=== PATIENT | female | born 1980 | race Caucasian/White ===

== ENCOUNTER 2023-02-28 19:19 | Emergency (ER) | payer SELFPAY ==
[2023-02-28 19:21] VITALS: BP 160/90; PULSE 106; RESP 18; TEMP 36.9; O2SAT 96; BMI 39.5
--- NOTE | 2023-02-28 20:13 | US_ITS ---
The [address] [address] Patient Name: JULIO CESAR NUNEZ MRN: [id number] date: 1980 Sex: F Assigned Patient Location: ER Current Patient Location: ER Accession/Order Number: [id number] Exam Date: 02/28/2023 20:14 Report Date: 02/28/2023 21:12 At the request of: JED BURT Procedure: US venous doppler LE RT ULTRASOUND OF THE LOWER EXTREMITY VENOUS RIGHT HISTORY: Extremity edema and pain. COMPARISON: None. TECHNIQUE: Multiple sonographic images are performed of the extremity venous system with both color Doppler and grayscale Doppler. Doppler spectral analysis and color flow were performed of the extremity. FINDINGS: There is no evidence of thrombus within the visualized veins. There is adequate phasic and spontaneous flow. There is adequate compression. There is adequate augmentation. No evidence of DVT within the visualized veins of the visualized extremity. No popliteal fluid collection. IMPRESSION: No evidence of DVT within visualized veins. Electronically authenticated by: HARDEEP VANESSA Date: 02/28/2023 21:12
[2023-02-28 20:33] LABS: Hematocrit 32.7 % (36.0-48.0); Hemoglobin 9.9 g/dL (12.0-16.0); Mean Corpuscular HGB Conc 30.3 g/dL (29.9-35.2); Mean Corpuscular Hemoglobin 22.5 pg (26.7-34.0); Red Cell Distribution Width 17.8 % (11.0-15.0); White Blood Count 6.3 10^3/uL (4.0-11.0)
[2023-02-28 20:34] LABS: Basophils Percent Auto 0.6 % (0.2-2.0); Eosinophils Percent Auto 2.1 % (0.9-7.0); Lymphocytes Absolute Auto 1.9 10^3/uL (1.2-3.8); Lymphocytes Percent Auto 30.3 % (20.5-60.0); Mean Platelet Volume 8.8 fL (9.5-13.5); Monocytes Percent Auto 7.4 % (1.7-12.0); Neutrophils Absolute Auto 3.7 10^3/uL (1.4-6.5); Platelet Count 378 10^3/uL (150-450)
[2023-02-28 20:35] LABS: Eosinophils Absolute Auto 0.1 10^3/uL (0.0-0.7); Monocytes Absolute Auto 0.5 10^3/uL (0.3-0.8)
[2023-02-28 20:43] LABS: Alanine Aminotransferase 18 U/L (14-59); Albumin Globulin Ratio 0.8; Albumin Level 3.5 g/dL (3.4-5.0); Alkaline Phosphatase 91 U/L (46-116); Anion Gap 11.9; Aspartate Amino Transferase 12 U/L (15-37); BUN Creatinine Ratio 30.3; Bilirubin Total 0.3 mg/dL (0.2-1.0); Calcium 8.8 mg/dL (8.5-10.1); Chloride 102 mmol/L (98-107); Estimated GFR (African America >60 (>=60); Estimated GFR (Non-African Ame >60 (>=60); Globulin 4.5 g/dL; Glucose 114 mg/dL (74-106); Potassium 3.9 mmol/L (3.5-5.1); Sodium 137 mmol/L (136-145)
[2023-02-28 20:57] LABS: Partial Thromboplastin Time 26.9 sec (22.3-36.2); Prothrombin Time 9.8 sec (9.0-11.6)
[2023-02-28 21:13] LABS: INR 0.93
--- NOTE | 2023-02-28 21:58 | ED.EXTPRO1 ---
HPI - Extremity Problem General Chief complaint: Extremity Problem, Nontraumatic Stated complaint: knee pain Time Seen by Provider: 02/28/23 20:13 Source: patient Mode of arrival: ambulance Limitations: no limitations History of Present Illness HPI Narrative: developed tingling all over and then felt a pop in the soft tissue medial to the right knee at the distal left thigh. Then she noticed it swelled rapidly with bruising underneath. no injury and she does not take blood thinners. She is worried about a blood clot. No history of liver disease or bleeding abnormality. She said she needs referral info for a new PCP - she no longer sees Dr Regalado Related Data Home Medications Medication Instructions Recorded Confirmed losartan 100 mg tablet 100 mg PO DAILY 02/28/23 02/28/23 potassium chloride 20 mEq 20 meq PO DAILY 02/28/23 02/28/23 tablet,extended release(part/cryst) Allergies Allergy/AdvReac Type Severity Reaction Status Date / Time Penicillins Allergy Mild Rash Verified 02/28/23 19:27 PFSH PFS Social History Smoking status: Current every day smoker Exam Narrative Exam Narrative: Nurses notes and vital signs reviewed and patient is not hypoxic. afebrile General: Well-appearing and in no apparent distress. Skin: Warm, dry, no pallor noted. No rash. Head: Normocephalic, atraumatic. Eye: Pupils are equal, round and EOMI. No scleral icterus. Cardiovascular: Regular Rate and Rhythm without murmur, gallop or rub. Respiratory: No accessory muscle use or respiratory distress. Lungs are clear to auscultation, no wheezing, rales or rhonchi Musculoskeletal: soft tissue swelling consistent with large hematoma of the medial aspect of the distal rightt thigh just proximal to the right knee. No pain with rightt knee rom or palpation and no patellar tenderness. remainder of the right LE with normal ROM, no calf or popliteal tenderness, no lower leg or calf edema/swelling GI: Abdomen is soft, non-distended. Normal bowel sounds. No masses appreciated. No tenderness to palpation. No rebound, guarding, or rigidity noted. Neurological: A&O x4. No cranial nerve dysfunction observed. No truncal ataxia. Moves all extremities. Sensation intact. Psychiatric: Cooperative and interactive. Normal mood and affect. Constitutional Vital Signs - 24 hr 02/28/23 19:21 Temperature 98.4 F Pulse Rate [Monitor] 106 H Respiratory Rate 18 Blood Pressure [Right Arm] 160/90 H Pulse Oximetry 96 Oxygen Delivery Method Room Air Course Vital Signs Vital signs: Vital Signs Temperature 98.4 F 02/28/23 19:21 Pulse Rate 106 H 02/28/23 19:21 Respiratory Rate 18 02/28/23 19:21 Blood Pressure 160/90 H 02/28/23 19:21 Pulse Oximetry 96 02/28/23 19:21 Oxygen Delivery Method Room Air 02/28/23 19:21 Temperature 98.4 F 02/28/23 19:21 Pulse Rate 106 H 02/28/23 19:21 Respiratory Rate 18 02/28/23 19:21 Blood Pressure 160/90 H 02/28/23 19:21 Pulse Oximetry 96 02/28/23 19:21 Oxygen Delivery Method Room Air 02/28/23 19:21 MDM - Extremity (Nontraumatic) MDM Narrative Medical decision making narrative: patient developed right distal thigh hematoma without any injury. Labs were unremarkable. No DVT on right LE US. I can not explain what caused this but the ED nurse applied an cristi wrap to the patient's right knee and I encouraged the patient to wear that, keep the leg elevated when inactive and informed her that it should decrease and reabsorb on its own. She has no PCP so we gave her referral info for a new one but I told her to come back to the ED if she develops any worrisome or worsening symptoms. Lab Data Labs: Lab Results 02/28/23 Range/Units 20:21 WBC 6.3 (4.0-11.0) 10^3/uL RBC 4.40 (4.20-5.40) 10^6/uL Hgb 9.9 L (12.0-16.0) g/dL Hct 32.7 L (36.0-48.0) % MCV 74.30 L (81.0-99.0) fL MCH 22.5 L (26.7-34.0) pg MCHC 30.3 (29.9-35.2) g/dL RDW 17.8 H (11.0-15.0) % Plt Count 378 (150-450) 10^3/uL MPV 8.8 L (9.5-13.5) fL Neut % (Auto) 59.0 (43.0-75.0) % Lymph % (Auto) 30.3 (20.5-60.0) % [place] % (Auto) 7.4 (1.7-12.0) % Eos % (Auto) 2.1 (0.9-7.0) % Baso % (Auto) 0.6 (0.2-2.0) % Neut # (Auto) 3.7 (1.4-6.5) 10^3/uL Lymph # (Auto) 1.9 (1.2-3.8) 10^3/uL [place] # (Auto) 0.5 (0.3-0.8) 10^3/uL Eos # (Auto) 0.1 (0.0-0.7) 10^3/uL Baso # (Auto) 0.0 (0.0-0.1) 10^3/uL Abs Immat Gran (auto) 0.00 (0.00-0.03) 10^3/uL Imm/Tot Granulo (auto) 0.0 (0.0-0.5) % PT 9.8 (9.0-11.6) sec INR 0.93 APTT 26.9 (22.3-36.2) sec Sodium 137 (136-145) mmol/L Potassium 3.9 (3.5-5.1) mmol/L Chloride 102 (98-107) mmol/L Carbon Dioxide 27.0 (21.0-32.0) mmol/L Anion Gap 11.9 BUN 20.0 H (7.0-18.0) mg/dL Creatinine 0.66 (0.55-1.02) mg/dL Est GFR ( Amer) >60 (>=60) Est GFR (Non-Af Amer) >60 (>=60) BUN/Creatinine Ratio 30.3 Glucose 114 H (74-106) mg/dL Calcium 8.8 (8.5-10.1) mg/dL Total Bilirubin 0.3 (0.2-1.0) mg/dL AST 12 L (15-37) U/L ALT 18 (14-59) U/L Alkaline Phosphatase 91 (46-116) U/L Total Protein 8.0 (6.4-8.2) g/dL Albumin 3.5 (3.4-5.0) g/dL Globulin 4.5 g/dL Albumin/Globulin Ratio 0.8 Imaging Data left LE US: Radiologist's impression: Patient Name: EZEQUIEL DIEGO MRN: [id number] date: 03/17/1989 Sex: F Assigned Patient Location: ER Current Patient Location: ER Accession/Order Number: [id number] Exam Date: 02/28/2023 19:30 Report Date: 02/28/2023 21:03 At the request of: KELSEA GRIMM Procedure: US venous doppler LE LT ULTRASOUND OF THE LOWER EXTREMITY VENOUS BILATERAL HISTORY: Edema and pain. COMPARISON: None. TECHNIQUE: Multiple sonographic images are performed using grayscale, color Doppler and spectral Doppler of the extremity to evaluate vein patency. FINDINGS: There is no evidence of thrombus within the visualized veins. There is adequate phasic and spontaneous flow. There is adequate compression. There is adequate augmentation. No evidence of DVT within the visualized veins of the extremity. No popliteal fluid collection. Soft tissue edema is seen overlying the anterior lower extremity. IMPRESSION: No evidence of DVT in the visualized veins. Electronically authenticated by: HARDEEP VANESSA Date: 02/28/2023 21:03 Discharge Plan Discharge Chief Complaint: Extremity Problem, Nontraumatic Clinical Impression: Hematoma Patient Disposition: Home, Self-Care Time of Disposition Decision: 21:58 Prescriptions / Home Meds: No Action losartan 100 mg tablet 100 mg PO DAILY potassium chloride 20 mEq tablet,ER particles/crystals 20 meq PO DAILY Instructions: Hematoma (ED) Stand Alone Forms: Portal Instructions Referrals: BLANCA NUNEZ MD [Physician] - 1 week (needs new provider referral information)
[2023-02-28 22:07] VITALS: PULSE 97; O2SAT 98
== END 2023-02-28 22:07 | disposition home or self-care (01) ==
PROVIDERS: Emergency Provider Emergency Medicine; PCP Family Medicine
DX: S70.11XA Contusion of right thigh, initial encounter (principal); F17.210 Nicotine dependence, cigarettes, uncomplicated; Z79.899 Other long term (current) drug therapy
CPT/HCPCS: 36415; 80053; 85025; 85610; 85730; 93971; 99284

== ENCOUNTER 2023-10-24 03:31 | Emergency (ER) | payer SELFPAY ==
[2023-10-24 03:37] VITALS: BP 191/110; PULSE 110; RESP 16; TEMP 36.7; O2SAT 97; BMI 45.6
--- NOTE | 2023-10-24 04:08 | XR_ITS ---
The [address] [address] Patient Name: JULIO CESAR NUNEZ MRN: [id number] date: 1980 Sex: F Assigned Patient Location: ER Current Patient Location: ED[facility] Accession/Order Number: [id number] Exam Date: 10/24/2023 04:15 Report Date: 10/24/2023 05:18 At the request of: KAMLESH MARKER Procedure: XR hand RT min 3V EXAM: XR hand RT min 3V HISTORY: Fall, pain in right thumb. COMPARISON: None. TECHNIQUE: 3 views of the right hand. FINDINGS: There is no evidence of fracture. Severe arthritic disease is present at the first carpometacarpal joint. Interphalangeal joints are maintained. XR/XR hand RT min 3V IMPRESSION: Severe osteoarthritis of the lateral carpus without acute bony abnormality. Electronically authenticated by: MANNY HEAD Date: 10/24/2023 05:18
--- NOTE | 2023-10-24 04:08 | XR_ITS ---
The [address] [address] Patient Name: JULIO CESAR NUNEZ MRN: [id number] date: 1980 Sex: F Assigned Patient Location: ER Current Patient Location: ER Accession/Order Number: [id number] Exam Date: 10/24/2023 04:15 Report Date: 10/24/2023 05:22 At the request of: KAMLESH MARKER Procedure: XR knee RT 3V EXAM: XR knee RT 3V HISTORY: Fall, right knee pain. COMPARISON: None. TECHNIQUE: 3 views of the right knee. FINDINGS: There is no fracture or joint effusion. Advanced end-stage tricompartmental osteoarthritis with joint space narrowing and bulky marginal osteophyte formation. No evidence of lipohemarthrosis. XR/XR knee RT 3V IMPRESSION: End-stage tricompartmental osteoarthritis is advanced for age. There is no discernible fracture. Electronically authenticated by: MANNY HEAD Date: 10/24/2023 05:22
--- NOTE | 2023-10-24 04:08 | ED.FALL1 ---
HPI - Fall General Chief Complaint: Extremity Injury, Lower Stated Complaint: FALL/RT WRIST RT KNEE PAIN Time Seen by Provider: 10/24/23 03:35 Source: patient Mode of arrival: walk-in Limitations: no limitations History of Present Illness HPI Narrative: This 43-year-old female who is right-hand dominant presents forr evaluation of pain in her right thenar eminence and right knee. The patient states she fell down some stairs last Saturday night, approximately 7 days ago. She landed on an outstretched right hand and right knee. She states she injured her knee badly in the past and is now having pain with ambulation in the right medial knee area. She denies striking her head. She has no neck or back pain. 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 There is no numbness or tingling. There is no broken skin. She had to leave work to come to the emergency department because of the pain. Related Data Home Medications Medication Instructions Recorded Confirmed losartan 100 mg tablet 100 mg PO DAILY 02/28/23 02/28/23 potassium chloride 20 mEq 20 meq PO DAILY 02/28/23 02/28/23 tablet,extended release(part/cryst) Allergies Allergy/AdvReac Type Severity Reaction Status Date / Time Penicillins Allergy Mild Rash Verified 10/24/23 03:43 Review of Systems ROS Status of ROS 10 or more systems reviewed and unremarkable except as noted in history and below [facility] Social History Smoking status: Current every day smoker Exam Narrative Exam Narrative: Nurses note and vital signs reviewed; She is afebrile, tachycardic with a pulse of 110, blood pressure is elevated at 190/110, she is not hypoxic with pulse ox 97 percent on room air General: Obese female, she is ambulatory with an antalgic gait to thee right to the right knee pain, no respiratory distress Skin: Warm, dry, no pallor noted. There is no rash noted. Head: Normocephalic, atraumatic Eye: Normal conjunctiva, no drainage, EOMI. PERRL Neck: No midline bony vertebral tenderness or step-off Cardiovascular: Regular Rate and RhythmStarted with pulse of 110 at triage, pulses are brisk and equal bilaterally Respiratory: Patient is in no distress, no accessory muscle use, lungs are clear to auscultation, no wheezing, rales or rhonchi Back: non-tender GI: Normal bowel sounds, no tenderness to palpation, no masses appreciated. No rebound, guarding, or rigidity noted. Musculoskeletal: Tenderness with mild swelling to the right thenar eminence, patient is able to approximate thumb and all fingers but this causes her some degree of discomfort, there is tenderness the medial aspect of the right knee. Joint is stable. There is no abrasion or ecchymosis to the area. There is no calf swelling or tenderness Neurological: A&O x4, normal speech Psychiatric: Cooperative Constitutional Vital Signs, click to edit/add: Last Vital Signs Temp 98.1 F 10/24/23 03:37 Pulse 110 H 10/24/23 03:37 Resp 16 10/24/23 03:37 BP 191/110 H 10/24/23 03:37 Pulse Ox 97 10/24/23 03:37 O2 Del Method Room Air 10/24/23 03:37 Course Vital Signs Vital signs: Vital Signs Temperature 98.1 F 10/24/23 03:37 Pulse Rate 110 H 10/24/23 03:37 Respiratory Rate 16 10/24/23 03:37 Blood Pressure 191/110 H 10/24/23 03:37 Pulse Oximetry 97 10/24/23 03:37 Oxygen Delivery Method Room Air 10/24/23 03:37 Temperature 98.1 F 10/24/23 03:37 Pulse Rate 110 H 10/24/23 03:37 Respiratory Rate 16 10/24/23 03:37 Blood Pressure 191/110 H 10/24/23 03:37 Pulse Oximetry 97 10/24/23 03:37 Oxygen Delivery Method Room Air 10/24/23 03:37 MDM - Fall MDM Narrative Medical decision making narrative: This 43-year-old female who is morbidly obese with history off hypertension who has been noncompliant with her blood pressure medication since last April presents after she had a fall from standing on Saturday night and landed on her right hand and right knee. She has tenderness over her proximal thumb. She has full range of motion but there is some swelling in this area. She also has some tenderness at the medial aspect of the right knee. She denies striking her head. She has no neck or back pain. She was notably tachycardic and hypertensive at triage. Her neuro exam is otherwise normal. She has no chest pain or shortness of breath. She is medicated emergency department with Tylenol and Motrin for her hand and knee injuries. X-rays of the right hand show no fracture but osteoarthritis and x-rays of the right knee show no fracture but also tricompartmental osteoarthritis. She was placed in an Ney wrap over the right knee and to the right thumb as we did not have a thumb spica splint available. She is medicated emergency department with losartan. She agrees to receiving a perception for losartan to start taking this medication again. She was encouraged to be compliant with her blood pressure medication as her blood pressure is markedly elevated and dangerous. She states she has been admitted before for her blood pressure but is noncompliant and will try to take her medications as prescribed in the future. She will be discharged home with this prescription for losartan as well as a prescription for [place] and ibuprofen. She will be referred to outpatient orthopedics. Medical Records Medical records narrative: [place] [address] XRay Report Draft Patient: JULIO CESAR NUNEZ MR#: [id number] : 1980 Acct:[id number] Age/Sex: 43 / F ADM Date: 10/24/23 Loc: ER Attending Dr: Ordering Physician: Pauline Oneill Date of Service: 10/24/23 Procedure(s): XR hand RT min 3V Accession Number(s): [id number] cc: ~ The [place] [address] Patient Name: JULIO CESAR NUNEZ MRN: [id number] date: 1980 Sex: F Assigned Patient Location: ER Current Patient Location: ER Accession/Order Number: [id number] Exam Date: 10/24/2023 04:15 Report Date: 10/24/2023 04:35 At the request of: PAULINE ONEILL Procedure: XR hand RT min 3V Initial impression only. XR/XR hand RT min 3V IMPRESSION: Severe osteoarthritis of the lateral carpus without acute bony abnormality. Electronically authenticated by: MANNY HEAD Date: 10/24/2023 04:[address] [address] XRay Report Draft Patient: JULIO CESAR NUNEZ MR#: [id number] : 1980 Acct:[id number] Age/Sex: 43 / F ADM Date: 10/24/23 Loc: ER Attending Dr: Ordering Physician: Pauline Oneill Date of Service: 10/24/23 Procedure(s): XR knee RT 3V Accession Number(s): [id number] cc: ~ [place] [address] Patient Name: JULIO CESAR NUNEZ MRN: [id number] date: 1980 Sex: F Assigned Patient Location: ER Current Patient Location: ER Accession/Order Number: [id number] Exam Date: 10/24/2023 04:15 Report Date: 10/24/2023 04:50 At the request of: PAULINE ONEILL Procedure: XR knee RT 3V EXAM: XR knee RT 3V HISTORY: Fall, right knee pain. COMPARISON: None. TECHNIQUE: 3 views of the right knee. FINDINGS: There is no fracture or joint effusion. Advanced end-stage tricompartmental osteoarthritis with joint space narrowing and bulky marginal osteophyte formation. No evidence of lipohemarthrosis. XR/XR knee RT 3V IMPRESSION: End-stage tricompartmental osteoarthritis is advanced for age. There is no discernible fracture. Discharge Plan Discharge Chief Complaint: Extremity Injury, Lower Clinical Impression: Fall from standing, Osteoarthritis, Contusion of knee, right, Sprain of right thumb, Hypertension Patient Disposition: Home, Self-Care Time of Disposition Decision: 05:16 Condition: Good Prescriptions / Home Meds: No Action losartan 100 mg tablet 100 mg PO DAILY potassium chloride 20 mEq tablet,ER particles/crystals 20 meq PO DAILY Instructions: Sprain (ED), Osteoarthritis (ED), Contusion in Adults (ED), Finger Sprain (ED) Stand Alone Forms: Portal Instructions Referrals: Darian Regalado MD [Primary Care Provider] - 1 week Martell Cardozo MD [Physician] - 1 week
[2023-10-24] MEDS: ACETAMINOPHEN 325 MG TABLET 650 MG PO (05:00)
[2023-10-24] MEDS: IBUPROFEN 600 MG TABLET PO (05:01)
[2023-10-24 05:22] VITALS: BP 200/102
[2023-10-24] MEDS: LOSARTAN POTASSIUM 50 MG TABLET 100 MG PO (05:48)
--- NOTE | 2023-10-27 09:46 | PC.NURSE ---
CALLED IN 2 PRESCRIPTIONS TO [facility] IN [place] -- ONE FOR NORCO AND ONE FOR MOTRIN. CALLED PT'S # AND GOT AHOLD OF PT'S NEIGHBOR. PT'S NEIGHBOR SAID HE WOULD TELL PT TO CALL ER.
== END 2023-10-24 06:06 | disposition home or self-care (01) ==
PROVIDERS: Emergency Provider Emergency Medicine; PCP Family Medicine
DX: S80.01XA Contusion of right knee, initial encounter (principal); S63.601A Unspecified sprain of right thumb, initial encounter; W18.39XA Other fall on same level, initial encounter; M18.11 Unilateral primary osteoarthritis of first carpometacarpal joint, right hand; M17.11 Unilateral primary osteoarthritis, right knee; F17.200 Nicotine dependence, unspecified, uncomplicated; E66.01 Morbid (severe) obesity due to excess calories; I10 Essential (primary) hypertension; Z91.148 Patient's other noncompliance with medication regimen for other reason; Z68.42 Body mass index [BMI] 45.0-49.9, adult
CPT/HCPCS: 73130; 73562; 99284

== ENCOUNTER 2024-01-22 14:53 | Emergency (ER) | payer SELFPAY ==
[2024-01-22 15:11] VITALS: BP 169/99; PULSE 98; TEMP 36.6; O2SAT 97; BMI 45.6
--- NOTE | 2024-01-22 15:32 | ED_ITS ---
HPI - Ear Problem General Chief complaint: Ear Stated complaint: EARACHE Time Seen by Provider: 01/22/24 15:15 Source: patient Mode of arrival: walk-in Limitations: no limitations History of Present Illness HPI Narrative: Ends to ED complaining of left ear pain. She said has been feeling full the past couple of days and she has been having some pain there. It also made her a little bit dizzy on occasion. She says she has been digging at it and is not sure if she irritated it. She denies any facial pain no nausea vomiting no cough. Denies sore throat. No fevers. Related Data Home Medications ?Medication ?Instructions ?Recorded ?Confirmed losartan 100 mg tablet 100 mg PO DAILY 02/28/23 02/28/23 potassium chloride 20 mEq 20 meq PO DAILY 02/28/23 02/28/23 tablet,extended release(part/cryst) Previous Rx's ?Medication ?Instructions ?Recorded ciprofloxacin 0.3 %-dexamethasone 4 drp otic (ear) BID 7 days #7.5 mL 01/22/24 0.1 % ear drops,suspension (Ciprodex) Allergies Allergy/AdvReac Type Severity Reaction Status Date / Time Penicillins Allergy Mild Rash Verified 10/24/23 03:43 Review of Systems ROS Status of ROS 10 or more systems reviewed and unremark able except as noted in history and below [facility] Social History Smoking status: Current every day smoker Exam Narrative Exam Narrative: General: alert, no acute distress Cardiovascular: regular rate and rhythm, normal peripheral perfusion. Respiratory: Lungs CTA, respirations non labored. Extremities: no deformity, no trauma. Neurological: oriented x 4, LOC appropriate for age. Right ear clear left ear shows erythema in the canal and mild pain with movement of the pinna Constitutional Vital Signs, click to edit/add: Last Vital Signs Temp 97.9 F 01/22/24 15:11 Pulse 98 H 01/22/24 15:11 Resp 20 01/22/24 15:11 BP 169/99 H 01/22/24 15:11 Pulse Ox 97 01/22/24 15:11 O2 Del Method Room Air 01/22/24 15:11 Course Vital Signs Vital signs: Vital Signs Temperature 97.9 F 01/22/24 15:11 Pulse Rate 98 H 01/22/24 15:11 Respiratory Rate 20 01/22/24 15:11 Blood Pressure 169/99 H 01/22/24 15:11 Pulse Oximetry 97 01/22/24 15:11 Oxygen Delivery Method Room Air 01/22/24 15:11 Temperature 97.9 F 01/22/24 15:11 Pulse Rate 98 H 01/22/24 15:11 Respiratory Rate 20 01/22/24 15:11 Blood Pressure 169/99 H 01/22/24 15:11 Pulse Oximetry 97 01/22/24 15:11 Oxygen Delivery Method Room Air 01/22/24 15:11 Medical Decision Making MDM Narrative Medical decision making narrative: Patient has a mild otitis externa. Will place on antibiotic drops with the steroid mixed in. Follow-up with family doctor. Return to ED if worsening symptoms. Differential Diagnosis Differential Diagnosis: Otitis media, otitis externa, URI Medical Records Medical records reviewed: Yes I reviewed the patient's medical records Discharge Plan Discharge Stand Alone Forms: Portal Instructions Chief Complaint: Ear Clinical Impression: Otitis externa Patient Disposition: Home, Self-Care Time of Disposition Decision: 15:34 Mode of Transportation: Private Vehicle Prescriptions / Home Meds: New ciprofloxacin-dexamethasone [Ciprodex] 0.3-0.1 % drops,suspension 4 drp otic (ear) BID 7 Days Qty: 7.5 0RF No Action losartan 100 mg tablet 100 mg PO DAILY potassium chloride 20 mEq tablet,ER particles/crystals 20 meq PO DAILY Print Language: Georgian Instructions: Swimmer's Ear (ED) Referrals: Darian Regalado MD [Primary Care Provider] - 1 week
[2024-01-22 15:54] VITALS: PULSE 88; O2SAT 97
== END 2024-01-22 15:56 | disposition home or self-care (01) ==
PROVIDERS: Emergency Provider Emergency Medicine; PCP Family Medicine
DX: H60.92 Unspecified otitis externa, left ear (principal); Z79.899 Other long term (current) drug therapy; F17.210 Nicotine dependence, cigarettes, uncomplicated
CPT/HCPCS: 99283

== ENCOUNTER 2024-03-28 09:00 | Emergency (ER) | payer OTHER, SELFPAY ==
[2024-03-28 09:02] VITALS: BP 193/104; PULSE 104; TEMP 36.7; O2SAT 98; BMI 45.6
[2024-03-28 09:08] VITALS: BP 173/85
--- NOTE | 2024-03-28 10:11 | ED.EXTPRO1 ---
HPI - Extremity Problem General Chief complaint: Extremity Problem, Nontraumatic Stated complaint: LOWER EXTREMITY PAIN Time Seen by Provider: 03/28/24 09:28 Source: patient Mode of arrival: walk-in History of Present Illness HPI Narrative: The patient presented to us with a soft tissue swelling in the medial aspect of the left knee. That has been going on at least for a year. Patient is complaining of increasing pain in that area denying any other complaint No chest pain no shortness of breath no nausea no vomiting no trauma She mentioned that over the year she has been having more knee pain because of that mass and the way that she have to walk Related Data Home Medications ?Medication ?Instructions ?Recorded ?Confirmed losartan 100 mg tablet 100 mg PO DAILY 02/28/23 03/28/24 potassium chloride 20 mEq 20 meq PO DAILY 02/28/23 03/28/24 tablet,extended release(part/cryst) Previous Rx's ?Medication ?Instructions ?Recorded meloxicam 15 mg tablet 15 mg PO DAILY PRN pain #10 tabs 03/28/24 Allergies Allergy/AdvReac Type Severity Reaction Status Date / Time Penicillins Allergy Mild Rash Verified 10/24/23 03:43 Review of Systems ROS Status of ROS 10 or more systems reviewed and unremarkable except as noted in history and below [facility] Social History Smoking status: Current every day smoker Exam Narrative Exam Narrative: Nurses notes and vital signs reviewed and patient is not hypoxic. General: Well-appearing and in no apparent distress. Skin: Warm, dry, no pallor noted. No rash. Head: Normocephalic, atraumatic. Neck: Supple, non-tender. Eye: Pupils are equal, round and EOMI. No scleral icterus. Ears, Nose, Mouth, and Throat: TM are clear, no nasal mucosal hypertrophy. Oral mucosa is moist, no posterior oropharynx erythema, uvula is mid-line Cardiovascular: Regular Rate and Rhythm without murmur, gallop or rub. Respiratory: No accessory muscle use or respiratory distress. Lungs are clear to auscultation, no wheezing, rales or rhonchi Chest Wall: no tenderness Back: The patient have no calf tenderness she have soft tissue lipoma-like mass on the medial aspect of the left knee mostly proximally there is no redness or hotness or any signs of infection. There is no fluctuation and the patient have a something similar in the medial aspect of the left knee Musculoskeletal: normal ROM, no calf or popliteal tenderness, no lower extremity edema/swelling GI: Abdomen is soft, non-distended. Normal bowel sounds. No masses appreciated. No tenderness to palpation. No rebound, guarding, or rigidity noted. Neurological: A&O x4. No cranial nerve dysfunction observed. No truncal ataxia. Moves all extremities. Sensation intact. Psychiatric: Cooperative and interactive. Normal mood and affect. Constitutional Vital Signs, click to edit/add: Last Vital Signs Temp 98.0 F 03/28/24 09:02 Pulse 104 H 03/28/24 09:02 Resp 18 03/28/24 09:02 BP 173/85 H 03/28/24 09:08 Pulse Ox 98 03/28/24 09:02 O2 Del Method Room Air 03/28/24 09:02 Course Vital Signs Vital signs: Vital Signs Temperature 98.0 F 03/28/24 09:02 Pulse Rate 104 H 03/28/24 09:02 Respiratory Rate 18 03/28/24 09:02 Blood Pressure 193/104 H 03/28/24 09:02 Pulse Oximetry 98 03/28/24 09:02 Oxygen Delivery Method Room Air 03/28/24 09:02 Temperature 98.0 F 03/28/24 09:02 Pulse Rate 104 H 03/28/24 09:02 Respiratory Rate 18 03/28/24 09:02 Blood Pressure 173/85 H 03/28/24 09:08 Pulse Oximetry 98 03/28/24 09:02 Oxygen Delivery Method Room Air 03/28/24 09:02 MDM - Extremity (Nontraumatic) MDM Narrative Medical decision making narrative: The patient had a CBC chemistry showed no acute pathology and the D-dimer was elevated but with this patient presentation the concern is mostly not DVT But the way that this is a possibly a lipoma that causing some pushing on the knee the patient needs further evaluation by orthopedic Right now the patient will have a Duplex done as outpatient to rule out any DVT although less likely but should be covered today with Lovenox The patient to rest and avoid any exertion for the next few days until she rule out DVT The patient to follow-up with orthopedic as outpatient Nebulizer placed and the patient was started on Mobic for pain management The patient is to follow up with primary care physician in next 2-3 days or to return to the emergency department should any of the signs or symptoms worsen or new symptoms develop. The patient agrees with the following Diagnosis and Treatment plan and the patient will be discharged home. Lab Data Labs: Lab Results 03/28/24 Range/Units 10:07 WBC 6.6 (4.0-11.0) 10^3/uL RBC 4.50 (4.20-5.40) 10^6/uL Hgb 9.1 L (12.0-16.0) g/dL Hct 32.5 L (36.0-48.0) % MCV 72.2 L (81.0-99.0) fL MCH 20.2 L (26.7-34.0) pg MCHC 28.0 L (29.9-35.2) g/dL RDW 19.9 H (11.0-15.0) % Plt Count 350 (150-450) 10^3/uL MPV 8.8 L (9.5-13.5) fL Neut % (Auto) 55.0 (43.0-75.0) % Lymph % (Auto) 30.1 (20.5-60.0) % [place] % (Auto) 11.1 (1.7-12.0) % Eos % (Auto) 2.9 (0.9-7.0) % Baso % (Auto) 0.6 (0.2-2.0) % Neut # (Auto) 3.6 (1.4-6.5) 10^3/uL Lymph # (Auto) 2.0 (1.2-3.8) 10^3/uL [place] # (Auto) 0.7 (0.3-0.8) 10^3/uL Eos # (Auto) 0.2 (0.0-0.7) 10^3/uL Baso # (Auto) 0.0 (0.0-0.1) 10^3/uL Abs Immat Gran (auto) 0.02 (0.00-0.03) 10^3/uL Imm/Tot Granulo (auto) 0.3 (0.0-0.5) % PT 10.3 (9.0-11.6) sec INR 0.97 APTT 28.2 (22.3-36.2) sec D-Dimer 0.90 H* (<=0.59) mg/L FEU Sodium 138 (136-145) mmol/L Potassium 3.8 (3.5-5.1) mmol/L Chloride 102 (98-107) mmol/L Carbon Dioxide 29.5 (21.0-32.0) mmol/L Anion Gap 10.3 BUN 13.0 (7.0-18.0) mg/dL Creatinine 0.73 (0.55-1.02) mg/dL Est GFR ( Amer) >60 (>=60) Est GFR (Non-Af Amer) >60 (>=60) BUN/Creatinine Ratio 17.8 Glucose 96 (74-106) mg/dL Calcium 8.8 (8.5-10.1) mg/dL Total Bilirubin 0.4 (0.2-1.0) mg/dL AST 15 (15-37) U/L ALT 25 (14-59) U/L Alkaline Phosphatase 107 (46-116) U/L Total Protein 7.6 (6.4-8.2) g/dL Albumin 3.2 L (3.4-5.0) g/dL Globulin 4.4 g/dL Albumin/Globulin Ratio 0.7 Discharge Plan Discharge Stand Alone Forms: Portal Instructions Chief Complaint: Extremity Problem, Nontraumatic Clinical Impression: Acute knee pain Qualifiers: Laterality: right Qualified Code(s): M25.561 - Pain in right knee Knee mass Qualifiers: Laterality: right Qualified Code(s): R22.41 - Localized swelling, mass and lump, right lower limb Patient Disposition: Home, Self-Care Time of Disposition Decision: 11:04 Condition: Good Prescriptions / Home Meds: New meloxicam 15 mg tablet 15 mg PO DAILY PRN (Reason: pain ) Qty: 10 0RF No Action losartan 100 mg tablet 100 mg PO DAILY potassium chloride 20 mEq tablet,ER particles/crystals 20 meq PO DAILY Print Language: Portuguese Instructions: Arthralgia (ED), Swollen Joint (ED) Referrals: Darian Regalado MD [Primary Care Provider] - 1 week Martell Cardozo MD [Physician] - As soon as possible
[2024-03-28 10:13] LABS: Basophils Percent Auto 0.6 % (0.2-2.0); Eosinophils Absolute Auto 0.2 10^3/uL (0.0-0.7); Eosinophils Percent Auto 2.9 % (0.9-7.0); Hematocrit 32.5 % (36.0-48.0); Hemoglobin 9.1 g/dL (12.0-16.0); Immature Granulocytes Abs Auto 0.02 10^3/uL (0.00-0.03); Immature Granulocytes Pct Auto 0.3 % (0.0-0.5); Lymphocytes Percent Auto 30.1 % (20.5-60.0); Mean Corpuscular Hemoglobin 20.2 pg (26.7-34.0); Mean Corpuscular Volume 72.2 fL (81.0-99.0); Mean Platelet Volume 8.8 fL (9.5-13.5); Monocytes Absolute Auto 0.7 10^3/uL (0.3-0.8); Monocytes Percent Auto 11.1 % (1.7-12.0); Neutrophils Absolute Auto 3.6 10^3/uL (1.4-6.5); Platelet Count 350 10^3/uL (150-450); Red Cell Distribution Width 19.9 % (11.0-15.0); White Blood Count 6.6 10^3/uL (4.0-11.0)
[2024-03-28 10:30] LABS: Alanine Aminotransferase 25 U/L (14-59); Albumin Globulin Ratio 0.7; Albumin Level 3.2 g/dL (3.4-5.0); Alkaline Phosphatase 107 U/L (46-116); Anion Gap 10.3; Aspartate Amino Transferase 15 U/L (15-37); BUN Creatinine Ratio 17.8; Bilirubin Total 0.4 mg/dL (0.2-1.0); Calcium 8.8 mg/dL (8.5-10.1); Carbon Dioxide 29.5 mmol/L (21.0-32.0); Chloride 102 mmol/L (98-107); Estimated GFR (African America >60 (>=60); Estimated GFR (Non-African Ame >60 (>=60); Globulin 4.4 g/dL; Glucose 96 mg/dL (74-106); Potassium 3.8 mmol/L (3.5-5.1); Sodium 138 mmol/L (136-145); Total Protein 7.6 g/dL (6.4-8.2)
[2024-03-28 10:36] LABS: INR 0.97; Partial Thromboplastin Time 28.2 sec (22.3-36.2); Prothrombin Time 10.3 sec (9.0-11.6)
[2024-03-28] MEDS: ENOXAPARIN SODIUM 80 MG/0.8 ML SYRINGE SUBQ (11:13)
[2024-03-28] MEDS: ENOXAPARIN SODIUM 60 MG/0.6 ML SYRINGE SUBQ (11:13)
== END 2024-03-28 11:28 | disposition home or self-care (01) ==
PROVIDERS: Emergency Provider Emergency Medicine; PCP Family Medicine
DX: M25.561 Pain in right knee (principal); R22.41 Localized swelling, mass and lump, right lower limb; F17.200 Nicotine dependence, unspecified, uncomplicated; R79.89 Other specified abnormal findings of blood chemistry
CPT/HCPCS: 36415; 80053; 85025; 85378; 85610; 85730; 96372; 99284; J1650

== ENCOUNTER 2024-03-30 13:28 | Emergency (ER) | payer OTHER, SELFPAY ==
[2024-03-30 13:35] VITALS: BP 194/102; PULSE 98; TEMP 36.9; O2SAT 96; BMI 45.6
--- NOTE | 2024-03-30 13:45 | CT_ITS ---
The [address] [address] Patient Name: JULIO CESAR NUNEZ MRN: [id number] date: 1980 Sex: F Assigned Patient Location: ER Current Patient Location: ER Accession/Order Number: [id number] Exam Date: 03/30/2024 15:34 Report Date: 03/30/2024 15:53 At the request of: FLOYD MACARIO Procedure: CT head/brain wo con EXAM: CT head/brain wo con HISTORY: Headache COMPARISON: None. TECHNIQUE: Axial CT scans through the head were obtained without IV contrast administration. Dose reduction techniques were achieved by using: automated exposure control and/or adjustment of mA and /or kV according to patient size and/or use of iterative reconstruction technique. FINDINGS: There is no acute intracranial hemorrhage or abnormal extra-axial fluid collection. No mass effect or midline shift is seen. There is no evidence of large acute territorial infarction. There is no hydrocephalus. To the limit of CT, the posterior fossa appears unremarkable. The calvaria and extra cranial soft tissues are unremarkable. The visualized orbits show no abnormality. The visualized paranasal sinuses show no air-fluid level. Mastoid air cells are clear. CT/CT head/brain wo con IMPRESSION: No acute intracranial process. Electronically authenticated by: FALLON LOPEZ Date: 03/30/2024 15:53
--- NOTE | 2024-03-30 13:45 | US_ITS ---
[place] [id number] Patient Name: JULIO CESAR NUNEZ MRN: [id number] date: 1980 Sex: F Assigned Patient Location: ER Current Patient Location: ER Accession/Order Number: [id number] Exam Date: 03/30/2024 14:35 Report Date: 03/30/2024 15:35 At the request of: FLOYD MACARIO Procedure: US venous doppler LE BI EXAM: US venous doppler LE BI HISTORY: Lower extremity pain COMPARISON: None. TECHNIQUE: Grayscale, color and Doppler FINDINGS: Region: Bilateral legs Thrombus: None Flow: Normal Augmentation: Normal Compressibility: Normal Other: Poor visualization bilateral calf veins US/US venous doppler LE BI IMPRESSION: No deep or superficial vein thrombus identified in the legs Electronically authenticated by: TOBI ANGELO Date: 03/30/2024 15:35
--- NOTE | 2024-03-30 13:47 | ED.GENADUL1 ---
HPI HPI - General Adult General Chief complaint: Headache Stated complaint: LOWER EXTREMITY PAIN, HEADACHE Time Seen by Provider: 03/30/24 13:34 Source: patient Mode of arrival: walk-in Limitations: no limitations History of Present Illness HPI narrative: Patient 44-year-old female presents to the emergency department for the evaluation of multiple complaints. Patient was seen in this emergency department 2 days ago for right knee pain that she states has been present for several weeks. She had lab work and x-rays performed and was found to have an elevated D-dimer. Ultrasound was unavailable so the patient was given a shot of Lovenox and instructed to follow-up for an outpatient ultrasound. She brings the order with her today, she did not have this test performed and just checked back into the emergency department. She states she now has pain in the left knee, although she has not had any swelling or redness. She also complains of a global headache that has been present for the last 3 days, she has been using Tylenol without improvement. She denies visual changes, neck pain, peripheral paresthesias, vomiting. She is drinking a big gulp at the bedside. No concern for . She has history of migraines but states they typically do not last this long. Related Data Home Medications ?Medication ?Instructions ?Recorded ?Confirmed losartan 100 mg tablet 100 mg PO DAILY 02/28/23 03/28/24 potassium chloride 20 mEq 20 meq PO DAILY 02/28/23 03/28/24 tablet,extended release(part/cryst) Previous Rx's ?Medication ?Instructions ?Recorded meloxicam 15 mg tablet 15 mg PO DAILY PRN pain #10 tabs 03/28/24 methylprednisolone 4 mg tablets in See Rx Instructions .Route 03/30/24 a dose pack (Medrol (Roger)) .COMPLEX #21 ea Allergies Allergy/AdvReac Type Severity Reaction Status Date / Time Penicillins Allergy Mild Rash Verified 10/24/23 03:43 Opioid HPI Opioid Management Most Recent Opioid Data: Last Pain Scale 8 03/30/24 14:01 Review of Systems ROS Constitutional Denies: fever or chills Ears, nose, mouth, and throat Denies: throat pain or nasal congestion Respiratory Denies: shortness of breath Gastrointestinal Denies: nausea or vomiting Musculoskeletal Denies: back pain Integumentary/Breast Denies: rash Neurological Denies: headache Hematologic/Lymphatic Denies: easy bruising or easy bleeding PFSH PFSH Social History Smoking status: Current every day smoker Exam Narrative Exam Narrative: Gen.: Awake, alert, in no distress Head: Normocephalic, atraumatic ENT: Moist mucous membranes, no nuchal rigidity or meningismus Respiratory: No respiratory distress Extremities: Moves extremities equally, bilateral knees are symmetric, no calf swelling or redness. No bony point tenderness or obvious deformity of the knees. Psych: Normal mood and affect Neuro: No focal neuro deficit Skin: Warm, dry, intact Constitutional Vital Signs, click to edit/add: Last Vital Signs Temp 98.4 F 03/30/24 13:35 Pulse 98 H 03/30/24 13:35 Resp 18 03/30/24 13:35 BP 178/90 H 03/30/24 15:52 Pulse Ox 96 03/30/24 13:35 O2 Del Method Room Air 03/30/24 13:35 Course Vital Signs Vital signs: Vital Signs Temperature 98.4 F 03/30/24 13:35 Pulse Rate 98 H 03/30/24 13:35 Respiratory Rate 18 03/30/24 13:35 Blood Pressure 194/102 H 03/30/24 13:35 Pulse Oximetry 96 03/30/24 13:35 Oxygen Delivery Method Room Air 03/30/24 13:35 Temperature 98.4 F 03/30/24 13:35 Pulse Rate 98 H 03/30/24 13:35 Respiratory Rate 18 03/30/24 13:35 Blood Pressure 178/90 H 03/30/24 15:52 Pulse Oximetry 96 03/30/24 13:35 Oxygen Delivery Method Room Air 03/30/24 13:35 Medical Decision Making [facility] Narrative Medical decision making narrative: Patient sent for CT of the brain which is unremarkable, headache resolved after IV fluids, Reglan, Benadryl, Toradol. She continues to complain of leg pain. Bilateral lower extremity ultrasound is unremarkable and labs are stable. She was prescribed meloxicam on Saturday which she neglected to fill. She is discharged home to fill this prescription and follow-up with her PCP. Return to the ER if symptoms change or worsen SUPERVISED APC VISIT, PHYSICIAN ATTESTATION: Based on the medical record the care appears appropriate. ? Medical Records Medical records reviewed: Yes I reviewed the patient's medical records Lab Data Lab results reviewed: Yes I reviewed the patient's lab results Labs: Lab Results 03/30/24 Range/Units 13:55 WBC 7.1 (4.0-11.0) 10^3/uL RBC 4.81 (4.20-5.40) 10^6/uL Hgb 9.9 L (12.0-16.0) g/dL Hct 35.3 L (36.0-48.0) % MCV 73.4 L (81.0-99.0) fL MCH 20.6 L (26.7-34.0) pg MCHC 28.0 L (29.9-35.2) g/dL RDW 20.1 H (11.0-15.0) % Plt Count 361 (150-450) 10^3/uL MPV 9.4 L (9.5-13.5) fL Neut % (Auto) 65.0 (43.0-75.0) % Lymph % (Auto) 22.1 (20.5-60.0) % [place] % (Auto) 9.0 (1.7-12.0) % Eos % (Auto) 2.9 (0.9-7.0) % Baso % (Auto) 0.6 (0.2-2.0) % Neut # (Auto) 4.6 (1.4-6.5) 10^3/uL Lymph # (Auto) 1.6 (1.2-3.8) 10^3/uL [place] # (Auto) 0.6 (0.3-0.8) 10^3/uL Eos # (Auto) 0.2 (0.0-0.7) 10^3/uL Baso # (Auto) 0.0 (0.0-0.1) 10^3/uL Abs Immat Gran (auto) 0.03 (0.00-0.03) 10^3/uL Imm/Tot Granulo (auto) 0.4 (0.0-0.5) % PT 10.0 (9.0-11.6) sec INR 0.94 Sodium 137 (136-145) mmol/L Potassium 3.8 (3.5-5.1) mmol/L Chloride 102 (98-107) mmol/L Carbon Dioxide 25.9 (21.0-32.0) mmol/L Anion Gap 12.9 BUN 16.0 (7.0-18.0) mg/dL Creatinine 0.69 (0.55-1.02) mg/dL Est GFR ( Amer) >60 (>=60) Est GFR (Non-Af Amer) >60 (>=60) BUN/Creatinine Ratio 23.2 Glucose 130 H (74-106) mg/dL Calcium 8.8 (8.5-10.1) mg/dL Total Bilirubin 0.3 (0.2-1.0) mg/dL AST 16 (15-37) U/L ALT 19 (14-59) U/L Alkaline Phosphatase 114 (46-116) U/L Total Protein 7.7 (6.4-8.2) g/dL Albumin 3.2 L (3.4-5.0) g/dL Globulin 4.5 g/dL Albumin/Globulin Ratio 0.7 Serum HCG, Qual Negative (NEGATIVE) Imaging Data CT scan - head: Attestation: I have reviewed the pertinent imaging results. Radiologist's impression: ITS Impressions Head CT 03/30/24 13:45 IMPRESSION: No acute intracranial process. Electronically authenticated by: FALLON LOPEZ Date: 03/30/2024 15:53 Venous Doppler Study 03/30/24 13:45 IMPRESSION: No deep or superficial vein thrombus identified in the legs Electronically authenticated by: TOBI ANGELO Date: 03/30/2024 15:35 Discharge Plan Discharge Stand Alone Forms: Portal Instructions Chief Complaint: Headache Clinical Impression: Acute bilateral knee pain, Headache Patient Disposition: Home, Self-Care Time of Disposition Decision: 15:58 Condition: Good Prescriptions / Home Meds: New methylprednisolone [Medrol (Roger)] 4 mg tablets,dose pack See Rx Instructions .ROUTE .COMPLEX Qty: 21 0RF Rx Instructions: Taper as directed No Action losartan 100 mg tablet 100 mg PO DAILY potassium chloride 20 mEq tablet,ER particles/crystals 20 meq PO DAILY meloxicam 15 mg tablet 15 mg PO DAILY PRN (Reason: pain ) Qty: 10 0RF Print Language: Hebrew Instructions: Acute Headache (ED), Knee Pain (ED) Referrals: Darian Regalado MD [Primary Care Provider] - 1 week
[2024-03-30] MEDS: 0.9 % SODIUM CHLORIDE 1,000 ML 999 ML IV (13:55)
[2024-03-30] MEDS: DIPHENHYDRAMINE HCL 50 MG/ML VIAL 25 MG IV (13:55)
[2024-03-30] MEDS: KETOROLAC TROMETHAMINE 30 MG/ML VIAL IVP (13:57)
[2024-03-30] MEDS: METOCLOPRAMIDE HCL 10 MG/2 ML VIAL IVP (13:58)
[2024-03-30 14:10] LABS: Basophils Percent Auto 0.6 % (0.2-2.0); Eosinophils Absolute Auto 0.2 10^3/uL (0.0-0.7); Eosinophils Percent Auto 2.9 % (0.9-7.0); Hematocrit 35.3 % (36.0-48.0); Hemoglobin 9.9 g/dL (12.0-16.0); Immature Granulocytes Abs Auto 0.03 10^3/uL (0.00-0.03); Immature Granulocytes Pct Auto 0.4 % (0.0-0.5); Lymphocytes Absolute Auto 1.6 10^3/uL (1.2-3.8); Lymphocytes Percent Auto 22.1 % (20.5-60.0); Mean Corpuscular Hemoglobin 20.6 pg (26.7-34.0); Mean Corpuscular Volume 73.4 fL (81.0-99.0); Mean Platelet Volume 9.4 fL (9.5-13.5); Monocytes Absolute Auto 0.6 10^3/uL (0.3-0.8); Neutrophils Absolute Auto 4.6 10^3/uL (1.4-6.5); Platelet Count 361 10^3/uL (150-450); Red Blood Count 4.81 10^6/uL (4.20-5.40); White Blood Count 7.1 10^3/uL (4.0-11.0)
[2024-03-30 14:36] LABS: HCG Qualitative NEGATIVE (NEGATIVE); Internal Control Within Normal Limits; Red Cell Distribution Width 20.1 % (11.0-15.0)
[2024-03-30 14:42] LABS: INR 0.94
[2024-03-30 14:48] LABS: Alanine Aminotransferase 19 U/L (14-59); Albumin Globulin Ratio 0.7; Albumin Level 3.2 g/dL (3.4-5.0); Alkaline Phosphatase 114 U/L (46-116); Anion Gap 12.9; Aspartate Amino Transferase 16 U/L (15-37); BUN Creatinine Ratio 23.2; Bilirubin Total 0.3 mg/dL (0.2-1.0); Calcium 8.8 mg/dL (8.5-10.1); Carbon Dioxide 25.9 mmol/L (21.0-32.0); Chloride 102 mmol/L (98-107); Estimated GFR (African America >60 (>=60); Estimated GFR (Non-African Ame >60 (>=60); Globulin 4.5 g/dL; Glucose 130 mg/dL (74-106); Potassium 3.8 mmol/L (3.5-5.1); Sodium 137 mmol/L (136-145); Total Protein 7.7 g/dL (6.4-8.2)
[2024-03-30 15:52] VITALS: BP 178/90
== END 2024-03-30 16:07 | disposition home or self-care (01) ==
PROVIDERS: Physician Assistant; Emergency Provider Student in an Organized Health Care Education/Training Program; PCP Family Medicine
DX: M25.562 Pain in left knee (principal); M25.561 Pain in right knee; R51.9 Headache, unspecified; F17.200 Nicotine dependence, unspecified, uncomplicated
CPT/HCPCS: 36415; 70450; 80053; 84703; 85025; 85610; 93970; 96374; 96375; 99285; J1200; J1885; J2765

== ENCOUNTER 2024-04-19 12:22 | Emergency (ER) | payer OTHER, SELFPAY ==
[2024-04-19 12:27] VITALS: BP 142/88; PULSE 78; TEMP 36.8; O2SAT 100; BMI 45.6
--- OUTSIDE RECORDS SUMMARY | 2024-04-19 12:27 | XMS_ITS | CCD ---
Author Organization [facility] Care Team Providers Care Network Support Administrator Name Role Phone Darian Santiago Primary Care Provider DARIAN SANTIAGO Primary Care Unavailabl e JESSE CASILLAS JR Attending Unavailable Darian Santiago MD Primary Care Provider REGINA TAYLOR Attending Unavailable DARIAN SANTIAGO Primary Care Unavailabl e KINSEY, DR MARTINEZ LISTED Primary Care Unavaila loraine BURT, DR ADKINS Admitting Unavailable JAVED, DR ADKINS Attending Unavailable JAVED, DR ADKINS Attending Unavailable ELIDIA AVILES Consulting Unavailable KINSEY, DR MARTINEZ LISTED Primary Care Unavaila loraine BURT, DR ADKINS Admitting Unavailable NO PCP, NO PCP Primary Care Unavailable LAY ESCOTO Attending Unavailable NO PCP, NO PCP Primary Care Unavailable BENJA URIARTE Attending Unavailable Alex Daly Admitting Unavailab Elana Cordova Consulting Unavailable NON STAFF Primary Care Unavailable Alex Daly Attending Unavailab Zulma Dupree Consulting Unavailable Radha Beard Consulting Unavailable Joy Quick Consulting Unavailable Cris Davidson Consulting Unavailable Roya Rodriguez Consulting Unavailable Gunjan Molina Consulting Unavailable Vipin Vergara Consulting Unavailable Osmel Ferraro Consulting UnavailHarley Gaspar Consulting Unavailable Oswaldo Penny Consulting Unavailable Tru Hernandez Consulting Unavailable Frances Walsh Consulting UnavailArchana Kinsey Consulting Unavailable Jason Hernandez Consulting Unavailable Kody Hamm Consulting Unavailable Isreal Huynh Consulting Unavailable Dustin Barros Consulting Unavailable Isaiah Lee Consulting Unavailable Gabino Miller Consulting Unavailable Unique Pham Consulting Unavailable Bladimir Bryant Consulting Unavailable Nav Champagne Consulting Unavailab le Gulshan, Gregor Consulting Unavailable Joyner, Ganesh Consulting Unavailable Almoselli, Khaled Consulting Unavailable Huma, Abran Consulting Unavailable Sasha Curry Consulting Unavailable Koko Jiménez Consulting Unavailable Obika, Taylor Consulting Unavailable Faisal Felix Consulting Unavailable Daromar, Obaydah M Consulting Unavailable Mary Singh Consulting Unavailable MohGia dick Consulting Unavailable Alahmad, Alaa Consulting Unavailable Tanvir Godinez Consulting Unavailable Diego Ford Consulting Unavailable Kofi, Yazid Consulting Unavailable Joyner, Dakota P Consulting Unavailable Shellie Taylor Consulting Unava ilable Borisov, Petrona Consulting Unavailable Uche, Mohamad Consulting Unavailable Harley Perez Consulting Unavailable Lianne Herndon Consulting Unavailable NON STAFF Primary Care Provider Unavailabl e MD Alex Daly Admit Provider MD Alex Daly Attending Provider [phone] DOMINIQUE Hamm Other Provider Unavailable DOMINIQUE Medina Other Provider Unavailable DOMINIQUE Beard Other Provider Unavailable DOMINIQUE Quick Other Provider Unavailable DOMINIQUE Davidson Other Provider Unavailable MD Roya Rodriguez Other Provider DO Gunjan Molina Other Provider MD Vipin Vergara Other Provider DO Osmel Ferraro Other Provider [phone] MD Harley Kolb Other Provider MD Penny Chacon Other Provider MD Tru Hernandez Other Provider Unavailable LAINEY Walsh Other Provider MD Archana Garcia Other Provider MD Jason Hernandez Other Provider MD Kody Hamm Other Provider MD Isreal Huynh Other Provider DO Dustin Barros Other Provider [phone] MD Isaiah Lee Other Provider MD Gabino Miller Other Provider JH Pham Other Provider LAINEY Bryant Other Provider Unavailable MD Nav Champagne Other Provider MD Gregor Gaffney Other Provider MD Ganesh Joyner Other Provider MD Rubin Mendez Other Provider Unavailable MD Abran Finn Other Provider DO Sasha Curry Other Provider DO Koko Jiménez Other Provider LAINEY Aguila Other Provider DO Faisal Felix Other Provider [phone] MD Wolf Lanza Other Provider LAINEY Singh Other Provider LAINEY Rutherford Other Provider [phone] MD Sagrario Fox Other Provider MD Tanvir Godinez Other Provider [phone] DO Diego Ford Other Provider DO Jai Kirby Other Provider MD Dakota Joyner P Other Provider MD Shellie Taylor Other Provider LAINEY Yancey Other Provider MD Nehemiah Ivey Other Provider MD Harley Perez Other Provider DOMINIQUE Herndon Other Provider Unavailable Allergies Allergy Classification Reported Allergen(s) Allergy Type Date of Onset Reaction(s) Facility Penicillins (antibiotic) (3 sources) Penicillins Drug Allergy 3 Difficulty Breathing [facility] (2 sources) Penicillins; Translations: [PENICILLINS] Propensity to adverse reactions to drug 3 [facility]- [place], [place] (2 sources) Amoxicillin; Translations: [AMOXICILLIN] Drug Allergy 5 [facility] Repository (1 source) Penicillins Drug allergy (disorder) 3 [facility] Repository (1 source) Amoxicillin Drug Allergy 4 [facility] Repository (1 source) Penicillins Drug allergy (disorder) 4 [facility] Repository Medications Current Medications Medication Drug Class(es) Dates Sig (Normalized) Sig (Original) ALPRAZolam 0.5 mg oral tablet (1 source) Benzodiazepine take 2 tablets by mouth once daily as needed ALPRAZolam (XANAX) 0.5 MG tablet Take 1 mg by mouth nightly as needed. 0 Active amLODIPine 10 mg oral tablet (1 source) Dihydropyridine Calcium Channel Crystal Start: 04-19-2024 take 10 mg by mouth once daily Amlodipine Active 10 MG PO Daily April 19, 2024 12:00am cholecalciferol 0.125 mg oral capsule (1 source) Vitamin D Start: 04-19-2024 take 125 ug by mouth once daily Cholecalciferol (Vitamin D3) Active 125 MCG PO Daily April 19, 2024 12:00am cloNIDine hydrochloride 0.1 mg oral tablet (1 source) Central alpha-2 Adrenergic Agonist Start: 04-19-2024 take 0.1 mg by mouth at bedtime Clonidine Hcl Active 0.1 MG PO Bedtime April 19, 2024 12:00am dicyclomine hydrochloride 10 mg oral capsule (2 sources) Anticholinergic Start: 04-19-2024 take 10 mg by mouth three times daily Dicyclomine Active 10 MG PO Three times daily April 19, 2024 12:00am End: 02-27-2020 take 1 tablet by mouth every six hours dicyclomine (BENTYL) 20 MG tablet Take 20 mg by mouth every 6 hours. 0 02/27/2020 Discontinued (Therapy completed) diphenhydrAMINE hydrochloride 25 mg oral capsule (2 sources) Histamine-1 Receptor Antagonist Start: 02-27-2020 End: 03-08-2020 take 1 capsule by mouth every four hours as needed diphenhydrAMINE (BENADRYL) 25 MG capsule Take 1 capsule by mouth every 4 hours as needed for Itching 1 capsule 0 02/27/2020 03/08/2020 Active Start: 02-27-2020 End: 02-27-2020 diphenhydrAMINE (BENADRYL) i njection 25 mg escitalopram 5 mg oral tablet (1 source) Serotonin Reuptake Inhibitor Start: 04-19-2024 take 5 mg by mouth once daily Escitalopram Oxalate Active 5 MG PO Daily 15 April 19, 2024 12:00am hydroCHLOROthiazide 12.5 mg / losartan potassium 50 mg oral tablet (1 source) Thiazide Diuretic, Angiotensin 2 Receptor Crystal Start: 04-19-2024 take 1 tablet by mouth once daily in the morning Losartan-Hydrochl orothiazide Active 1 TAB PO Every morning April 19, 2024 12:00am ondansetron 4 mg disintegrating oral tablet (1 source) Serotonin-3 Receptor Antagonist Start: 04-19-2024 take 4 mg by mouth every six hours Ondansetron Active 4 MG PO Every 6 hours April 19, 2024 12:00am pantoprazole 40 mg delayed release oral tablet (1 source) Proton Pump Inhibitor Start: 04-19-2024 take 40 mg by mouth twice daily Pantoprazole Active 40 MG PO Twice daily 60 April 19, 2024 12:00am predniSONE 20 mg oral tablet (1 source) Start: 02-27-2020 End: 03-01-2020 take 2 tablets by mouth once daily predniSONE (DELTASONE) 20 MG tablet Take 2 tablets by mouth daily for 3 doses 6 tablet 0 02/27/2020 03/01/2020 Active Completed/Discontinued Medications Medication Drug Class(es) Dates Sig (Normalized) Sig (Original) 0.8 ml enoxaparin sodium 150 mg/ml prefilled syringe (1 source) Low Molecular Weight Heparin Start: 1 End: 1 enoxaparin (LOVENOX) injection 120 mg 2 ml famotidine 10 mg/ml injection (1 source) Histamine-2 Receptor Antagonist Start: 0 End: 0 famotidine (PEPCID) injection 20 mg methylPREDNISolone 125 mg injection (1 source) Corticosteroid Start: 0 End: 0 methylPREDNISolone sodium (SOLU-MEDROL) injection 80 mg PARoxetine hydrochloride 20 mg oral tablet (2 sources) Serotonin Reuptake Inhibitor End: 1 take 1 tablet by mouth once daily in the morning PARoxetine (PAXIL) 20 MG tablet Take 20 mg by mouth every morning 0 02/16/2021 Discontinued (Therapy completed) valACYclovir 500 mg oral tablet (1 source) Herpesvirus Nucleoside Analog DNA Polymerase Inhibitor, Herpes Simplex Virus Nucleoside Analog DNA Polymerase Inhibitor, Herpes Zoster Virus Nucleoside Analog DNA Polymerase Inhibitor End: 0 take 1 tablet by mouth twice daily valACYclovir (VALTREX) 500 MG tablet Take 500 mg by mouth 2 times daily. 0 02/27/2020 Discontinued (Therapy completed) Problems Active Problems Problem Classification Problem Date Documented Da te Episodic/Chronic Abdominal pain (2 sources) Abdominal pain; Translations: [Unspecified abdominal pain] 04-18-2024 Episodic Allergic reactions (2 sources) Allergic reaction; Translations: [Urticaria] Episodic Essential hypertension (3 sources) Essential hypertension; Translations: [Hypertensive disorder] 04-16-2024 Chronic Mood disorders (3 sources) Major depressive disorder, recurrent, moderate; Translations: [Recurrent major depressive episodes, moderate ] Onset: 04-14-2024 04-15-2024 Chronic Nutritional deficiencies (2 sources) Vitamin D deficiency; Translations: [Vitamin D deficiency, unspecified] 04-16-2024 Chronic Other connective tissue disease (1 source) Pain in left lower limb; Translations: [Pain in left leg] Episodic Other nervous system disorders (1 source) Transient paresthesia; Translations: [Paresthesia of skin] Episodic Other non-traumatic joint disorders (1 source) Effusion, right knee; Translations: [Effusion, right knee] Onset: 03-18-2024 Episodic Other non-traumatic joint disorders (2 sources) Knee pain Onset: 03-18-2024 Episodic Other screening for suspected conditions (not mental disorders or infectious disease) (1 source) D-dimer above reference range; Translations: [Other specified abnormal findings of blood chemistry] Episodic Residual codes; unclassified (4 sources) Procedure and treatment not carried out due to patient leaving prior to being seen by health care provider; Translations: [PROC AND TX NOT CARRIED OUT PT LEAVE] Onset: 09-10-2022 Episodic Substance-related disorders (3 sources) Nicotine dependence, cigarettes, uncomplicated; Translations: [Methamphetamine abuse] Onset: 04-04-2022 04-16-2024 Chronic Suicide and intentional self-inflicted injury (1 source) Suicidal ideations; Translations: [Suicidal ideations] Onset: 04-14-2024 Episodic Unclassified (1 source) Suicidal Onset: 04-14-2024 Past or Other Problems Problem Classification Problem Date Documented Da te Episodic/Chronic Other upper respiratory infections (4 sources) Acute pharyngitis, unspecified; Translations: [Streptococcal pharyngitis] Onset: 04-03-2022 Episodic Results Test Name Value Interpretation Reference Range Facility Alanine aminotransferase [En zymatic activity/volume] in Serum or PlasmaOrdered By: Frances Walsh on 04-18-2024 ALT [Catalytic activity/Vol] 14 U/L 7-52 [facility] Albumin [Mass/volume] in Ser um or Plasma by Bromocresol green (BCG) dye binding methoOrdered By: Frances Walsh on 04-18-2024 Albumin BCG dye [Mass/Vol] 3.7 g/dL 3.5-5.7 [facility] Alkaline phosphatase [Enzyma tic activity/volume] in Serum or PlasmaOrdered By: Frances Walsh on 04-18-2024 ALP [Catalytic activity/Vol] 81 U/L 34-104 [facility] Anisocytosis LM Ql (Bld)Orde red By: Frances Walsh on 04-18-2024 Anisocytosis Ql (Bld) Moderate [facility] Aspartate aminotransferase [ Enzymatic activity/volume] in Serum or PlasmaOrdered By: Frances Walsh on 04-18-2024 AST [Catalytic activity/Vol] 14 U/L 13-39 [facility] Bacteria [Presence] in Urine by AutomatedOrdered By: Frances Walsh on 04-18-2024 Bacteria Auto Ql (U) Rare [HPF] None Seen [facility] Basophils Auto (Bld) [#/Vol] Ordered By: Frances Walsh on 04-18-2024 Basophils (Bld) [#/Vol] 0.1 10*3/uL 0.0-0.2 [facility] Basophils/100 WBC Auto (Bld) Ordered By: Frances Walsh on 04-18-2024 Basophils/100 WBC (Bld) 1.0 % . F [facility] Bilirubin Test strip Ql (U)O rdered By: Frances Walsh on 04-18-2024 Bilirubin Ql (U) Negative Negative [facility] Bilirubin.total [Mass/volume ] in Serum or PlasmaOrdered By: Frances Walsh on 04-18-2024 Bilirubin [Mass/Vol] 0.8 mg/dL 0.3-1.0 [facility] Shoup cells [Presence] in Blo od by Light microscopyOrdered By: Frances Smith on 04-18-2024 Shoup cells LM Ql (Bld) Slight [facility] Calcium [Mass/volume] in Ser um or PlasmaOrdered By: Frances Walsh on 04-18-2024 Calcium [Mass/Vol] 9.0 mg/dL 8.6-10.3 [facility] Carbon dioxide, total [Moles /volume] in Serum or PlasmaOrdered By: Frances Walsh on 04-18-2024 CO2 [Moles/Vol] 30.2 mmol/L 21.0-31.0 [facility] Chloride [Moles/volume] in S dadi or PlasmaOrdered By: Frances Walsh on 04-18-2024 Chloride [Moles/Vol] 101 mmol/L 98-107 [facility] Choriogonadotropin.beta subu nit [Units/volume] in Serum or PlasmaOrdered By: Frances Walsh on 04-18-2024 HCG.beta subunit Qn m[IU]/mL [facility] Comment on above: Approximate Approxim ate hCG Gestational Age Range (mIU/ml) (weeks)0.2-1 5-50 1-2 50-500 2-3 100-5,000 3-4 500-10,000 4-5 1,000-50,000 5-6 10,000-100,000 6-8 15,000-200,000 8-12 10,000-100,000 Color Auto (U)Ordered By: Ade Walsh on 04-18-2024 Color (U) Light-yellow Yellow [facility] Creatinine [Mass/volume] in Serum or PlasmaOrdered By: Frances Walsh on 04-18-2024 Creatinine [Mass/Vol] 0.75 mg/dL 0.60-1.20 [facility] Crystals.amorphous [Presence ] in Urine by Computer assisted methodOrdered By: Frances Walsh on 04-18-2024 Crystals.amorphous Computer assisted Ql (U) Rare [HPF] [facility] Eosinophils Auto (Bld) [#/Vo l]Ordered By: Frances Walsh on 04-18-2024 Eosinophils (Bld) [#/Vol] 0.2 10*3/uL 0.0-0.45 [facility] Eosinophils/100 WBC Auto (Bl d)Ordered By: Frances Walsh on 04-18-2024 Eosinophils/100 WBC (Bld) 2.1 % . [facility] Epithelial cells.squamous [# /area] in Urine sediment by Automated countOrdered By: Frances Walsh on 04-18-2024 Epithelial cells.squamous Auto (Urine sed) [#/Area] 5-9 [HPF] High 0-2 [facility] Erythrocyte distribution wid th Auto (RBC) [Ratio]Ordered By: Frances Smith on 04-18-2024 Erythrocyte distribution width (RBC) [Ratio] 20.1 % High 11.9-15.3 [facility] Erythrocytes [#/area] in Uri ne sediment by Automated countOrdered By: Frances Walsh on 04-18-2024 RBC Auto (Urine sed) [#/Area] 1-2 [HPF] 0-4 [facility] Globulin Calc (S) [Mass/Vol] Ordered By: Frances Walsh on 04-18-2024 Globulin (S) [Mass/Vol] 3.0 g/dL F [facility] Glucose [Mass/volume] in Ser um or PlasmaOrdered By: Frances Walsh on 04-18-2024 Glucose [Mass/Vol] 94 mg/dL 70-100 [facility] Comment on above: ADA recommended refe rence rangeRandom Glucose Reference Range is dependent on time and content of last meal. Glucose of more than 200 mg/dL in a nonstressed, ambulatory subject supports the diagnosis of Diabetes Mellitus. Glucose [Mass/volume] in Uri ne by Test stripOrdered By: Frances Walsh on 04-18-2024 Glucose Test strip (U) [Mass/Vol] Normal mg/dL Normal [facility] Hematocrit Auto (Bld) [Volum e fraction]Ordered By: Frances Walsh on 04-18-2024 Hematocrit (Bld) [Volume fraction] 34.7 % 34.0-46.4 [facility] Hemoglobin Test strip Ql (U) Ordered By: Frances Walsh on 04-18-2024 Hemoglobin Ql (U) Negative Negative [facility] Hemoglobin [Mass/volume] in BloodOrdered By: Frances Walsh on 04-18-2024 Hemoglobin (Bld) [Mass/Vol] 10.2 g/dL Low 11.8-15.4 [facility] Hyaline casts [#/area] in Ur ine sediment by Automated countOrdered By: Frances Walsh on 04-18-2024 Hyaline casts Auto (Urine sed) [#/Area] 0-8 [LPF] 0-8 [facility] Hypochromia LM Ql (Bld)Order ed By: Frances Walsh on 04-18-2024 Hypochromia Ql (Bld) Slight [facility] Ketones Test strip Ql (U)Ord ered By: Frances Walsh on 04-18-2024 Ketones Ql (U) Negative Negative [facility] Leukocyte esterase [Presence ] in Urine by Test stripOrdered By: Frances Smith on 04-18-2024 Leukocyte esterase Test strip Ql (U) Negative Negative [facility] Leukocytes [#/area] in Urine sediment by Automated countOrdered By: Frances Walsh on 04-18-2024 WBC Auto (Urine sed) [#/Area] 1-2 [HPF] 0-4 [facility] Leukocytes [#/volume] correc nae for nucleated erythrocytes in Blood by Automated counOrdered By: Frances Walsh on 04-18-2024 WBC corrected for nucl RBC Auto (Bld) [#/Vol] 7.6 10*3/uL 3.8-11.6 [facility] Lipase [Enzymatic activity/v olume] in Serum or PlasmaOrdered By: Frances Walsh on 04-18-2024 Lipase [Catalytic activity/Vol] 21.0 U/L 11.0-82.0 [facility] Lymphocytes Auto (Bld) [#/Vo l]Ordered By: Frances Walsh on 04-18-2024 Lymphocytes (Bld) [#/Vol] 2.2 10*3/uL 1.00-4.8 [facility] Lymphocytes/100 WBC Auto (Bl d)Ordered By: Frances Walsh on 04-18-2024 Lymphocytes/100 WBC (Bld) 29.2 % . [facility] MCH Auto (RBC) [Entitic mass ]Ordered By: Frances Walsh on 04-18-2024 MCH (RBC) [Entitic mass] 20.3 pg Low 24.7-34.3 [facility] MCHC Auto (RBC) [Mass/Vol]Or dered By: Frances Walsh on 04-18-2024 MCHC (RBC) [Mass/Vol] 29.5 g/dL Low 32.0-35.0 [facility] MCV Auto (RBC) [Entitic vol] Ordered By: Frances Walsh on 04-18-2024 MCV (RBC) [Entitic vol] 68.8 fL Low 80-100 F [facility] Magnesium [Mass/volume] in S addi or PlasmaOrdered By: Frances Walsh on 04-18-2024 Magnesium [Mass/Vol] 2.1 mg/dL 1.9-2.7 [facility] Microcytes LM Ql (Bld)Ordere d By: Frances Walsh on 04-18-2024 Microcytes Ql (Bld) Moderate [facility] Monocytes Auto (Bld) [#/Vol] Ordered By: Frances Walsh on 04-18-2024 Monocytes (Bld) [#/Vol] 0.9 10*3/uL High 0.0-0.8 [facility] Monocytes/100 WBC Auto (Bld) Ordered By: Frances Walsh on 04-18-2024 Monocytes/100 WBC (Bld) 11.2 % . F [facility] Mucus [Presence] in Urine by AutomatedOrdered By: Frances Walsh on 04-18-2024 Mucus Auto Ql (U) Rare [LPF] [facility] Neutrophils Auto (Bld) [#/Vo l]Ordered By: Frances Walsh on 04-18-2024 Neutrophils (Bld) [#/Vol] 4.3 10*3/uL 1.8-7.7 [facility] Neutrophils/100 WBC Auto (Bl d)Ordered By: Frances Walsh on 04-18-2024 Neutrophils/100 WBC (Bld) 56.5 % . [facility] Nitrite Test strip Ql (U)Ord ered By: Frances Walsh on 04-18-2024 Nitrite Ql (U) Negative Negative [facility] No Panel InformationOrdered By: Frances Walsh on 04-18-2024 Estimated GFR (CKD-EPI) > 60.0 mL/Min [facility] Creatinine Clearance (Chem 144.97 [facility] Nucleated erythrocytes [Pres ence] in Blood by Automated countOrdered By: Frances Walsh on 04-18-2024 Nucleated RBC Auto Ql (Bld) 0.1 /100{WBC} 0-0.5 [facility] Ovalocyte detectionOrdered B y: Frances Walsh on 04-18-2024 Ovalocytes LM Ql (Bld) Slight [facility] Platelet adequacy [Presence] in Blood by Light microscopyOrdered By: Frances Walsh on 04-18-2024 Platelets LM Ql (Bld) Normal Normal [facility] Platelet mean volume Auto (B ld) [Entitic vol]Ordered By: Frances Walsh on 04-18-2024 Platelet mean volume (Bld) [Entitic vol] 7.5 fL 6.3-10.7 [facility] Platelet morphology finding [Identifier] in BloodOrdered By: Frances Smith on 04-18-2024 Platelet morphology finding Nom (Bld) Normal Normal [facility] Platelets Auto (Bld) [#/Vol] Ordered By: Frances Walsh on 04-18-2024 Platelets (Bld) [#/Vol] 353 10*3/uL 150-450 [facility] Poikilocytosis [Presence] in Blood by Light microscopyOrdered By: Frances Walsh on 04-18-2024 Poikilocytosis LM Ql (Bld) Slight [facility] Polychromasia [Presence] in Blood by Light microscopyOrdered By: Frances Walsh on 04-18-2024 Polychromasia LM Ql (Bld) Slight [facility] Potassium [Moles/volume] in Serum or PlasmaOrdered By: Frances Walsh on 04-18-2024 Potassium [Moles/Vol] 4.0 mmol/L 3.5-5.1 [facility] Protein Test strip (U) [Mass /Vol]Ordered By: Frances Walsh on 04-18-2024 Protein (U) [Mass/Vol] Negative Negative [facility] [place] [facility] Protein [Mass/volume] in Ser um or PlasmaOrdered By: Frances Walsh on 04-18-2024 Protein [Mass/Vol] 6.7 g/dL 6.4-8.9 [facility] RBC Auto (Bld) [#/Vol]Ordere d By: Frances Walsh on 04-18-2024 RBC (Bld) [#/Vol] 5.04 10*6/uL High 3.60-5.00 [facility] RBC morphologyOrdered By: Ade Walsh on 04-18-2024 RBC morphology finding Nom (Bld) N/A [facility] Serum or plasma albumin/glob ulin mass ratioOrdered By: Frances Walsh on 04-18-2024 Albumin/Globulin [Mass ratio] 1.2 {ratio} [facility] Serum or plasma anion gap de terminationOrdered By: Frances Walsh on 04-18-2024 Anion gap [Moles/Vol] 10.8 mmol/L 6.0-15.0 [facility] [place] [facility] Sodium [Moles/volume] in Ser um or PlasmaOrdered By: Frances Walsh on 04-18-2024 Sodium [Moles/Vol] 138 mmol/L 136-145 [facility] Specific gravity Test strip (U) [Rel density]Ordered By: Frances Walsh on 04-18-2024 Specific gravity (U) [Rel density] 1.006 1.001-1.030 [facility] Urea nitrogen [Mass/volume] in Serum or PlasmaOrdered By: Frances Walsh on 04-18-2024 Urea nitrogen [Mass/Vol] 22 mg/dL 7-25 [facility] Urine appearanceOrdered By: Frances Walsh on 04-18-2024 Appearance (U) Cloudy Abnormal Clear [facility] Urobilinogen Test strip (U) [Mass/Vol]Ordered By: Frances Walsh on 04-18-2024 Urobilinogen (U) [Mass/Vol] Normal mg/dL Normal [facility] WBC Auto (Bld) [#/Vol]Ordere d By: Frances Walsh on 04-18-2024 WBC (Bld) [#/Vol] 7.6 10*3/uL 3.8-11.6 [facility] pH Test strip (U)Ordered By: Frances Walsh on 04-18-2024 pH (U) 5.5 [pH] 5.0-9.0 [facility] Cholesterol in LDL Calc [Mas s/Vol]Ordered By: Alex Daly on 04-15-2024 Cholesterol in LDL [Mass/Vol] 76 mg/dL 0-100 [facility] Comment on above: LDL ATP III CLASSIFI CATIONLDL less than 100 mg/dL OptimalLDL 100-129 mg/dL Near or above optimalLDL 130-159 mg/dL Borderline highLDL 160-189 mg/dL HighLDL greater than 189 mg/dL Very high Cholesterol in VLDL Calc [Ma ss/Vol]Ordered By: Alex Daly on 04-15-2024 Cholesterol in VLDL [Mass/Vol] 31 mg/dL [facility] ECG 12 lead ECGon 04-15-2024 ECG 12 lead ECG [facility] [place] [address] [place] [address] Electrocardiograph Report Signed Patient: Ida Proctor MR#: [id number] 97 : 1980 Acct:[id number] Age/Sex: 44 / F ADM Date: 04/14/24 Loc: Room: [address] [place] [address] Type: ADM IN Attending Dr: Alex Daly MD Ordering Provider: Alex Daly MD Date of Service: 04/15/24 ECG/ECG 12 lead ECG: baseline Copies to: Test Reason : Blood Pressure : */* mmHG Vent. Rate : 86 BPM Atrial Rate : 86 BPM P-R Int : 178 ms QRS Dur : 90 ms QT Int : 370 ms P-R-T Axes : 36 58 208 degrees QTcB Int : 442 ms Normal sinus rhythm Minimal voltage criteria for LVH, may be normal variant ( Sokolow-Herman ) Abnormal ECG When compared with ECG of 28-Apr-2016 05:34, ST now depressed in Lateral leads T wave inversion now evident in Inferior leads T wave inversion now evident in Lateral leads Confirmed by AISHA ACE [facility], ABENA ([id number]) on 04/15/2024 4:26:32 PM Referred By: Electronically Signed By: ABENA LEONARD MD [facility] Transcribed By: MUS Signed By Abena Leonard MD, FAC 04/15/24 1626 Normal [facility] Free T4 (Free Thyroxine)Orde red By: Alex Daly on 04-15-2024 Free T4 [Mass/Vol] 0.79 ng/dL 0.61-1.12 [facility] Comment on above: Order Comment: FASTI NG Y Performed By: #### T SH3 wRFLX, T4F, [id number], LIPID #### [place] [address] [place] Lipid PanelOrdered By: Wilfrid Daly on 04-15-2024 Cholesterol [Mass/Vol] 151 mg/dL 140-200 [facility] Comment on above: Order Comment: SOCORRO Moore Result Comment: Chol less than 200 mg/dl low risk Chol 201-239 mg/dl borderline risk Chol 240 mg/dl and greater high risk Performed By: #### T SH3 wRFLX, T4F, [id number], LIPID #### [facility] [address] Chol less than 200 m g/dl low riskChol 201-239 mg/dl borderline riskChol 240 mg/dl and greater high risk Cholesterol in HDL [Mass/Vol] 44 mg/dL 23- [facility] Comment on above: Order Comment: SOCORRO Moore Result Comment: HDL CHOL ATP-III CLASSIFICATION Cardiovascular Risk HDL > or equal to 60 mg/dL LOW HDL < 40 mg/dL HIGH Performed By: #### T SH3 wRFLX, T4F, [id number], LIPID #### [facility] [address] HDL CHOL ATP-III CLA SSIFICATION Cardiovascular RiskHDL > or equal to 60 mg/dL LOWHDL < 40 mg/dL HIGH Cholesterol.total/Choles terol in HDL [Mass ratio] 3.4 {ratio} <5.0 [facility] Comment on above: Order Comment: SOCORRO Moore Performed By: #### T SH3 wRFLX, T4F, [id number], LIPID #### [facility] [address] [place] [id number] [facility] Lipid Panelon 04-15-2024 LDL Cholesterol,Calculated 76 mg/dL Normal 0-100 [facility] Comment on above: Order Comment: SOCORRO BUSTAMANTE Y Result Comment: LDL ATP III CLASSIFICATION LDL less than 100 mg/dL Optimal LDL 100-129 mg/dL Near or above optimal LDL 130-159 mg/dL Borderline high LDL 160-189 mg/dL High LDL greater than 189 mg/dL Very high Performed By: #### T SH3 wRFLX, T4F, [id number], LIPID #### [facility] [address] [place] [id number] [facility] Triglyceride w/Reflex 156 mg/dL High 0-149 [facility] Comment on above: Order Comment: FASTI NG Y Result Comment: TRIG ATP III CLASSIFICATION TRIG less than 150 mg/dL Normal TRIG 150-199 mg/dL Borderline high TRIG 200-500 mg/dL High TRIG greater than 500 mg/dL Very high Standard traceable to the Center for Disease Conrtrol and Prevention (CDC) test method. Performed By: #### T SH3 wRFLX, T4F, [id number], LIPID #### [facility] [address] VLDL CHOLESTEROL 31 mg/dL Normal [facility] Comment on above: Order Comment: FASTI NG Y Performed By: #### T SH3 wRFLX, T4F, [id number], LIPID #### [facility] [address] Thyroid Stim Hormone w/Rflxo n 04-15-2024 Thyroid Stim Hormone w/Rflx 5.98 u[iU]/mL High 0.45-5.33 [facility] Comment on above: Order Comment: FASTI NG Y Performed By: #### T SH3 wRFLX, T4F, [id number], LIPID #### [facility] [address] Thyrotropin [Units/volume] i n Serum or PlasmaOrdered By: Alex Daly on 04-15-2024 TSH Qn 5.98 m[IU]/L High 0.45-5.33 [facility] Triglyceride [Mass/volume] i n Serum or PlasmaOrdered By: Alex Daly on 04-15-2024 Triglyceride [Mass/Vol] 156 mg/dL High 0-149 [facility] Comment on above: TRIG ATP III CLASSIF ICATIONTRIG less than 150 mg/dL NormalTRIG 150-199 mg/dL Borderline highTRIG 200-500 mg/dL High TRIG greater than 500 mg/dL Very highStandard traceable to the Center for Disease Conrtrol and Prevention (CDC) test method. Vitamin D 25 Hydroxy Totalon 04-15-2024 Vitamin D 25 Hydroxy Total 14.2 ng/mL Low 30-100 [facility] Comment on above: Order Comment: SOCORRO BUSTAMANTE Y Result Comment: CLAU MIN D STATUS 25(OH)VITAMIN D RANGE (ng/mL) Deficient <20 Insufficient 20 to <30 Sufficient 30 to 100 Reference: Jonnie Rose, Mariana YOUNG, et al. Evaluation,treatment, and prevention of vitamin D deficiency; an Endocrine Society clinical practice guideline. JCEM. 2010; 96(7):191-. PERFORMED BY: [place] [address] PATHOLOGIST MAINTENANCE DATA ANALYST ROCCO STOREY M.D. Performed By: #### T SH3 wRFLX, T4F, [id number], LIPID #### [address] Vitamin D+Metabolites [Mass/ volume] in Serum or PlasmaOrdered By: Alex Daly on 04-15-2024 Vitamin D+Metabolites [Mass/Vol] 14.2 ng/mL Low 30-100 [facility] Comment on above: VITAMIN D STATUS 25( [place])VITAMIN D RANGE (ng/mL) Deficient <20 Insufficient 20 to <30Sufficient 30 to 100Reference: Jonnie Rose, Mariana YOUNG, et al. Evaluation,treatment, and prevention of vitamin D deficiency; an Endocrine Society clinical practice guideline. JCEM. 2010; 96(7):1911-. ACETAMINOPHENon 04-14-2024 Acetaminophen [Mass/Vol] 5.3 ug/mL Low 10.0-30.0 [facility] Comment on above: Result Comment: Refe rence ranges are for therapeutic limits. Performed By: #### C BCA, CMP, 3298-7, 5643-2, 4024-6 #### [facility] ([id number]) [address] [place] [address], [place] [address] CBC AND AUTO DIFFon 04-14-20 24 ABSOLUTE BASOPHIL 0.1 X10E9/L Normal 0.0-0.2 [facility] Comment on above: Performed By: #### C BCA, CMP, 3298-7, 5643-2, 4024-6 #### [facility] ([id number]) [address] [place] [address] 12788 ABSOLUTE NEUTROPHIL 7.3 X10E9/L High 1.5-6.6 [facility] Comment on above: Performed By: #### C SAMM, [facility], [facility], 5643-2, 4024-6 #### [facility] ([id number]) [address] [place] [address] 29411 Basophils/100 WBC (Bld) 0.8 % Normal [facility] Comment on above: Performed By: #### Ethel QUIJANO, [facility], [facility], [facility], 402-6 #### [facility] ([id number]) [address] [place] [address] 83992 Eosinophils (Bld) [#/Vol] 0.2 10*3/uL Normal 0.0-0.4 [facility] Comment on above: Performed By: #### Ethel QUIJANO, [facility], [facility], [facility]-2, 4024-6 #### [facility] ([id number]) [address] [place] [address] 64987 Eosinophils/100 WBC (Bld) 2.3 % Normal [facility] Comment on above: Performed By: #### Ethel QUIJANO, [facility], [facility], [facility]-2, 4024-6 #### [facility] ([id number]) [address] [place] [address] 92279 Erythrocyte distribution width (RBC) [Ratio] 20.4 % High 11.5-15.0 [facility] Comment on above: Performed By: #### Ethel BCA, [facility], [facility], 43-2, 4024-6 #### [facility] ([id number]) [address] [place] [address] 78506 Hematocrit (Bld) [Volume fraction] 34.0 % Low 35-47 [facility] Comment on above: Performed By: #### C BCA, CMP, [facility]-7, 5643-2, 4024-6 #### [facility] ([id number]) [address] [place] [address] 39394 Hemoglobin (Bld) [Mass/Vol] 10.3 g/dL Low 11.7-15.5 [facility] Comment on above: Performed By: #### Ethel QUIJANO, CMP, [facility], 5643-2, 4024-6 #### [facility] ([id number]) [address] [place] [address] 81657 Lymphocytes (Bld) [#/Vol] 2.3 10*3/uL Normal 1.0-3.5 [facility] Comment on above: Performed By: #### Ethel QUIJANO, CMP, [facility], 5643-2, 4024-6 #### [facility] ([id number]) [address] [place] [address] 71738 Lymphocytes/100 WBC (Bld) 21.4 % Normal [facility] Comment on above: Performed By: #### Ethel QUIJANO, CMP, [facility], 5643-2, 4024-6 #### [facility] ([id number]) [address] [place] [address] 66699 MCH (RBC) [Entitic mass] 20.5 pg Low 27-34 [facility] Comment on above: Performed By: #### Ethel BCA, CMP, [facility]-7, 5643-2, 4024-6 #### [facility] ([id number]) [address] [place] [address] 29894 MCHC (RBC) [Mass/Vol] 30.1 g/dL Low 32-36 [facility] Comment on above: Performed By: #### Ethel QUIJANO, CMP, [facility]-7, 5643-2, 4024-6 #### [facility] ([id number]) [address] [place] [address] 69426 MCV (RBC) [Entitic vol] 68 fL Low 80-100 [facility] Comment on above: Performed By: #### C SAMM, CMP, 3298-7, 5643-2, 4024-6 #### [facility] ([id number]) [address] [place] [address] 19265 Monocytes (Bld) [#/Vol] 0.9 10*3/uL Normal 0-0.9 [facility] Comment on above: Performed By: #### Ethel QUIJANO, CMP, [facility], 5643-2, 4024-6 #### [facility] ([id number]) [address] [place] [address] 32794 Monocytes/100 WBC (Bld) 7.9 % Normal [facility] Comment on above: Performed By: #### Ethel QUIJANO, CMP, [facility], 5643-2, 4024-6 #### [facility] ([id number]) [address] [place] [address] 96500 Neutrophils/100 WBC (Bld) 67.6 % Normal [facility] Comment on above: Performed By: #### Ethel QUIJANO, CMP, 3297-, 5643-2, 4024-6 #### [facility] ([id number]) [address] [place] [address] 13814 Platelet mean volume (Bld) [Entitic vol] 7.5 fL Normal 7-12 [facility] Comment on above: Performed By: #### Ethel BCA, CMP, 8-7, 5643-2, 4024-6 #### [facility] ([id number]) [address] [place] [address] 35289 Platelets (Bld) [#/Vol] 420 10*3/uL Normal 150-450 [facility] Comment on above: Performed By: #### C BCA, CMP, 3298-7, 5643-2, 4024-6 #### [facility] ([id number]) [address] [place] [address] 13746 RBC COUNT 5.00 X10E12/L Normal 3.80-5.20 [facility] Comment on above: Performed By: #### C BCA, CMP, 3298-7, 5643-2, 4024-6 #### [facility] ([id number]) [address] [place] [address] 95893 WBC (Bld) [#/Vol] 10.9 10*3/uL Normal 4.0-11.0 [facility] Comment on above: Performed By: #### C BCA, CMP, 3298-7, 5643-2, 4024-6 #### [facility] ([id number]) [address] [place] [address] 52524 COMPREHENSIVE METABOLIC PANE Filemon 04-14-2024 Albumin [Mass/Vol] 3.8 g/dL Normal 3.2-5.3 [facility] Comment on above: Performed By: #### C BCA, CMP, 3298-7, 5643-2, 4024-6 #### [facility] ([id number]) [address] [place] [address] 84216 ALP [Catalytic activity/Vol] 107 U/L Normal 39-130 [facility] Comment on above: Performed By: #### C BCA, CMP, 3298-7, 5643-2, 4024-6 #### [facility] ([id number]) [address] [place] [address] 46218 ALT [Catalytic activity/Vol] 20 U/L Normal 0-31 [facility] Comment on above: Performed By: #### C BCA, CMP, 3298-7, 5643-2, 4024-6 #### [facility] ([id number]) [address] [place] [address] 11268 Anion gap [Moles/Vol] 10 mmol/L Normal 5-15 [facility] Comment on above: Performed By: #### C BCA, CMP, 3298-7, 5643-2, 4024-6 #### [facility] ([id number]) [address] [place] [address] 09887 AST [Catalytic activity/Vol] 31 U/L Normal 0-41 [facility] Comment on above: Performed By: #### C BCA, CMP, 3298-7, 5643-2, 4024-6 #### [facility] ([id number]) [address] [place] [address] 67430 Bilirubin [Mass/Vol] 0.5 mg/dL Normal 0.3-1.2 [facility] Comment on above: Performed By: #### C BCA, CMP, 3298-7, 5643-2, 4024-6 #### [facility] ([id number]) [address] [place] [address] 86022 Calcium [Mass/Vol] 9.1 mg/dL Normal 8.5-10.5 [facility] Comment on above: Performed By: #### C BCA, CMP, 3298-7, 5643-2, 4024-6 #### [facility] ([id number]) [address] [place] [address] 80543 Chloride [Moles/Vol] 101 mmol/L Normal 98-109 [facility] Comment on above: Performed By: #### C BCA, CMP, 3298-7, 5643-2, 4024-6 #### [facility] ([id number]) [address] [place] [address] 26041 CO2 [Moles/Vol] 28 mmol/L Normal 22-32 [facility] Comment on above: Performed By: #### C BCA, CMP, 3298-7, 5643-2, 4024-6 #### [facility] ([id number]) [address] [place] [address] 56137 Creatinine [Mass/Vol] 0.78 mg/dL Normal 0.40-1.00 [facility] Comment on above: Result Comment: METH OD TRACEABLE TO IDMS STANDARD Performed By: #### C RASHEEDA QUIJANO, 3298-7, 5643-2, 4024-6 #### [facility] ([id number]) [address] [place] [address] 32679 eGFR (CKD-EPI) NON-RACE DEPENDENT >90 Normal >59 [facility] Comment on above: Result Comment: Reported eGFR is based on the CKD-EPI 2020 equation that does not use a race coefficient. Performed By: #### C RASHEEDA QUIJANO, 3298-7, 5643-2, 4024-6 #### [facility] ([id number]) [address] [place] [address] 32814 Glucose [Mass/Vol] 136 mg/dL High 65-99 [facility] Comment on above: Performed By: #### C RASHEEDA QUIJANO, 3298-7, 5643-2, 4024-6 #### [facility] ([id number]) [address] [place] [address] 49002 Potassium [Moles/Vol] 3.3 mmol/L Low 3.5-5.0 [facility] Comment on above: Performed By: #### C RASHEEDA QUIJANO, 3298-7, 5643-2, 4024-6 #### [facility] ([id number]) [address] [place] [address] 53070 Protein [Mass/Vol] 8.1 g/dL High 6.0-8.0 [facility] Comment on above: Performed By: #### C RASHEEDA QUIJANO, 3298-7, 5643-2, 4024-6 #### [facility] ([id number]) [address] [place] [address] 27060 Sodium [Moles/Vol] 139 mmol/L Normal 134-146 [facility] Comment on above: Performed By: #### C BCA, CMP, 3298-7, 5643-2, 4024-6 #### [facility] ([id number]) [address] [place] [address] 39029 Urea nitrogen [Mass/Vol] 15 mg/dL Normal 5-23 [facility] Comment on above: Performed By: #### C BCA, CMP, 3298-7, 5643-2, 4024-6 #### [facility] ([id number]) [address] [place] [address] 47524 DRUG SCREEN, URINEon 024 AMPHETAMINE/METHAMP Positive Abnormal NEG [facility] Comment on above: Result Comment: Conf irmation available upon request. AMPH/METH screening cut off = 1000 ng/mL Performed By: #### D LEIGH #### [facility] ([id number]) [address] [place] [address] 29080 BARBITURATES Negative Normal NEG [facility] Comment on above: Result Comment: Alanis iturates screening cut off value = 200 ng/mL Performed By: #### D LEIGH #### [facility] ([id number]) [address] [place] [address] 93550 BENZODIAZEPINES Negative Normal NEG [facility] Comment on above: Result Comment: Norberto odiazepines screening cut off value = 200 ng/mL Performed By: #### D LEIGH #### [facility] ([id number]) [address] [place] [address] 68039 CANNABINOIDS Positive Abnormal NEG [facility] Comment on above: Result Comment: Conf irmation available upon request. Cannabinoids/THC screening cut off value = 50 ng/mL Performed By: #### D LEIGH #### [facility] ([id number]) [address] [place] [address] 59687 COCAINE METABOLITE Negative Normal NEG [facility] Comment on above: Result Comment: Coca ine screening cut off value = 300 ng/mL Performed By: #### D LEIGH #### [facility] ([id number]) [address] [place] [address] 12089 ECSTASY Negative Normal NEG [facility] Comment on above: Result Comment: Ecst asy screening cut off value = 500 ng/mL This report is intended for use in clinical monitoring or management of patients. Performed By: #### D LEIGH #### [facility] ([id number]) [address] [place] [address] 75753 METHADONE Negative Normal [facility] Comment on above: Result Comment: Meth adone screening cut off value = 300 ng/mL. Performed By: #### D LEIGH #### [facility] ([id number]) [address] [place] [address] 63730 OPIATES Negative Normal NEG [facility] Comment on above: Result Comment: Opia daniel screening cut off value = 300 ng/mL NOTE: This test is used for the detection of codeine, hydrocodone (>1000 ng/mL), morphine and hydromorphone (>900 ng/mL) in urine. Performed By: #### D LEIGH #### [facility] ([id number]) [address] [place] [address] 21641 OXYCODONE Negative Normal NEG [facility] Comment on above: Result Comment: Oxyc odone screening cut off value = 300 ng/mL NOTE: This test is used for the detection of oxycodone and oxymorphone in urine. Performed By: #### D LEIGH #### [facility] ([id number]) [address] [place] [address] 87256 PHENCYCLIDINE Negative Normal [facility] Comment on above: Result Comment: Phen cyclidine screening cut off value = 25 ng/mL Performed By: #### D LEIGH #### [facility] ([id number]) [address] [place] [address] 28806 ETHANOLon 04-14-2024 Ethanol [Mass/Vol] mg/dL Normal 0.00-0.08 [facility] Comment on above: Result Comment: This report is intended for use in clinical monitoring or management of patients. Performed By: #### C SAMM RASHEEDA, 3298-7, 5643-2, 4024-6 #### [facility] ([id number]) [address] [place] [address] 75416 HCG ( test) Ql (U)o n 04-14-2024 Beta HCG ( test) Ql (U) Negative Normal NEG [facility] Comment on above: Performed By: #### 2 106-3 #### [facility] ([id number]) [address] [place] [address] 19536 Salicylates [Mass/Vol]on SALICYLATE <4.0 Normal 2.0-25.0 [facility] Comment on above: Result Comment: Refe rence ranges are for therapeutic limits. Performed By: #### C SAMM, [facility], 3298-7, 5643-2, 4024-6 #### [facility] ([id number]) [address] [place] [address] 59281 URN MACROSCOPIC NURon 2023 BILIRUBIN MICHELLE Small Abnormal NEG [facility] Comment on above: Performed By: #### N UM #### [facility] ([id number]) [address] [place] [address] [place] [address] BLOOD/HGB MICHELLE Negative Normal NEG [facility] Comment on above: Performed By: #### N UM #### [facility] ([id number]) [address] [place] [address] 75595 GLUCOSE MICHELLE Negative Normal NEG [facility] Comment on above: Performed By: #### N UM #### [facility] ([id number]) [address] [place] [address] 57318 KETONES MICHELLE 15 mg/dL Abnormal NEG [facility] Comment on above: Performed By: #### N UM #### [facility] ([id number]) [address] [place] [address] 06734 LEUKOCYTE ESTERASE MICHELLE Negative Normal NEG [facility] Comment on above: Performed By: #### N UM #### [facility] ([id number]) [address] [place] [address] 54380 NITRITE MICHELLE Negative Normal NEG [facility] Comment on above: Performed By: #### N UM #### [facility] ([id number]) [address] [place] [address] 81145 PH MICHELLE 5.5 Normal 5.0-8.5 [facility] Comment on above: Performed By: #### N UM #### [facility] ([id number]) [address] [place] [address] 61336 PROTEIN MICHELLE 100 mg/dL Abnormal NEG [facility] Comment on above: Performed By: #### N UM #### [facility] ([id number]) [address] [place] [address] 40622 SPECIFIC GRAVITY MICHELLE >=1.030 Normal 1.003-1.035 [facility] Comment on above: Performed By: #### N UM #### [facility] ([id number]) [address] [place] [address] 61395 UROBILINOGEN MICHELLE 1.0 eu/dL Normal <1.1 [facility] Comment on above: Performed By: #### N UM #### [facility] ([id number]) [address] [place] [address] 85853 STREPT SCREENon 04-03-2022 STREP SCREEN A Positive Abnormal NEGATIVE [facility] Comment on above: Performed By: #### S SCRN #### [facility] [address] [place], [place] [address] Dr. Franco Keller CBC Auto DifferentialOrdered By: Regina Taylor on 02-16-2021 [employer] # 0.10 [employer] [facility] Work Phone: Absolute Immature Granulocyte NOT REPORTED [facility] Phone: Absolute Lymph # 2.00 [employer] [facility] Work Phone: Absolute [place] # 0.50 [employer] [facility] Work Phone: Basophils (Bld) [#/Vol] 0.00 10*3/uL [employer] Work Phone: Basophils/100 WBC (Bld) 0 % 0 - 2 % [facility] Phone: Differential Type NOT REPORTED [facility] Phone: Eosinophils/100 WBC (Bld) 2 % 0 - 5 % [facility] Phone: Hematocrit (Bld) [Volume fraction] 32.5 % Low 36 - 46 % [facility] Phone: Hemoglobin.gastrointesti nal spec 1 Ql (Stl) 10.3 g/dL Low 12.0 - 16.0 g/dL [facility] Phone: Immature Granulocytes NOT REPORTED 0 % [facility] Phone: Interpretation and review of laboratory results Abnormal [facility] Phone: Lymphocytes/100 WBC (Bld) 26 % 15 - 40 % [facility] Phone: MCH (RBC) [Entitic mass] 23.5 pg Low 26 - 34 pg [facility] Phone: MCHC (RBC) [Mass/Vol] 31.8 g/dL 31 - 37 g/dL [facility] Phone: MCV (RBC) [Entitic vol] 73.8 fL Low 80 - 100 fL [facility] Phone: Monocytes/100 WBC (Bld) 6 % 4 - 8 % M [facility] Work Phone: Morphology Dhiraj (Bld) [Interp] MODERATE ANISOCYTOSIS [facility] Work Phone: Morphology Dhiraj (Bld) [Interp] SLIGHT POIKILOCYTOSIS [facility] Work Phone: NRBC Automated NOT REPORTED per 100 WBC [facility] [employer] [facility] Work Phone: Platelet distribution width (Bld) [Ratio] 24.8 % High 12.1 - 15.2 % [facility] Work Phone: Platelet Estimate NOT REPORTED [facility] [employer] Phone: Platelet mean volume (Bld) [Entitic vol] NOT REPORTED 6.0 - 12.0 fL [facility] Work Phone: Platelets (Bld) [#/Vol] 367 10*3/uL [facility] [employer] Phone: RBC (Bld) [#/Vol] 4.40 10*6/uL 4.0 - 5.2 m/uL [facility] [employer] Phone: RBC (Bld) [#/Vol] NOT REPORTED [facility] [employer] Phone: Segmented neutrophils/100 WBC (Bld) 66 % 47 - 75 % [facility] Work Phone: Segs Absolute 4.80 [facility] [employer] [facility] Work Phone: WBC (Bld) [#/Vol] 7.4 10*3/uL [facility] Work Phone: WBC (Bld) [#/Vol] NOT REPORTED [facility] [employer] Phone: [facility] Work Phone: CBC with Diffon 02-16-2021 Morphology Dhiraj (Bld) [Interp] MODERATE Normal [facility] Comment on above: Result Comment: ANIS OCYTOSIS SLIGHT POIKILOCYTOSIS Performed By: #### P T, DIME, CMPX, TSHX, CK, CDP #### [facility] [address] [id number] Case Fitter: Michael Abebe MD Abs. Basophil 0.00 k/uL Normal 0.0-0.2 [facility] Comment on above: Performed By: #### P T, DIME, CMPX, TSHX, CK, CDP #### [facility] [address] [place] [address] Case Fitter: Michael Abebe MD Abs.Neutrophil (Seg) 4.80 k/uL Normal 2.5-7.0 [facility] Comment on above: Performed By: #### P T, DIME, CMPX, TSHX, CK, CDP #### [facility] [address] [place] [address] Case Fitter: Michael Abebe MD Basophils/100 WBC (Bld) 0 % Normal 0-2 [facility] Comment on above: Performed By: #### P T, DIME, CMPX, TSHX, CK, CDP #### [facility] [address] [place] [address] Case Fitter: Michael Abebe MD Eosinophils (Bld) [#/Vol] 0.10 10*3/uL Normal 0.0-0.4 [facility] Comment on above: Performed By: #### P T, DIME, CMPX, TSHX, CK, CDP #### [facility] [address] [place] [address] Case Fitter: Michael Abebe MD Eosinophils/100 WBC (Bld) 2 % Normal 0-5 [facility] Comment on above: Performed By: #### P T, DIME, CMPX, TSHX, CK, CDP #### [facility] [address] [id number] Case Fitter: Michael Abebe MD Erythrocyte distribution width (RBC) [Ratio] 24.8 % High 12.1-15.2 [facility] Comment on above: Performed By: #### P T, DIME, CMPX, TSHX, CK, CDP #### [facility] [address] [place] [address] Case Fitter: Michael Abebe MD Hematocrit (Bld) [Volume fraction] 32.5 % Low 36-46 [facility] Comment on above: Performed By: #### P T, DIME, CMPX, TSHX, CK, CDP #### [facility] [address] [place] [address] Case Fitter: Michael Abebe MD Hemoglobin (Bld) [Mass/Vol] 10.3 g/dL Low 12.0-16.0 [facility] Comment on above: Performed By: #### P T, DIME, CMPX, TSHX, CK, CDP #### [facility] [address] [place] [address] Case Fitter: Michael Abebe MD Lymphocytes (Bld) [#/Vol] 2.00 10*3/uL Normal 1.0-4.8 [facility] Comment on above: Performed By: #### P T, DIME, CMPX, TSHX, CK, CDP #### [facility] [address] [place] [address] Case Fitter: Michael Abebe MD Lymphocytes/100 WBC (Bld) 26 % Normal 15-40 [facility] Comment on above: Performed By: #### P T, DIME, CMPX, TSHX, CK, CDP #### [facility] [address] [place] [address] Case Fitter: Michael Abebe MD MCH (RBC) [Entitic mass] 23.5 pg Low 26-34 [facility] Comment on above: Performed By: #### P T, DIME, CMPX, TSHX, CK, CDP #### [facility] [address] [place] [address] Case Fitter: Michael Abebe MD MCHC (RBC) [Mass/Vol] 31.8 g/dL Normal 31-37 [facility] Comment on above: Performed By: #### P T, DIME, CMPX, TSHX, CK, CDP #### [facility] [address] [place] [address] Case Fitter: Michael Abebe MD MCV (RBC) [Entitic vol] 73.8 fL Low 80-100 [facility] Comment on above: Performed By: #### P T, DIME, CMPX, TSHX, CK, CDP #### [facility] [address] [place] [address] Case Fitter: Michael Abebe MD Monocytes (Bld) [#/Vol] 0.50 10*3/uL Normal 0.0-1.0 [facility] Comment on above: Performed By: #### P T, DIME, CMPX, TSHX, CK, CDP #### [facility] [address] [place] [address] Case Fitter: Michael Abebe MD Monocytes/100 WBC (Bld) 6 % Normal 4-8 [facility] Comment on above: Performed By: #### P T, DIME, CMPX, TSHX, CK, CDP #### [facility] [address] [place] [address] Case Fitter: Michael Abebe MD Neutrophil (Seg) 66 % Normal 47-75 [facility] Comment on above: Performed By: #### P T, DIME, CMPX, TSHX, CK, CDP #### [facility] [address] [place] [address] Case Fitter: Michael Abebe MD Platelets (Bld) [#/Vol] 367 10*3/uL Normal 140-450 [facility] Comment on above: Performed By: #### P T, DIME, CMPX, TSHX, CK, CDP #### [facility] [address] [place] [address] Case Fitter: Michael Abebe MD RBC (Bld) [#/Vol] 4.40 10*6/uL Normal 4.0-5.2 [facility] Comment on above: Performed By: #### P T, DIME, CMPX, TSHX, CK, CDP #### [facility] [address] [place] [address] Case Fitter: Michael Abebe MD WBC (Bld) [#/Vol] 7.4 10*3/uL Normal 3.5-11.0 [facility] Comment on above: Performed By: #### P T, DIME, CMPX, TSHX, CK, CDP #### [facility] [address] [id number] Case Fitter: Michael Abebe MD Abs.Imm.Granulocyte NOT REPORTED Normal 0.00-0.30 [facility] Comment on above: Performed By: #### P T, DIME, CMPX, TSHX, CK, CDP #### [facility] [address] [place] [address] Case Fitter: Michael Abebe MD Auto Diff Performed NOT REPORTED Normal [facility] Comment on above: Performed By: #### P T, DIME, CMPX, TSHX, CK, CDP #### [facility] [address] [place] [address] Case Fitter: Michael Abebe MD Immature Granulocyte NOT REPORTED Normal 0 [facility] Comment on above: Performed By: #### P T, DIME, CMPX, TSHX, CK, CDP #### [facility] [address] [place] [address] Case Fitter: Michael Abebe MD MPV NOT REPORTED Normal 6.0-12.0 [facility] Comment on above: Performed By: #### P T, DIME, CMPX, TSHX, CK, CDP #### [facility] [address] [place], [place] [id number] Case Fitter: Michael Abebe MD NRBC Automated NOT REPORTED Normal [facility] Comment on above: Performed By: #### P T, DIME, CMPX, TSHX, CK, CDP #### [facility] [address] [place], [place] [id number] Case Fitter: Michael Abebe MD Platelet Estimate NOT REPORTED Normal [facility] Comment on above: Performed By: #### P T, DIME, CMPX, TSHX, CK, CDP #### [facility] [address] [place], [place] [id number] Case Fitter: Michael Abebe MD RBC morphology finding Nom (Bld) NOT REPORTED Normal [facility] Comment on above: Performed By: #### P T, DIME, CMPX, TSHX, CK, CDP #### [facility] [address] [place], [place] [id number] Case Fitter: Michael Abebe MD WBC Morphology NOT REPORTED Normal [facility] Comment on above: Performed By: #### P T, DIME, CMPX, TSHX, CK, CDP #### [facility] [address] [place], [place] [id number] Case Fitter: Michael Abebe MD CKOrdered By: Regina Unger on 02-16-2021 CK [Catalytic activity/Vol] 83 U/L 26 - 192 U/L [facility] Work Phone: Comp Metabolic Pr/rfx MGon 0 02-16-2021 (cont.) Normal [facility] Comment on above: Result Comment: Aver age GFR for 30-39 years old: 107 mL/min/1.73sq m Chronic Kidney Disease: <60 mL/min/1.73sq m Kidney failure: <15 mL/min/1.73sq m eGFR calculated using average adult body mass. Additional eGFR calculator available at: http://www.[employer]Micro[employer]nsure/multiple_crcl_2012.htm Performed By: #### P T, DIME, CMPX, TSHX, CK, CDP #### [facility] [address] [place], [place] [id number] Case Fitter: Micahel Abebe MD Albumin [Mass/Vol] 3.7 g/dL Normal 3.5-5.2 [facility] Comment on above: Performed By: #### P T, DIME, CMPX, TSHX, CK, CDP #### [facility] [address] [place], [place] [id number] Case Fitter: Michael Abebe MD Alkaline Phos 95 U/L Normal 35-104 [facility] Comment on above: Performed By: #### P T, DIME, CMPX, TSHX, CK, CDP #### [facility] [address] [place] [address] Case Fitter: Michael Abebe MD ALT [Catalytic activity/Vol] 15 U/L Normal 5-33 [facility] Comment on above: Performed By: #### P T, DIME, CMPX, TSHX, CK, CDP #### [facility] [address] [place], [place] [id number] Case Fitter: Michael Abebe MD Anion gap [Moles/Vol] 9 mmol/L Normal 9-17 [facility] Comment on above: Performed By: #### P T, DIME, CMPX, TSHX, CK, CDP #### [facility] [address] [place] [address] Case Fitter: Michael Abebe MD AST [Catalytic activity/Vol] 15 U/L Normal <32 [facility] Comment on above: Performed By: #### P T, DIME, CMPX, TSHX, CK, CDP #### [facility] [address] [id number] Case Fitter: Michael Abebe MD Bilirubin [Mass/Vol] 0.17 mg/dL Low 0.30-1.20 [facility] Comment on above: Performed By: #### P T, DIME, CMPX, TSHX, CK, CDP #### [facility] [address] [place] [address] Case Fitter: Michael Abebe MD BUN/CRE Ratio 29 High 9-20 [facility] Comment on above: Performed By: #### P T, DIME, CMPX, TSHX, CK, CDP #### [facility] [address] [place] [address] Case Fitter: Michael Abebe MD Calcium [Mass/Vol] 9.1 mg/dL Normal 8.6-10.4 [facility] Comment on above: Performed By: #### P T, DIME, CMPX, TSHX, CK, CDP #### [facility] [address] [place] [address] Case Fitter: Michael Abebe MD Chloride [Moles/Vol] 101 mmol/L Normal 98-107 [facility] Comment on above: Performed By: #### P T, DIME, CMPX, TSHX, CK, CDP #### [facility] [address] [id number] Case Fitter: Michael Abebe MD CO2 [Moles/Vol] 27 mmol/L Normal 20-31 [facility] Comment on above: Performed By: #### P T, DIME, CMPX, TSHX, CK, CDP #### [facility] [address] [id number] Case Fitter: Michael Abebe MD Creatinine [Mass/Vol] 0.48 mg/dL Low 0.50-0.90 [facility] Comment on above: Performed By: #### P T, DIME, CMPX, TSHX, CK, CDP #### [facility] [address] [place], [place] [id number] Case Fitter: Michael Abebe MD GFR, Amer >60 Normal >60 [facility] Comment on above: Performed By: #### P T, DIME, CMPX, TSHX, CK, CDP #### [facility] [address] [place], [place] [id number] Case Fitter: Michael Abebe MD GFR,non Amer >60 Normal >60 [facility] Comment on above: Performed By: #### P T, DIME, CMPX, TSHX, CK, CDP #### [facility] [address] [place] [address] Case Fitter: Michael Abebe MD Glucose [Mass/Vol] 124 mg/dL High 70-99 [facility] Comment on above: Performed By: #### P T, DIME, CMPX, TSHX, CK, CDP #### [facility] [address] [place] [address] Case Fitter: Michael Abebe MD Potassium [Moles/Vol] 3.7 mmol/L Normal 3.7-5.3 [facility] Comment on above: Performed By: #### P T, DIME, CMPX, TSHX, CK, CDP #### [facility] [address] [place] [address] Case Fitter: Michael Abebe MD Protein [Mass/Vol] 6.6 g/dL Normal 6.4-8.3 [facility] Comment on above: Performed By: #### P T, DIME, CMPX, TSHX, CK, CDP #### [facility] [address] [place] [address] Case Fitter: Michael Abebe MD Sodium [Moles/Vol] 137 mmol/L Normal 135-144 [facility] Comment on above: Performed By: #### P T, DIME, CMPX, TSHX, CK, CDP #### [facility] [address] [place] [address] Case Fitter: Michael Abebe MD Urea nitrogen [Mass/Vol] 14 mg/dL Normal 6-20 [facility] Comment on above: Performed By: #### P T, DIME, CMPX, TSHX, CK, CDP #### [facility] [address] [place] [address] Case Fitter: Michael Abebe MD Albumin/Glob Ratio NOT REPORTED Normal 1.0-2.5 [facility] Comment on above: Performed By: #### P T, DIME, CMPX, TSHX, CK, CDP #### [facility] [address] [place] [address] Case Fitter: Michael Abebe MD Staging: NOT REPORTED Normal [facility] Comment on above: Performed By: #### P T, DIME, CMPX, TSHX, CK, CDP #### [facility] [address] [place] [address] Case Fitter: Michael Abebe MD Comprehensive Metabolic Pane l w/ Reflex to MGOrdered By: Regina Taylor on 02-16-2021 Albumin [Mass/Vol] 3.7 g/dL 3.5 - 5.2 g/dL [facility] Phone: Albumin/Globulin Ratio NOT REPORTED [facility] Phone: ALP (Bld) [Catalytic activity/Vol] 95 U/L 35 - 104 U/L [facility] Phone: ALT [Catalytic activity/Vol] 15 U/L 5 - 33 U/L [facility] Phone: Anion gap [Moles/Vol] 9 mmol/L 9 - 17 mmol/L [facility] Phone: AST [Catalytic activity/Vol] 15 U/L <32 [facility] Phone: Bilirubin [Mass/Vol] 0.17 mg/dL Low 0.30 - 1.20 mg/dL [facility] Phone: Calcium [Mass/Vol] 9.1 mg/dL 8.6 - 10. 4 mg/dL [facility] Phone: Chloride [Moles/Vol] 101 mmol/L 98 - 10 7 mmol/L [facility] Phone: CO2 [Moles/Vol] 27 mmol/L 20 - 31 mmol/L [facility] Phone: Creatinine [Mass/Vol] 0.48 mg/dL Low 0.50 - 0.90 mg/dL [facility] Phone: Free PSA/Total PSA [Mass fraction] 6.6 g/dL 6.4 - 8.3 g/dL [facility] Phone: GFR >60 >60 mL/min [employer] Phone: GFR Non- >60 >60 mL/min [facility] Phone: GFR/1.73 sq M.predicted MDRD (S/P/Bld) [Vol rate/Area] [facility] Phone: Comment on above: Average GFR for 30-3 9 years old: 107 mL/min/1.73sq m Chronic Kidney Disease: <60 mL/min/1.73sq m Kidney failure: <15 mL/min/1.73sq m eGFR calculated using average adult body mass. Additional eGFR calculator available at: http://www.[employer].MicroEnsure/multiple_crcl_2012.htm GFR/1.73 sq M.predicted MDRD (S/P/Bld) [Vol rate/Area] NOT REPORTED [facility] Phone: Glucose [Mass/Vol] 124 mg/dL High 70 - 99 mg/dL [facility] Phone: Interpretation and review of laboratory results Abnormal [facility] Phone: Potassium [Moles/Vol] 3.7 mmol/L 3.7 - 5.3 mmol/L [facility] Phone: Sodium [Moles/Vol] 137 mmol/L 135 - 144 mmol/L [facility] Phone: Urea nitrogen (BldV) [Mass/Vol] 14 mg/dL 6 - 20 mg/dL [facility] Phone: Urea nitrogen/Creatinine (Bld) [Mass ratio] 29 High [facility] Phone: Creatine [employer] 02-16-2021 CK [Catalytic activity/Vol] 83 U/L Normal 26-192 [facility] Comment on above: Performed By: #### P T, DIME, CMPX, TSHX, CK, CDP #### [facility] [address] [place] [address] Case Fitter: Michael Abebe MD D-Dimer Teston 02-16-2021 D-Dimer Test 0.68 mg/L FEU High 0.00-0.59 [facility] Comment on above: Result Comment: When combined with a low clinical probability, a D dimer value of <0.50 mg/L FEU is considered negative for DVT and PE (negative predictive value of 98%, sensitivity of 97%). If this test is not being used to help rule out DVT and PE, then the following reference range should be utilized: 0.00 - 0.59 mg/L FEU. The D-Dimer assay is intended for use as an aid in the diagnosis of venous thromboembolism (DVT and PE) and the results should be interpreted in conjunction with the patient's medical history, clinical presentation, and other findings. Elevated levels of D-dimer activity can be seen in any state of coagulation activation and is not recommended in patients with therapeutic dose anticoagulant therapy for >24 hours, fibrinolytic therapy within the previous 7 days, trauma or surgery within the previous 4 weeks, disseminated malignancies, aortic aneurysm, sepsis, severe infections, pneumonia, severe skin infections, liver cirrhosis, advanced age, coronary disease, diabetes, and . A very low percentage of patients with DVT may yield D-dimer results below the cutoff of 0.5 mg/L FEU. This is known to be more prevalent in patients with distal DVT. Performed By: #### P T, DIME, CMPX, TSHX, CK, CDP #### [facility] [address] [place] [address] Case Fitter: Michael Abebe MD D-Dimer, QuantitativeOrdered By: Regina Taylor on 02-16-2021 D-Dimer, Quant 0.68 High [employer] Phone: Comment on above: When combined with a low clinical probability, a D dimer value of <0.50 mg/L FEU is considered negative for DVT and PE (negative predictive value of 98%, sensitivity of 97%). If this test is not being used to help rule out DVT and PE, then the following reference range should be utilized: 0.00 - 0.59 mg/L FEU. The D-Dimer assay is intended for use as an aid in the diagnosis of venous thromboembolism (DVT and PE) and the results should be interpreted in conjunction with the patient's medical history, clinical presentation, and other findings. Elevated levels of D-dimer activity can be seen in any state of coagulation activation and is not recommended in patients with therapeutic dose anticoagulant therapy for >24 hours, fibrinolytic therapy within the previous 7 days, trauma or surgery within the previous 4 weeks, disseminated malignancies, aortic aneurysm, sepsis, severe infections, pneumonia, severe skin infections, liver cirrhosis, advanced age, coronary disease, diabetes, and . A very low percentage of patients with DVT may yield D-dimer results below the cutoff of 0.5 mg/L FEU. This is known to be more prevalent in patients with distal DVT. Interpretation and review of laboratory results Abnormal [facility] Phone: [facility] Phone: No Panel InformationOrdered By: Regina Taylor on 02-16-2021 [facility] Phone: PTon 02-16-2021 INR Coag (PPP) [Relative time] 1.0 {INR} Normal [facility] Comment on above: Result Comment: Non-therapeutic Range: INR = 0.9-1.2 Therapeutic Range: Moderate Anticoagulant Intensity: INR = 2.0-3.0 High Anticoagulant Intensity: INR = 2.5-3.5 Performed By: #### P T, DIME, CMPX, TSHX, CK, CDP #### [facility] [address] [place] [address] Case Fitter: Michael Abebe MD PT Coag (PPP) [Time] 12.8 s Normal 11.5-14.2 [facility] Comment on above: Performed By: #### P T, DIME, CMPX, TSHX, CK, CDP #### [facility] [address] [place] [address] Case Fitter: Michael Abebe MD Protime-INROrdered By: Randy Taylor on 02-16-2021 INR Coag (Bld) [Relative time] 1.0 {INR} [facility] [employer] Phone: Comment on above: Non-therapeutic Range: INR = 0.9-1.2 Therapeutic Range: Moderate Anticoagulant Intensity: INR = 2.0-3.0 High Anticoagulant Intensity: INR = 2.5-3.5 PT Coag (PPP) [Time] 12.8 s [facility] [employer] Phone: [facility] [employer] Phone: TSH w/reflex to FT4on 2020 TSH Qn 2.30 m[IU]/L Normal 0.30-5.00 [facility] Comment on above: Performed By: #### P T, DIME, CMPX, TSHX, CK, CDP #### [facility] [address] [place] [address] Case Fitter: Michael Abebe MD TSH with ReflexOrdered By: Ethel Taylor on 02-16-2021 TSH Qn 2.30 m[IU]/L [employer] Work Phone: [employer] Work Phone: [employer] 08-31-2020 Consent [id number]:[id number] [facility] Registrationon 08-31-2020 Registration [id number] [facility] Vital Signs Date Time Vital Sign Value Performing Clinician Faci lity 04-19-2024 11:52-0400 Body temperature 97.7 [degF] [facility] 04-19-2024 11:52-0400 Respiratory rate 18 /min [facility] 04-19-2024 11:52-0400 SaO2% (BldA) [Mass fraction] 96 % [facility] 04-19-2024 09:00-0400 Diastolic blood pressure 89 mm[Hg] [facility] 04-19-2024 09:00-0400 Heart rate 100 /min [facility] 04-19-2024 09:00-0400 Systolic blood pressure 144 mm[Hg] [facility] 04-15-2024 12:34-0400 Body height 172.72 cm [facility] 04-14-2024 12:47-0400 Body weight 141.52 kg [facility] 02-16-2021 15:38-0400 Body mass index (BMI) [Ratio] 41.81 kg/m2 Regina Taylor MD Work Phone: [employer] Work Phone: 02-16-2021 15:38-0400 Body temperature 97.81 [degF] Regina Taylor MD Work Phone: [employer] Work Phone: 02-16-2021 15:38-0400 Body weight 124.74 kg Regina Taylor MD Work Phone: [employer] Work Phone: 02-16-2021 15:38-0400 Diastolic blood pressure 123 mm[Hg] Regina Taylor MD Work Phone: [employer] Work Phone: 02-16-2021 15:38-0400 Heart rate 99 /min Regina Taylor MD Work Phone: [employer] Work Phone: 02-16-2021 15:38-0400 Respiratory rate 20 /min Regina Taylor MD Work Phone: [employer] Work Phone: 02-16-2021 15:38-0400 SaO2% (BldA) [Mass fraction] 99 % Regina Taylor MD Work Phone: [employer] Work Phone: 02-16-2021 15:38-0400 Systolic blood pressure 197 mm[Hg] Regina Taylor MD Work Phone: [employer] Work Phone: 02-27-2020 13:33-0400 BP Diastolic 103 mm[Hg] [place] 02-27-2020 13:33-0400 BP Systolic 180 mm[Hg] [place], [place] 02-27-2020 13:33-0400 Pulse (Heart Rate) 83 /min [place], [place] 02-27-2020 12:17-0400 BMI (Body Mass Index) 39.53 kg/m2 [place], [place] 02-27-2020 12:17-0400 Body Temperature 98.6 [degF] [facility] [place] 02-27-2020 12:17-0400 Body weight 117.94 kg [place], [place] 02-27-2020 12:17-0400 Pulse Oximetry 99 % [place] 02-27-2020 12:17-0400 Respiratory Rate 16 /min Jesse Casillas [place], [place] Encounters Encounter Date Encounter Type Care Provider Facility Start: 04-15-2024 Non-patient / Non-visit [facility] Work Phone: Start: 04-14-2024 End: 04-19-2024 Evaluation and management of inpatient Alex Daly Facility:[facility] Start: 04-14-2024 End: 04-14-2024 Emergency department patient visit NO PCP NO PCP [facility] Start: 03-18-2024 End: 03-18-2024 Emergency department patient visit NO PCP NO PCP [facility] Start: 09-10-2022 End: 09-10-[address] NONE LISTED REQUEST Facility:[facility] Start: 04-03-2022 End: 04-03-[address] JED BURT Facility: Start: 02-16-2021 End: 02-16-2021 Emergency department patient visit REGINA TAYLOR [facility] Start: 02-16-2021 End: 02-16-2021 Emergency department patient visit Regina Taylor MD Work Phone: [facility] ED Comment on above: Intermittent paresth esia of hand and foot (Primary Dx); Elevated d-dimer; Left leg pain Start: 02-27-2020 End: 02-27-2020 Emergency department patient visit DARIAN SANTIAGO [facility] Start: 02-27-2020 End: 02-27-2020 Emergency department patient visit Jesse Casillas Work Phone: [facility] ED Comment on above: Allergic reaction, i nitial encounter (Primary Dx); Urticaria; Essential hypertension Procedures Date Procedure Procedure Detail Performing Clinician Start: 04-18-2024 Computed tomography of abdomen and pelvis with contrast Start: 02-16-2021 Creatine kinase total C federico Taylor MD Work Phone: Start: 02-27-2020 SALINE LOCK IV DARIAN HAYS Plan of Treatment Date Care Activity Detail Author Start: 04-19-2024 [facility] Start: 04-16-2024 Referral to clinical pumper gager [facility] Start: 04-14-2024 Referral to Cold Roller [facility] Start: 04-14-2024 Hospital admission [facility] Start: 05-17-2021 Influenza vaccination Flu vacc ine (Season Ended) [employer] Work Phone: Start: 02-16-2021 End: 02-16-2022 VL DUP LOWER EXTREMITY VENOUS LEFT VL DUP LOWER EXTREMITY VENOUS LEFT Imaging Routine Elevated d-dimer Expected: 02/16/2021, Expires: 02/16/2022 [employer] Work Phone: Comment on above: Expected: 02/16/2021 , Expires: 02/16/2022 Start: 05-17-2020 Influenza vaccination Flu vacc ine (Season Ended) [facility] [place] Start: 1993 COVID-19 Vaccine (1) COVID-19 Vaccin e (1) [facility] Work Phone: Patient Education Depression, Ad ult (DC) [facility] [place] Instructions Know your Meds [facility] Work Phone: Patient referral [facility] Work Phone: Payers Date Payer Category Payer Self-pay 2024 Unknown [id number] 2023 Unknown [id number] 2020 Unknown [employer] [facility] xxxxxxxxxxx 2020-Present [phone] [address] [place] [address] xxxxxxxxxxx [id number] 2020 Unknown [id number] 2017 Unknown [id number] 1981 Unknown [id number] 1981 Unknown [id number] 1981 Unknown [id number] 1981 Unknown [id number] 1981 Unknown [id number] 1981 Unknown [id number] 1959 Self-pay [id number] Medicaid [id number] Unknown [id number] Social History Date Type Detail Facility Start: 02-27-2020 End: 02-16-2021 Tobacco smoking status NHIS Current every day smoker [place], [place] History of tobacco use Cigarette Smoker M [place], [place] Start: 02-27-2020 End: 02-16-2021 Cigarettes smoked current (pack per day) - Reported [place], [place] Start: 02-27-2020 End: 02-16-2021 Alcohol intake Current non-drinker of alcohol (finding) [place], [place] Start: 1980 Sex Assigned At Not on file [place], [place] Exposure to SARS-CoV -2 (event) Unable to assess [place] Start: 02-16-2021 Tobacco use and exposure Never used [facility] Exposure to SARS-CoV -2 (event) Not sure [facility] Start: 04-16-2024 [facility] Start: 1980 Sex Assigned At Female F [facility] Goals Date Patient Goal Desired Activity /State Functional Status Date Assessment Result Facility 04-19-2024 Functional status Patient at [facility] Work Phone: Mental Status Date Assessment Result Facility 04-19-2024 Cognitive function Cognitive Sta tus Patient at [facility] Work Phone: Discharge summary 04-19-2024 Note Date & Type Note Facility 04-19-2024 Discharge summary Note Date/Time April 19, 2024 7:44am [facility] [address] [place] [address] Discharge Summary Signed Patient: Ida Proctor MR#: [id number] : 1980 Acct:[id number] Age/Sex: 44 / F Adm Date: 4 Loc: Room: [address] [place] [address]: Alex Daly MD Copies to: NON STAFF Alex Daly MD~ Providers Date of Discharge: 04/19/24 Discharging Provider: Alex Daly Primary Care Provider: NON STAFF Consults: 04/14/24 12:56 Consult to Case Management Routine Comment: CM Reason for Consult: Cold Roller-General 04/16/24 07:37 Consult to Adult Hospitalist Routine Comment: Consulting Provider: Community Hospitalist (Adult) Reason For Exam: Resistant htn Has Provider Been Notified: Yes Date of Notification: 04/16/24 Time of Notification: 08:59 Discharge Diagnosis (1) Methamphetamine abuse: (2) Hypertension: (3) Vitamin D deficiency: (4) Abdominal pain: Final Diagnosis Final Discharge Diagnosis: MDD Summary Hospital Course Hospital course: Ms. 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 The pt had her 24 year old son drive her to the [facility] emergency department so that she could be evaluated. After her time at the emergency department, she was voluntarily admitted to care at [facility]. Patient was personally seen by me on the day of the encounter. I reviewed the history and performed the hawkins elements of the assessment. I formulated the planof care and confirmed this with the medical student as noted below At time of interview, pt described in detail that she never has any energy and tends to lay down and sleep all day. The pt stated that her lower extremities and shoulders frequently experienced intense pain and felt heavy. The pt first noticed her feelings of depression come on 2 weeks ago and they have progressed since then. The pt has been living in her car with her dog and this may further compound on her feelings of sadness and depression. Pt expressed having suicidalthoughts such as forcing herself to have a stroke by not taking her BP medication and crashing her car to kill herself to nurses. The pt has a prior psychiatric history as she was in a psychiatric facility back in 2016 for 1 weekfor prior problems with her MDD and BP2. Pt expressed that she has had thoughts about harming herself but not others. Pt denies having problems with hallucinations outside of occasionally hearing voices in her head that she cannot decipher. The course of treatment: The patient was familiar with the mental health therapy services available whileon the unit and was encouraged to participate. Patient reports that she has been self-medicating with methamphetamine. She was started on clonidine for withdrawal symptoms. Blood pressure was high and hospitalist was consulted. Please review their notes for further information. She was started on Lexapro to help with depression and anxiety. Psychotropic medications targeting mood and anxiety were started, and she was provided supportive and reality-oriented therapy. She felt that her symptoms have improved on the current medication regimen, and she has been compliant with treatment and reported no side effects. Her sleep and appetite were okay. She has been attending groups and described them as helpful in building coping skills. The patient has denied any access to firearms or lethal weapons. She felt better than before coming to the hospital and feels hopeful regarding her future. She understands the importance of outpatient follow-up to ensure the stability of her symptoms. She denied suicidal or homicidal ideation and verbalized the intent to notify the staff if she has such thoughts. No suicidal or self-injurious behaviors occurred during inpatient treatment. She was offered rehab treatment but declined. She denied any symptoms that may pose a threat to herself or others. She described the unit as an excellent place to recover as she did not feel stigmatized. She expresses understanding and says she is better after learning coping skills and the medications prescribed in the inpatient unit. She said she will utilize outpatient resources if she has any SI/HI. She states she is ready to go back home and will stay with her son the patient described her thoughts as positive and denied hopelessness. She is in good spirits and is at her baseline. She did not meet the criteria for involuntary psychiatric hospitalization. The patient benefited from attending inpatient treatment and was suitable for outpatient follow-up. I explained to the patient that her hospital discharge does not mean her medical care ends here. She needs consistent outpatient follow-up and cognitive behavioral therapy and should communicate from this point on with her outpatient team. Patient's illness, medication side effects, benefits and risks were reviewed with her prior to discharge. The patient voiced understanding of their diagnosis, the medications recommended along with the importance of medication compliance. The patient was counseled not to stop medications without the supervision of a psychiatrist. The patient was counseled that if there was an increase in mental health issues, depression, anxiety, medication side effects, self harm or thoughts of harm to others, the patient was not to harm them self or stop treatment, but to call [employer] [facility], 911 or come to the nearest emergency room. The patient also received information regarding advanced mental and medical health directives during this hospitalization to discuss with their outpatient provider. The plan was discussed with the patient, the nurses and thecase management department. The patient voiced agreement with the plan. Discharge disposition: Home with son. Safe discharge Planning: With the cessation of all suicidal ideation, improvements in mood, and absence of any psychotic symptoms at the time of discharge, aftercare plans were solidified. She was able to formulate a believable Safety Plan. Discharge plans were discussed with the patient, and the treatment team. All agreed with the discharge plan. On the day of discharge, she was evaluated and had no complaints. She denied any SI/HI. She agreed to follow up with outpatient treatment as arranged by case management. She had no complications during her stay. Factors to be considered are the chronicity and severity of the symptoms and signs, associated comorbidity, and differential diagnosis-motivation to get in treatment, response to treatment, adherence to treatment recommendations, and using skills. The patient's verbal consent was provided. Suicide risk assessment: A thorough review of risk and protective factors was conducted. I discussed with the patient the following recommendations that wouldhelp reduce suicide, which include limiting the number of medications to a 15-day supply with one refill at the time of discharge to avoid potential overdose,consistent outpatient follow-up, preferably within seven days of release, involving supportive family/friends in her care, and her desire to live. We also discussed the availability of outpatient DBT groups, which can be lifesaving. She reports good therapeutic alliance, good response to medication management and therapy, availability of local mental health services and willingness to follow up, lack of suicidal ideation, intent or plan, lack of impulsivity, agitation, or psychotic behavior. The patient is future-oriented and understands the importance of outpatient follow-up. Psychiatric experts agree that predicting suicide is impossible, but considering positive factors like family and sarita, lack of access to firearms, and desire to continue treatment makes her current suicide risk minimal. Given the chronicity of suicidality, we discussed measures to help her with long-term safety. The patient is not suicidal or psychotic now. To help decreaseher suicide risk, as best I can, I am referring her for outpatient treatment andCBT for long-term follow-up to have somewhere to go and someone to manage her assymptoms and stressors develop. This is the best way to keep her alive. So, we discussed a crisis plan for future suicidality: at the first sign of distress, she will call the hotline; if this is not sufficient, she will 911, then call family members or friends; ultimately, she will come to the ER. Violence Risk Assessment: Chronic: Gender: lower than males Modifiable: good response to treatment, good therapeutic alliance, availability of local mental health services and willingness to follow up, lack of homicidal ideation (intent or plan) on the day of discharge and during hospitalization, lack of substance abuse, future oriented. No history of recent violence reported. Furthermore, No access to lethal means as currently have no weapons. No aggressive behavior during hospitalization. She has been social with peers on the unit and has been attending groups. Current Violence Risk Assessment: Low acute risk given known chronic and modifiable risk factors. Patient did not meet criteria for probate and his behavior has been overall appropriate on the unit. She has denied homicidal thoughts and has not exhibitedany aggressive behavior. She is not an acute risk to himself or others evidenced by subjective and objective data during his hospitalization. She is compliant with meds which can improve impulse control and mood. Safety: The patient is not acutely psychotic and is safe to continue treatment on an outpatient basis. The patient was made aware of the 08/04 emergency services of the crisis center. She was advised to call 911 or go to the nearest ER in case of a crisis ( (including having thoughts of harming herself or others). Typical short- and long-term side effects of the proposed medication regimen, including contraindications and clinically significant interactions, were discussed with the patient. Side effects include but not limited to sedation, overdose, rash, movement disorders (TD, EPS), weight gain, and appetite changesand advised the patient not to drive or drink while taking these meds. Patient should reach out to medical provider if any of these side effects occur. Using drugs can increase risk of . We also discussed risk of overdose with this current med regimen. Patient understands that it is impossible to gurantee an outcome with medications. Patient indicates an understanding that benefits outweigh the risks. Continue supportive therapy with some CBT techniques. Psycho-education and compliance counseling were provided. She denies current and is aware to notify her psychiatrist if she becomes due to the risk of harm to the fetus. Avoid taking psychiatric medications with driving. MSE: Orientation: Alert and oriented to person, place, and time. Appearance/Behavior: Fair grooming and hygiene, calm, cooperative, engaged in the interview. Good eye contact. Normal psychomotor activity. Speech: normal rate, rhythm, volume, and tone. Non pressured. Knowledge: Appropriate for age and level of education Mood: okay Affect: reactive, mood-congruent Thought process: linear, logical, and goal-oriented Thought content: No SI/HI. No AVH. No delusions. Does not appear to be responding to internal stimuli. Concentration: Grossly intact based on track during the interview Associations: No loosening of associations Memory: Able to recall recent and remote historical information Insight: Fair, able to appreciate current symptoms and need for outpatient treatment Judgment: fair, agreed to follow treatment recommendations, socially appropriate with interviewer and staff. Time spent discussing smoking cessation with patient: more than 10 minutes Condition Condition at Discharge: Stable Status at Discharge Functional status at discharge: independent ambulation Time Spent with Patient Time spent providing/coordinating discharge services (# min): 61 Discharge Plan Discharge Plan Patient Disposition: Home Activity: No Activity Restriction Diet: Regular Additional Instructions: Important Contact Information You can call [facility] at [phone] any time day or night if you have emergent questions or question regarding discharge instructions. If at any time you are feeling an increase inyour psychiatric symptoms, call your physician or behavioral healthcare provider. If any time you have thoughts of harming yourself or others contact one of the following: Call (available 08/04) Crisis Text Line (available 08/04) text 4HOPE to [phone] [facility] Hope Line (available 8 a.m. Midnight) call [phone] ([phone]) Instructions: Know your Meds Prescriptions: New cholecalciferol (vitamin D3) 125 mcg (5,000 unit) Capsule 125 mcg PO DAILY 30 Days Qty: 30 0RF clonidine HCl 0.1 mg Tablet 0.1 mg PO HS PRN (Reason: withdrawal) 30 Days Qty: 30 0RF pantoprazole 40 mg Tablet,Delayed Release (Dr/Ec) 40 mg PO BID 30 Days Qty: 60 0RF losartan-hydrochlorothiazide 50-12.5 mg Tablet 1 tab PO QAM 30 Days Qty: 30 0RF ondansetron 4 mg Tablet,Disintegrating 4 mg PO Q6HR PRN (Reason: Nausea And Vomiting) 30 Days Qty: 30 0RF escitalopram oxalate 5 mg Tablet 5 mg PO DAILY 15 Days Qty: 15 0RF amlodipine 10 mg Tablet 10 mg PO DAILY Qty: 30 0RF dicyclomine 10 mg Capsule 10 mg PO TID PRN (Reason: IBS) Qty: 30 0RF Follow Up: [facility] [Outside] (Contact office to establish a PCP for medical needs. ) [facility] [Outside] Exam Physical Exam Vital Signs: Temp Pulse Resp BP Pulse Ox O2 Del Method 97.1 F L 77 16 119/63 97 Room Air 04/18/24 21:15 04/18/24 21:15 04/18/24 21:15 04/18/24 21:15 04/18/24 21:15 04/18/24 21:15 Diagnostic Studies Completed and Pending Studies Labs on day of discharge: 04/18/24 14:25: Urine Color Light-yellow, Urine Appearance Cloudy A, Urine pH 5.5, Ur Specific [place] 1.006, Urine Protein Negative, Urine Glucose (UA) Normal, Urine Ketones Negative, Urine Occult Blood Negative, Urine Nitrite Negative, Urine Bilirubin Negative, Urine Urobilinogen Normal, Ur Leukocyte Esterase Negative, Urine RBC 1-2, Urine WBC 1-2, Ur Squamous Epith Cells 5-9 H, Amorphous Crystals Rare, Urine Bacteria Rare, Hyaline Casts 0-8, Urine Mucus Rare 04/18/24 05:48: Corrected WBC 7.6, Uncorrected WBC Count 7.6, RBC 5.04 H, Hgb 10.2 L, Hct 34.7, MCV 68.8 L, MCH 20.3 L, MCHC 29.5 L, RDW 20.1 H, Plt Count 353, MPV 7.5, Neut % (Auto) 56.5, Lymph % (Auto) 29.2, [place] % (Auto) 11.2, Eos % (Auto) 2.1, Baso % (Auto) 1.0, Nucleat RBC Rel Count 0.1, Neut # (Auto) 4.3, Lymph # (Auto) 2.2, [place] # (Auto) 0.9 H, Eos # (Auto) 0.2, Baso # (Auto) 0.1, Platelet Estimate Normal, Plt Morphology Comment Normal, RBC Morphology N/A, Polychromasia Slight, Hypochromasia Slight, Poikilocytosis Slight, Anisocytosis Moderate, Microcytosis Moderate, Ovalocytes Slight, Crenated Cell Slight, PHA Creatinine Clear 144.97, Sodium 138, Potassium 4.0, Chloride 101, Carbon Dioxide 30.2, Anion Gap 10.8, BUN 22, Creatinine 0.75, Est GFR (CKD-EPI) > 60.0, Glucose 94, Calcium 9.0, Magnesium 2.1, Total Bilirubin 0.8, AST 14, ALT 14, Alkaline Phosphatase 81, Total Protein 6.7, Albumin 3.7, Globulin 3.0, Albumin/Globulin Ratio 1.2, Lipase 21.0, HCG, Quant < 0.60 04/15/24 06:26: PHA Creatinine Clear Cancelled, Sodium Cancelled, Potassium Cancelled, Chloride Cancelled, Carbon Dioxide Cancelled, Anion Gap Cancelled, BUN Cancelled, Creatinine Cancelled, Est GFR (CKD-EPI) Cancelled, Glucose Cancelled, Calcium Cancelled, Total Bilirubin Cancelled, AST Cancelled, ALT Cancelled, Alkaline Phosphatase Cancelled, Total Protein Cancelled, Albumin Cancelled, Globulin Cancelled, Albumin/Globulin Ratio Cancelled, Lipase Cancelled, HCG, Quant Cancelled Documented By: Alex Daly MD 4 [id number] Signed By: <Electronically signed by Alex Daly MD> 04/19/24 0933 [facility] Work Phone: Progress note 04-18-2024 Note Date & Type Note Facility 04-18-2024 Progress note Note Date/Time April 18, 2024 1:04pm [facility] [address] [place] [address] Hospitalist Progress Note Signed Patient: Ida Proctor MR#: [id number] : 1980 Acct:[id number] Age/Sex: 44 / F Adm Date: 4 Loc: 1S Room: [address] [place] [address] Type: ADM IN Attending Dr: Alex Daly MD Copies to: ~ Date of Service: 04/18/2024 Subjective Subjective Narrative: Patient seen and examined at [facility] of nursing staff. Patient with abdominal pain, intermittent emesis. Patient seen in her room. States has history of IBS/colitis. Indicates this is not withdrawal - had been 6 months since last ongoing use and used crack x3 and meth once 2 days prior to her admission. She attempted to eat breakfast but vomited after. Has had bilious vomit previously noted as well. Reports diarrhea this morning. Generalized pain in abdomen, nausea if intake. No chance for , last menses 1 month ago- normal, no sexual activity since that time. Nursing vitals just reviewed 154/51, 85, 18, 98/0, 95%RA. Exam Physical Exam Vital Signs: Temp Pulse Resp BP Pulse Ox O2 Del Method 98 F 85 18 154/51 H 95 Room Air 04/18/24 12:54 04/18/24 12:54 04/18/24 09:00 04/18/24 12:54 04/18/24 12:54 04/18/24 12:54 Narrative: CONST- alert, in bed, restless secondary to pain CARDIAC- RRR no abnormal heart tones PULM- diminished without wheeze or rhonchi, RA, no accessory muscle use or coughnoted ABD- soft, generalized tenderness but more right mid quad, NABS, obese EXTREM- no edema BLE, calves nontender SKIN- W/D, good turgor Objective Lab Results 04/18/24 05:48 04/18/24 05:48 Meds Allergies and Active Meds Allergies amoxicillin Allergy (Verified 04/14/24 12:37) Difficulty Breathing Penicillins Allergy (Verified 04/14/24 12:37) Difficulty Breathing Active Meds: Active Medications Generic Name Dose Route Start Last Admin Trade Name Freq PRN Reason Stop Dose Admin Acetaminophen 500 mg 04/14/24 12:28 04/14/24 17:13 Acetaminophen 500 Mg Tablet PO 04/14/25 12:27 500 mg Q6H PRN Administration Fever or Pain Al Hydrox/Mg Hydrox/Simethicone 30 ml 04/14/24 12:28 04/18/24 09:39 Mag Hydrox/Al Hydrox/Simeth 30 Ml Udc PO 04/14/25 12:27 30 ml Q6H PRN Administration Indigestion Amlodipine Besylate 10 mg 04/16/24 16:00 04/18/24 09:39 Amlodipine 10 Mg Tablet PO 04/16/25 15:59 10 mg DAILY NEIL Administration Benztropine Mesylate 0.5 mg 04/14/24 12:28 Benztropine 0.5 Mg Tablet PO 04/14/25 12:27 Q6H PRN Dystonia Benztropine Mesylate 0.5 mg 04/14/24 12:28 Benztropine 2 Mg/2 Ml Ampul IM 04/14/25 12:27 Q6H PRN Dystonia Clonidine HCl 0.1 mg 04/18/24 08:21 Clonidine 0.1 Mg Tablet PO 04/18/25 21:59 HS PRN withdrawal Escitalopram Oxalate 5 mg 04/15/24 09:00 04/18/24 09:39 Escitalopram 5 Mg Tablet PO 04/15/25 08:59 5 mg DAILY NEIL Administration HCTZ/Losartan Potassium 1 tab 04/17/24 09:00 04/18/24 09:39 Losartan/Hctz 50-12.5mg 1 Tab Tablet PO 04/17/25 08:59 1 tab QAM NEIL Administration Hydralazine HCl 25 mg 04/16/24 09:08 04/16/24 20:51 Hydralazine 25 Mg Tablet PO 04/16/25 13:59 25 mg TID PRN Administration hypertension Hydroxyzine Pamoate 50 mg 04/14/24 12:28 04/16/24 21:35 Hydroxyzine Pamoate 50 Mg Capsule PO 04/14/25 12:27 50 mg Q6H PRN Administration Anxiety Ibuprofen 400 mg 04/14/24 12:28 Ibuprofen 400 Mg Tablet PO 04/14/25 12:27 Q6H PRN Pain Magnesium Hydroxide 30 ml 04/14/24 12:28 Magnesium Hydroxide Susp 30 Ml Udc PO 04/14/25 12:27 Q6H PRN Constipation Nicotine Polacrilex 2 mg 04/14/24 12:28 04/18/24 12:29 Nicotine Polacrilex 2 Mg Gum BUCCAL 04/14/25 12:27 2 mg Q2H PRN Administration Nicotine Cravings Olanzapine 5 mg 04/14/24 12:28 04/14/24 21:16 Olanzapine 5 Mg Tablet PO 04/14/25 12:27 5 mg Q6H PRN Administration Agitation Olanzapine 5 mg 04/14/24 12:28 04/16/24 03:45 Olanzapine 10 Mg Vial *Nf* IM 04/14/25 12:27 5 mg Q6H PRN Administration Agitation Ondansetron HCl 4 mg 04/16/24 07:39 04/18/24 10:30 Ondansetron Odt 4 Mg Tab.Rapdis PO 04/15/25 13:23 4 mg Q6HR PRN Administration Nausea And Vomiting Pantoprazole Sodium 40 mg 04/16/24 21:00 04/18/24 09:39 Pantoprazole 40 Mg Tablet. PO 04/16/25 20:59 40 mg BID NEIL Administration Sterile Water 2.1 ml 04/14/24 12:28 04/16/24 03:46 Water For Injection,Sterile 10 Ml Vial INJECTION 04/14/25 12:27 2.1 ml PRN PRN Administration To dilute OLANZapine (ZyPREXA) Trazodone HCl 50 mg 04/14/24 12:28 04/17/24 21:57 Trazodone 50 Mg Tablet PO 04/14/25 12:27 50 mg QHS PRN Administration Insomnia Vitamin D 125 mcg 04/17/24 09:00 04/18/24 09:39 Cholecalciferol 125 Mcg (5,000 Units) Capsule PO 04/17/25 08:59 125 mcg DAILY NEIL Administration A&P - Hospitalist Assessment/Plan (1) Methamphetamine abuse: (2) Hypertension: (3) Vitamin D deficiency: (4) Abdominal pain: Plan Abdominal pain, note hx IBS/colitis -CMP CBC lipase HCG UA - all normal -CT abd/pelvis- nonacute, hepatic steatosis and hepatomegaly -1L IVF bolus -prn Ondansetron, pantoprazole BID, add dicyclomine Hypertension -amlodipine and losartan HCTZ. PRN hydralazine Vitamin D deficiency -cholecalciferol Elevated TSH 5.98 -normal T4. Probably secondary to methamphetamine use. No intervention Depression -Further POC per inpatient psychiatric team for psychoactive medication management/adjustment and psychotherapy Substance abuse disorder?methamphetamine -Ongoing counseling and withdrawal management per psychiatry team Documented By: Frances Walsh APRN 12/07 1304 Signed By: <Electronically signed by LAINEY Walsh> 04/18/24 1701 [facility] Work Phone: Progress note 04-18-2024 Note Date & Type Note Facility 04-18-2024 Progress note Note Date/Time April 18, 2024 10:32am [facility] [address] [place] [address] Psychiatry Progress Note Signed Patient: Ida Proctor MR#: [id number] : 1980 Acct:[id number] Age/Sex: 44 / F Adm Date: 4 Loc: Room: [address] [place] [address] Type : ADM IN Attending Dr: Alex Daly MD Copies to: ~ Date of Service: 04/18/2024 Subjective Subjective Narrative: Narrative: Ida Proctor is a 44 year old female on day 4 of hospitalization with symptoms of depression and suicidal ideation. Patient stated that she is feeling much better with the meth withdrawal symptoms. Pt did mention that some abdominal pain and nausea were still present. Overall pt mentioned that she is doing well and has not had any thoughts about harming herself or others. Pt mentioned that the new medication regimen has really helped cut down her anxiousness. Pt overall is still feeling depressed but denies having hallucinations/delusions. During the interview the pt mentioned that she spoke with her son and the plan after discharge is to move in with him. Pt is in higher spirits than before but is still overall in a depressed mood. Sleep/Eat: Pt states she has been sleeping well. Pt stated that she was able to eat yesterday due to her nausea going down. Group Sessions: Has not attended sessions due to feeling unwell but plans to SI/HI: no SI/HI over the past day Tolerating Medications: pt reported no problems with medications aside from drowsiness it has been causing her. Patient was personally seen by me on the day of the encounter. I reviewed the history and performed the hawkins elements of the assessment. I formulated the planof care and confirmed this with the medical student as noted below Mental Status: mental status grossly normal, poor eye contact Mood: Anxious and depressed mood Affect: mood congruent affect Speech and Movement: speech and movement normal and speech clear but slow Attitude: cooperative but very drowsy Thought Process: normal Thought Content: Denied hallucinations, no homicidality and intermittent suicidality Insight: Fair Judgment: Fair Exam Physical Exam Vital Signs: Temp Pulse Resp BP Pulse Ox O2 Del Method 97.8 F 76 18 136/66 95 Room Air 04/18/24 09:00 04/18/24 09:00 04/18/24 09:00 04/18/24 09:00 04/18/24 09:00 04/18/24 09:00 Assessment/Plan Assessment/Plan (1) Methamphetamine abuse: (2) Hypertension: (3) Vitamin D deficiency: Plan Plan Patient feels much better compared to the time of admission. The patient deniescurrent suicidal or homicidal ideation, and verbalized the intent to notify staff if there are such thoughts. The patient denies recent suicidal or self injurious behaviors. Switch Clonidine .1 mg PO HS PRN Continue Protonix 40 mg PO BID Continue to monitor mental status HTN, chronic- continue Amlodipine 10 mg PO QD and begin Losartan 12.5 mg PO QAM Continue Escitalopram 5 mg PO QD Monitor suicidal behaviors for safety of self (15-minute face check). Encourage medication adherence. Risks, benefits, and alternatives of treatment explained Recommend? attending groups and psychoeducation for building coping skills. Risks, benefits and indications of medications were discussed with the patient.? Involve friends/family members to coordinate care and ensure appropriate outpatient appointments are scheduled prior to discharge. Documented By: Alex Daly MD [id number] Signed By: <Electronically signed by Alex Daly MD> 04/18/24 9629 [facility] Work Phone: Progress note 04-17-2024 Note Date & Type Note Facility 04-17-2024 Progress note Note Date/Time April 17, 2024 11:24am [facility] [address] [place] [address] Psychiatry Progress Note Signed Patient: Ida Proctor MR#: [id number] : 1980 Acct:[id number] Age/Sex: 44 / F Adm Date: 4 Loc: 1S Room: [address] [place] [address] Type : ADM IN Attending Dr: Alex Daly MD Copies to: ~ Date of Service: 04/17/2024 Subjective Subjective Narrative: Narrative: Ida Proctor is a 44 year old female on day 3 of hospitalization with symptoms of depression and suicidal ideation. Patient stated that she is still feeling poorly due to the meth withdrawal symptoms and complained about abdominal pain as well as extreme nausea. She reported feeling slightly improved compared to yesterday however. Clonidine was added to help with meth withdrawal yesterday toher regimen. Due to consistent high blood pressure and generalized body aches, ahospitalist was consulted and amlodipine was prescribed. Pt overall is still feeling depressed but denies having hallucinations/delusions. Patient was personally seen by me on the day of the encounter. I reviewed the history and performed the hawkins elements of the assessment. I formulated the planof care and confirmed this with the resident as noted below Sleep/Eat: Pt states she has been sleeping a lot and feels drowsy a lot of the time. Pt also reports that she was unable to eat at all yesterday due to her nausea. She said that when she would try to eat, she would become sick and want to throw up. Group Sessions: Has not attended sessions due to feeling unwell SI/HI: Confirms SI but not HI Tolerating Medications: pt reported no problems with medications aside from drowsiness it has been causing her. Mental Status: mental status grossly normal, poor eye contact Mood: Anxious and depressed mood Affect: mood congruent affect Speech and Movement: speech and movement normal and speech clear but slow Attitude: cooperative but very drowsy Thought Process: normal Thought Content: Denied hallucinations, no homicidality and intermittent suicidality Insight: Fair Judgment: Fair Exam Physical Exam Vital Signs: Temp Pulse Resp BP Pulse Ox O2 Del Method 98.1 F 72 16 146/78 H 94 L Room Air 04/16/24 15:00 04/17/24 05:00 04/17/24 05:00 04/17/24 05:00 04/17/24 05:00 04/17/24 05:00 Assessment/Plan Assessment/Plan (1) Methamphetamine abuse: (2) Hypertension: (3) Vitamin D deficiency: Plan Plan Patient presenting due to depression and thoughts of self harm. She reports withdrawal symptoms due to meth use. Recommend rehab treatment Continue Clonidine 0.1 mg PO B for meth withdrawal Begin Protonix 40 mg PO BID Continue to monitor mental status HTN, chronic- discontinue Lisinopril 10 mg PO QD and begin Amlodipine 10 mg PO QD Continue Escitalopram 5 mg PO QD Monitor suicidal behaviors for safety of self (15-minute face check). Encourage medication adherence. Risks, benefits, and alternatives of treatment explained Recommend? attending groups and psychoeducation for building coping skills. Risks, benefits and indications of medications were discussed with the patient.? Involve friends/family members to coordinate care and ensure appropriate outpatient appointments are scheduled prior to discharge. Documented By: Alex Daly MD [id number] Signed By: <Electronically signed by Alex Daly MD> 04/17/24 [facility] Work Phone: Consult note 04-16-2024 Note Date & Type Note Facility 04-16-2024 Consult note Note Date/Time April 16, 2024 3:00pm [facility] [address] [place] [address] Hospitalist Consult Note Signed Patient: Ida Proctor MR#: [id number] : 1980 Acct:[id number] Age/Sex: 44 / F Adm Date: 4 Loc: Room: [address] [place] [address] Type: ADM IN Attending Dr: Alex Daly MD Copies to: NON STAFF MD Frances Barroso APRN Michael R. Frings, DO~ HPI DATE OF CONSULTATION: 04/16/24 REQUESTING PROVIDER: Alex Daly Consult Narrative Reason for Consult: Hypertension HPI: 44-year-old female past medical history significant for hypertension. Presentedto outside hospital emergency department with depression. Transferred to inpatient psychiatric unit here at [facility] overnight for ongoing management. Hospitalist team is now consulted for management of hypertension. Lisinopril has already been initiated per psychiatry as well as clonidine for withdrawal symptoms but this can also help with blood pressure. Patient has substance use disorder with recent methamphetamine use. Patient seen and examined. Mckeon not feel well with withdrawal, having abdominal cramping and bilious emesis, but eating per staff. Denies chest pain or palpitations. No cough, dyspnea, or pain with inspiration. No diarrhea. No dysuria or retention. No headache or dizziness. No fevers or chills. Review of Systems Review of Systems All other systems reviewed & are negative unless noted below or in HPI [facility] Medical History (Updated 04/16/24 @ 15:06 by Frances Walsh APRN) Methamphetamine abuse Hypertension Family History Mother COPD (chronic obstructive pulmonary disease) Diabetes mellitus type 1 Social History Smoking Status: Current every day smoker Tobacco Type: cigarettes Substance Use Type: Marijuana, Cocaine and Amphetamines Meds Medications and Allergies Allergies amoxicillin Allergy (Verified 04/14/24 12:37) Difficulty Breathing Penicillins Allergy (Verified 04/14/24 12:37) Difficulty Breathing Home Medications No known home meds 04/14/24 [History Confirmed 04/14/24] Active Medications: Active Medications Generic Name Dose Route Start Last Admin Trade Name Freq PRN Reason Stop Dose Admin Acetaminophen 500 mg 04/14/24 12:28 04/14/24 17:13 Acetaminophen 500 Mg Tablet PO 04/14/25 12:27 500 mg Q6H PRN Administration Fever or Pain Al Hydrox/Mg Hydrox/Simethicone 30 ml 04/14/24 12:28 04/16/24 03:54 Mag Hydrox/Al Hydrox/Simeth 30 Ml Udc PO 04/14/25 12:27 30 ml Q6H PRN Administration Indigestion Benztropine Mesylate 0.5 mg 04/14/24 12:28 Benztropine 0.5 Mg Tablet PO 04/14/25 12:27 Q6H PRN Dystonia Benztropine Mesylate 0.5 mg 04/14/24 12:28 Benztropine 2 Mg/2 Ml Ampul IM 04/14/25 12:27 Q6H PRN Dystonia Clonidine HCl 0.1 mg 04/16/24 09:00 04/16/24 08:42 Clonidine 0.1 Mg Tablet PO 04/16/25 08:59 0.1 mg BID NEIL Administration Escitalopram Oxalate 5 mg 04/15/24 09:00 04/16/24 08:42 Escitalopram 5 Mg Tablet PO 04/15/25 08:59 5 mg DAILY NEIL Administration Hydralazine HCl 25 mg 04/16/24 09:08 Hydralazine 25 Mg Tablet PO 04/16/25 13:59 TID PRN hypertension Hydroxyzine Pamoate 50 mg 04/14/24 12:28 04/15/24 21:41 Hydroxyzine Pamoate 50 Mg Capsule PO 04/14/25 12:27 50 mg Q6H PRN Administration Anxiety Ibuprofen 400 mg 04/14/24 12:28 Ibuprofen 400 Mg Tablet PO 04/14/25 12:27 Q6H PRN Pain Lisinopril 10 mg 04/15/24 09:00 04/16/24 08:42 Lisinopril 10 Mg Tablet PO 04/15/25 08:59 10 mg DAILY NEIL Administration Magnesium Hydroxide 30 ml 04/14/24 12:28 Magnesium Hydroxide Susp 30 Ml Udc PO 04/14/25 12:27 Q6H PRN Constipation Nicotine Polacrilex 2 mg 04/14/24 12:28 04/15/24 08:22 Nicotine Polacrilex 2 Mg Gum BUCCAL 04/14/25 12:27 2 mg Q2H PRN Administration Nicotine Cravings Olanzapine 5 mg 04/14/24 12:28 04/14/24 21:16 Olanzapine 5 Mg Tablet PO 04/14/25 12:27 5 mg Q6H PRN Administration Agitation Olanzapine 5 mg 04/14/24 12:28 04/16/24 03:45 Olanzapine 10 Mg Vial *Nf* IM 04/14/25 12:27 5 mg Q6H PRN Administration Agitation Ondansetron HCl 4 mg 04/16/24 07:39 Ondansetron Odt 4 Mg Tab.Rapdis PO 04/15/25 13:23 Q6HR PRN Nausea And Vomiting Sterile Water 2.1 ml 04/14/24 12:28 04/16/24 03:46 Water For Injection,Sterile 10 Ml Vial INJECTION 04/14/25 12:27 2.1 ml PRN PRN Administration To dilute OLANZapine (ZyPREXA) Trazodone HCl 50 mg 04/14/24 12:28 04/15/24 20:27 Trazodone 50 Mg Tablet PO 04/14/25 12:27 50 mg QHS PRN Administration Insomnia Exam Physical Exam Vital Signs: Temp Pulse Resp BP Pulse Ox O2 Del Method 98.2 F 92 18 182/93 H 93 L Room Air 04/16/24 07:30 04/16/24 07:30 04/16/24 07:30 04/16/24 07:30 04/16/24 07:30 04/16/24 07:30 Narrative: CONST- alert, in bed, no acute distress HEAD- normocephalic and atraumatic EENT- sclera nonicteric and conjunctiva nonerythemic, moist oral mucosa, pharynxnot visualized NECK- supple, no cervical lymphadenopathy CARDIAC- RRR no abnormal heart tones PULM- diminished without wheeze or rhonchi, RA, no accessory muscle use or coughnoted ABD- S/NT, NABS, obese EXTREM- no edema BLE, calves nontender SKIN- W/D, good turgor MS- MAEx4 spontaneously with equal strength NEURO- A&Ox3, speech clear and tongue midline, equal facial symmetry PSYCH-mood and behavior appropriate Results - Hospitalist Consult Lab Results Labs: Laboratory Results - last 72 hr 04/15/24 06:26: Triglycerides 156 H, Cholesterol 151, LDL Cholesterol, Calc 76, VLDL Cholesterol 31, HDL Cholesterol 44, Cholesterol/HDL Ratio 3.4, 25-OH Vitamin D Total 14.2 L, Free T4 0.79, TSH 3rd Generation 5.98 H Assessment & Plan Assessment/Plan (1) Methamphetamine abuse: (2) Hypertension: (3) Vitamin D deficiency: Plan Hypertension -Psychiatry has already initiated lisinopril 10 mg daily this morning for blood pressure management. Clonidine 0.1 mg twice daily also ordered for management of withdrawal but beneficial for hypertension as well. Monitor for rebound hypertension with any discontinuance of clonidine. Withdrawal symptoms are present and could be contributory to uncontrolled blood pressure. -stop lisinopril -pt previously on amlodipine and losartan HCTC- will resume. Discussed compliance and follow up. PRN hydralazine Vitamin D deficiency -cholecalciferol Elevated TSH 5.98 -normal T4. Probably secondary to methamphetamine use. No intervention Depression -Further POC per inpatient psychiatric team for psychoactive medication management/adjustment and psychotherapy Substance abuse disorder?methamphetamine -Ongoing counseling and withdrawal management per psychiatry team Documented By: Frances Walsh, LAINEY 10/09 1500 Signed By: <Electronically signed by LAINEY Walsh> 04/16/24 1601 <Electronically signed by Dustin Barros DO> 04/16/24 1743 [facility] Work Phone: Progress note 04-16-2024 Note Date & Type Note Facility 04-16-2024 Progress note Note Date/Time April 16, 2024 9:18am [facility] [address] [place] [address] Psychiatry Progress Note Signed Patient: Ida Proctor MR#: [id number] : 1980 Acct:[id number] Age/Sex: 44 / F Adm Date: 4 Loc: Room: [address] [place] [address] Type : ADM IN Attending Dr: Alex Daly MD Copies to: ~ Date of Service: 04/16/2024 Subjective Subjective Narrative: Patient stated that she is going through meth withdrawal and complained of abdominal pain. She was offered Zofran PRN for nausea. She reports highly anxious due to withdrawal symptoms. She was offered one time dose of Ativan. Clonidine was added to help with meth withdrawal. Due to consistent high blood pressure and generalized body aches, we will consult hospitalist. Mental Status: mental status grossly normal Mood: Anxious mood Affect: mood congruent affect Speech and Movement: speech and movement normal and speech clear Attitude: cooperative Thought Process: normal Thought Content: Denied hallucinations, no homicidality and intermittent suicidality Insight: Fair Judgment: Fair Exam Physical Exam Vital Signs: Temp Pulse Resp BP Pulse Ox O2 Del Method 98.2 F 92 18 182/93 H 93 L Room Air 04/16/24 07:30 04/16/24 07:30 04/16/24 07:30 04/16/24 07:30 04/16/24 07:30 04/16/24 07:30 Assessment/Plan Assessment/Plan (1) Major depressive disorder, recurrent, moderate: Plan Patient presenting due to depression and thoughts of self harm. She reports withdrawal symtpoms due to meth use. She was offered one time dose of Ativan. Ordered Clonidine 0.1 mg PO BID. Continue to monitor mental status HTN, chronic- continue Lisinopril 10 mg PO QD Start Escitalopram 5 mg PO QD and may increase dose. Monitor suicidal behaviors for safety of self (15-minute face check). Encourage medication adherence. Risks, benefits, and alternatives of treatment explained Recommend? attending groups and psychoeducation for building coping skills. Risks, benefits and indications of medications were discussed with the patient.? Involve friends/family members to coordinate care and ensure appropriate outpatient appointments are scheduled prior to discharge. Documented By: Alex Daly MD 4 [id number] Signed By: <Electronically signed by Alex Daly MD> 04/16/24 0918 [facility] Work Phone: History and physical note 04-15-2024 Note Date & Type Note Facility 04-15-2024 History and physi tracey note Note Date/Time April 15, 2024 1:43pm [facility] [address] [place] [address] Psychiatry H&P Signed Patient: Ida Proctor MR#: [id number] : 1980 Acct:[id number] Age/Sex: 44 / F Adm Date: 4 Loc: Room: [address] [place] [address] Type: ADM IN Attending Dr: Alex Daly MD Copies to: NON STAFF Alex Daly MD~ Date of Service: 04/15/2024 HPI Narrative Narrative: Ms. 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 The pt had her 24 year old son drive her to the [facility] emergency department so that she could be evaluated. After her time at the emergency department, she was voluntarily admitted to care at [facility]. Patient was personally seen by me on the day of the encounter. I reviewed the history and performed the hawkins elements of the assessment. I formulated the planof care and confirmed this with the medical student as noted below At time of interview, pt described in detail that she never has any energy and tends to lay down and sleep all day. The pt stated that her lower extremities and shoulders frequently experienced intense pain and felt heavy. The pt first noticed her feelings of depression come on 2 weeks ago and they have progressed since then. The pt has been living in her car with her dog and this may further compound on her feelings of sadness and depression. Pt expressed having suicidalthoughts such as forcing herself to have a stroke by not taking her BP medication and crashing her car to kill herself to nurses. The pt has a prior psychiatric history as she was in a psychiatric facility back in 2016 for 1 weekfor prior problems with her MDD and BP2. Pt expressed that she has had thoughts about harming herself but not others. Pt denies having problems with hallucinations outside of occasionally hearing voices in her head that she cannot decipher. Past psych history: Ida reports previously being diagnosed with BP2 and MDD, pt reports that she was in a psychiatric facility back in 2016 for 1 week. Past hospitalizations: Patient has had surgeries involving her knees and lower extremities Past suicide attempts: Patient denied having any prior suicide attempts to student but confirmed a history to nurse. Previous medications: Escitalopram Oxalate 5 mg PO QD Alcohol and drug use: Pt does not drink alcohol but smokes marijuana daily. Living: Patient reports that she is currently living in her car with her dog Employment: Unemployed currently, she has lost 4 different jobs in 4 months Review of symptoms: Constitutional: Denies chills and Denies fever(s) Eyes: Reports slight decline in vision ENT: Denies abnormal hearing Cardiovascular: Denies chest pain Respiratory: Denies chest congestion and Denies cough Gastrointestinal: Denies change in bowel habits Genitourinary: Reports polyuria Musculoskeletal: Reports joint pain in lower extremities and shoulders Integumentary/Breasts: Reports dry skin on upper back Neurologic: Reports abnormal gait due to pain from legs Psychiatric: Reports depression and suicidal ideation MSE Appearance: grossly normal.? Fair grooming and hygiene, calm, cooperative, engaged in the interview. Poor eye contact, patient mostly laid down facing awaywhile talking. Mental Status: mental status grossly normal Mood: depressed, dysthymic Affect: dysphoric Speech and Movement: speech normal. Regular rate, rhythm, volume, and tone. Non pressured. Movement was sluggish. Attitude: cooperative Thought Process: normal Thought Content: Denies paranoid or delusional thoughts. No homicidality but confirms suicidality. Occasionally will hear voices in her head but is not sure what they are saying. Insight: fair Judgment:fair Physical exam: Const: cooperative Nutritional Appearance: average body habitus Orientation: alert, awake and oriented x3 HEENT: Head normal to inspection, hearing grossly normal bilaterally, external nose normal, face symmetric Eyes: appearance normal, both eyes and all related structures, sclerae normal Neck: normal visual inspection and full ROM Resp: normal respiratory effort, able to speak in complete sentences and symmetric chest movement Cardio: regular rate : deferred Skin: no rashes or lesions noted Neuro: CNI: normal olfaction CNII: Visual conte intact, CNIII,IV,: EOM intact, no nystagmus. Pupils equal, round, reactive to light and accommodation, CNV: Sensation intact to light touch, CNVII: Raises eyebrows, smile/frown, puff out cheeks symmetrically, CNVIII: Hearing intact bilaterally, CNIX,X: Voice normal, soft palate elevation normal, symmetrical, CNXI: Shoulder shrug strong, equal bilaterally, CNXII: Tongue protrusion midline, movement symmetrical. Extrem: limited ROM [facility] Medical History (Updated 04/15/24 @ 15:24 by Alex Daly MD) Hypertension Family History (Updated 04/14/24 @ 13:11 by Beatriz Bennett RN) Mother COPD (chronic obstructive pulmonary disease) Diabetes mellitus type 1 Social History Smoking Status: Current every day smoker Tobacco Type: cigarettes Substance Use Type: Marijuana, Cocaine and Amphetamines Meds Medications and Allergies Allergies amoxicillin Allergy (Verified 04/14/24 12:37) Difficulty Breathing Penicillins Allergy (Verified 04/14/24 12:37) Difficulty Breathing Home Medications No known home meds 04/14/24 [History Confirmed 04/14/24] Exam Physical Exam Vital Signs: Temp Pulse Resp BP Pulse Ox O2 Del Method 98.1 F 90 18 164/97 H 90 L Room Air 04/15/24 07:30 04/15/24 07:30 04/15/24 07:30 04/15/24 07:30 04/15/24 07:30 04/15/24 07:30 Assessment/Plan (1) Major depressive disorder, recurrent, moderate: Plan Patient presenting due to depression and thoughts of self harm. Continue to monitor mental status HTN, chronic- begin Lisinopril 10 mg PO QD Start Escitalopram 5 mg PO QD Monitor suicidal behaviors for safety of self (15-minute face check). Encourage medication adherence. Risks, benefits, and alternatives of treatment explained Recommend? attending groups and psychoeducation for building coping skills. Risks, benefits and indications of medications were discussed with the patient.? Involve friends/family members to coordinate care and ensure appropriate outpatient appointments are scheduled prior to discharge. Documented By: Alex Daly MD 4 [id number] Signed By: <Electronically signed by Alex Daly MD> 04/15/24 1524 [facility] Work Phone: Evaluation note Note Date & Type Note Facility Evaluation note Diagnosis Intermittent paresthesia of hand and foot- Primary Elevated d-dimer Abnormal coagulation profile Left leg pain Pain in limb documented in this encounter [facility] Phone: Evaluation note Note Date & Type Note Facility Evaluation note Diagnosis Onset Date Abdominal pain acute Hypertension acute Major depressive disorder, r ecurrent, moderate acute Methamphetamine abuse acute Vitamin D deficiency acute [facility] Work Phone: Hospital Discharge instructions Attachments Note Date & Type Note Facility Hospital Discharge instructions The following attachments cannot be sent through Care Everywhere.Numbness and Tingling (Eritrean)Leg Pain (Eritrean)documented in this encounter [facility] Phone: Discharge Instructions * Instructions* Jesse Casillas Jr., MD - 02/27/2020 Use medications as prescribed. Return if you have increasing itching, rash, or shortness of breath.Have your blood pressure rechecked next week by your family doctor * Attachments The following attachments cannot be sent through Care Everywhere. 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 ACP-Advance Directive ACP-Power of Disability Hearing Officer Advance Directive Response Recorded Date/ Time Advance Directives No February 26 11:08am Summary Purpose Family History Relationship Condition Age at Onset Recorded Date/T [place] mother Chronic obstructive pulmonary disease Unk nown Type 1 diabetes mellitus Unknown Reason for Referral Status Reason Specialty Diagnoses / Procedures Referred By Contact Referred To Contact Open Radiology Diagnoses Elevated d-dimer Procedures VL DUP LOWER EXTREMITY VENOUS LEFT Regina Taylor MD [address] [place] [address] [place] [address] Chief Complaint and Reason for Visit Chief Complaint mdd mdd Reason for Visit Abdominal pain Hypertension Major depressive disorder, recurrent, moderate Methamphetamine abuse Vitamin D deficiency Additional Source Comments Reason for Visit (unrecogniz ed section and content) Reason Comments Allergic Reaction pt states she starte d getting hives after taking a Tylenol Reason Comments Leg Pain Pt having pain to he r left calf started this morning when she woke up INFORMATION SOURCE (unrecogn ized section and content) DATE CREATED AUTHOR 02/27/2020 [facility] DATE CREATED AUTHOR AUTHOR'S ORGANIZ ATION 09/01/2020 [facility] DATE CREATED AUTHOR AUTHOR'S ORGANIZ ATION 02/17/2021 [facility] DATE CREATED AUTHOR AUTHOR'S ORGANIZ ATION 09/11/2022 [facility] DATE CREATED AUTHOR AUTHOR'S ORGANIZ ATION 04/16/2024 [facility] DATE CREATED AUTHOR AUTHOR'S ORGANIZ ATION 04/16/2024 [facility] Scheduled Active and Recently Administ ered Medications (unrecognized section and content) Medication Order 02/14/2021 02/15/2021 02/16/2021 enoxaparin (LOVENOX) injection 120 mg (COMPLETED) 120 mg (rounded from 124.7 mg = 1 mg/kg 124.7 kg), Subcutaneous, ONCE, On Starr 02/16/21 at 1700, For 1 dose 1729 (Given - Provid er: Dustin Boudreaux RN) Care Teams (unrecognized sec tion and content) Team Status: Active Member Role Status Dates NON STAFF Primary Care Provider Active Team Status: Inactive Member Role Status Dates NON STAFF Primary Care Provider Active Start: April 14, 2024 End: April 19, 2024 Alex Daly MD Admit Provide r, Attending Provider Active Start: April 14, 2024 End: April 19, 2024 Elana Hamm RN Other Provider Active Star t: April 14, 2024 End: April 19, 2024 Zulma Gearheart , RN Other Provider Active Start : April 14, 2024 End: April 19, 2024 Radha Beard RN Other Provider Active Star t: April 14, 2024 End: April 19, 2024 Joy Quick RN Other Provider Active Start: J enid 2023 End: April 19, 2024 Cris Davidson RN Other Provider Active Start: Ju ly 2023 End: April 19, 2024 Roya Rodriguez MD Other Provider Active Start: April 14, 2024 End: April 19, 2024 Gunjan Molina DO Other Provider Active Start : April 14, 2024 End: April 19, 2024 Vipin Vergara MD Other Provider Active Start : April 14, 2024 End: April 19, 2024 Osmel Ferraro DO Other Provider Active Start: April 14, 2024 End: April 19, 2024 Harley Kolb MD Other Provider Active Start: April 14, 2024 End: April 19, 2024 Penny Chacon MD Other Provider Active Start : April 14, 2024 End: April 19, 2024 Tru Hernandez MD Other Provider Active Start: 2023 End: April 19, 2024 Frances Walsh APRN Other Provider Active Start: April 14, 2024 End: April 19, 2024 Archana Garcia MD Other Provider Active Start: April 14, 2024 End: April 19, 2024 Jason Hernandez MD Other Provider Active Start: J 2023 End: April 19, 2024 Kody Hamm MD Other Provider Active Start: April 14, 2024 End: April 19, 2024 Isreal Huynh MD Other Provider Active Start: April 14, 2024 End: April 19, 2024 Dustin Barros DO Other Provider Active Start: April 14, 2024 End: April 19, 2024 Isaiah Lee MD Other Provider Active Start: Ju ly 2023 End: April 19, 2024 Gabino Miller MD Other Provider Active Start: Mar End: April 19, 2024 JH Dick Other Provider Active St art: April 14, 2024 End: April 19, 2024 Bladimir Bryant APRN Other Provider Active Star t: April 14, 2024 End: April 19, 2024 Nav Champagne MD Other Provider Active Start: April 14, 2024 End: April 19, 2024 Gregor Gaffney MD Other Provider Active Start: Ju ly 2023 End: April 19, 2024 Ganesh Joyner MD Other Provider Active Start: Mar End: April 19, 2024 Rubin Mendez MD Other Provider Active Star t: April 14, 2024 End: April 19, 2024 Abran Finn MD Other Provider Active Start: J enid 2023 End: April 19, 2024 Sasha Curry DO Other Provider Active Start: Ju ly 2023 End: April 19, 2024 Koko Jiménez DO Other Provider Active Start : April 14, 2024 End: April 19, 2024 Taylor Aguila APRN Other Provider Active Start: April 14, 2024 End: April 19, 2024 Faisal Felix DO Other Provider Active Start: April 14, 2024 End: April 19, 2024 Wolf Lanza MD Other Provider Active Sta rt: April 14, 2024 End: April 19, 2024 Mary Singh APRN Other Provider Active Start : April 14, 2024 End: April 19, 2024 Gia Rutherford APRN Other Provider Active St art: April 14, 2024 End: April 19, 2024 Sagrario Fox MD Other Provider Active Start: Chiquis enid 2023 End: April 19, 2024 Tanvir Godinez MD Other Provider Active S tart: April 14, 2024 End: April 19, 2024 Diego Ford , Other Provider Active Star t: April 14, 2024 End: April 19, 2024 Jai Kirby DO Other Provider Active Start: April 14, 2024 End: April 19, 2024 Dakota Joyner MD Other Provider Active Start: April 14, 2024 End: April 19, 2024 Shellie Taylor MD Other Provider Active Start: April 14 End: April 19, 2024 Petrona Yancey APRN Other Provider Active Star t: April 14, 2024 End: April 19, 2024 Nehemiah Ivey MD Other Provider Active Start: Chiquis rossi 2023 End: April 19, 2024 Harley Perez MD Other Provider Active Start: Rufina wagner 2023 End: April 19, 2024 Lianne Herndon RN Other Provider Active Start: Chiquis rossi 2023 End: April 19, 2024 Team Status: Active Member Role Status Dates NON STAFF Primary Care Provider Active Start: April 15, 2024 Alex Daly MD Admit Provide r, Attending Provider, Other Provider Active Start: April 15, 2024 FOR RECORDS PERTAINING TO PATIENTS WHO ARE OR HAVE BEEN ENROLLED IN A CHEMICAL DEPENDENCY/SUBSTANCEABUSE PROGRAM, SOME INFORMATION MAY BE OMITTED. This clinical summary was aggregated from multiple sources. Caution should be exercised in using it in the provision of clinical care. This summary normalizes information from multiple sources, and as a consequence, information in this document may materially change the coding, format and clinical context of patient data. In addition, data may be omitted in some cases. CLINICAL DECISIONS SHOULD BE BASED ON THE PRIMARY CLINICAL RECORDS. [facility] [employer] provides no warranty or guarantee of the accuracy or completeness of information in this document.
--- NOTE | 2024-04-19 12:41 | CT_ITS ---
[address] [address] Patient Name: JULIO CESAR NUNEZ MRN: [id number] date: 1980 Sex: F Assigned Patient Location: ER Current Patient Location: ER Accession/Order Number: [id number] Exam Date: 04/19/2024 13:35 Report Date: 04/19/2024 14:41 At the request of: TOYA HUYNH Procedure: CT abdomen pelvis wo con EXAMINATION: CT abdomen pelvis wo con, 04/19/2024 1:35 PM EDT HISTORY: abd pain COMPARISON: 03/14/2019 TECHNIQUE: CT scan of the abdomen and pelvis was performed without IV contrast. CT dose reduction technique was used, including Automated Exposure Control. FINDINGS: LOWER CHEST: The visualized lungs are clear. Mild circumferential wall thickening of the distal esophagus. LIVER: Unremarkable. GALLBLADDER AND BILIARY SYSTEM: Status post cholecystectomy. No significant intra or extrahepatic biliary ductal dilatation. SPLEEN: Unremarkable. PANCREAS: Unremarkable. ADRENAL GLANDS: There is hyperplasia of the left adrenal gland. The right adrenal gland is unremarkable KIDNEYS AND URETERS: No nephrolithiasis or hydronephrosis. No ureteral calculus. BLADDER: Under distended. GASTROINTESTINAL TRACT: No evidence of bowel obstruction or colitis. Normal appendix. VASCULATURE: The abdominal aorta is normal in caliber. RETROPERITONEUM: No lymphadenopathy. PERITONEUM/MESENTERY: No abdominal ascites. No free air. PELVIS: No pelvic ascites or lymphadenopathy. BODY WALL: Small fat-containing umbilical hernia. BONES: Mild to moderate degenerative changes of the hips bilaterally with cystic changes in the left femoral head. Mild levoscoliosis of the lumbar spine. CT/CT abdomen pelvis wo con IMPRESSION: 1. No acute process in the abdomen or pelvis. 2. Mild circumferential wall thickening of the distal esophagus. Electronically authenticated by: MOE PALM Date: 04/19/2024 14:41
[2024-04-19] MEDS: ONDANSETRON PF 4 MG/2 ML VIAL IV (12:49)
[2024-04-19] MEDS: 0.9 % SODIUM CHLORIDE 1,000 ML 999 ML IV (12:49)
[2024-04-19 12:54] LABS: Basophils Percent Auto 0.5 % (0.2-2.0); Eosinophils Absolute Auto 0.1 10^3/uL (0.0-0.7); Eosinophils Percent Auto 0.9 % (0.9-7.0); Hematocrit 36.5 % (36.0-48.0); Hemoglobin 10.5 g/dL (12.0-16.0); Immature Granulocytes Abs Auto 0.03 10^3/uL (0.00-0.03); Immature Granulocytes Pct Auto 0.3 % (0.0-0.5); Lymphocytes Absolute Auto 1.4 10^3/uL (1.2-3.8); Lymphocytes Percent Auto 15.7 % (20.5-60.0); Mean Corpuscular HGB Conc 28.8 g/dL (29.9-35.2); Mean Corpuscular Hemoglobin 20.5 pg (26.7-34.0); Mean Corpuscular Volume 71.4 fL (81.0-99.0); Mean Platelet Volume 9.1 fL (9.5-13.5); Monocytes Absolute Auto 0.9 10^3/uL (0.3-0.8); Monocytes Percent Auto 9.8 % (1.7-12.0); Neutrophils Absolute Auto 6.4 10^3/uL (1.4-6.5); Neutrophils Percent Auto 72.8 % (43.0-75.0); Platelet Count 373 10^3/uL (150-450); Red Cell Distribution Width 19.8 % (11.0-15.0); White Blood Count 8.8 10^3/uL (4.0-11.0)
[2024-04-19] MEDS: KETOROLAC TROMETHAMINE 30 MG/ML VIAL IVP (13:01)
[2024-04-19] MEDS: HALOPERIDOL LACTATE 5 MG/ML VIAL IV (13:01)
--- NOTE | 2024-04-19 13:06 | ED_ITS ---
HPI HPI - General Adult General Chief complaint: Abdominal Pain Stated complaint: GENERAL WEAKNESS/ ABDOMINAL PAIN Time Seen by Provider: 04/19/24 12:25 Source: patient Mode of arrival: Wheelchair Limitations: no limitations History of Present Illness HPI narrative: Patient presents to ED complaining of diffuse abdominal pain. She reports that she was just discharged from [place] [address] [address] She states she was told that she was in withdrawal from drugs but she states she does not take any drugs except for marijuana and has not had any in over a week. She states that they Did a CT scan and labs which were all relatively normal according to the patient. She states something is wrong her stomach hurts really bad and she is never been in pain like this and she was concerned so she said as soon as she got discharged she told her son she wanted to come in for further evaluation. She denies any flank pain. She does have nausea vomiting. No fevers. Related Data Home Medications ?Medication ?Instructions ?Recorded ?Confirmed losartan 100 mg tablet 100 mg PO DAILY 02/28/23 03/28/24 potassium chloride 20 mEq 20 meq PO DAILY 02/28/23 03/28/24 tablet,extended release(part/cryst) Previous Rx's ?Medication ?Instructions ?Recorded meloxicam 15 mg tablet 15 mg PO DAILY PRN pain #10 tabs 03/28/24 methylprednisolone 4 mg tablets in See Rx Instructions .Route 03/30/24 a dose pack (Medrol (Roger)) .COMPLEX #21 ea omeprazole magnesium 10 mg oral 20 mg PO DAILY 2 weeks #30 ea 04/19/24 suspension,delayed release (Prilosec) Allergies Allergy/AdvReac Type Severity Reaction Status Date / Time Penicillins Allergy Mild Rash Verified 04/19/24 12:32 Opioid HPI Opioid Management Most Recent Opioid Data: Last Pain Scale 8 03/30/24 14:01 Review of Systems ROS Status of ROS 10 or more systems reviewed and unremark able except as noted in history and below PFSH PFSH Social History Smoking status: Current every day smoker Exam Narrative Exam Narrative: Time Seen: [] Vital Signs: [Per nurse's notes.] General: [Alert] Skin: [Warm, dry, no rash.] Head: [Normocephalic, atraumatic.] Neck: [Supple, trachea midline.] Eye: [Pupils are equal, round and reactive to light, extraocular movements are intact, normal conjunctiva.] Ears, nose, mouth and throat: oral mucosa moist. Cardiovascular: [Regular rate and rhythm, no murmur.] Respiratory: [Lungs are clear to auscultation, respirations are non-labored, breath sounds are equal.] Chest wall: [No tenderness, no deformity.] Gastrointestinal: [Soft, Diffuse abdominal pain no rebound no guarding, non distended, normal bowel sounds.] MSK: 5 out of 5 muscle strength x 4 extremities no calf pain or edema Lymphatics: [No lymphadenopathy.] Psychiatric: [Cooperative, Anxious Neurological: [Alert and oriented to person, place, time, and situation, no focal neurological deficit observed.] Constitutional Vital Signs, click to edit/add: Last Vital Signs Temp 98.2 F 04/19/24 12:27 Pulse 78 04/19/24 12:27 Resp 20 04/19/24 12:27 BP 142/88 H 04/19/24 12:27 Pulse Ox 100 04/19/24 12:27 O2 Del Method Room Air 04/19/24 12:27 Course Vital Signs Vital signs: Vital Signs Temperature 98.2 F 04/19/24 12:27 Pulse Rate 78 04/19/24 12:27 Respiratory Rate 20 04/19/24 12:27 Blood Pressure 142/88 H 04/19/24 12:27 Pulse Oximetry 100 04/19/24 12:27 Oxygen Delivery Method Room Air 04/19/24 12:27 Temperature 98.2 F 04/19/24 12:27 Pulse Rate 78 04/19/24 12:27 Respiratory Rate 20 04/19/24 12:27 Blood Pressure 142/88 H 04/19/24 12:27 Pulse Oximetry 100 04/19/24 12:27 Oxygen Delivery Method Room Air 04/19/24 12:27 Medical Decision Making MDM Narrative Medical decision making narrative: Patient's labs are nonacute. CT scans show some inflammation of the distal esophagus. Will send patient home on an antacid. Follow-up with GI, return to ED if worsening symptoms otherwise follow-up with family doctor. Patient's symptoms were well-controlled after Haldol. Differential Diagnosis Differential Diagnosis: Cyclic vomiting, abdominal pain, electrolyte abnormality, bowel obstruction Medical Records Medical records reviewed: Yes I reviewed the patient's medical records Lab Data Lab results reviewed: Yes I reviewed the patient's lab results Labs: Lab Results 04/19/24 Range/Units 12:35 WBC 8.8 (4.0-11.0) 10^3/uL RBC 5.11 (4.20-5.40) 10^6/uL Hgb 10.5 L (12.0-16.0) g/dL Hct 36.5 (36.0-48.0) % MCV 71.4 L (81.0-99.0) fL MCH 20.5 L (26.7-34.0) pg MCHC 28.8 L (29.9-35.2) g/dL RDW 19.8 H (11.0-15.0) % Plt Count 373 (150-450) 10^3/uL MPV 9.1 L (9.5-13.5) fL Neut % (Auto) 72.8 (43.0-75.0) % Lymph % (Auto) 15.7 L (20.5-60.0) % [place] % (Auto) 9.8 (1.7-12.0) % Eos % (Auto) 0.9 (0.9-7.0) % Baso % (Auto) 0.5 (0.2-2.0) % Neut # (Auto) 6.4 (1.4-6.5) 10^3/uL Lymph # (Auto) 1.4 (1.2-3.8) 10^3/uL [place] # (Auto) 0.9 H (0.3-0.8) 10^3/uL Eos # (Auto) 0.1 (0.0-0.7) 10^3/uL Baso # (Auto) 0.0 (0.0-0.1) 10^3/uL Abs Immat Gran (auto) 0.03 (0.00-0.03) 10^3/uL Imm/Tot Granulo (auto) 0.3 (0.0-0.5) % Sodium 139 (136-145) mmol/L Potassium 3.5 (3.5-5.1) mmol/L Chloride 99 (98-107) mmol/L Carbon Dioxide 29.7 (21.0-32.0) mmol/L Anion Gap 13.8 BUN 22.0 H (7.0-18.0) mg/dL Creatinine 1.05 H (0.55-1.02) mg/dL Est GFR ( Amer) >60 (>=60) Est GFR (Non-Af Amer) 57 L (>=60) BUN/Creatinine Ratio 21.0 Glucose 109 H (74-106) mg/dL Calcium 9.2 (8.5-10.1) mg/dL Total Bilirubin 0.8 (0.2-1.0) mg/dL AST 17 (15-37) U/L ALT 28 (14-59) U/L Alkaline Phosphatase 104 (46-116) U/L Total Protein 7.4 (6.4-8.2) g/dL Albumin 3.4 (3.4-5.0) g/dL Globulin 4.0 g/dL Albumin/Globulin Ratio 0.[address] scan - abdomen: Radiologist's impression: ITS Impressions Abdomen/Pelvis CT 04/19/24 12:41 IMPRESSION: 1. No acute process in the abdomen or pelvis. 2. Mild circumferential wall thickening of the distal esophagus. Electronically authenticated by: MOE PALM Date: 04/19/2024 14:41 Discharge Plan Discharge Stand Alone Forms: Portal Instructions Chief Complaint: Abdominal Pain Clinical Impression: Abdominal pain Patient Disposition: Home, Self-Care Time of Disposition Decision: 14:52 Condition: Good Mode of Transportation: Private Vehicle Prescriptions / Home Meds: New Prilosec 10 mg susp,delayed release for recon 20 mg PO DAILY 14 Days Qty: 30 0RF No Action losartan 100 mg tablet 100 mg PO DAILY potassium chloride 20 mEq tablet,ER particles/crystals 20 meq PO DAILY meloxicam 15 mg tablet 15 mg PO DAILY PRN (Reason: pain ) Qty: 10 0RF methylprednisolone [Medrol (Roger)] 4 mg tablets,dose pack See Rx Instructions .ROUTE .COMPLEX Qty: 21 0RF Rx Instructions: Taper as directed Print Language: Khmer Instructions: Abdominal Pain (ED) Referrals: Darian Regalado MD [Primary Care Provider] - 1 week Discharge Date/Time: 04/19/24 15:03
[2024-04-19 13:16] LABS: Alanine Aminotransferase 28 U/L (14-59); Albumin Globulin Ratio 0.9; Albumin Level 3.4 g/dL (3.4-5.0); Alkaline Phosphatase 104 U/L (46-116); Anion Gap 13.8; Aspartate Amino Transferase 17 U/L (15-37); Bilirubin Total 0.8 mg/dL (0.2-1.0); Calcium 9.2 mg/dL (8.5-10.1); Carbon Dioxide 29.7 mmol/L (21.0-32.0); Chloride 99 mmol/L (98-107); Estimated GFR (African America >60 (>=60); Estimated GFR (Non-African Ame 57 (>=60); Glucose 109 mg/dL (74-106); Potassium 3.5 mmol/L (3.5-5.1); Sodium 139 mmol/L (136-145); Total Protein 7.4 g/dL (6.4-8.2)
[2024-04-19 13:32] LABS: Red Blood Count 5.11 10^6/uL (4.20-5.40)
== END 2024-04-19 15:03 | disposition home or self-care (01) ==
PROVIDERS: Emergency Provider Emergency Medicine; PCP Family Medicine
DX: R10.9 Unspecified abdominal pain (principal); F17.210 Nicotine dependence, cigarettes, uncomplicated
CPT/HCPCS: 36415; 74176; 80053; 85025; 96361; 96374; 96375; 99285; J1630; J1885; J2405

== ENCOUNTER 2025-02-08 13:01 | Emergency (ER) | payer OTHER, SELFPAY ==
--- OUTSIDE RECORDS SUMMARY | 2024-12-01 05:45 | XMS_ITS ---
Author Organization [facility] Address [address] [place] [place] [address] Care Team Providers Care Fixed Income Director Name Role Phone TheeSneha Primary Care Provider Bill Pedraza Unavailable [phone] Allergies No Known Allergies REASON FOR VISIT right knee pain Medications Medication SIG (Take, Route, Fr equency, Duration) Notes Start Date End Date Status naproxen Active celecoxib 200 mg 1 cap(s) orally once a day for 90 days 12/01/2024 Active lisinopril Active Social History Tobacco Use: Social History Observation Description Date Details (start date - stop date) Current Smoker NA - NA AUDIT-C (Standard) Question Answer Notes Did you have a drink containing alcohol in the p ast year? No Points 0 Interpretation Negative Tobacco Control (Standard) Question Answer Notes Tobacco use: Current smoker Encounters Encounter Location Date Provider Diagnosis [facility] Office [address] [place] [address] DR RAMIREZ [address] [place] [id number] 12/01/2024 Bill Heath Primary osteoarthrit is of right knee M17.11 Assessments Encounter Date Diagnosis (ICD Code) Assessment Notes Treatment Notes Treatment Clinical Notes Section Notes 12/01/2024 Primary osteoarthritis of right knee (ICD-10 - M17.11) 1 degenerative arthritis right knee 2 morbid obesity 3 history of bilateral foot pain 12/01/2024 Other Findings were discussed with the patient. Will try her on a course of Celebrex. Will see her back in the office as needed. 1 degenerative arthritis right knee 2 morbid obesity 3 history of bilateral foot pain Plan Of Treatment Medication Medication Name Sig Start Date Stop Date Notes celecoxib 200 mg 1 cap(s) orally once a day for 90 days Treatment Notes Assessment Notes Other Findings were discus sed with the patient. Will try her on a course of Celebrex. Will see her back in the office as needed. Next Appt Details Follow Up: prn, Reason: Progress Notes * JULIO CESAR NUNEZDOB:1980 (44 yo F)Acc No.[id number]:12/01/2024 Patient: JULIO CESAR DURAN Provider: Otis Heath MD :1980 A ge:44 Y S ex:Female Date:12/01/2024 Address:[address] [place], [place] [id number] Pcp:Sneha Kingston Subjective: * Chief Complaints: * R ight knee pain * HPI: H PI: Patient comes in today for follow-up of her right knee. Has history of underlying degenerative arthritis. She is also noted to be morbidly obese. She states she is currently starting to work with a dietitian for weight loss. States that cortisone injections in the past have given her minimal relief. * Medical History: * Surgical History: R t knee scope 1997 * Family History: N o Family History documented.. * Social History: E xercise regularly D o you exercise? N o. W hat is your place of residence? W here do you live? P rivate home. A QUANG-C (Standard) D id you have a drink containing alcohol in the past year? N o, P oints 0 , I nterpretation N egative. T obacco Control (Standard) T obacco use: C urrent smoker. * Medications: T akingnaproxen lisinopril Medication List reviewed and reconciled with the patientTaking naproxen Taking lisinopril Medication List reviewed and reconciled with the patient * Allergies: N .K.D.A.no[Allergies Verified] Objective: * Vitals: * Examination: G eneral examination: Otis villarreal is an age-appropriate 44-year-old female. Patient is in no acute distress and is alert and oriented x 3. Patient is appropriately dressed and appears to be well nourished. Patient is morbidly obese. She has full extension of the right knee. Has flexion about 100 degrees. Tender along the medial joint line with palpation and Gato's maneuver. X -ray Imaging Studies: P revious x-rays of the right knee were reviewed. Patient has lateral subluxation of the tibia. She has [id number]-[id number] involving the medial compartment. Assessment: * Assessment: 1. P rimary osteoarthritis of right knee - M17.11 (Primary) 1 degenerative arthritis rig ht knee 2 morbid obesity 3 history of bilateral foot pain. Plan: * Treatment: 2. O thers Notes: Findings were discussed with the patient. Will try her on a course of Celebrex. Will see her back in the office as needed. * Procedure Codes: * Follow Up: p rn Forms: * Images: * Sign off status: Completed true * Provider: Otis Heath MD Date: 12/01/2024 Generated for Savanah mckenna/Mohamud/Yamini on: 0 02/08/2025 01:11 PM EDT History and Physical Notes * HPI (History of Present Illness) Category Sub-Category Detail Notes Category Not es HPI Patient comes i n today for follow-up of her right knee. Has history of underlying degenerative arthritis. She is also noted to be morbidly obese. She states she is currently starting to work with a dietitian for weight loss. States that cortisone injections in the past have given her minimal relief. Examination Category Sub-Category Detail Notes Category Not es General examination Patient is an age-appropriate 44-year-old female. Patient is in no acute distress and is alert and oriented x 3. Patient is appropriately dressed and appears to be well nourished. Patient is morbidly obese. She has full extension of the right knee. Has flexion about 100 degrees. Tender along the medial joint line with palpation and Gato's maneuver. X-ray Imaging Studies Previo us x-rays of the right knee were reviewed. Patient has lateral subluxation of the tibia. She has [id number] involving the medial compartment.
--- OUTSIDE RECORDS SUMMARY | 2025-01-26 10:00 | XMS_ITS ---
Author Organization [facility] Address [address] [place] [address] Care Team Providers Care Back Hoe Operator Name Role Phone Sneha Kingston Primary Care Provider Bill Pedraza [facility] [phone] Encounters Encounter Location Date Provider Diagnosis [facility] Office [address] [place] [address] [address] SULLIVAN [address] [id number] 01/26/2025 Bill Heath Plan Of Treatment No Information Progress Notes * JULIO CESAR NUNEZDOB:1980 (44 yo F)Acc No.[id number]:01/26/2025 Patient: Cherry JUANLAYLA JULIO CESAR :1980 A ge:44 Y S ex:Female Address:[address] [place] [address], [phone] * true * Date: Generated for Supriyai ng/Fayosvanyg/eTransmitting on: 0 02/08/2025 01:12 PM EDT
--- OUTSIDE RECORDS SUMMARY | 2025-01-26 21:50 | XMS_ITS | Encounter Summary ---
Author Organization [facility] Address [address] [place] [address] Care Team Providers Care Tile Burner Name Role Phone Butch Chopra CLERK ENTRY LEVEL - BONE DENSITY TECHNICIAN Primary Care Pro vider Reason for Visit * Reason Comments Abdominal Pain Generalized abd pain onset today at noon with nausea. Pt stopped suboxone 2 days ago. 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 Never 01/27/2025 Q2: How many drinks containi ng alcohol do you have on a typical day when you are drinking? Patient does not drink Q3: How often do you have si x or more drinks on one occasion? Never 01/27/2025 Comments No Sex and Gender Information Value Date Recorded Sex Assigned at Not on file Legal Sex Female 9:59 AM EST Gender Identity Not on file Sexual Orientation Not on file documented as of this encounter Last Filed Vital Signs Vital Sign Reading Time Taken Comments Blood Pressure 121/72 01/26/2025 9:20 PM EDT Pulse 90 01/26/2025 9:20 PM EDT Temperature 36.9 C (98.4 F) 01/26/2025 9:20 PM EDT Respiratory Rate 22 01/26/2025 9:20 PM EDT Oxygen Saturation 99% 01/26/2025 9:20 PM EDT Inhaled Oxygen Concentration - - Weight 149.7 kg (330 lb) 01/26/2025 9:20 PM EDT Height 172.7 cm (5' 8 ) 01/26/2025 9:20 PM EDT Body Mass Index 50.18 01/26/2025 9:20 PM EDT documented in this encounter Medications at Time of Discharge lisinopril-hydroC HLOROthiazide (PRINZIDE;ZESTORE TIC) 20-12.5 MG per tablet Take 1 tablet by mouth daily 01/21/2025 levothyroxine (SYNTHROID) 25 MCG tablet Take 1 tablet by mouth Daily 01/19/2025 ALPRAZolam (XANAX) 0.5 MG tablet Take 1 mg by mouth nightly as needed. documented as of this encounter Plan of Treatment Not on file documented as of this encounter Visit Diagnoses Not on filedocumented in this encounter Care Teams Tile Burner Relationship Specialty Start Date End Date Butch Chopra APRN - JODI [address] [place] [address] PCP - General Nurse Practitioner 10/08/24 documented as of this encounter
--- OUTSIDE RECORDS SUMMARY | 2025-01-27 09:43 | XMS_ITS | Encounter Summary ---
Author Organization [facility] Address [address] [place] [address] Care Team Providers Care Cleaning Team Member Name Role Phone Butch Chopra JET ENGINE MECHANIC - STEAM SERVICE INSPECTOR Primary Care Pro vider Reason for Visit * Reason Comments Vomiting Complains of vomitin g that started yesterday, epigastric pain Diarrhea Encounter Details Date Type Department Care Team (Late st Contact Info) Description 01/27/2025 9:43 AM EDT - 01/27/2025 12:48 PM EDT Emergency [facility] Emergency Department [address] [place] [address] Agustín Toledo MD [address] [place] [address] Nausea and vomiting, unspecified vomiting type (Primary Dx); Hypokalemia Discharge Disposition: Home or Self Care Social History Tobacco Use Types Packs/Day Years Used Date Smoking Tobacco: Every Day Cigarettes Smokeless Tobacco: Never Alcohol Use Standard Drinks/Week Comments No 0 [...] Sign Reading Time Taken Comments Blood Pressure 155/85 01/27/2025 12:30 PM EDT Pulse 92 01/27/2025 12:30 PM EDT Temperature 37.2 C (99 F) 01/27/2025 11:44 AM EDT Respiratory Rate 15 01/27/2025 12:30 PM EDT Oxygen Saturation 97% 01/27/2025 12:30 PM EDT Inhaled Oxygen Concentration - - Weight - - Height - - Body Mass Index - - documented in this encounter Functional Status documented as of this encounter Discharge Instructions * Discharge Instructions* Agustín Toledo MD - 01/27/2025 12:16 PM EDT Increase your fluids Please also continue taking her potassium supplements as previously advised and prescribed You will also be prescribed Zofran for control of any nausea * Attachments The following attachments cannot be sent through Care Everywhere. * Nausea and Vomiting (Singaporean) * Hypokalemia (Singaporean) documented in this encounter Medications at Time of Discharge lisinopril-hydroCHLO ROthiazide (PRINZIDE;ZESTORETIC ) 20-12.5 MG per tablet Take 1 tablet by mouth daily 01/21/2025 ondansetron (ZOFRAN-ODT) 4 MG disintegrating tablet Take 1 tablet by mouth 3 times daily as needed for Nausea or Vomiting 21 tablet 01/27/2025 levothyroxine (SYNTHROID) 25 MCG tablet Take 1 tablet by mouth Daily 01/19/2025 ALPRAZolam (XANAX) 0.5 MG tablet Take 1 mg by mouth nightly as needed. documented as of this encounter Plan of Treatment Not on file documented as of this encounter Procedures Procedure Name Priority Date/Time Associated Diagnosis Comments TROPONIN Add-On 01/27/2025 11:35 AM EDT BLOOD GAS, VENOUS Routine 01/27/2025 10: 52 AM EDT COVID-19, RAPID STAT 01/27/2025 10:31 AM EDT RAPID INFLUENZA A/B ANTIGENS STAT 01/27/2025 10:31 AM EDT XR CHEST PORTABLE STAT 01/27/2025 10: 27 AM EDT CBC WITH AUTO DIFFERENTIAL STAT 01/27/2025 10:25 AM EDT TROPONIN Add-On 01/27/2025 10:25 AM EDT LIPASE STAT 01/27/2025 10:25 AM EDT COMPREHENSIVE METABOLIC PANEL STAT 01/27/2025 10:25 AM EDT EKG 12-LEAD STAT 01/27/2025 9:48 AM EDT documented in this encounter Results * Troponin (01/27/2025 11:35 AM EDT) Pathologist [facility] Troponin, High Sensitivity 9 0 - 14 ng/L 01/27/2025 11:35 AM EDT [facility] Comment:High Sensitivity Tro ponin values cannot be compared with other Troponin methodologies. Blood BLOOD SPECIMEN / Unknown 01/27/2025 11:35 AM EDT 01/27/2025 10:34 AM EDT us Agustín Toledo MD CHEMISTRY ORDERABLES Final R esult [facility] [address] [phone] * (ABNORMAL) Blood Gas, Venous (01/27/2025 10:52 AM EDT) Pathologist [facility] pH, Alan 7.465(H) 7.32 - 7.42 01/27/2025 10:52 AM EDT [facility] pCO2, Alan 41.4 39 - 55 mm Hg 01/27/2025 10:52 AM [facility] PO2, Alan 52.3(H) 30.0 - 50.0 mm Hg 01/27/2025 10:52 AM [facility] HCO3, Venous 29.1 24.0 - 30.0 mmol/L 01/27/2025 10:52 AM [facility] Positive Base Excess, Alan 4.9(H) 0.0 - 2.0 mmol/L 01/27/2025 10:52 AM [facility] O2 Sat, Alan 88.9(H) 60.0 - 85.0 % 01/27/2025 10:52 AM [facility] Pt Temp 37.0 01/27/2025 10:52 AM [facility] pH, Alan, Temp Adj 7.465(H) 7.320 - 7.420 01/27/2025 10:52 AM [facility] pCO2, Alan, Temp Adj 41.4 39.0 - 55.0 mmHg 01/27/2025 10:52 AM [facility] pO2, Alan, Temp Adj 52.3(H) 30.0 - 50.0 mmHg 01/27/2025 10:52 AM [facility] O2 Device/Flow/% ROOM AIR 01/27/2025 10:52 AM [facility] Amador Test NOT APPLICABLE 01/27/2025 10:52 AM [facility] FIO2 21 01/27/2025 10:52 AM [facility] 01/27/2025 10:5 2 AM EDT 01/27/2025 10:54 AM EDT Agustín Toledo MD CHEMISTRY ORDERABLES Final R esult [facility] [address] [phone] * Rapid influenza A/B antigens (01/27/2025 10:31 AM EDT) Flu A Antigen NEGATIVE NEGATIVE 01/27/2025 10:31 AM EDT [facility] Comment:for Influenza A Anti gen Flu B Antigen NEGATIVE NEGATIVE 01/27/2025 10:31 AM EDT [facility] Comment:for Influenza B Anti gen. NASOPHARYNGEAL SWAB / Unknown 01/27/2025 10:31 AM EDT 01/27/2025 10:32 AM EDT us Agustín Toledo MD MICROBIOLOGY - GENERAL ORDER SAIDA Final Result Performing Organization Address [facility] Co de Phone Number [facility] [address] [phone] * COVID-19, Rapid (01/27/2025 10:31 AM EDT) [facility] Specimen Description .NASOPHARYN GEAL SWAB 01/27/2025 10:31 AM EDT [facility] SARS-CoV-2, Rapid Not Detected Not Detected 01/27/2025 10:31 AM EDT [facility] Comment: Rapid NAAT: The specimen is NEGATIVE for SARS-CoV-2, the novel coronavirus associated with COVID-19. The ID NOW COVID-19 assay is designed to detect the virus that causes COVID-19 in patients with signs and symptoms of infection who are suspected of COVID-19. An individual without symptoms of COVID-19 and who is not shedding SARS-CoV-2 virus would expect to have a negative (not detected) result in this assay. Negative results should be treated as presumptive and, if inconsistent with clinical signs and symptoms or necessary for patient management, should be tested with an alternative molecular assay. Negative results do not preclude SARS-CoV-2 infection and should not be used as the sole basis for patient management decisions. Methodology: Isothermal Nucleic Acid Amplification NASOPHARYNGEAL SWAB / Unknown 01/27/2025 10:31 AM EDT 01/27/2025 10:32 AM EDT us Agustín Toledo MD MICROBIOLOGY - GENERAL ORDER SAIDA Final Result [facility] [address] [place] [address], [facility] [phone] * XR CHEST PORTABLE (01/27/2025 10:27 AM EDT) Anatomical Region Laterality Modality Chest Computed Radiogr aphy 01/27/2025 11:0 2 AM EDT Impressions 01/28/2025 9:09 AM EDT 1. Mild pulmonary vascular congestion. 2. Mild bibasilar atelectatic changes, right more than left. Narrative 01/28/2025 9:09 AM EDT EXAMINATION: ONE XRAY VIEW OF THE CHEST. PORTABLE UPRIGHT AP VIEW OF CHEST 01/27/2025 10:05 am COMPARISON: None. HISTORY: ORDERING SYSTEM PROVIDED HISTORY: Chest Pain TECHNOLOGIST PROVIDED HISTORY: Chest Pain FINDINGS: Cardiac size is borderline or top normal. Mild pulmonary vascular congestion. No obvious pulmonary edema. At the base of lungs there are mild atelectatic changes, right more than left. No pleural effusion or pneumothorax. No diagnostic finding in the visualized portions of bony thorax. Procedure Note Rambo Chowdary MD - 01/28/2025 EXAMINATION: ONE XRAY VIEW OF THE CHEST. PORTABLE UPRIGHT AP VIEW OF CHEST 01/27/2025 10:05 am COMPARISON: None. HISTORY: ORDERING SYSTEM PROVIDED HISTORY: Chest Pain TECHNOLOGIST PROVIDED HISTORY: Chest Pain FINDINGS: Cardiac size is borderline or top normal. Mild pulmonary vascular congestion. No obvious pulmonary edema. At the base of lungs there are mild atelectatic changes, right more thanleft. No pleural effusion or pneumothorax. No diagnostic finding in the visualized portions of bony thorax. IMPRESSION: 1. Mild pulmonary vascular congestion. 2. Mild bibasilar atelectatic changes, right more than left. gAustín Toledo MD [facility] ORDER SAIDA Final Result * Troponin (01/27/2025 10:25 AM EDT) Troponin, High Sensitivity 8 0 - 14 ng/L 01/27/2025 10:25 AM EDT [facility] Comment:High Sensitivity Tro ponin values cannot be compared with other Troponin methodologies. Blood BLOOD SPECIMEN / Unknown 01/27/2025 10:25 AM EDT 01/27/2025 10:30 AM EDT Agustín Toledo MD CHEMISTRY ORDERABLES Final R esult Performing Organization Address [facility]/ZIP Co de Phone Number [facility] [address] [place] [address] * Lipase (01/27/2025 10:25 AM EDT) Lipase 19 13 - 60 U/L 01/27/2025 10:25 AM EDT [facility] Blood BLOOD SPECIMEN / Unknown 01/27/2025 10:25 AM EDT 01/27/2025 10:30 AM EDT Agustín Toledo MD CHEMISTRY ORDERABLES Final R esult Performing Organization Address [facility] Co de Phone Number [facility] [address] [place] [address] * (ABNORMAL) CMP (01/27/2025 10:25 AM EDT) Sodium 136 136 - 145 mmol/L 01/27/2025 10:25 AM T [facility] Potassium 3.0(L) 3.7 - 5.3 mmol/L 01/27/2025 10:25 AM EDT [facility] Chloride 94(L) 98 - 107 mmol/L 01/27/2025 10:25 AM T [facility] CO2 26 20 - 31 mmol/L 01/27/2025 10:25 AM T [facility] Anion Gap 16 9 - 16 mmol/L 01/27/2025 10:25 AM [facility] Glucose 143(H) 74 - 99 mg/dL 01/27/2025 10:25 AM EDT [facility] BUN 15 6 - 20 mg/dL 01/27/2025 10:25 AM [facility] Creatinine 0.8 0.50 - 0.90 mg/dL 01/27/2025 10:25 AM [facility] Est, Glom Filt Rate >90 >60 mL/min/1.7 3m2 01/27/2025 10:25 AM [facility] Comment: These results are not intended for use in patients <18 years of age. eGFR results are calculated without a race factor using the 2020 CKD-EPI equation. Careful clinical correlation is recommended, particularly when comparing to results calculated using previous equations. The CKD-EPI equation is less accurate in patients with extremes of muscle mass, extra-renal metabolism of creatine, excessive creatine ingestion, or following therapy that affects renal tubular secretion. BUN/Creatinine Ratio 19 9 - 20 01/27/2025 10:25 AM [facility] Calcium 9.6 8.6 - 10.4 mg/dL 01/27/2025 10:25 AM [facility] Total Protein 7.8 6.6 - 8.7 g/dL 01/27/2025 10:25 AM [facility] Albumin 4.2 3.5 - 5.2 g/dL 01/27/2025 10:25 AM [facility] Albumin/Globulin Ratio 1.2 1.0 - 2.5 01/27/2025 10:25 AM [facility] Total Bilirubin 0.6 0.00 - 1.20 mg/dL 01/27/2025 10:25 AM [facility] Alkaline Phosphatase 69 35 - 104 U/L 01/27/2025 10:25 AM [facility] ALT 30 10 - 35 U/L 01/27/2025 10:25 AM [facility] AST 27 10 - 35 U/L 01/27/2025 10:25 AM [facility] Blood BLOOD SPECIMEN / Unknown 01/27/2025 10:25 AM EDT 01/27/2025 10:30 AM EDT us Agustín Toledo MD CHEMISTRY ORDERABLES Final R esult [facility] [address] [phone] * (ABNORMAL) CBC with Auto Differential (01/27/2025 10:25 AM EDT) WBC 7.7 3.5 - 11.3 k/uL 01/27/2025 10:25 AM [facility] RBC 4.64 3.95 - 5.11 m/uL 01/27/2025 10:25 AM [facility] Hemoglobin 11.1(L) 11.9 - 15.1 g/dL 01/27/2025 10:25 AM [facility] Hematocrit 36.1(L) 36.3 - 47.1 % 01/27/2025 10:25 AM [facility] MCV 77.8(L) 82.6 - 102.9 fL 01/27/2025 10:25 AM [facility] MCH 23.9(L) 25.2 - 33.5 pg 01/27/2025 10:25 AM [facility] MCHC 30.7 28.4 - 34.8 g/dL 01/27/2025 10:25 AM [facility] RDW 18.9(H) 11.8 - 14.4 % 01/27/2025 10:25 AM [facility] Platelets 369 138 - 453 k/uL 01/27/2025 10:25 AM [facility] MPV 9.6 8.1 - 13.5 fL 01/27/2025 10:25 AM [facility] NRBC Automated 0.0 0.0 per 100 WBC 01/27/2025 10:25 AM [facility] Neutrophils % 84(H) 36 - 65 % 01/27/2025 10:25 AM [facility] Lymphocytes % 9(L) 24 - 43 % 01/27/2025 10:25 AM [facility] Monocytes % 6 3 - 12 % 01/27/2025 10:25 AM EDT [facility] Eosinophils % 0(L) 1 - 4 % 01/27/2025 10:25 AM EDT [facility] Basophils % 0 0 - 2 % 01/27/2025 10:25 AM EDT [facility] Immature Granulocytes % 1(H) 0 % 01/27/2025 10:25 AM EDT [facility] Neutrophils Absolute 6.50 1.50 - 8.10 k/uL 01/27/2025 10:25 AM EDT [facility] Lymphocytes Absolute 0.70(L) 1.10 - 3.70 k/uL 01/27/2025 10:25 AM EDT [facility] Monocytes Absolute 0.47 0.10 - 1.20 k/uL 01/27/2025 10:25 AM EDT [facility] Eosinophils Absolute <0.03 0.00 - 0.44 k/uL 01/27/2025 10:25 AM EDT [facility] Basophils Absolute <0.03 0.00 - 0.20 k/uL 01/27/2025 10:25 AM EDT [facility] Immature Granulocytes Absolute 0.04 0.00 - 0.30 k/uL 01/27/2025 10:25 AM T [facility] Blood BLOOD SPECIMEN / Unknown 01/27/2025 10:25 AM EDT 01/27/2025 10:30 AM EDT us Agustín Toledo MD HEMATOLOGY ORDERABLES Final Result [facility] [address] [phone] * EKG 12 Lead (01/27/2025 9:48 AM EDT) Ventricular Rate 92 BPM [facility] Atrial Rate 92 BPM [facility] P-R Interval 188 ms [facility] QRS Duration 96 ms [facility] Q-T Interval 362 ms [facility] QTc Calculation (Bazett) 447 ms [facility] P Katy 72 degrees [facility] R Katy 74 degrees [facility] T Katy 97 degrees [facility] 01/27/2025 9:48 AM EDT Narrative [facility] - 01/27/2025 11:31 PM EDT Normal sinus rhythm Minimal voltage criteria for LVH, may be normal variant ( Sokolow-Herman ) Nonspecific ST and T wave abnormality Abnormal ECG No previous ECGs available Confirmed by Martell Carvajal ([id number]) on 01/27/2025 11:30:58 PM Procedure Note Martell Carvajal MD - 01/27/2025 Normal sinus rhythm Minimal voltage criteria for LVH, may be normal variant ( Sokolow-Herman ) Nonspecific ST and T wave abnormality Abnormal ECG No previous ECGs available Confirmed by Martell Carvajal ([id number]) on 01/27/2025 11:30:58 PM Agustín Toledo MD ECG ORDERABLES Final Result [facility] documented in this encounter Visit Diagnoses Diagnosis Nausea and vomiting, unspecified vomiting type- Primary Hypokalemia Hypopotassemia documented in this encounter Administered Medications Inactive Administered Medications - up to 3 most recent administrations Medication Order MAR Action Action Date Dose Rate Site acetaminophen (TYLENOL) tablet 650 mg 650 mg, Oral, ONCE, 1 dose, On Sat01/27/25 at 1215, Maximum dose of acetaminophen is 4000 mg from all sources in 24 hours. Given 01/27/2025 12:14 PM EDT 650 mg ondansetron (ZOFRAN) injection 4 mg 4 mg, IntraVENous, ONCE, 1 dose, On Sat01/27/25 at 1000 Given 01/27/2025 10:17 AM EDT 4 mg ondansetron (ZOFRAN) injection 4 mg 4 mg, IntraVENous, ONCE, 1 dose, On Sat01/27/25 at 1215 Given 01/27/2025 12:13 PM EDT 4 mg sodium chloride 0.9 % bolus 1,000 mL 1,000 mL (6.68 mL/kg), IntraVENous, at 495.9 mL/hr, Administer over 121 Minutes, ONCE, On Sat01/27/25 at 1000, For 1 dose, For adult patients weighing > 55 kg (120 lbs.) and less than <50 years of age initiate 0.9NS at 500 mL/ hr. All bolus orders are to be given over 10 to 15 minutes New Bag 01/27/2025 10:20 AM EDT 1,000 mLs 495.9 mL/hr documented in this encounter Active and Recently Administered Medications Times are shown in EDT. Scheduled Medication Order 01/25/2025 01/26/2025 01/27/2025 acetaminophen (TYLENOL) tablet 650 mg (COMPLETED) 650 mg, Oral, ONCE, 1 dose, On Sat01/27/25 at 1215, Maximum dose of acetaminophen is 4000 mg from all sources in 24 hours. 1214 (Given - Provid er: Terri Bray RN) ondansetron (ZOFRAN) injection 4 mg (COMPLETED) 4 mg, IntraVENous, ONCE, 1 dose, On Sat01/27/25 at 1000 1017 (Given - Provid er: Terri Bray RN) ondansetron (ZOFRAN) injection 4 mg (COMPLETED) 4 mg, IntraVENous, ONCE, 1 dose, On Sat01/27/25 at 1215 1213 (Given - Provid er: Terri Bray RN) sodium chloride 0.9 % bolus 1,000 mL (COMPLETED) 1,000 mL (6.68 mL/kg), IntraVENous, at 495.9 mL/hr, Administer over 121 Minutes, ONCE, On Sat01/27/25 at 1000, For 1 dose, For adult patients weighing > 55 kg (120 lbs.) and less than <50 years of age initiate 0.9NS at 500 mL/ hr. All bolus orders are to be given over 10 to 15 minutes 1020 (New Bag - Prov ider: Terri Bray RN)1234 (Stopped - Provider: Terri Bray RN) documented in this encounter Additional Health Concerns Infection Onset Date Last Indicated Resolved Time COVID-19 (Rule Out) 01/27/2025 01/27/2025 01/28/20 10:56 AM EDT documented as of this encounter Care Teams Cleaning Team Member Relationship Specialty Start Date End Date Butch Chopra APRN - STEAM SERVICE INSPECTOR [address] [place] [phone] PCP - General Nurse Practitioner 10/08/24 documented as of this encounter
--- OUTSIDE RECORDS SUMMARY | 2025-01-28 09:55 | XMS_ITS | Encounter Summary ---
Author Organization [facility] tem Address [id number] [address] [place] [address] Care Team Providers Care Harvest Crew Supervisor Name Role Phone Butch Chopra Primary Care Prov ider Reason for Referral * Consultation (Routine) - Authorized Specialty Diagnoses / Procedures Referred By Contangel t Referred To Contact General Surgery Diagnoses Gastroesophageal reflux disease, unspecified whether esophagitis present La Jiménez APRN-CNP [address] [place] [address] Phone: tel: fax: [facility] General [facility] [address] [place] [address] Phone: tel: fax: Referral ID Status Reason Start Date Expiration Date Visits Requested Visits Authorized [id number] Authorized Specialty Services Required 01/28/2025 01/28/2026 1 1 Reason for Visit * Reason Comments Abdominal Pain Encounter Details Date Type Department Care Team (Latest Contact Info) Description 01/28/2025 9:55 AM EDT - 01/28/2025 2:00 PM EDT [facility] [address] [place] [phone] Zohra Cabral MD [address] [place] [address] Gastroesophageal reflux disease, unspecified whether esophagitis present (Primary Dx) Discharge Disposition: Home Social History Tobacco Use Types Packs/Day Years Used Date Smoking Tobacco: Every Day Cigarettes 1 32.4 Started: 09/16/1992 Smokeless Tobacco: Never Alcohol Use Standard Drinks/Week Comments Not Currently 0 (1 standard drink = 0.6 oz pur e alcohol) sober-2 months [facility] Utilities Answer Date Recorded In the past 12 months has th e electric, gas, oil, or water company threatened to shut off services in your home? No 01/08/2025 Overall Financial Resource Strain (CARDIA) Answe r Date Recorded How hard is it for you to pa y for the very basics like food, housing, medical care, and heating? Somewhat hard 04/23/2024 PHQ-2 Answer Date Recorded Total Score 0 12/06/2022 PRAPARE - Transportation Answer Date Re corded In the past 12 months, has l ack of transportation kept you from medical appointments or from getting medications? No 12/16 In the past 12 months, has l ack of transportation kept you from meetings, work, or from getting things needed for daily living? No 01/08/2025 Housing Instability Answer Date Recorde d Are you worried or concerned that in the next two months you may not have stable housing that you own, rent or stay in as a part of a household? No 01/08/2025 Childcare Answer Date Recorded Childcare Unknown 02/25/2019 Employment Answer Date Recorded Employment Unknown 02/25/2019 Hunger Screening Answer Date Recorded Within the past 12 months we worried whether our food would run out before we got money to buy more. Never True 01/28/2025 Within the past 12 months th e food we bought just didn't last and we didn't have money to get more. Never True 01/28/2025 Purpose - Life Answer Date Recorded Purpose and direction in life Unknown Comments No Sex and Gender Information Value Date Recorded Sex Assigned at Female 09/12/2022 12:18 AM EST Legal Sex Female 11:45 AM EDT Gender Identity Female 09/12/2022 12:18 AM EST Sexual Orientation Straight 09/12/2022 12 :18 AM EST documented as of this encounter Last Filed Vital Signs Vital Sign Reading Time Taken Comments Blood Pressure 129/91 01/28/2025 10:15 AM EDT Pulse 78 01/28/2025 1:45 PM EDT Temperature 36.7 C (98 F) 01/28/2025 9:59 AM EDT Respiratory Rate 15 01/28/2025 1:45 PM EDT Oxygen Saturation 96% 01/28/2025 12:25 PM EDT Inhaled Oxygen Concentration - - Weight 152.9 kg (337 lb) 01/28/2025 9:59 AM EDT Height 172.7 cm (5' 8 ) 01/28/2025 9:59 AM EDT Body Mass Index 51.24 01/28/2025 9:59 AM EDT documented in this encounter Discharge Instructions * Discharge Instructions* BARBARA Monson - 01/28/2025 12:41 PM EDT Thank you for choosing us for your medical care. We know you have a choice, and we appreciate you choosing us for your medical concerns! You may receive a survey from the hospital about your visit. We very much appreciate your comments and concerns. Please read all medication insert instructions and side effects when dispensed by the pharmacy. Every medication has side effects, and you may experience any of them. Please call the emergency room with any questions or concerns you have. Please call your doctor for outpatient follow up and recommendations. The emergency room cannot replace ongoing care, and it is important for your personal physician to evaluate you and monitor your health. Return to the ER for increased pain, fever > 101.5, vomiting twice, or any concern you deem emergent. La Jiménez CNP documented in this encounter Medications at Time of Discharge bumetanide (BUMEX) 1 mg tabletIndications :Lower extremity edema Take 1 tablet (1 mg total) by mouth daily. 90 tablet 3 01/21/2025 buprenorphine-nal oxone (SUBOXONE) 8-2 mg per SL tablet Place 1 tablet under the tongue in the morning. ferrous sulfate 325 (65 FE) mg EC tablet Take 1 tablet (325 mg total) by mouth in the morning and 1 tablet (325 mg total) at noon and 1 tablet (325 mg total) in the evening. Take with meals. ibuprofen (MOTRIN) 800 mg tablet 1 tablet (800 mg total). 01/19/2025 KLOXXADO 8 mg/actuation spray,non-aerosol INSTILL 1 SPRAY IN NOSTRIL FOR OPIOID OVERDOSE. REPEAT EVERY 2 TO 3 MINUTES IF NO RESPONSE. CALL 911. KEEP KIT WITH YOU 01/19/2025 levothyroxine (SYNTHROID, LEVOTHROID) 25 MCG tablet 1 tablet (25 mcg total). 01/19/2025 lisinopril-hydroC HLOROthiazide (PRINZIDE,ZESTORE TIC) 20-12.5 mg per tabletIndications :Hypertension, unspecified type Take 1 tablet by mouth in the morning. 90 tablet 3 01/21/2025 loratadine (CLARITIN) 10 mg tablet Take 1 tablet (10 mg total) by mouth in the morning. 07/14/2024 metFORMIN (GLUCOPHAGE) 500 mg tablet Take 1 tablet (500 mg total) by mouth in the morning and 1 tablet (500 mg total) in the evening. Take with meals. metoclopramide (REGLAN) 10 mg tablet Take 1 tablet (10 mg total) by mouth every 6 (six) hours. 30 tablet 01/28/2025 naltrexone (REVIA) 50 mg tablet Take 1 tablet (50 mg total) by mouth. 11/12/2024 nicotine (NICODERM CQ) 14 mg/24 hrIndications:Tob acco use disorder Place 1 patch on the skin daily. 90 patch 3 01/20/2025 nicotine polacrilex (NICORETTE) 2 mg gumIndications:To bacco use disorder Chew 1 each (2 mg total) as directed as needed for smoking cessation. 100 each 01/20/2025 polyethylene glycol (GLYCOLAX) 17 gram/dose powder 17 g. 01/19/2025 potassium chloride (KLOR-CON M 20) 20 MEQ CR tabletIndications :Hypokalemia Take 1 tablet (20 mEq total) by mouth in the morning. 30 tablet 11 01/12/2025 sucralfate (CARAFATE) 1 gram tablet Take 1 tablet (1 g total) by mouth in the morning and 1 tablet (1 g total) at noon and 1 tablet (1 g total) in the evening and 1 tablet (1 g total) before bedtime. 120 tablet 01/28/2025 documented as of this encounter ED Notes * La Jiménez [employer]REIGHT FORWARDER - 01/28/2025 10:22 AM EDT Images from the original note were not included. [facility] - EMERGENCY Pt Name: Ida Proctor Birthdate: 1980 Chief Complaint: Chief Complaint Patient presents with Abdominal Pain History of Present Illness: Ida Proctor is a 4-year-old female that presents to ED with complaint of abdominal pain. Patient states she was seen yesterday at [facility]. They did lab work, urine and a CT scan which was unremarkable. She states she felt better at discharge but started to feel the abdominal pain again overnight and into today. Denies any nausea or vomiting. Has a history of drug abuse and stopped taking her Suboxone about a week ago because she states she would not like how she felt on it. Afebrile. Denies any constipation or diarrhea. Denies any drug use and states she has been clean for months. Patient states she came for IV fluids and pain management. Past Medical History: Past Medical History: Diagnosis Date Drug abuse ([facility]) Hypertension Vulvar cancer ([facility]) 2016 Past Surgical History: Past Surgical History: Procedure Laterality Date SECTION two times CONDYLECTOMY TOE Right 02/28/2018 Performed by Martell Felix DPM at [facility] KNEE ARTHROSCOPY TUBAL LIGATION VULVA SURGERY 2016 laser for vulva cancer Family History: Family History Problem Relation Age of Onset Hypertension Mother Diabetes Mother Hypertension Father Social History: Social History Socioeconomic History Marital status: Single Tobacco Use Smoking status: Every Day Current packs/day: 1.00 Average packs/day: 1 pack/day for 32.4 years (32.4 ttl pk-yrs) Types: Cigarettes Start date: 09/16/1992 Smokeless tobacco: Never Vaping Use Vaping status: Former Substance and Sexual Activity Alcohol use: Not Currently Comment: sober-2 months Drug use: Not Currently Frequency: 7.0 times per week Types: Marijuana, Methamphetamines, Cocaine Comment: sober for 8 months Sexual activity: Not Currently Partners: Male control/protection: Surgical Other Topics Concern Caffeine Use Yes Social Drivers of Health Financial Resource Strain: Medium Risk (04/23/2024) Overall Financial Resource Strain (CARDIA) Difficulty of Paying Living Expenses: Somewhat hard Food Insecurity: No Food Insecurity (01/28/2025) Hunger Screening Food Insecurity - Worry: Never True Food Insecurity - Inability: Never True Transportation Needs: No Transportation Needs (01/08/2025) PRAPARE - Transportation Lack of Transportation (Medical): No Lack of Transportation (Non-Medical): No Interpersonal Safety: Not At Risk (01/08/2025) Humiliation, Afraid, Rape, and Kick questionnaire Fear of Current or Ex-Partner: No Emotionally Abused: No Physically Abused: No Sexually Abused: No Housing Instability: Low Risk (01/08/2025) Housing Instability Housing Instability: No Review of Systems: Review of Systems Constitutional: Negative for chills and fever. HENT: Negative for ear pain. Eyes: Negative for pain. Respiratory: Negative for shortness of breath. Cardiovascular: Negative for chest pain/discomfort. Gastrointestinal: Positive for abdominal pain. Negative for diarrhea, nausea and vomiting. Genitourinary: Negative for flank pain. Musculoskeletal: Negative for back pain. Skin: Negative for rash. Neurological: Negative for headaches. Psychiatric/Behavioral: Negative for sleep disturbance and suicidal ideas. Physical Exam: ED Triage Vitals [01/28/25 0959] Temp Heart Rate Resp BP SpO2 36.7 ??C (98 ??F) 72 17 132/84 95 % Temp Source Heart Rate Source Patient Position BP Location FiO2 (%) Oral Pulse Ox Sitting Left arm -- Vitals: 01/28/25 1250 01/28/25 1255 01/28/25 1300 01/28/25 1305 BP: Temp: TempSrc: Pulse: 78 71 70 75 Resp: 15 14 11 16 SpO2: MAP (mmHg): Height: Weight: Physical Exam Vitals reviewed. HENT: Head: Normocephalic and atraumatic. Eyes: Conjunctiva/sclera: Conjunctivae normal. Cardiovascular: Rate and Rhythm: Normal rate. Pulmonary: Effort: Pulmonary effort is normal. Breath sounds: Normal breath sounds. Abdominal: General: There is no distension. Palpations: Abdomen is soft. Tenderness: There is generalized abdominal tenderness. Musculoskeletal: General: Normal range of motion. Cervical back: Normal range of motion and neck supple. Skin: General: Skin is warm and dry. Neurological: General: No focal deficit present. Mental Status: She is alert and oriented to person, place, and time. GCS: GCS eye subscore is 4. GCS verbal subscore is 5. GCS motor subscore is 6. Procedure: Procedures Re-evaluation: Re-Evaluation Medical Decision Making Plan of care - IV fluids, meds, urine Amount and/or Complexity of Data Reviewed Labs: ordered. Decision-making details documented in ED Course. Risk Prescription drug management. ED Course: Clinical Impressions as of 01/28/25 1332 Gastroesophageal reflux disease, unspecified whether esophagitis present . ED Disposition None Medications Prescribed this Visit Sig metoclopramide (REGLAN) 10 mg tablet Take 1 tablet (10 mg total) by mouth every 6 (six) hours. sucralfate (CARAFATE) 1 gram tablet Take 1 tablet (1 g total) by mouth in the morning and 1 tablet (1 g total) at noon and 1 tablet (1 g total) in the evening and 1 tablet (1 g total) before bedtime. Shared/Split Visit 12:30 EDT Savanna George), scribed for and in the presence of: Dr. Simona Cabral who performed the above service. IDr. Cabral personally performed a [id number] diagnostic evaluation on this patient. I personally made and approved the management plan for this patient and take responsibility for the patient management. Additional Notes/Findings: Ida Proctor is a 44 y.o. female presenting to the ED for chief complaint of abdominal pain. Exam findings as follows: Constitutional: Awake and alert HENT: Head normocephalic and atraumatic Eyes: conjunctiva unremarkable Cardiovascular: Heart rate regular Pulmonary: Easy work of breathing, speaking full sentences Abdominal: Non-distended, non-tender, soft Skin: Warm and dry Musculoskeletal: Moving all extremities spontaneously Neurological: No focal deficits Please note that portions of this note were completed with a voice recognition program. Efforts were made to edit the dictations but occasionally words are mis-transcribed. BARBARA Monson 01/28/25 1025 Savanna Echols 01/28/25 1231 Savanna Echols 01/28/25 1232 Savanna Echols 01/28/25 1332 BARBARA Monson 01/28/252023 * France John RN - 01/28/2025 9:57 AM EDT Pt states that she has abdominal pain. Pt was just seen in the [facility] ED. PT states she has not hadvomiting since yesterday. Pt states she is dehydrated. Pt tested neg for flu and covid at [facility]. Pt stopped taking suboxone a week ago. documented in this encounter Plan of Treatment Upcoming Encounters Date Type Department Care Team (Late st Contact Info) Description 02/10/2025 1:30 PM EDT Office Visit [facility] [address] [place] [phone] Lorrie Rueda APRN-CNP [address] [place] [address] 02/18/2025 7:30 PM EDT [facility] [address] [place] [phone] 07/26/2025 10:30 AM EST Office Visit [facility] Pul[facility] [address] [place] [phone] Gloria Michelle MD [address] [facility] [address] [place] [address] 07/27/2025 1:30 PM EST Office Visit [facility] Card[facility] [address] [phone] Charity Conti, PARadhaC [address] [place] [address] Scheduled Referrals Name Type Priority Associated Diagnoses Order Schedule [facility] General [facility] [place], [place] Outpatient Referral Routine Gastroesophageal reflux disease, unspecified whether esophagitis present 1 Occurrences starting 01/28/2025 until 01/28/2026 documented as of this encounter Goals Goal Patient Goal Type Associated Problems Recent Progress Patient-Stated? Author Return to sober living General Yes Brittni Diallo, TASHIA Note: Evaluation of progress towards goal: In progress: Return to sober living at [facility] in [place], [place]. documented as of this encounter Procedures Procedure Name Priority Date/Time Associated Diagnosis Comments POCT , URINE (NUCG) Routine 01/28/2025 11:03 AM EDT POCT NURSING URINE MACROSCOPIC UA Routine 01/28/2025 11:01 AM EDT ER EXTRA URINE CULTURE STAT 10:53 AM EDT ER EXTRA URINE STAT 01/28/2025 10:53 AM EDT EXTRA TUBES BLUE TOP Routine 01/28/2025 10:40 AM EDT EXTRA TUBES Routine 01/28/2025 10:40 AM EDT CBC WITH AUTO DIFFERENTIAL STAT 01/28/2025 10:39 AM EDT MAGNESIUM STAT 01/28/2025 10:39 AM EDT COMPREHENSIVE METABOLIC PANEL STAT 01/28/2025 10:39 AM EDT documented in this encounter Results * POCT , urine (01/28/2025 11:03 AM EDT) POC Urine Negative Negative 01/28/2025 11:03 AM EDT [facility] Urine 01/28/2025 11:0 3 AM EDT 01/28/2025 11:03 AM EDT us POINT OF CARE TEST ORDERABLES Fi nal Result Performing Organization Address City/[facility]/ZIP Co de Phone Number [facility] [address] [place] [address], [place] * (ABNORMAL) POCT Nursing Urine Macroscopic UA (01/28/2025 11:01 AM EDT) POC Urine Specific [place] 1.010 1.010, 1.015, 1.020, 1.025 01/28/2025 10:57 AM EDT [facility] POC Urine Leukocyte Esterase Negative Negative 01/28/2025 10:57 AM EDT [facility] Urine Nitrite Negative Negative 01/28/2025 10:57 AM EDT [facility] Urine pH 6.5 5.0, 6.0, 6.5, 7.0, 7.5, 8.0, 8.5, 5.5 01/28/2025 10:57 AM EDT [facility] Urine Protein Negative Negative 01/28/2025 10:57 AM EDT [facility] Urine Glucose Negative Negative 01/28/2025 10:57 AM EDT [facility] Urine Ketones 40 mg/dL(A) Negative 01/28/2025 10:57 AM EDT [facility] Urine Urobilinogen 0.2 E.U./dL 01/28/2025 10:57 AM EDT [facility] Urine Bilirubin Negative Negative 01/28/2025 10:57 AM EDT [facility] Urine Blood/HGB Trace(A) Negative 01/28/2025 10:57 AM EDT [facility] Urine 01/28/2025 11:0 1 AM EDT 01/28/2025 10:57 AM EDT us POINT OF CARE TEST ORDERABLES Fi nal Result Performing Organization Address City/[facility]/ZIP Co de Phone Number [facility] [address] [place] [address] [place] [address], [place] * Extra Urine Culture (01/28/2025 10:53 AM EDT) Extra Tube Auto Resulted 01/28/2025 12:01 PM EDT [facility] Urine Urine specimen collection, clean catch / Unknown Collection / Unknown 01/28/2025 10:53 AM EDT 01/28/2025 11:10 AM EDT us La Jiménez [employer] FORWARDER URINE ORDERABLES Final Res ult [address] [place] [address], [place] * Extra Urine (01/28/2025 10:53 AM EDT) Extra Tube Auto Resulted 01/28/2025 12:01 PM EDT [facility] Urine Urine specimen collection, clean catch / Unknown Collection / Unknown 01/28/2025 10:53 AM EDT 01/28/2025 11:10 AM EDT us Tovar Jiménez [employer] FORWARDER URINE ORDERABLES Final Res ult Performing Organization Address City/[facility]/ZIP Co de Phone Number [address] [place] [address], [place] * Light Blue Top (01/28/2025 10:40 AM EDT) Extra Tube Auto Resulted 01/28/2025 12:01 PM EDT [facility] Blood Venous blood / Unknown 01/28/2025 10:40 AM EDT 01/28/2025 10:43 AM EDT us La Jiménez [employer] LAB BLOOD ORDERABLES Final Result Performing Organization Address City/[facility]/ZIP Co de Phone Number [address] [place] [address], [place] * (ABNORMAL) Magnesium (01/28/2025 10:39 AM EDT) MAGNESIUM 1.7(L) 1.8 - 2.6 mg/dL 01/28/2025 11:01 AM EDT [facility] Blood Venous blood / Unknown Line / Unknown 01/28/2025 10:39 AM EDT 01/28/2025 10:42 AM EDT us La Jiménez [employer] LAB BLOOD ORDERABLES Final Result [facility] [address] [place] [address], * (ABNORMAL) Comprehensive metabolic panel (01/28/2025 10:39 AM EDT) SODIUM 130(L) 134 - 146 mmol/L 01/28/2025 11:01 AM EDT [facility] POTASSIUM 2.8(L) 3.5 - 5.0 mmol/L 01/28/2025 11:01 AM EDT [facility] CHLORIDE 98 98 - 109 mmol/L 01/28/2025 11:01 AM EDT [facility] CARBON DIOXIDE 25 22 - 32 mmol/L 01/28/2025 11:01 AM EDT [facility] ANION GAP 7 5 - 15 mmol/L 01/28/2025 11:01 AM EDT [facility] BLOOD UREA NITROGEN 13 5 - 23 mg/dL 01/28/2025 11:01 AM EDT [facility] CREATININE 0.71 0.40 - 1.00 mg/dL 01/28/2025 11:01 AM EDT [facility] Comment:METHOD TRACEABLE TO IDMS STANDARD GLUCOSE 122(H) 65 - 99 mg/dL 01/28/2025 11:01 AM EDT [facility] CALCIUM 8.4(L) 8.5 - 10.5 mg/dL 01/28/2025 11:01 AM EDT [facility] TOTAL PROTEIN 7.6 6.0 - 8.0 g/dL 01/28/2025 11:01 AM EDT [facility] ALBUMIN 3.7 3.2 - 5.3 g/dL 01/28/2025 11:01 AM EDT [facility] ALKALINE PHOSPHATASE 59 39 - 130 U/L 01/28/2025 11:01 AM EDT [facility] AST 25 <=41 U/L 01/28/2025 11:01 AM EDT [facility] ALT 26 <=31 U/L 01/28/2025 11:01 AM EDT [facility] BILIRUBIN,TOTAL 1.2 0.3 - 1.2 mg/dL 01/28/2025 11:01 AM EDT [facility] EGFR Non-Race Dependent >90 >=60 ml/min/1.7 3sq.m 01/28/2025 11:01 AM EDT [facility] Comment: eGFR not reported due to non-numeric value for Creatinine. Reported eGFR is based on the CKD-EPI 2020 equation that does not use a race coefficient. Blood Venous blood / Unknown Line / Unknown 01/28/2025 10:39 AM EDT 01/28/2025 10:42 AM EDT us La Jiménez [employer] LAB BLOOD ORDERABLES Final Result [facility] [address] [place] [place] [address], * (ABNORMAL) CBC auto differential (01/28/2025 10:39 AM EDT) WBC 6.2 4 - 11 x10E9/L 01/28/2025 11:12 AM EDT [facility] RBC Count 4.44 3.8 - 5.2 X10E12/L 01/28/2025 11:12 AM EDT [facility] Hemoglobin 10.7(L) 11.7 - 15.5 g/dL 01/28/2025 11:12 AM EDT [facility] Hematocrit 33.5(L) 35 - 47 % 01/28/2025 11:12 AM EDT [facility] MCV 76(L) 80 - 100 fL 01/28/2025 11:12 AM EDT [facility] MCH 24.0(L) 27 - 34 pg 01/28/2025 11:12 AM EDT [facility] MCHC 31.8(L) 32 - 36 g/dL 01/28/2025 11:12 AM EDT [facility] RDW 19.2(H) 11.5 - 15 % 01/28/2025 11:12 AM EDT [facility] Platelet Count 362 150 - 450 X10E9/L 01/28/2025 11:12 AM EDT [facility] MPV 7.8 7 - 12 fL 01/28/2025 11:12 AM EDT [facility] Neutrophils Relative 72.0 % 01/28/2025 11:12 AM EDT [facility] Lymphocytes Relative 17.5 % 01/28/2025 11:12 AM EDT [facility] Monocytes Relative 8.9 % 01/28/2025 11:12 AM EDT [facility] Eosinophils Relative 1.2 % 01/28/2025 11:12 AM EDT [facility] Basophils Relative 0.4 % 01/28/2025 11:12 AM EDT [facility] Neutrophils Absolute (A) 4.4 1.5 - 6.6 10*3/uL 01/28/2025 11:12 AM EDT [facility] Lymphocytes Absolute 1.1 1.0 - 3.5 10*3/uL 01/28/2025 11:12 AM EDT [facility] Monocytes Absolute 0.6 0.0 - 0.9 10*3/uL 01/28/2025 11:12 AM EDT [facility] Eosinophils Absolute 0.1 0.0 - 0.4 10*3/uL 01/28/2025 11:12 AM EDT [facility] Basophils Absolute 0.0 0.0 - 0.2 10*3/uL 01/28/2025 11:12 AM EDT [facility] Differential Type AUTOMATED DIFFERENTIAL 01/28/2025 11:12 AM EDT [facility] Blood Venous blood / Unknown Line / Unknown 01/28/2025 10:39 AM EDT 01/28/2025 10:42 AM EDT us La Jiménez [employer] LAB BLOOD ORDERABLES Final Result [facility] [address] [place] [address], documented in this encounter Visit Diagnoses Diagnosis Gastroesophageal reflux disease, unspecified whether esophagitis present- Primary documented in this encounter Administered Medications Inactive Administered Medications - up to 3 most recent administrations Medication Order MAR Action Action Date Dose Rate Site diphenhydrAMINE (BENADRYL) injection 25 mg 25 mg, intravenous, Once, On Starr 01/28/25 at 1250, For 1 dose, Look-alike/sound-alike medication - verify indication for use. Given 01/28/2025 12:56 PM EDT 25 mg ketorolac (TORADOL) injection 30 mg 30 mg, intravenous, Once, On Starr 01/28/25 at 1025, For 1 dose, Look-alike/sound-alike medication - verify indication for use. Duration of therapy is not to exceed 5 days. Maximum recommended dose + 120mg/24 hours. Given 01/28/2025 10:43 AM EDT 30 mg maalox-lidocaine (GI COCKTAIL) 3:1 oral suspension 40 mL 40 mL, oral, Once, On Starr 01/28/25 at 1025, For 1 dose Given 01/28/2025 10:41 AM EDT 40 mL magnesium sulfate IVPB 1000 mg/100 mL in dextrose 5% (10 mg/mL premix) 1,000 mg, intravenous, at 100 mL/hr, Administer over 60 Minutes, Once, On Starr 01/28/25 at 1125, For 1 dose, Infuse each gram over 60 minutes. New Bag 01/28/2025 11:55 AM EDT 1,000 mg 100 mL/hr metoclopramide (REGLAN) injection 10 mg 10 mg, intravenous, Once, On Starr 01/28/25 at 1025, For 1 dose, Administer over 2 minutes. Given 01/28/2025 10:41 AM EDT 10 mg potassium chloride IVPB 10 mEq/100 mL in water (0.1 mEq/mL premix) 10 mEq, intravenous, at 100 mL/hr, Administer over 60 Minutes, Every 1 hour, First dose on Starr 01/28/25 at 1125, For 2 doses, VESICANT (YELLOW) Infuse each 10 mEq over a minimum of 1 hour. New Bag 01/28/2025 1:04 PM EDT 10 mEq 100 mL/hr New Bag 01/28/2025 11:56 AM EDT 10 mEq 100 mL/hr sodium chloride 0.9 % bolus 1,000 mL, intravenous, at 984 mL/hr, Administer over 61 Minutes, Once, On Starr 01/28/25 at 1025, For 1 dose New Bag 01/28/2025 10:48 AM EDT 1,000 mL 984 mL/hr documented in this encounter Active and Recently Administered Medications Times are shown in EDT. Scheduled Medication Order 01/26/2025 01/27/2025 01/28/2025 diphenhydrAMINE (BENADRYL) injection 25 mg (COMPLETED) 25 mg, intravenous, Once, On Strar 01/28/25 at 1250, For 1 dose, Look-alike/sound-alike medication - verify indication for use. 1256 (Given - Provid er: Ashlee Dejesus RN) ketorolac (TORADOL) injection 30 mg (COMPLETED) 30 mg, intravenous, Once, On Starr 01/28/25 at 1025, For 1 dose, Look-alike/sound-alike medication - verify indication for use. Duration of therapy is not to exceed 5 days. Maximum recommended dose + 120mg/24 hours. 1043 (Given - Provid er: Ashlee Dejesus RN) maalox-lidocaine (GI COCKTAIL) 3:1 oral suspension 40 mL (COMPLETED) 40 mL, oral, Once, On Starr 01/28/25 at 1025, For 1 dose 1041 (Given - Provid er: Ashlee Dejesus RN) magnesium sulfate IVPB 1000 mg/100 mL in dextrose 5% (10 mg/mL premix) (COMPLETED) 1,000 mg, intravenous, at 100 mL/hr, Administer over 60 Minutes, Once, On Starr 01/28/25 at 1125, For 1 dose, Infuse each gram over 60 minutes. 1155 (New Bag - Prov ider: Emilia Clarke RN)1255 (Stop Bag - Provider: Ashlee Dejesus RN) metoclopramide (REGLAN) injection 10 mg (COMPLETED) 10 mg, intravenous, Once, On Starr 01/28/25 at 1025, For 1 dose, Administer over 2 minutes. 1041 (Given - Provid er: Ashlee Dejesus RN) potassium chloride IVPB 10 mEq/100 mL in water (0.1 mEq/mL premix) 10 mEq, intravenous, at 100 mL/hr, Administer over 60 Minutes, Every 1 hour, First dose on Starr 01/28/25 at 1125, For 2 doses, VESICANT (YELLOW) Infuse each 10 mEq over a minimum of 1 hour. 1156 (New Bag - Prov ider: Emilia Clarke RN)1159 (Stop Bag - Provider: Ashlee Dejesus RN)1304 (New Bag - Provider: Ashlee Dejesus RN)1404 (Stop Bag - Provider: Ashlee Dejesus RN) sodium chloride 0.9 % bolus (COMPLETED) 1,000 mL, intravenous, at 984 mL/hr, Administer over 61 Minutes, Once, On Starr 01/28/25 at 1025, For 1 dose 1048 (New Bag - Prov ider: Ashlee Dejesus RN)1149 (Stop Bag - Provider: Ashlee Dejesus RN) documented in this encounter Additional Health Concerns Assessment Noted Time PHQ-9 Depression Total Score: 0 12/07/19 23 2:09 PM EDT A Body Mass Index follow-up plan has been documented for the patient 12/09/2022 11:24 PM EDT documented as of this encounter Care Teams Harvest Crew Supervisor Relationship Specialty Start Date End Date Butch Chopra APRN-TORRES [address] [place] [address] PCP - General Family Medicine 01/28/25 documented as of this encounter
--- OUTSIDE RECORDS SUMMARY | 2025-01-31 09:18 | XMS_ITS ---
Author Name Auto Generated Organization OHIP Support Name Relationship Address Phone SHAYY PROCTOR Next of Kin Unknown + THIERRY PROCTORY Next of Kin Unknown + HITESH, ERNY Next of Kin Unknown + HITESH, ERNY Next of Kin Unknown + HITESH, ERNY Next of Kin Unknown + HITESH, ERNY Next of Kin Unknown + [place] [address] [phone] HITESH, THIERRYY Next of Kin Unknown + HITESH, ERNY Next of Kin Unknown + [place] [address] [phone] HITESH, ERNY Next of Kin Unknown + HITESH, ERNY Next of Kin Unknown + [place] [address] [phone] HITESH, ERNY Next of Kin Unknown + HITESH, ERNY Next of Kin Unknown + [place] [address] [phone] HITESH, ERNY Next of Kin Unknown + HITESH, ERNY Next of Kin Unknown + [place] [address] [phone] Hitesh, Erny Next of Kin Unknown + Hitesh, Erny Next of Kin Unknown + SHAYY PROCTOR Next of Kin Unknown + SHAYY PROCTOR Next of Kin Unknown + [place] [address] +[phone] SHAYY PROCTOR Next of Kin Unknown + SHAYY PROCTOR Next of Kin Unknown + [place] [address] [phone] Care Team Providers Care C Developer Name Role Phone NO PCP, NO PCP Primary Care Unavailable LAY ESCOTO Attending Unavailable NO PCP, NO PCP Primary Care Unavailable BENJA URIARTE Attending Unavailable NO PCP, NO PCP Primary Care Unavailable JERRELL PINZON Attending Unavailable MELANIE SAM Admitting Unavailable CARDIOLOGY, [facility] Consulting Unavailable JERRELL PINZON Attending Unavailable JERRELL PINZON Referring Unavailable NO PCP, NO PCP Primary Care Unavailable NO PCP, NO PCP Primary Care Unavailable GERALD ALVARENGA Referring Unavailable NO PCP, NO PCP Primary Care Unavailable KADY TRUJILLO Attending Unavailable GERALD ALVARENGA Referring Unavailable NO PCP, NO PCP Primary Care Unavailable NO PCP, NO PCP Primary Care Unavailable PARAS FELIX Admitting Unavailable ABELARDO GARCIA Attending Unavailable MARYAM MCGHEE Attending Unavailable ANDREA CAPPS Referring Unavailable NO PCP, NO PCP Primary Care Unavailable ALANNA FRANCOIS Attending Unavailable ANDREA CAPPS Referring Unavailable DIVYA SORIA Primary Care Unavailabl DIVYA Barnett Primary Care Unavailabl e JONATHAN GOOD Attending Unavailable NON STAFF Primary Care Unavailable Elana Hamm Consulting Unavailable Alex Daly Admitting Unavailab Alex Rodriguez Attending Unavailab Zulma Dupree Consulting Unavailable Radha Beard Consulting Unavailable Joy Quick Consulting Unavailable Cris Davidson Consulting Unavailable Roya Rodriguez Consulting Unavailable Gunjan Molina Consulting Unavailable Vipin Vergara Consulting Unavailable Osmel Ferraro Consulting Unavailabl Harley Riojas Consulting Unavailable Penny Chacon Consulting Unavailable Tru Hernandez Consulting Unavailable Frances Walsh Consulting Unavailabl e WassoArchana joseph Consulting Unavailable Jason Hernandez Consulting Unavailable Kody Hamm Consulting Unavailable Isreal Huynh Consulting Unavailable Mary Barros Consulting Unavailable Isaiah Lee Consulting Unavailable Gabino Miller Consulting Unavailable Unique Pham Consulting Unavailable Bladimir Bryant Consulting Unavailable DoNav rivas Consulting Unavailab Gregor Costa Consulting Unavailable Ganesh Sam Consulting Unavailable Rubin Mendez Consulting Unavailable Abran Finn Consulting Unavailable Sasha Curry Consulting Unavailable Koko Jiménez Consulting Unavailable Taylor Aguila Consulting Unavailable Murtaza Felix Consulting Unavailable Wolf Lanza Consulting Unavailable Mary Singh Consulting Unavailable Gia Rutherford Consulting Unavailable Sagrario Fox Consulting Unavailable Tanvir Godinez Consulting Unavailable Diego Ford Consulting Unavailable Jai Kirby Consulting Unavailable Dakota Sam Consulting Unavailable Shellie Taylor Consulting Unava ilable Petrona Yancey Consulting Unavailable Nehemiah Ivey Consulting Unavailable Harley Perez Consulting Unavailable Lianne Herndon Consulting Unavailable Alex Daly Admitting Unavailab Alex Rodriguez Attending Unavailab le NON STAFF Primary Care Unavailable MARY WILLSON Referring Unavailable ZOË MCKEON Attending Unavailable ZOË MCKEON Referring Unavailable Sridevi Russell Attending Unavailable Drew Sridevi Primary Care Unavailable Petrona Irene CNP Attending Unavailable IAM VITALE Attending Unavailable DIVYA SORIA Primary Care Unavailabl e DIVYA SORIA Primary Care Unavailabl e DIVYA SORIA Primary Care Unavailabl e DIVYA SORIA Referring Unavailabl ZAIN Schultz Referring Unavailable CATHY SANTIAGO Primary Care Unavailabl ANGELA Velez Attending Unavailable DIVYA SORIA Primary Care Unavailabl e PROBLEMS DATE TYPE CONDITION / CODE ATTENDING STATUS [facility] 01/28/2025 Unknown Gastro-esophagea l reflux disease without esophagitis / K21.9(ICD-10) JONATHAN GOOD [facility] 01/28/2025 Unknown Abdominal Pain / FREETEXT(AOF) JONATHAN GOOD [facility] 01/27/2025 Unknown Nausea with vomi ting, unspecified / R11.2(ICD-10) IAM VITALE [facility] 01/26/2025 Admitting diagnosis Abdominal Pain / [id number]() NA [facility] 01/21/2025 Unknown New Patient / FREETEXT(AOF) ALANNA FRANCOIS [facility] 01/20/2025 Unknown Nicotine depende nce, unspecified, uncomplicated / F17.200(ICD-10) [facility] 01/20/2025 Unknown Solitary pulmona ry nodule / R91.1(ICD-10) [facility] 01/20/2025 Unknown Sleep disorder, unspecified / G47.9(ICD-10) [facility] 01/20/2025 Unknown Respiratory Dist ress / FREETEXT(AOF) [facility] 01/20/2025 Unknown Wheezing / FREETEXT(AOF) [facility] 01/20/2025 Unknown Cough / FREETEXT(AOF) [facility] 01/08/2025 Unknown Essential (prima ry) hypertension / I10(ICD-10) ABELARDO GARCIA [facility] 01/08/2025 Unknown Localized edema / R60.0(ICD-10) ABELARDO GARCIA [facility] 01/08/2025 Unknown Acute respirator y failure with hypoxia / J96.01(ICD-10) ABELARDO GARCIA U [facility] 03/23/2023 Unknown Hypokalemia / E87.6(ICD-10) ABELARDO GARCIA [facility] 01/08/2025 Unknown Pulmonary hypertension, unspecified / I27.20(ICD-10) ABELARDO GARCIA [facility] 01/08/2025 Unknown Shortness of jami ath / R06.02(ICD-10) [facility] Shortness of Jami ath / FREETEXT(AOF) [facility] Admitting diagnosis Hypothyroidism, unspecified / E03.9(ICD-10) [facility] 10/08/2024 Admitting diagnosis Other chronic pain / G89.29(ICD-10) [facility] 08/18/2024 Admitting diagnosis Encounter for pre-employment examination / Z02.1(ICD-10) [facility] 07/15/2024 Unknown Acute vaginitis / N76.0(ICD-10) KADY TRUJILLO [facility] 06/30/2024 Unknown Frequency of micturition / R35.0(ICD-10) [facility] 04/21/2018 Unknown Pruritus vulvae / L29.2(ICD-10) [facility] 06/30/2024 Unknown Personal history of malignant neoplasm of other female genital organs / Z85.44(ICD-10) [facility] 06/30/2024 Unknown Other specified noninflammatory disorders of vulva and perineum / N90.89(ICD-10) [facility] 06/30/2024 Unknown Encounter for screening mammogram for malignant neoplasm of breast / Z12.31(ICD-10) [facility] 06/30/2024 Unknown Other problems related to medical facilities and other health care / Z75.8(ICD-10) [facility] 06/30/2024 Unknown Vaginitis / FREETEXT(AOF) [facility] 05/14/2024 Active Primary osteoarthritis of right knee / M17.11(ICD-10) ZOË MCKEON [facility] 05/13/2024 Active Chest Pain / UNK(Unknown) [facility] 04/24/2024 Admitting diagnosis Other stimulant dependence. uncomplicated / F15.20(ICD-10) Sridevi Russell [facility] 04/24/2024 Admitting diagnosis Cannabis dependence. uncomplicated / F12.20(ICD-10) Drew [facility] 04/24/2024 Admitting diagnosis Alcohol dependence. 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 / F18.99(ICD-10) [facility] Unknown Hypertensive urg ency / I16.0(ICD-10) JERRELL PINZON [facility] 04/22/2024 Unknown Chest pain, unspecified / R07.9(ICD-10) JERRELL PINZON [facility] 04/22/2024 Unknown Chest Pain / FREETEXT(AOF) JERRELL PINZON [facility] 04/14/2024 Unknown Major depressive disorder, recurrent, moderate / F33.1(ICD-10) Malika [facility] 04/14/2024 Unknown Other stimulant abuse, uncomplicated / F15.10(ICD-10) [facility] Vitamin D defici ency, unspecified / E55.9(ICD-10) [facility] Unknown Unspecified abdo yosvany pain / R10.9(ICD-10) [facility] Unknown Suicidal ideatio ns / R45.851(ICD-10) BENJA URIARTE [facility] 04/14/2024 Unknown Suicidal / FREETEXT(AOF) BENJA URIARTE [facility] 03/18/2024 Unknown Effusion, right knee / M25.461(ICD-10) LAY ESCOTO [facility] 03/18/2024 Unknown Knee Pain / FREETEXT(AOF) FAB ESCOTOAurora Berg Active [facility] 03/18/2024 Unknown Knee Pain / UNK(Unknown) FAB ESCOTOAurora Berg [facility] PROCEDURES No Procedure Records Found RESULTS CT ABDOMEN PELVIS W IV CONTRAST Observed: 01/31/2025 2:43 PM Status: F Source: [facility] EXAMINATION: CT OF THE ABDOMEN AND PELVIS WITH CONTRAST 01/31/2025 8:24 am TECHNIQUE: CT of the abdomen and pelvis was performed with the administration of intravenous contrast. Multiplanar reformatted images are provided for review. Automated exposure control, iterative reconstruction, and/or weight based adjustment of the mA/kV was utilized to reduce the radiation dose to as low as reasonably achievable. COMPARISON: None. HISTORY: ORDERING SYSTEM PROVIDED HISTORY: upper abdominal pain. prior cholecystecomy TECHNOLOGIST PROVIDED HISTORY: upper abdominal pain. prior cholecystecomy Decision Support Exception - unselect if not a suspected or confirmed emergency medical condition->Emergency Medical Condition (MA) FINDINGS: Lower Chest: Lung bases are clear. Organs: Liver is enlarged in size with decreased density. No focal masses identified. No evidence of intrahepatic ductal dilatation. Spleen is normal size. The gallbladder is surgically absent. Both adrenal glands are normal. Pancreas is normal in appearance. . The kidneys are normal in size and attenuation without evidence of hydronephrosis or renal calculi. GI/Bowel: The visualized bowel and mesentery show no mass lesions. Mild colonic diverticulosis. No evidence of diverticulitis. Normal appendix Pelvis: No intrapelvic mass is identified. Bladder and rectum are intact. Peritoneum/Retroperitoneum: No free fluid. No lymphadenopathy. No evidence of pneumoperitoneum. Bones/Soft Tissues: Small fat containing umbilical hernia.. No acute bony abnormalities. IMPRESSION: No acute intra-abdominal or intrapelvic abnormalities are noted. Hepatomegaly and fatty infiltration of the liver Interpreted by: Jesse Venegas MD Signed by: Jesse Venegas MD 01/31/25 Final result UA W/REFLEX CULTURE Collected: 02/01/20 11:48 AM Status: F Source: [facility] TYPE CODE TESTS RESULT OUT OF RANGE REFERENCE UNITS LAB UCO(LOINC) Color Yellow YEL LAB UTU(LOINC) Clarity, Urine Clear CLEAR LAB UGL(LOINC) Glucose,Semi-q nt,Ur NEGATIVE NEG mg/dL LAB UBI(LOINC) Bilirubin, SemiQt,Ur NEGATIVE NEG LAB UKE(LOINC) Ketones, Urine NEGATIVE NEG mg/dL LAB USG(LOINC) Spec. [place],Ur 1.015 1.010-1.020 LAB UHB(LOINC) Blood, Urine NEGATIVE NEG LAB UPH(LOINC) PH,Ur 6.5 5.0-9.0 LAB UPR(LOINC) Protein, Semi-qnt,Ur NEGATIVE NEG mg/dL LAB UUR(LOINC) Urobilinogen,U r Normal 0.0-1.0 EU/dL LAB UNI(LOINC) Nitrite,Ur NEGATIVE NEG LAB ULE(LOINC) Leukocyte Esterase NEGATIVE NEG Performed By: #### [facility], [facility] #### [facility] [address] [place] [address] Chess Instructor: Tobi Abebe MD URINALYSIS,MICRO Collected: 11:48 AM Status: F Source: [facility] TYPE CODE TESTS RESULT OUT OF RANGE REFERENCE UNITS LAB UWBC(LOINC) Urine WBC's 0 TO 2 0-5 /HPF LAB URBC(LOINC) Urine RBC's 0 TO 2 0-2 /HPF LAB CAST(LOINC) Casts 0 TO 2 /LPF Result Comment: HYALINE LAB EPITH(LOINC) Epithelial cells 2 TO 5 0-25 /HPF LAB MUC(LOINC) Mucus Strands 2+ Abnormal NONE LAB AMORPH(LOINC) Amorphous Sediment 2+ Abnormal NONE Performed By: #### [facility], [facility] #### [facility] [address] [place] [address] Chess Instructor: Tobi Abebe MD CBC WITH DIFF Collected: 01/31/2025 10:20 AM Status: F Source: [facility] TYPE CODE TESTS RESULT OUT OF RANGE REFERENCE UNITS LAB WBC(LOINC) WBC Count 6.4 3.5-11.3 k/uL LAB RBC(LOINC) RBC Count 4.50 3.95-5.11 m/uL LAB HGB(LOINC) Hemoglobin 10.6 Low 11.9-15.1 g/dL LAB HCT(LOINC) Hematocrit 35.4 Low 36.3-47.1 % LAB MCV(LOINC) MCV 78.7 Low 82.6-102.9 fL LAB MCH(LOINC) MCH 23.6 Low 25.2-33.5 pg LAB MCHC(LOINC) MCHC 29.9 28.4-34.8 g/dL LAB RDW(LOINC) RDW 17.9 High 11.8-14.4 % LAB PLT(LOINC) Platelet Count 346 138-453 k/uL LAB MPVX(LOINC) MPV 9.0 8.1-13.5 fL LAB NRBCS(LOINC) NRBC Automated 0.0 0.0 per 100 WBC LAB SEG(LOINC) Neutrophil (Seg) 66 High 36-65 % LAB LYM(LOINC) Lymphocyte 21 Low 24-43 % LAB MON(LOINC) Monocyte 9 3-12 % LAB EO(LOINC) Eosinophil 2 1-4 % LAB BASO(LOINC) Basophil 1 0-2 % LAB IGRAN(INC) Immature Granulocyte 1 High 0 % LAB ASEG(LOINC) Abs.Neutrophil (Seg) 4.25 1.50-8.10 k/uL LAB ALYM(LOINC) Abs. Lymph 1.38 1.10-3.70 k/uL LAB AMONO(LOINC) Abs. Monocyte 0.60 0.10-1.20 k/u L LAB AEO(LOINC) Abs. Eosinophil 0.13 0.00-0.44 k/u L LAB ABASO(LOINC) Abs. Basophil 0.04 0.00-0.20 k/u L LAB AIGRAN(LOINC) Abs.Imm.Granulo cyte 0.04 0.00-0.30 k/uL Performed By: #### CDP #### [facility] [address] [place] [address] Chess Instructor: Tobi Abebe MD SPECIMEN REJECTION Collected: 01/31/2025 9:40 AM Sta tus: F Source: [facility] TYPE CODE TESTS RESULT OUT OF RANGE REFERENCE UNITS LAB SOURC([facility]) Source of sample .BLOOD LAB ORDER(LOINC) Test ordered CDP LAB REASON(LOINC) Reason for rejection Unable to perform testing: Specimen clotted. Result Comment: MOHINI MARQUEZ NOT IFIED 01/31/2025 @0954 Performed By: #### JOZEF MONTGOMERY REJEC, FITZ #### [facility] [address] [place] [address] Chess Instructor: Tobi Abebe MD BASIC METABOLIC PROF Collected: 025 9:40 AM Status: F Source: [facility] TYPE CODE TESTS RESULT OUT OF RANGE REFERENCE UNITS LAB NA(LOINC) NA (Sodium) 136 136-145 mmol/L LAB K(LOINC) K (Potassium) 3.2 Low 3.7-5.3 mmol/L LAB CL(LOINC) Chloride 99 98-107 mmol/L LAB HCO(LOINC) CO2 26 20-31 mmol/L LAB GAP(LOINC) Anion Gap 11 9-16 mmol/L LAB GLU(LOINC) Glucose 113 High 74-99 mg/dL LAB BUN(LOINC) BUN (Urea N) 10 6-20 mg/dL LAB CRE(LOINC) Creatinine 0.6 0.50-0.90 mg/dL LAB EGFR(LOINC) eGFR >90 >60 mL/min/1. 73m2 Result Comment: These results are not intended for [...] following therapy that affects renal tubular secretion. LAB BUNCRE(LOINC) BUN/CRE Ratio 17 9-20 LAB CA(LOINC) Calcium 8.9 8.6-10.4 mg/dL Performed By: #### JOZEF MONTGOMERY , ALLEN, BMP #### [facility] [address] [place] [address] Chess Instructor: Tobi Abebe MD LIPASE Collected: 5 9:40 AM Status: F Source: [facility] TYPE CODE TESTS RESULT OUT OF RANGE REFERENCE UNITS LAB LIP(LOINC) Lipase 26 13-60 U/L Performed By: #### LIP, LIVP , REJEC, BMP #### [address] [place] [address] Chess Instructor: Tobi Abebe MD LIVER PROFILE Collected: 01/31/2025 9:40 AM Status: F Source: [facility] TYPE CODE TESTS RESULT OUT OF RANGE REFERENCE UNITS LAB ALB(LOINC) Albumin 3.6 3.5-5.2 g/dL LAB ALP(LOINC) Alkaline Phos 61 35-104 U/L LAB ALT(LOINC) ALT 18 10-35 U/L LAB AST(LOINC) AST 15 10-35 U/L LAB TBIL(LOINC) Bilirubin, Total 0.6 0.00-1.20 mg/dL LAB DBILI(LOINC) Bilirubin, Direct 0.3 0.00-0.30 mg/dL LAB IBIL(LOINC) Bilirubin, Indirect 0.3 0.0-1.0 mg/dL LAB TP(LOINC) Protein, Total 6.6 6.6-8.7 g/dL LAB AG(LOINC) Albumin/Glob Ratio 1.2 1.0-2.5 Performed By: #### LIP, LIVP , REJEC, BMP #### [address] [place] [address] Chess Instructor: Tobi Abebe MD HCG SCREEN, BLOOD Collected: 9:40 AM Status: F Source: [facility] TYPE CODE TESTS RESULT OUT OF RANGE REFERENCE UNITS LAB HCG(LOINC) HCG Screen, Blood NEGATIVE NEG Result Comment: Specimens wi th hCG levels near the threshold of the test (25 mIU/mL) may give a negative or indeterminate result. In such cases, another test should be performed with a new specimen in 48-72 hours. If early is suspected clinically in this setting, correlation with quantitative serum b-hCG level is suggested. [facility] has confirmed the use of plasma for this test. This has not been cleared or approved by the U.S. Food and Drug Administration. The FDA has determined that such clearance is not necessary. Performed By: #### HCG #### [address] [place] [address] Chess Instructor: Tobi Abebe MD POCT , URINE (NUCG) Collected: 01/28/2025 11:03 AM Status: COMPLETED Source: [facility] TYPE CODE TESTS RESULT OUT OF RANGE REFERENCE UNITS LAB NUCG URINE NURSING Negative Negative Performed By: #### NUCG #### [address] [address] VIR POCT NURSING URINE MACROSCOPIC UA Collected: 01/28/2025 11:01 AM Status: COMPLETED Source: [facility] TYPE CODE TESTS RESULT OUT OF RANGE REFERENCE UNITS LAB SPGRN SPECIFIC GRAVITY MICHELLE 1.010 1.010, 1.015, 1.020, 1.025 LAB LESTN LEUKOCYTE ESTERASE MICHELLE Negative Negative LAB NITN NITRITE MICHELLE Negative Negative LAB PHURN PH MICHELLE 6.5 5.0, 6.0, 6.5, 7.0, 7.5, 8.0, 8.5, 5.5 LAB PRURN PROTEIN MICHELLE Negative Negative LAB GLURN GLUCOSE MICHELLE Negative Negative LAB KETN KETONES MICHELLE 40 mg/dL Abnormal Negative LAB UROBN UROBILINOGEN MICHELLE 0.2 E.U./dL LAB BILEN BILIRUBIN MICHELLE Negative Negative LAB BLURN BLOOD/HGB MICHELLE Trace Abnormal Negative Performed By: #### NUM #### [address] [address] VIR MAGNESIUM Collected: 01/28/2025 10:39 AM Status: COMPLETED Source: [facility] TYPE CODE TESTS RESULT OUT OF RANGE REFERENCE UNITS LAB MG MAGNESIUM 1.7 Low 1.8-2.6 mg/dL Performed By: #### MG #### [address] [address] VIR COMPREHENSIVE METABOLIC PANEL Collected : 01/28/2025 10:39 AM Status: COMPLETED Source: [facility] TYPE CODE TESTS RESULT OUT OF RANGE REFERENCE UNITS LAB NA SODIUM 130 Low 134-146 mmol/L LAB K POTASSIUM 2.8 Low 3.5-5.0 mmol/L LAB CL CHLORIDE 98 98-109 mmol/L LAB CO2 CARBON DIOXIDE 25 22-32 mmol/L LAB AGAP ANION GAP 7 5-15 mmol/L LAB BUN BLOOD UREA NITROGEN 13 5-23 mg/dL LAB CRET CREATININE 0.71 0.40-1.00 mg/dL Result Comment: METHOD TRACE ABLE TO IDMS STANDARD LAB GLU GLUCOSE 122 High 65-99 mg/dL LAB CA CALCIUM 8.4 Low 8.5-10.5 mg/dL LAB TP TOTAL PROTEIN 7.6 6.0-8.0 g/dL LAB ALB ALBUMIN 3.7 3.2-5.3 g/dL LAB ALK ALKALINE PHOSPHATASE 59 39-130 U/L LAB AST AST 25 <=41 U/L LAB ALT ALT 26 <=31 U/L LAB TBIL BILIRUBIN,TOTAL 1.2 0.3-1.2 mg/dL LAB EGFR EGFR (CKD-EPI) NON-RACE DEPENDENT >^90 >=60 ml/min/1 .73sq.m Result Comment: eGFR not rep orted due to non-numeric value for Creatinine. Reported eGFR is based on the CKD-EPI 2020 equation that does not use a race coefficient. Performed By: #### CMP #### [facility] ([address] CBC WITH AUTO DIFFERENTIAL Collected: 0 01/28/2025 10:39 AM Status: COMPLETED Source: [facility] TYPE CODE TESTS RESULT OUT OF RANGE REFERENCE UNITS LAB WBC WBC 6.2 4-11 x10E9/L LAB RBC RBC COUNT 4.44 3.8-5.2 X10E12/L LAB HGB HEMOGLOBIN 10.7 Low 11.7-15.5 g/dL LAB HCT HEMATOCRIT 33.5 Low 35-47 % LAB MCV MCV 76 Low 80-100 fL LAB MCH MCH 24.0 Low 27-34 pg LAB MCHC MCHC 31.8 Low 32-36 g/dL LAB RDW RDW 19.2 High 11.5-15 % LAB PLTC PLATELET COUNT 362 150-450 X10E9/L LAB MPV MPV 7.8 7-12 fL LAB NEUT NEUTROPHILS RELATIVE PERCENT BY AUTOMATED COUNT 72.0 % LAB LYMP LYMPHOCYTES RELATIVE PERCENT BY AUTOMATED COUNT 17.5 % LAB MONO MONOCYTES RELATIVE PERCENT BY AUTOMATED COUNT 8.9 % LAB EOS EOSINOPHILS RELATIVE PERCENT BY AUTOMATED COUNT 1.2 % LAB BASO BASOPHILS RELATIVE PERCENT BY AUTOMATED COUNT 0.4 % LAB ANEUT NEUTROPHILS ABSOLUTE COUNT BY AUTOMATED COUNT 4.4 1.5-6.6 10*3/uL LAB ALYMP LYMPHOCYTES ABSOLUTE COUNT (10*3/UL) BY AUTOMATED COUNT 1.1 1.0-3.5 10*3/uL LAB AMONO MONOCYTES ABSOLUTE COUNT (10*3/UL) BY AUTOMATED COUNT 0.6 0.0-0.9 10*3/uL LAB AEOS EOSINOPHILS ABSOLUTE COUNT (10*3/UL) BY AUTOMATED COUNT 0.1 0.0-0.4 10*3/uL LAB ABASO BASOPHILS ABSOLUTE COUNT (10*3/UL) BY AUTOMATED COUNT 0.0 0.0-0.2 10*3/uL LAB DTYPE CELLAVISION DIFFERENTIAL TYPE AUTOMATED DIFFERENTIAL Performed By: #### CBCA #### [facility] ([facility]) [address] [place] [address] VIR XR CHEST PORTABLE Observed: 01/28/2025 9:09 AM Status: F Source: [facility] EXAMINATION: ONE XRAY VIEW OF THE CHEST. [...] bibasilar atelectatic changes, right more than left. Interpreted by: Rambo Chowdary MD Signed by: Rambo Chowdary MD 01/28/25 Final result TROPONIN Collected: 11:35 AM Status: F Source: [facility] TYPE CODE TESTS RESULT OUT OF RANGE REFERENCE UNITS LAB HSTROP(LOINC) Troponin, High Sens 9 0-14 ng/L Result Comment: High Sensiti vity Troponin values cannot be compared with other Troponin methodologies. Performed By: #### TROPI ### # [facility] [address] [place] [address] Dr[address] [place], [place] [id number] Chess Instructor: Tobi Abebe MD VENOUS BLOOD GASES Collected: 10:52 AM Status: F Source: [facility] TYPE CODE TESTS RESULT OUT OF RANGE REFERENCE UNITS LAB VPHGAS(LOINC) pH 7.465 High 7.32-7.42 LAB PCO2V(LOINC) pCO2 41.4 39-55 mm Hg LAB PO2V(LOINC) pO2 52.3 High 30.0-50.0 mm Hg LAB VHCO3V(LOINC) HCO3 29.1 24.0-30.0 mmol/L LAB VPBEX(LOINC) Positive Base Excess 4.9 High 0.0-2.0 mmol/L LAB O2SATV(LOINC) O2 Saturation 88.9 High 60.0-85.0 % LAB TEMP(LOINC) Body Temp. 37.0 LAB VPHGAC(LOINC) pH Adjst'd for Temp. 7.465 High 7.320-7.420 LAB VPCO2C(LOINC) Pco2 Adj'd for Temp. 41.4 39.0-55.0 mmHg LAB VPO2C(LOINC) pO2 Adj'd for Temp. 52.3 High 30.0-50.0 mmHg LAB O2DEL([facility]) O2 Device/Flow/% ROOM AIR LAB MYESHA([facility]) Myesha Test NOT APPLICABLE LAB FIO2(LOINC) FIO2 21 Performed By: #### VBG #### [address] [place] [address] Chess Instructor: Tobi Abebe MD FLU A/B AG DETECTION Collected: 01/27/2025 10:31 AM Status: F Source: [facility] TYPE CODE TESTS RESULT OUT OF RANGE REFERENCE UNITS LAB FLUAAG(LOINC) Flu A Ag Detection NEGATIVE NEG Result Comment: for Influenz a A Antigen LAB FLUBAG(LOINC) Flu B Ag Detection NEGATIVE NEG Result Comment: for Influenz a B Antigen. Performed By: #### FLUABA ## ## [facility] [address] [place] [address] [place] [address] Chess Instructor: Tobi Abebe MD SARS-COV-2 Collected: 10:31 AM Status: F Source: [facility] TYPE CODE TESTS RESULT OUT OF RANGE REFERENCE UNITS LAB COVR(LOINC) SARS-CoV-2,R apid Not Detected NOTDET Result Comment: Rapid NAAT: The specimen is NEGATIVE [...] management decisions. Methodology: Isothermal Nucleic Acid Amplification Performed By: #### COVRB ### # [facility] [address] [place] [address] [place] [address] Chess Instructor: Tobi Abebe MD CBC WITH DIFF Collected: 01/27/2025 10:25 AM Status: F Source: [facility] TYPE CODE TESTS RESULT OUT OF RANGE REFERENCE UNITS LAB WBC(LOINC) WBC Count 7.7 3.5-11.3 k/uL LAB RBC(LOINC) RBC Count 4.64 3.95-5.11 m/uL LAB HGB(LOINC) Hemoglobin 11.1 Low 11.9-15.1 g/dL LAB HCT(LOINC) Hematocrit 36.1 Low 36.3-47.1 % LAB MCV(LOINC) MCV 77.8 Low 82.6-102.9 fL LAB MCH(LOINC) MCH 23.9 Low 25.2-33.5 pg LAB MCHC(LOINC) MCHC 30.7 28.4-34.8 g/dL LAB RDW(LOINC) RDW 18.9 High 11.8-14.4 % LAB PLT(LOINC) Platelet Count 369 138-453 k/uL LAB MPVX(LOINC) MPV 9.6 8.1-13.5 fL LAB NRBCS(LOINC) NRBC Automated 0.0 0.0 per 100 WBC LAB SEG(LOINC) Neutrophil (Seg) 84 High 36-65 % LAB LYM(LOINC) Lymphocyte 9 Low 24-43 % LAB MON(LOINC) Monocyte 6 3-12 % LAB EO(LOINC) Eosinophil 0 Low 1-4 % LAB BASO(LOINC) Basophil 0 0-2 % LAB IGRAN(LOINC) Immature Granulocyte 1 High 0 % LAB ASEG(LOINC) Abs.Neutrophil (Seg) 6.50 1.50-8.10 k/uL LAB ALYM(LOINC) Abs. Lymph 0.70 Low 1.10-3.70 k/uL LAB AMONO(LOINC) Abs. Monocyte 0.47 0.10-1.20 k/u L LAB AEO(LOINC) Abs. Eosinophil <0.03 0.00-0.44 k/u L LAB ABASO(LOINC) Abs. Basophil <0.03 0.00-0.20 k/u L LAB AIGRAN(LOINC) Abs.Imm.Granulo cyte 0.04 0.00-0.30 k/uL Performed By: #### CDP, CP, LIP, TROPI #### [facility] [address] [place] [address] Chess Instructor: Tobi Abebe MD COMP METABOLIC PROF Collected: 01/28/20 25 10:25 AM Status: F Source: [facility] TYPE CODE TESTS RESULT OUT OF RANGE REFERENCE UNITS LAB NA(LOINC) NA (Sodium) 136 136-145 mmol/L LAB K(LOINC) K (Potassium) 3.0 Low 3.7-5.3 mmol/L LAB CL(LOINC) Chloride 94 Low 98-107 mmol/L LAB HCO(LOINC) CO2 26 20-31 mmol/L LAB GAP(LOINC) Anion Gap 16 9-16 mmol/L LAB GLU(LOINC) Glucose 143 High 74-99 mg/dL LAB BUN(LOINC) BUN (Urea N) 15 6-20 mg/dL LAB CRE(LOINC) Creatinine 0.8 0.50-0.90 mg/dL LAB EGFR(LOINC) eGFR >90 >60 mL/min/1. 73m2 Result Comment: These results are not intended for [...] following therapy that affects renal tubular secretion. LAB BUNCRE(LOINC) BUN/CRE Ratio 19 9-20 LAB CA(LOINC) Calcium 9.6 8.6-10.4 mg/dL LAB TP(LOINC) Protein, Total 7.8 6.6-8.7 g/dL LAB ALB(LOINC) Albumin 4.2 3.5-5.2 g/dL LAB AG(LOINC) Albumin/Glob Ratio 1.2 1.0-2.5 LAB TBIL(LOINC) Bilirubin, Total 0.6 0.00-1.20 mg/dL LAB ALP(LOINC) Alkaline Phos 69 35-104 U/L LAB ALT(LOINC) ALT 30 10-35 U/L LAB AST(LOINC) AST 27 10-35 U/L Performed By: #### CDP, CP, LIP, TROPI #### [address] [place] [address] Chess Instructor: Tobi Abebe MD LIPASE Collected: 10:25 AM Status: F Source: [facility] TYPE CODE TESTS RESULT OUT OF RANGE REFERENCE UNITS LAB LIP(LOINC) Lipase 19 13-60 U/L Performed By: #### CDP, CP, LIP, TROPI #### [address] [place] [address] Chess Instructor: Tobi Abebe MD TROPONIN Collected: 10:25 AM Status: F Source: [facility] TYPE CODE TESTS RESULT OUT OF RANGE REFERENCE UNITS LAB HSTROP(LOINC) Troponin, High Sens 8 0-14 ng/L Result Comment: High Sensiti vity Troponin values cannot be compared with other Troponin methodologies. Performed By: #### CDP, CP, LIP, TROPI #### [address] [place] [address] Chess Instructor: Tobi Abebe MD CBC WITH AUTO DIFFERENTIAL Collected: 0 01/11/2025 6:22 AM Status: COMPLETED Source: [facility] TYPE CODE TESTS RESULT OUT OF RANGE REFERENCE UNITS LAB WBC WBC 7.1 4-11 x10E9/L LAB RBC RBC COUNT 4.11 3.8-5.2 X10E12/L LAB HGB HEMOGLOBIN 9.9 Low 11.7-15.5 g/dL LAB HCT HEMATOCRIT 31.3 Low 35-47 % LAB MCV MCV 76 Low 80-100 fL LAB MCH MCH 24.2 Low 27-34 pg LAB MCHC MCHC 31.8 Low 32-36 g/dL LAB RDW RDW 18.6 High 11.5-15 % LAB PLTC PLATELET COUNT 322 150-450 X10E9/L LAB MPV MPV 7.2 7-12 fL LAB NEUT NEUTROPHILS RELATIVE PERCENT BY AUTOMATED COUNT 57.8 % LAB LYMP LYMPHOCYTES RELATIVE PERCENT BY AUTOMATED COUNT 30.0 % LAB MONO MONOCYTES RELATIVE PERCENT BY AUTOMATED COUNT 10.4 % LAB EOS EOSINOPHILS RELATIVE PERCENT BY AUTOMATED COUNT 1.5 % LAB BASO BASOPHILS RELATIVE PERCENT BY AUTOMATED COUNT 0.3 % LAB ANEUT NEUTROPHILS ABSOLUTE COUNT BY AUTOMATED COUNT 4.1 10*3/uL LAB ALYMP LYMPHOCYTES ABSOLUTE COUNT (10*3/UL) BY AUTOMATED COUNT 2.1 10*3/uL LAB AMONO MONOCYTES ABSOLUTE COUNT (10*3/UL) BY AUTOMATED COUNT 0.7 10*3/uL LAB AEOS EOSINOPHILS ABSOLUTE COUNT (10*3/UL) BY AUTOMATED COUNT 0.1 10*3/uL LAB ABASO BASOPHILS ABSOLUTE COUNT (10*3/UL) BY AUTOMATED COUNT 0.0 10*3/uL LAB DTYPE CELLAVISION DIFFERENTIAL TYPE AUTOMATED DIFFERENTIAL Performed By: #### CBCA #### [facility] ([address] [place] [address] VIR MAGNESIUM Collected: 01/11/2025 6:22 AM S tatus: COMPLETED Source: [facility] TYPE CODE TESTS RESULT OUT OF RANGE REFERENCE UNITS LAB MG MAGNESIUM 2.0 1.8-2.6 mg/dL Performed By: #### MG #### [facility] [address] [address] VIR COMPREHENSIVE METABOLIC PANEL Collected: 2024 6:22 AM Status: COMPLETED Source: [facility] TYPE CODE TESTS RESULT OUT OF RANGE REFERENCE UNITS LAB NA SODIUM 138 134-146 mmol/L LAB K POTASSIUM 3.4 Low 3.5-5.0 mmol/L LAB CL CHLORIDE 97 Low 98-109 mmol/L LAB CO2 CARBON DIOXIDE 32 22-32 mmol/L LAB AGAP ANION GAP 9 5-15 mmol/L LAB BUN BLOOD UREA NITROGEN 21 5-23 mg/dL LAB CRET CREATININE 0.53 0.40-1.00 mg/dL Result Comment: METHOD TRACE ABLE TO IDMS STANDARD LAB GLU GLUCOSE 118 High 65-99 mg/dL LAB CA CALCIUM 8.8 8.5-10.5 mg/dL LAB TP TOTAL PROTEIN 6.8 6.0-8.0 g/dL LAB ALB ALBUMIN 3.4 3.2-5.3 g/dL LAB ALK ALKALINE PHOSPHATASE 49 39-130 U/L LAB AST AST 16 <=41 U/L LAB ALT ALT 18 <=31 U/L LAB TBIL BILIRUBIN,TOTAL 0.6 0.3-1.2 mg/dL LAB EGFR EGFR (CKD-EPI) NON-RACE DEPENDENT >^90 >=60 ml/min/1 .73sq.m Result Comment: eGFR not rep orted due to non-numeric value for Creatinine. Reported eGFR is based on the CKD-EPI 2020 equation that does not use a race coefficient. Performed By: #### CMP #### [address] [address] VIR MAGNESIUM Collected: 01/10/2025 10:52 PM Status: COMPLETED Source: [facility] TYPE CODE TESTS RESULT OUT OF RANGE REFERENCE UNITS LAB MG MAGNESIUM 2.1 1.8-2.6 mg/dL Performed By: #### MG #### [address] [address] VIR POTASSIUM Collected: 01/10/2025 8:33 PM S tatus: COMPLETED Source: [facility] TYPE CODE TESTS RESULT OUT OF RANGE REFERENCE UNITS LAB K POTASSIUM 3.8 3.5-5.0 mmol/L Performed By: #### K #### [facility] ([address] [place] [address] VIR CBC WITH AUTO DIFFERENTIAL Collected: 0 01/10/2025 6:57 AM Status: COMPLETED Source: [facility] TYPE CODE TESTS RESULT OUT OF RANGE REFERENCE UNITS LAB WBC WBC 7.7 4-11 x10E9/L LAB RBC RBC COUNT 4.02 3.8-5.2 X10E12/L LAB HGB HEMOGLOBIN 9.6 Low 11.7-15.5 g/dL LAB HCT HEMATOCRIT 31.2 Low 35-47 % LAB MCV MCV 78 Low 80-100 fL LAB MCH MCH 24.0 Low 27-34 pg LAB MCHC MCHC 30.9 Low 32-36 g/dL LAB RDW RDW 18.9 High 11.5-15 % LAB PLTC PLATELET COUNT 336 150-450 X10E9/L LAB MPV MPV 7.4 7-12 fL LAB NEUT NEUTROPHILS RELATIVE PERCENT BY AUTOMATED COUNT 64.9 % LAB LYMP LYMPHOCYTES RELATIVE PERCENT BY AUTOMATED COUNT 25.0 % LAB MONO MONOCYTES RELATIVE PERCENT BY AUTOMATED COUNT 8.4 % LAB EOS EOSINOPHILS RELATIVE PERCENT BY AUTOMATED COUNT 1.3 % LAB BASO BASOPHILS RELATIVE PERCENT BY AUTOMATED COUNT 0.4 % LAB ANEUT NEUTROPHILS ABSOLUTE COUNT BY AUTOMATED COUNT 5.0 10*3/uL LAB ALYMP LYMPHOCYTES ABSOLUTE COUNT (10*3/UL) BY AUTOMATED COUNT 1.9 10*3/uL LAB AMONO MONOCYTES ABSOLUTE COUNT (10*3/UL) BY AUTOMATED COUNT 0.7 10*3/uL LAB AEOS EOSINOPHILS ABSOLUTE COUNT (10*3/UL) BY AUTOMATED COUNT 0.1 10*3/uL LAB ABASO BASOPHILS ABSOLUTE COUNT (10*3/UL) BY AUTOMATED COUNT 0.0 10*3/uL LAB DTYPE CELLAVISION DIFFERENTIAL TYPE AUTOMATED DIFFERENTIAL Performed By: #### CBCA #### [facility] ([address] [address] VIR MAGNESIUM Collected: 01/10/2025 6:57 AM S tatus: COMPLETED Source: [facility] TYPE CODE TESTS RESULT OUT OF RANGE REFERENCE UNITS LAB MG MAGNESIUM 1.8 1.8-2.6 mg/dL Performed By: #### MG #### [facility] ([facility]) [address] [place] [address] VIR COMPREHENSIVE METABOLIC PANEL Collected: 2024 6:57 AM Status: COMPLETED Source: [facility] TYPE CODE TESTS RESULT OUT OF RANGE REFERENCE UNITS LAB TBIL BILIRUBIN,TOTAL 0.5 0.3-1.2 mg/dL LAB CA CALCIUM 8.9 8.5-10.5 mg/dL LAB CO2 CARBON DIOXIDE 33 High 22-32 mmol/L LAB CL CHLORIDE 95 Low 98-109 mmol/L LAB CRET CREATININE 0.61 0.40-1.00 mg/dL Result Comment: METHOD TRACE ABLE TO IDMS STANDARD LAB GLU GLUCOSE 101 High 65-99 mg/dL LAB ALK ALKALINE PHOSPHATASE 51 39-130 U/L LAB K POTASSIUM 3.4 Low 3.5-5.0 mmol/L LAB TP TOTAL PROTEIN 6.9 6.0-8.0 g/dL LAB NA SODIUM 136 134-146 mmol/L LAB AST AST 22 <=41 U/L LAB ALT ALT 21 <=31 U/L LAB BUN BLOOD UREA NITROGEN 18 5-23 mg/dL LAB AGAP ANION GAP 8 5-15 mmol/L LAB ALB ALBUMIN 3.4 3.2-5.3 g/dL LAB EGFR EGFR (CKD-EPI) NON-RACE DEPENDENT >^90 >=60 ml/min/1 .73sq.m Result Comment: eGFR not rep orted due to non-numeric value for Creatinine. Reported eGFR is based on the CKD-EPI 2020 equation that does not use a race coefficient. Performed By: #### CMP #### [facility] ([facility]) [address] [place] [address]. [place] [address] VIR POTASSIUM Collected: 01/09/2025 4:08 PM S tatus: COMPLETED Source: [facility] TYPE CODE TESTS RESULT OUT OF RANGE REFERENCE UNITS LAB K(LOINC) POTASSIUM 3.9 3.5-5.0 mmol/L Performed By: #### 2823-3, 1 9123-9 #### [facility] ([id number]) [address] [place] [address], [place] [address] MAGNESIUM Collected: 01/09/2025 4:08 PM S tatus: COMPLETED Source: [facility] TYPE CODE TESTS RESULT OUT OF RANGE REFERENCE UNITS LAB MG(LOINC) MAGNESIUM 2.0 1.8-2.6 mg/dL Performed By: #### 2823-3, 1 9123-9 #### [facility] ([id number]) [address] [place] [address], [place] [address] CBC AND AUTO DIFF Collected: 01/09/2025 4:52 AM Status: COMPLETED Source: [facility] TYPE CODE TESTS RESULT OUT OF RANGE REFERENCE UNITS LAB WBC(LOINC) WBC COUNT 7.7 4.0-11.0 X10E9/L LAB RBC(LOINC) RBC COUNT 3.86 3.80-5.20 X10E12/L LAB HGB(LOINC) HEMOGLOBIN 9.2 Low 11.7-15.5 g/dL LAB HCT(LOINC) HEMATOCRIT 29.4 Low 35-47 % LAB MCV(LOINC) MCV 76 Low 80-100 fL LAB MCH(LOINC) MCH 23.8 Low 27-34 pg LAB MCHC(LOINC) MCHC 31.2 Low 32-36 g/dL LAB RDW(LOINC) RDW 19.0 High 11.5-15.0 % LAB PLTC(LOINC) PLATELET COUNT 315 150-450 X10E9 /L LAB MPV(LOINC) MPV 7.2 7-12 fL LAB NEUT(LOINC) % NEUTROPHILS 70.8 % LAB LYMP(LOINC) % LYMPHOCYTES 15.7 % LAB MONO(LOINC) % MONOCYTES 12.9 % LAB EOS(LOINC) % EOSINOPHILS 0.5 % LAB BASO(LOINC) % BASOPHILS 0.1 % LAB ANEUT(LOINC) ABSOLUTE NEUTROPHIL 5.4 1.5-6.6 X10E9/L LAB ALYMP(LOINC) ABSOLUTE LYMPHOCYTE 1.2 1.0-3.5 X10E9/L LAB AMONO(LOINC) ABSOLUTE MONOCYTE 1.0 High 0-0.9 X10E9/L LAB AEOS(LOINC) ABSOLUTE EOSINOPHIL 0.0 0.0-0.4 X10E9/L LAB ABASO(LOINC) ABSOLUTE BASOPHIL 0.0 0.0-0.2 X10E9/L Performed By: #### RASHEEDA CHANG , 26701-9 #### [facility] ([id number]) [address] [place] [address] COMPREHENSIVE METABOLIC PANEL Collected: 2024 4:52 AM Status: COMPLETED Source: [facility] TYPE CODE TESTS RESULT OUT OF RANGE REFERENCE UNITS LAB NA(LOINC) SODIUM 136 134-146 mmol/L LAB K(LOINC) POTASSIUM 3.2 Low 3.5-5.0 mmol/L LAB CL(LOINC) CHLORIDE 94 Low 98-109 mmol/L LAB CO2(LOINC) CARBON DIOXIDE 33 High 22-32 mmol/L LAB AGAP(LOINC) ANION GAP 9 5-15 mmol/L LAB BUN(LOINC) BLOOD UREA NITROGEN 16 5-23 mg/dL LAB CRET(LOINC) CREATININE 0.54 0.40-1.00 mg/dL Result Comment: METHOD TRACE ABLE TO IDMS STANDARD LAB GLU(LOINC) GLUCOSE 140 High 65-99 mg/dL LAB CA(LOINC) CALCIUM 8.6 8.5-10.5 mg/dL LAB TP(LOINC) TOTAL PROTEIN 6.5 6.0-8.0 g/dL LAB ALB(LOINC) ALBUMIN 3.2 3.2-5.3 g/dL LAB ALK(LOINC) ALKALINE PHOSPHATASE 50 39-130 U/L LAB AST(LOINC) AST 25 0-41 U/L LAB ALT1(LOINC) ALT 23 0-31 U/L LAB TBIL(LOINC) BILIRUBIN,TOTAL 0.4 0.3-1.2 mg/d L LAB EGFR(LOINC) eGFR (CKD-EPI) NON-RACE DEPENDENT >90 >59 ml/min/1 .73sq.m Result Comment: Reported eGFR is based on the CKD-EPI 2020 equation that does not use a race coefficient. Performed By: #### RASHEEDA CHANG , 04875-6 #### [facility] ([id number]) [address] [place] [address] MAGNESIUM Collected: 01/09/2025 4:52 AM S tatus: COMPLETED Source: [facility] TYPE CODE TESTS RESULT OUT OF RANGE REFERENCE UNITS LAB MG(LOINC) MAGNESIUM 1.8 1.8-2.6 mg/dL Performed By: #### CBCA, CMP , 30550-1 #### [facility] ([id number]) [address] [place] [address] 1 HOUR TROP I, HIGH SENSITIVITY Collected: 12/16 4:50 AM Status: COMPLETED Source: [facility] TYPE CODE TESTS RESULT OUT OF RANGE REFERENCE UNITS LAB TNIHS1(LOINC) 1 HOUR TROP I, HIGH SENSITIVITY 9 <16 ng/L Performed By: #### 05329-1 # ### [facility] ([id number]) [address] [place] [address] CT CTA CHEST Observed: 01/08/2025 4:08 AM Status: COMPLETED Source: [facility] CT CTA CHEST CT CTA CHEST HISTORY: Shortness of breath, history of vulvar cancer. COMPARISON: The chest radiograph 04/22/2024. TECHNIQUE: Contiguous axial images are obtained of the Chest with 100 mL of Omnipaque 350 IV contrast. Coronal and sagittal reconstructions were performed and reviewed. Sagittal and coronal reformatted images with 3-D Maximum intensity projection reconstructions constructed under concurrent physician supervision on a separate workstation. Automatic exposure control was utilized. All CT scans at this facility use dose modulation, iterative reconstruction, and/or weight based dosing when appropriate to reduce radiation dose to as low as reasonably achievable. Patient was scanned twice in order to improve contrast bolus timing. FINDINGS: Limited exam secondary to suboptimal contrast bolus timing, body habitus, and respiratory motion. LUNGS/PLEURA: The airways appear patent. No pneumothorax or pleural effusion. There is 11 mm pulmonary nodule at the right upper lobe, best identified at axial image #91 series 4. Given patient's history short-term follow-up or PET scan is advised. Smaller pleural-based 5 mm nodule is present at axial image #90. Hypoventilatory changes. HEART/VESSELS/MEDIASTINUM: Cardiomegaly. No pericardial effusion. The aorta is nonaneurysmal. Mild prominence of the pulmonary trunk measuring up to 3.2 cm. Limited evaluation for pulmonary embolism. No large central or main filling defects are seen. No evidence of right heart strain. No significant coronary artery calcifications. No enlarged mediastinal or hilar lymph nodes. LOWER NECK AND UPPER ABDOMEN: The visualized thyroid is unremarkable. No acute abnormality within the visualized abdomen. MUSCULOSKELETAL: No acute osseous abnormality. Multilevel degenerative changes of the thoracic spine. IMPRESSION: * Limited exam due to poor contrast opacification of the pulmonary arteries. No evidence of large central or main pulmonary embolism. No evidence of right heart strain. Smaller, peripheral filling defects cannot be excluded. * Cardiomegaly and prominence of the pulmonary trunk, nonspecific, but can be seen with pulmonary hypertension. * 11 mm right upper lobe pulmonary nodule that requires short-term follow-up or PET scan given patient's history. * Otherwise, no evidence of acute cardiopulmonary abnormality. Approved by Resident Nate Powell MD on 01/08/2025 4:59 AM I, Brisa Perry MD have personally reviewed the image(s) and agree with and/or edited the report Finalized by Brisa Perry MD on 01/08/2025 5:15 AM SARS/FLU A+B/RSV BY NAAT/MOLECULAR Observed: 01/08/2025 3:49 AM Status: COMPLETED Source: [facility] FLU A PCR Negative (qualifier value) FLU B PCR Negative (qualifier value) RSV by PCR Negative (qualifier value) SARS CoV 2 Not detected (qualifier value) NOTE The Xpert Xpress SARS-CoV-2/Flu/RSV Plus test is a rapid, multiplexed real-time RT-PCR test intended for the simultaneous qualitative detection and differentiation of SARS-CoV-2, influenza A, influenza B and respiratory syncytial virus (RSV) viral RNA from individuals suspected of respiratory viral infection consistent with COVID-19 by their healthcare provider. This test has not been validated in asymptomatic patients. The Xpert Xpress SARS-CoV-2 test is intended for use by qualified and trained operators who are performing tests using either Proxeon DX or Traity systems and is limited to laboratories that meet the CLIA requirements to perform high and moderate complexity tests. The Xpert Xpress SARS-CoV-2/Flu/RSV Plus is only for use under the Food and Drug Administration's Emergency Use Authorization. Results are for the simultaneous detection and differentiation of SARS-CoV-2, influenza A, influenza B and RSV nucleic acids in clinical specimens. SARS-CoV-2, influenza A, influenza B and RSV RNA identified by this test are generally detectable in upper respiratory samples during the acute phase of infection. Positive results are indicative of the presence of the identified virus, but do not rule out bacterial infection or co-infection with other pathogens not detected by this test. Clinical correlation with patient history and other diagnostic information is necessary to determine patient infection status. The agent detected may not be the definite cause of disease. Negative results do not preclude SARS-CoV-2, influenza A, influenza B and RSV infection and should not be used as the sole basis for treatment or other patient management decisions. Negative results must be combined with clinical observations, patient history and epidemiological information. An Invalid result may occur with specimen-associated inhibition unable to be resolved with specimen repeat. Fact Sheet for Healthcare Providers: https://www.fda.gov/media/222114/download Fact Sheet for Patients: https://www.fda.gov/media/390515/download Performed By: #### COVFLR ## ## [facility] ([id number]) [address] [place] [address], [place] [address] CBC AND AUTO DIFF Collected: 01/08/2025 3:27 AM Status: COMPLETED Source: [facility] TYPE CODE TESTS RESULT OUT OF RANGE REFERENCE UNITS LAB WBC(LOINC) WBC COUNT 4.3 4.0-11.0 X10E9/L LAB RBC(LOINC) RBC COUNT 4.32 3.80-5.20 X10E12/L LAB HGB(LOINC) HEMOGLOBIN 10.2 Low 11.7-15.5 g/dL LAB HCT(LOINC) HEMATOCRIT 33.3 Low 35-47 % LAB MCV(LOINC) MCV 77 Low 80-100 fL LAB MCH(LOINC) MCH 23.6 Low 27-34 pg LAB MCHC(LOINC) MCHC 30.6 Low 32-36 g/dL LAB RDW(LOINC) RDW 19.0 High 11.5-15.0 % LAB PLTC(LOINC) PLATELET COUNT 344 150-450 X10E9 /L LAB MPV(LOINC) MPV 7.2 7-12 fL LAB NEUT(LOINC) % NEUTROPHILS 56.0 % LAB LYMP(LOINC) % LYMPHOCYTES 20.8 % LAB MONO(LOINC) % MONOCYTES 15.0 % LAB EOS(LOINC) % EOSINOPHILS 7.0 % LAB BASO(LOINC) % BASOPHILS 1.2 % LAB ANEUT(LOINC) ABSOLUTE NEUTROPHIL 2.4 1.5-6.6 X10E9/L LAB ALYMP(LOINC) ABSOLUTE LYMPHOCYTE 0.9 Low 1.0-3.5 X10E9/L LAB AMONO(LOINC) ABSOLUTE MONOCYTE 0.6 0-0.9 X10E9/L LAB AEOS(LOINC) ABSOLUTE EOSINOPHIL 0.3 0.0-0.4 X10E9/L LAB ABASO(LOINC) ABSOLUTE BASOPHIL 0.1 0.0-0.2 X10E9/L Performed By: #### CBCA, CMP , 20195-8, 53522-7, 72228-9 #### [facility] ([id number]) [address] [place] [address], [place] [address] #### HA1C #### [facility] ([id number]) [address] [place] [address], [address] [place] [address] COMPREHENSIVE METABOLIC PANEL Collected: 2024 3:27 AM Status: COMPLETED Source: [facility] TYPE CODE TESTS RESULT OUT OF RANGE REFERENCE UNITS LAB NA(LOINC) SODIUM 136 134-146 mmol/L LAB K(LOINC) POTASSIUM 3.7 3.5-5.0 mmol/L LAB CL(LOINC) CHLORIDE 100 98-109 mmol/L LAB CO2(LOINC) CARBON DIOXIDE 30 22-32 mmol/L LAB AGAP(LOINC) ANION GAP 6 5-15 mmol/L LAB BUN(LOINC) BLOOD UREA NITROGEN 11 5-23 mg/dL LAB CRET(LOINC) CREATININE 0.72 0.40-1.00 mg/dL Result Comment: METHOD TRACE ABLE TO IDMS STANDARD LAB GLU(LOINC) GLUCOSE 115 High 65-99 mg/dL LAB CA(LOINC) CALCIUM 9.3 8.5-10.5 mg/dL LAB TP(LOINC) TOTAL PROTEIN 7.5 6.0-8.0 g/dL LAB ALB(LOINC) ALBUMIN 3.8 3.2-5.3 g/dL LAB ALK(LOINC) ALKALINE PHOSPHATASE 63 39-130 U/L LAB AST(LOINC) AST 39 0-41 U/L LAB ALT1(LOINC) ALT 28 0-31 U/L LAB TBIL(LOINC) BILIRUBIN,TOTAL 0.5 0.3-1.2 mg/d L LAB EGFR(LOINC) eGFR (CKD-EPI) NON-RACE DEPENDENT >90 >59 ml/min/1 .73sq.m Result Comment: Reported eGFR is based on the CKD-EPI 2020 equation that does not use a race coefficient. Performed By: #### CHARLENE, RASHEEDA , 20339-3, 11436-5, 72540-2 #### [facility] ([id number]) [address] [place] [address] #### HA1C #### [facility] ([id number]) [address] [place] [address], [address] [address] MAGNESIUM Collected: 01/08/2025 3:27 AM S tatus: COMPLETED Source: [facility] TYPE CODE TESTS RESULT OUT OF RANGE REFERENCE UNITS LAB MG(LOINC) MAGNESIUM 1.8 1.8-2.6 mg/dL Performed By: #### CHARLENE, CMP , 97448-1, 14812-5, 47290-5 #### [facility] ([id number]) [address] [place] [address] #### HA1C #### [facility] ([id number]) [address] [place] [address], [address] [address] TROPONIN I, HIGH SENSITIVITY Collected: 3:27 AM Status: COMPLETED Source: [facility] TYPE CODE TESTS RESULT OUT OF RANGE REFERENCE UNITS LAB TNIHS(LOINC) TROPONIN I, HIGH SENSITIVITY 10 <16 ng/L Performed By: #### CBCA, CMP , 89521-4, 08409-3, 99672-6 #### [facility] ([id number]) [address] [place] [address] #### HA1C #### [facility] ([id number]) [address] [place] [address], [address] [place] [address] BRN NATRIURETIC PEP Collected: 01/08/2025 3:27 AM Status: COMPLETED Source: [facility] TYPE CODE TESTS RESULT OUT OF RANGE REFERENCE UNITS LAB BNP(LOINC) BRN NATRIURETIC PEP 23 <100.0 pg/mL Performed By: #### CBCA, CMP , 80184-4, 05675-2, 25480-3 #### [facility] ([id number]) [address] [place] [address] #### HA1C #### [facility] ([id number]) [address] [place] [address], [address] [address] HGB A1C (GLYCO-HGB) Collected: 01/08/2025 3:27 AM Status: COMPLETED Source: [facility] TYPE CODE TESTS RESULT OUT OF RANGE REFERENCE UNITS LAB HBA1C(LOINC) HEMOGLOBIN A1C 6.2 High 4.4-5.6 % Result Comment: NOTE ADA Guidelines Result HgbA1c Normal : less than 5.7 % Prediabetes : 5.7 % to 6.4 % Diabetes : > 6.4 % Use with caution in patients with abnormal hemoglobin variants as the half-life of red blood cells and in vivo glycation rates are affected. LAB EAG(LOINC) AVERAGE GLUCOSE 131 mg/dL Performed By: #### CBCA, CMP , 89962-9, 16345-2, 78832-8 #### [facility] ([id number]) [address] [place] [id number] #### HA1C #### [facility] ([id number]) [address] [place] [address], [address] [place] [address] SEDIMENTATION RATE Collected: 10/08/2024 11:[address] atus: F Source: [facility] TYPE CODE TESTS RESULT OUT OF RANGE REFERENCE UNITS LAB SED(LOINC) Sedimentation Rate 36 High 0-20 mm/Hr Performed By: #### URI, CDP, SED, CP, CRP, TSH #### [facility] [address] [place] [address] Chess Instructor: Tobi Abebe MD #### RA, IGA, IGG, FT4, ANAX, CCPAB #### [facility] [address] [place] [address] Chess Instructor: Stanley Onofre MD COMP METABOLIC PROF Collected: 10/08/19 25 11:15 AM Status: F Source: [facility] TYPE CODE TESTS RESULT OUT OF RANGE REFERENCE UNITS LAB NA(LOINC) NA (Sodium) 137 136-145 mmol/L LAB K(LOINC) K (Potassium) 4.4 3.7-5.3 mmol/L LAB CL(LOINC) Chloride 99 98-107 mmol/L LAB HCO(LOINC) CO2 28 20-31 mmol/L LAB GAP(LOINC) Anion Gap 10 9-16 mmol/L LAB GLU(LOINC) Glucose 138 High 74-99 mg/dL LAB BUN(LOINC) BUN (Urea N) 21 High 6-20 mg/dL LAB CRE(LOINC) Creatinine 0.7 0.50-0.90 mg/dL LAB EGFR(LOINC) eGFR >90 >60 mL/min/1. 73m2 Result Comment: These results are not intended for [...] following therapy that affects renal tubular secretion. LAB BUNCRE(LOINC) BUN/CRE Ratio 30 High 9-20 LAB CA(LOINC) Calcium 8.6 8.6-10.4 mg/dL LAB TP(LOINC) Protein, Total 7.1 6.6-8.7 g/dL LAB ALB(LOINC) Albumin 3.8 3.5-5.2 g/dL LAB AG(LOINC) Albumin/Glob Ratio 1.2 1.0-2.5 LAB TBIL(INC) Bilirubin, Total 0.4 0.00-1.20 mg/dL LAB ALP(LOINC) Alkaline Phos 87 35-104 U/L LAB ALT(LOINC) ALT 15 10-35 U/L LAB AST(INC) AST 18 10-35 U/L Performed By: #### URI, CDP, SED, CP, CRP, TSH #### [address] [place] [address] Chess Instructor: Tobi Abebe MD #### RA, IGA, IGG, FT4, ANAX, CCPAB #### [id number] [place] [address] Chess Instructor: tSanley Onofre MD C-REACTIVE PROTEIN Collected: 11:15 AM Status: F Source: [facility] TYPE CODE TESTS RESULT OUT OF RANGE REFERENCE UNITS LAB CRP(LOINC) C-Reactive Protein 6.2 High 0.0-5.0 mg/L Performed By: #### URI, CDP, SED, CP, CRP, TSH #### [address] [place] [address] Chess Instructor: Tobi Abebe MD #### RA, IGA, IGG, FT4, ANAX, CCPAB #### [id number] [place] [address] Chess Instructor: Stanley Onofre MD THYROID STIM. HORM. Collected: 10/08/19 11:15 AM Status: F Source: [facility] TYPE CODE TESTS RESULT OUT OF RANGE REFERENCE UNITS LAB TSH(LOINC) Thyroid Stim. Horm. 7.38 High 0.27-4.20 uIU/mL Performed By: #### URI, CDP, SED, CP, CRP, TSH #### [address] [place] [address] Chess Instructor: Tobi Abebe MD #### RA, IGA, IGG, FT4, ANAX, CCPAB #### [facility] [employer] [address] [place], [place] [id number] Chess Instructor: Stanley Onofre MD URIC ACID Collected: 5 11:15 AM Status: F Source: [facility] TYPE CODE TESTS RESULT OUT OF RANGE REFERENCE UNITS LAB URI(INC) Uric Acid 5.9 High 2.4-5.7 mg/dL Performed By: #### URI, CDP, SED, CP, CRP, TSH #### [facility] [address] [place] [address] Chess Instructor: Tobi Abebe MD #### RA, IGA, IGG, FT4, ANAX, CCPAB #### [facility] [address] [place], [place] [id number] Chess Instructor: Stanley Onofre MD CBC WITH DIFF Collected: 5 11:15 AM Status: F Source: [facility] TYPE CODE TESTS RESULT OUT OF RANGE REFERENCE UNITS LAB WBC(LOINC) WBC Count 6.1 3.5-11.3 k/uL LAB RBC(LOINC) RBC Count 4.68 3.95-5.11 m/uL LAB HGB(LOINC) Hemoglobin 10.1 Low 11.9-15.1 g/dL LAB HCT(LOINC) Hematocrit 35.9 Low 36.3-47.1 % LAB MCV(LOINC) MCV 76.7 Low 82.6-102.9 fL LAB MCH(LOINC) MCH 21.6 Low 25.2-33.5 pg LAB MCHC(LOINC) MCHC 28.1 Low 28.4-34.8 g/dL LAB RDW(LOINC) RDW 20.2 High 11.8-14.4 % LAB PLT(LOINC) Platelet Count 347 138-453 k/uL LAB MPVX(LOINC) MPV 9.2 8.1-13.5 fL LAB NRBCS(LOINC) NRBC Automated 0.0 0.0 per 100 WBC LAB SEG(LOINC) Neutrophil (Seg) 62 36-65 % LAB LYM(LOINC) Lymphocyte 25 24-43 % LAB MON(LOINC) Monocyte 9 3-12 % LAB EO(LOINC) Eosinophil 3 1-4 % LAB IGRAN(LOINC) Immature Granulocyte 0 0 % LAB BASO(LOINC) Basophil 1 0-2 % LAB ASEG(LOINC) Abs.Neutrophil (Seg) 3.78 1.50-8.10 k/uL LAB ALYM(LOINC) Abs. Lymph 1.53 1.10-3.70 k/uL LAB AMONO(LOINC) Abs. Monocyte 0.55 0.10-1.20 k/u L LAB AEO(LOINC) Abs. Eosinophil 0.18 0.00-0.44 k/uL LAB AIGRAN(LOINC) Abs.Imm.Granul ocyte 0.00 0.00-0.30 k/uL LAB ABASO(LOINC) Abs. Basophil 0.06 0.00-0.20 k/u L LAB MORPH(LOINC) Morphology ANISOCYTOSIS Result Comment: PRESENT Performed By: #### URI, CDP, SED, CP, CRP, TSH #### [address] [place] [address] Chess Instructor: Tobi Abebe MD #### RA, IGA, IGG, FT4, ANAX, CCPAB #### [facility] [employer] [address] [place] [address] Chess Instructor: Stanley Onofre MD RA SCREEN Collected: 5 11:15 AM Status: F Source: [facility] TYPE CODE TESTS RESULT OUT OF RANGE REFERENCE UNITS LAB RA([facility]) RA Screen <10 0-13 IU/mL Performed By: #### URI, CDP, SED, CP, CRP, TSH #### [address] [place] [address] Chess Instructor: Tobi Abebe MD #### RA, IGA, IGG, FT4, ANAX, CCPAB #### [facility] [employer] [address] [place] [address] Chess Instructor: Stanley Onofre MD IGA Collected: 5 11:15 AM Status: F Source: [facility] TYPE CODE TESTS RESULT OUT OF RANGE REFERENCE UNITS LAB IGA(LOINC) IgA 310 70-400 mg/dL Performed By: #### URI, CDP, SED, CP, CRP, TSH #### [address] [place] [address] Chess Instructor: Tobi Abebe MD #### RA, IGA, IGG, FT4, ANAX, CCPAB #### [address] [address] Chess Instructor: Stanley Onofre MD IGG Collected: 5 11:15 AM Status: F Source: [facility] TYPE CODE TESTS RESULT OUT OF RANGE REFERENCE UNITS LAB IGG(LOINC) IgG 7449 286-8042 mg/dL Performed By: #### URI, CDP, SED, CP, CRP, TSH #### [address] [place] [address] Chess Instructor: Tobi Abebe MD #### RA, IGA, IGG, FT4, ANAX, CCPAB #### [address] [id number] Chess Instructor: Stanley Onofre MD THYROXINE, FREE Collected: 5 11:15 AM Status: F Source: [facility] TYPE [facility] RESULT OUT OF RANGE REFERENCE UNITS LAB FT4(LOINC) Thyroxine, Free 1.1 0.92-1.68 ng/dL Performed By: #### URI, CDP, SED, CP, CRP, TSH #### [address] [place] [address] Chess Instructor: Tobi Abebe MD #### RA, IGA, IGG, FT4, ANAX, CCPAB #### [address] [address] Chess Instructor: Stanley Onofre MD SACHA SCREEN W/REFLEX Collected: 10/08/19 25 11:15 AM Status: F Source: [facility] TYPE CODE TESTS RESULT OUT OF RANGE REFERENCE UNITS LAB ANASCX(LOINC) SACHA Screen NEGATIVE NEG LAB ENASC(LOINC) TAL Screen 0.2 <0.7 U/mL Result Comment: Reference Range: <0.7 Negative 0.7-1.0 Equivocal >1.0 Positive TAL Screen includes U1RNP,RNP70,Sm,Ro(SS-A),La(SS-B),CENP,Scl-70,Sabi-1 LAB DSDNA(LOINC) Anti-dsDNA <0.5 <10.0 IU/mL Result Comment: Reference Range: <10.0 Negative 10.0-15.0 Equivocal >15.0 Positive Performed By: #### URI, CDP, SED, CP, CRP, TSH #### [address] [place] [address] Chess Instructor: Tobi Abebe MD #### RA, IGA, IGG, FT4, ANAX, CCPAB #### [employer] [facility] [place] [address] Chess Instructor: Stanley Onofre MD ANTI CCP Collected: 5 11:15 AM Status: F Source: [facility] TYPE CODE TESTS RESULT OUT OF RANGE REFERENCE UNITS LAB CCPAB([facility]) Anti CCP 1.6 0.0-7.0 U/mL Result Comment: Reference Range: <7.0 Negative 7.0-10.0 Equivocal >10.0 Positive Performed By: #### URI, CDP, SED, CP, CRP, TSH #### [address] [place] [address] Chess Instructor: Tobi Abebe MD #### RA, IGA, IGG, FT4, ANAX, CCPAB #### [employer] [facility] [place] [address] Chess Instructor: Stanley Onofre MD RUBELLA AB, IGG Collected: 4 10:10 AM Status: F Source: [facility] TYPE CODE TESTS RESULT OUT OF RANGE REFERENCE UNITS LAB LILY(LOINC) Rubella Ab, IgG 85.6 IU/mL Result Comment: <10 NON REACTIVE Negative for Anti-Rubella IgG >=10 REACTIVE Positive for Anti Rubella IgG The presence of IgG antibody to Rubella virus is an indication of previous exposure either by prior infection or vaccination. Performed By: #### LILY, MOIRA , ZULY, VZI #### [address] [address] Chess Instructor: Stanley Onofre MD MEASLES (RUBEOLA) IM Collected: 024 10:10 AM Status: F Source: [facility] TYPE [facility] [place] RESULT OUT OF RANGE REFERENCE UNITS LAB MOIRA(LOINC) Measles (Rubeola) Im 2.43 >1.09 Result Comment: Interpretation: IMMUNE Reference Range: <0.91 Not Immune 0.91-1.09 Equivocal >1.09 Immune Performed By: #### LILY, MOIRA , ZULY, VZI #### [address] [address] Chess Instructor: Stanley Onofre MD MUMPS,IMMUN,AB Collected: 4 10:10 AM Status: F Source: [facility] TYPE [facility] RESULT OUT OF RANGE REFERENCE UNITS LAB ZULY(LOINC) Mumps,Immun, Ab 1.36 >1.09 Result Comment: Interpretation: IMMUNE Reference Range: <0.91 Not Immune 0.91-1.09 Equivocal >1.09 Immune Performed By: #### LILY, MOIRA , ZULY, VZI #### [address] [address] Chess Instructor: Stanley Onofre MD VZ IMMUNITY Collected: 4 10:10 AM Status: F Source: [facility] TYPE [facility] RESULT OUT OF RANGE REFERENCE UNITS LAB VZI(LOINC) VZ Immunity 1.32 >1.09 Result Comment: Interpretation: IMMUNE Reference Range: <0.91 Not Immune 0.91-1.09 Equivocal >1.09 Immune Performed By: #### LILY, MOIRA , ZULY, VZI #### [address] [address] Chess Instructor: Stanley Onofre MD TRICHOMONAS PCR Observed: 06/30/2024 10:56 AM Status: COMPLETED Source: [facility] SPECIMEN SOURCE CERVIX TRICHOMONAS PCR Not detected (qualifier value) Trichomonas vaginalis not detected NOTE Assay methodology is nucleic acid amplification by real-time PCR for detection of Trichomonas vaginalis DNA performed on [employer] Instrument System. Performed By: #### TRKPCR ## ## [facility] ([id number]) [address] [place] [address], [address] [address] GRAM STAIN Observed: 06/30/2024 10:56 AM Status: COMPLETED Source: [facility] GRAM STAIN INTERMEDIATE FOR BACTERIAL VAGINOSIS, ALTERED VAGINAL YASSINE (Based on Hemant scoring, validated for vaginal specimens) NO YEAST SEEN Performed By: #### [id number] ### # [facility] ([id number]) [address] [place] [address], [address] [address] YEAST CULTURE Observed: 06/30/2024 10:56 AM Status: COMPLETED Source: [facility] FUNGAL SMEAR NO FUNGAL ELEMENTS SEEN ON DIRECT SMEAR CULTURE RESULTS NO YEAST ISOLATED AT 5 DAYS Performed By: #### [id number] # ### [facility] ([id number]) [address] [place] [address] CHLAMYDIA/GC BY PCR Observed: 06/30/2024 10:53 AM Status: COMPLETED Source: [facility] SPECIMEN SOURCE CERVIX CHLAMYDIA DNA(PCR) Negative (qualifier value) Chlamydia trachomatis not detected by nucleic acid amplification. This does not exclude the possibility of infection because results are dependent on adequate specimen collection. GONORRHOEAE DNA(PCR) Negative (qualifier value) Neisseria gonorrhoeae not detected by nucleic acid amplification. This does not exclude the possibility of infection because results are dependent on adequate specimen collection. Performed By: #### CGS #### [facility] ([id number]) [address] [place] [address], [address] [address] URINE CULTURE Observed: 06/30/2024 10:53 AM Status: COMPLETED Source: [facility] CULTURE RESULTS <10,000 ORGANISMS/ML NORMAL URO GENITAL YASSINE Performed By: #### 630-4 ### # [facility] ([id number]) [address] [facility], [address] [place] [address] PROGRESS Observed: 05/14/2024 9:05 AM Status: COMPLETED Source: [facility] HNO ID: [id number] Author: ZOË MCKEON PA-C Service: ? Author Type: Physician Convenience Store Clerk Type: Progress Notes Filed: 05/14/2024 09:50 Note Text: Patient presents with: Right Knee - New, Knee Pain HPI: This is a 44 year old female who presents for right knee pain. Patient reports she has had knee pain for the past 20 years or so. She had an accident when she was 15 which required multiple arthroscopic surgeries in her teenage years. She reports over the past year the pain has increased. It is painful with ambulating and weightbearing. He feels very unstable when she walks. She has tried multiple knee braces and wears them most of the day. She has received 1 cortisone injection in the past which helped to alleviate some pain. She is not diabetic. She denies falls or injuries. Denies other concerns at this time. 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 No past medical history on file. No past surgical history on file. Current Outpatient Medications Medication Sig Dispense Refill lisinopril-hydroCHLOROthiazide (ZESTORETIC) 10-12.5 mg per tablet 1, Oral, Daily, # 30 tab(s), Refill(s): 0, 0, Maintenance, German, Print Requisition No current facility-administered medications for this visit. ALLERGIES Allergen Reactions Penicillins Anaphylaxis ROS: + for arthritis limp limb pain no fevers chills CP or SOB. PE: General: well developed well nourished appears stated age Resp: nonlabored Abd: nontender Right Knee: stable on varus valgus and drawer testing ROM 0 to 110 degrees and painful with ROM DF PF EHL intact DP PT 2 + Edema no Effusion mild Gait: limp yes due to pain Mood: euthymic Coordination: normal Imaging: reveals severe right knee osteoarthritis in medial and lateral compartment. No acute fracture or dislocation. I have reviewed and interpreted films personally Labs: No results found for: HBA1C No results found for: CRP Large Joint Arthro/Inj: R knee joint Informed Consent Consent Obtained: Verbal Andreas Protocol A moment to CARE was completed. SIGN IN Personnel directly involved with the procedure wore the appropriate PPE. Special Equipment: N/A Patient/Surrogate Stated/Verified: Patient name, Date of , Intended procedure and Relevant allergies TIME OUT Intended patient and procedure match the source document(s). Consent documented and matches the intended procedure. Relevant labs, photos, and/or imaging studies have been reviewed. Correct side/site marked and visible. Medications required for procedure verified. No fire risk assessment and interventions applicable. No implant(s) inserted. 05/14/2024 9:46 AM The procedure site was prepped in the usual sterile fashion. Site: R knee joint Medications: 40 mg triamcinolone acetonide 40 mg/mL Anesthetics: 4 mL lidocaine (PF) 10 mg/mL (1 %) Outcome: Tolerated well, no immediate complications Post-injection instructions were reviewed with the patient and the patient voiced understanding of these instructions. SIGN OUT All instruments, equipment, possible retained foreign bodies accounted for. Post-procedure follow-up management communicated and Plan of Care Visit completed when applicable AP: 44 year old with right knee osteoarthritis. Patient requesting a repeat cortisone injection today. She tolerated the procedure well discussed aftercare injections. We discussed postponing total knee replacement at this time due to BMI and age. We discussed weight loss due to BMI of 45.61. I recommended a trial of outpatient physical therapy. Recommended that she continue wearing a knee brace due to the instability of her knee. She will follow-up at a future date if needed. JORDEN CarltonOV Observed: 05/14/2024 9:00 AM Status: COMPLETED Source: [facility] Office Visit ([facility]) IDA PROCTOR ([id number]) 1980 F Date Time Provider Department 05/14/24 9:00 AM ZOË MCKEON During your visit today, we recorded the following information about you: Zoë Mckeon PA-C 05/14/2024 9:50 AM Signed Patient presents with: Right Knee - New, Knee Pain HPI: This is a 44 year old female who presents for right knee pain. Patient reports she has had knee pain for the past 20 years or so. She had an accident when she was 15 which required multiple arthroscopic surgeries in her teenage years. She reports over the past year the pain has increased. It is painful with ambulating and weightbearing. He feels very unstable when she walks. She has tried multiple knee braces and wears them most of the day. She has received 1 cortisone injection in the past which helped to alleviate some pain. She is not diabetic. She denies falls or injuries. Denies other concerns at this time. 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 No past medical history on file. No past surgical history on file. Current Outpatient Medications Medication Sig Dispense Refill lisinopril-hydroCHLOROthiazide (ZESTORETIC) 10-12.5 mg per tablet 1, Oral, Daily, # 30 tab(s), Refill(s): 0, 0, Maintenance, German, Print Requisition No current facility-administered medications for this visit. ALLERGIES Allergen Reactions Penicillins Anaphylaxis ROS: + for arthritis limp limb pain no fevers chills CP or SOB. PE: General: well developed well nourished appears stated age Resp: nonlabored Abd: nontender Right Knee: stable on varus valgus and drawer testing ROM 0 to 110 degrees and painful with ROM DF PF EHL intact DP PT 2 + Edema no Effusion mild Gait: limp yes due to pain Mood: euthymic Coordination: normal Imaging: reveals severe right knee osteoarthritis in medial and lateral compartment. No acute fracture or dislocation. I have reviewed and interpreted films personally Labs: No results found for: HBA1C No results found for: CRP Large Joint Arthro/Inj: R knee joint Informed Consent Consent Obtained: Verbal Andreas Protocol A moment to CARE was completed. SIGN IN Personnel directly involved with the procedure wore the appropriate PPE. Special Equipment: N/A Patient/Surrogate Stated/Verified: Patient name, Date of , Intended procedure and Relevant allergies TIME OUT Intended patient and procedure match the source document(s). Consent documented and matches the intended procedure. Relevant labs, photos, and/or imaging studies have been reviewed. Correct side/site marked and visible. Medications required for procedure verified. No fire risk assessment and interventions applicable. No implant(s) inserted. 05/14/2024 9:46 AM The procedure site was prepped in the usual sterile fashion. Site: R knee joint Medications: 40 mg triamcinolone acetonide 40 mg/mL Anesthetics: 4 mL lidocaine (PF) 10 mg/mL (1 %) Outcome: Tolerated well, no immediate complications Post-injection instructions were reviewed with the patient and the patient voiced understanding of these instructions. SIGN OUT All instruments, equipment, possible retained foreign bodies accounted for. Post-procedure follow-up management communicated and Plan of Care Visit completed when applicable AP: 44 year old with right knee osteoarthritis. Patient requesting a repeat cortisone injection today. She tolerated the procedure well discussed aftercare injections. We discussed postponing total knee replacement at this time due to BMI and age. We discussed weight loss due to BMI of 45.61. I recommended a trial of outpatient physical therapy. Recommended that she continue wearing a knee brace due to the instability of her knee. She will follow-up at a future date if needed. Zoë Mckeon PA-C Referring Provider: MARY [place] [[id number]] Allergies As of Date: 05/14/2024 Noted Allergy Reaction PENICILLINS 05/13/2024 10 - Anaphylaxis Date Reviewed: 05/14/2024 Reviewed by: Zoë Mckeon PA-C - Fully Assessed Reason for Visit: New [[id number]] Knee Pain [132] Primary Visit Diagnosis:Primary osteoarthritis of right knee [M17.11] Order(s):XR KNEE SPECIFY 1V RIGHT [0428927] Order #: [id number] FUTURE CONSULT TO PHYSICAL THERAPY [9032] Order #: [id number]: 1 FUTURE Large Joint Arthro/Inj: R knee joint [QJO827] Order #: [id number] [] lidocaine (PF) 10 mg/mL (1 %) 4 mL injection (XYLOCAINE)Disp: Rfl: [] triamcinolone acetonide 40 mg injection (KeNALog 40)Disp: Rfl: Prescriptions as of 05/14/2024 - lisinopril-hydroCHLOROthiazide (ZESTORETIC) 10-12.5 mg per tablet 1, Oral, Daily, # 30 tab(s), Refill(s): 0, 0, Maintenance, German, Print Requisition Problem List As Of Date: 05/14/2024 (None) Prescriptions ordered this encounter Disp Refills Start End LIDOCAINE (PF) 10 MG/ML (1 %) INJECT* 05/14/2024 05/14/2024 Route: Inj-ORTHO TRIAMCINOLONE ACETONIDE 40 MG/ML ESTEFANÍA* 05/14/2024 05/14/2024 Route: Inj-ORTHO Encounter Status:Closed by ZOË MCKEON on 05/14/24 XR KNEE SPECIFY 1V RT Observed: 05/14/20 8:57 AM Status: F Source: [facility] * * *Final Report* * * DATE OF EXAM: May 14 2024 8:57AM SVX 5211 - XR KNEE SPECIFY 1V RT / PROCEDURE REASON: Primary osteoarthritis of right knee * * * * Physician Interpretation * * * * EXAMINATION: XR KNEE SPECIFY 1V RT PATIENT/TECHNOLOGIST PROVIDED HISTORY: right knee injury. merchant view only CLINICAL INFORMATION: 44 years old Female with Primary osteoarthritis of right knee TECHNIQUE: XR KNEE SPECIFY 1V RT Laterality: RIGHT Number of different views (projections): 1 COMPARISON: Radiographs 1 day prior 05/13/2024 RESULT/ IMPRESSION: Single skyline merchant view of the RIGHT knee demonstrates mild patellofemoral compartment osteoarthritis with prominent osteophytes with likely intra-articular body in the anterolateral joint. No fracture. Social Director: PSCB Transcribe Date/Time: May 16 2024 6:43P Dictated by : BASHIR BERNARDO DO This examination was interpreted and the report reviewed and electronically signed by: BASHIR BERNARDO DO on May 16 2024 6:46PM EST [id number] PROGRESS Observed: 05/14/2024 8:56 AM Status: COMPLETED Source: [facility] HNO ID: [id number] Author: LOIS GRIDER RT(R) Service: ? Author Type: Technologist Type: Progress Notes Filed: 05/14/2024 08:56 Note Text: Radiology Service Progress Note PATIENT NAME: Ida Proctor DATE OF SERVICE: May 14, 2024 TIME: 8:56 AM PATIENT IDENTITY VERIFICATION COMPLETED USING TWO (2) IDENTIFIERS: Name and Date of confirmed by patient verbally. FALL SCREENING: Has the patient had 2 falls in the last year or 1 fall with injury or currently using an Ambulatory Assistive Device (Walker, Cane, Wheelchair, Crutches, etc.)? No PATIENT GENDER DATA: Female. status: : No status: NO. PATIENT RELEVANT IMPLANT DATA REVIEWED: Not Applicable PATIENT PRESENTS WITH AN IMPLANTABLE OR ATTACHED DIRECTOR SELECTION AND ADMINISTRATION: No RADIOLOGY DEPARTMENT: General X-ray: Exam(s) Completed: Lower Extremity X-Ray(s): Knee, Merchant Only Right PERIPHERAL IV DATA: Not applicable SIGNED BY: Lois Grider RT(R) May 14, 2024 8:56 AM CNCO Observed: 05/14/2024 12:00 AM Status: COMPLETED Source: [facility] Letter Text TOXICOLOGY SCREEN, ROUTINE URINE Collected: 05/13/2024 10:48 PM Status: F Source: [facility] Order Comment: Specimen Type : URINE SPECIMEN Ordering Facility: [facility] Address: [address] [place] [address] TYPE CODE TESTS RESULT OUT OF RANGE REFERENCE UNITS LAB 77803-9(LOINC) PCP Ur Ql Scn Negative Negative Result Comment: Cutoff thres hold at 25 ng/mL. LAB UBENZR BENZODIAZEPINES, UR Negative Negative Result Comment: Cutoff thres hold at 200 ng/mL. LAB 3397-7(LOINC) Cocaine Ur Ql Negative Negative Result Comment: Cutoff thres hold at 300 ng/mL. LAB 62614-6(LOINC) Amphetamines Ur Cfm-mCnc Negative Negative Result Comment: Cutoff thres hold at 1000 ng/mL. LAB 45264-5(LOINC) Cannabinoids Ur Ql Scn Negative Negative Result Comment: Cutoff thres hold at 50 ng/mL. LAB 46062-6(LOINC) Opiates Ur Ql Scn Negative Negati ve Result Comment: Cutoff thres hold at 300 ng/mL. LAB UBARBR BARBITURATES, URINE Negative Negative Result Comment: Cutoff thres hold at 200 ng/mL. LAB 5645-7(LOINC) Ethanol Ur-mCnc <11 <11 mg /dL LAB 42573-7(LOINC) oxyCODONE laundry assistant Ur Scn-mCnc Negative Negative Result Comment: Cutoff thres hold at 100 ng/mL. Performed By: #### [id number] ### # [facility] CLIA [id number] [place], [place] [id number] [place] [address] [place] URINALYSIS COMPLETE PNL UR Collected: 05/13/2024 10:4 8 PM Status: F Source: [facility] Order Comment: Specimen Type : URINE SPECIMEN Ordering Facility: [facility] Address: [address] [place] [address] TYPE CODE TESTS RESULT OUT OF RANGE REFERENCE UNITS LAB 5778-6(LOINC) Color Ur Light Yellow yellow LAB 21429-4(LOINC) Clarity Spec Clear Clear LAB 5792-7(LOINC) Glucose Ur Strip-mCnc Negative Trace, Negative LAB 5770-3(LOINC) Bilirub Ur Ql Strip Negative Negative LAB 2514-8(LOINC) Ketones Ur Strip Negative Negative, Trace LAB 5811-5(LOINC) Sp Gr Ur Strip 1.014 1.005-1.030 LAB 5794-3(LOINC) Hgb Ur Ql Strip Negative Negative, Trace LAB 5803-2(LOINC) pH Ur Strip 6.5 5.0-8.0 LAB 5804-0(LOINC) Prot Ur Strip-mCnc Negative Trace, Negative LAB 5818-0(LOINC) Urobilinogen Ur Strip Normal Normal LAB 5802-4(LOINC) Nitrite Ur Ql Strip Negative Negative LAB 5799-2(LOINC) Leukocyte esterase Ur Ql Strip Negative Negative, 25 Thor/uL LAB 5821-4(LOINC) WBC #/area UrnS HPF 0-5 /HPF 0-5 /HPF LAB 20920-9(LOINC) RBC #/area UrnS HPF 0-3 /HPF 0-3 /HPF LAB 5787-7(LOINC) Epi Cells #/area UrnS HPF Few /HPF Performed By: #### 44313-5 # ### [facility] CLIA [id number] [place] [address] [facility] [place] [facility] TROPONIN T (SECOND) Collected: 05/13/2024 10:30 PM Status: F Source: [facility] Order Comment: Specimen Type : BLOOD SPECIMEN Ordering Facility: [facility] Address: [address] [place] [address] [place] [address] TYPE CODE TESTS RESULT OUT OF RANGE REFERENCE UNITS LAB 50442-0(LOINC) Troponin T SerPl HS-mCnc 9 <12 ng/L Performed By: #### [id number] # ### [facility] CLIA [id number] [address] [facility] ED PROV NOTE Observed: 05/13/2024 10:16 PM Status: COMPLETED Source: [facility] HNO ID: [id number] Author: MARY WILLSON MD Service: Emergency Medicine Author Type: Physician Type: ED Provider Notes Filed: 05/16/2024 16:48 Note Text: ED Provider Note Patient Name: Ida Proctor : 1980 SERVICE DATE: 05/13/24 History Patient presents with: Chest Pain Visual Changes 44-year-old female presents emergency department with multiple complaints. States that she has had chest pain x 1 hour she describes as a heaviness. She believes this is related to her anxiety and states that she felt that she was having a panic attack earlier today. She also has some floaters in bilateral eyes . This is not a new finding. She also has some right knee swelling for the last 6 months. She endorsed an episode of diarrhea earlier today. PMH-HTN, migraines, colitis, MDD, HLD, GERD. She had some associated shortness of breath. She denies any drugs or alcohol. No abdominal or urinary complaints today. 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 No past surgical history on file. No family history on file. Social History Tobacco Use Smoking status: Not on file Smokeless tobacco: Not on file Substance and Sexual Activity Alcohol use: Not on file Drug use: Not on file Sexual activity: Not on file ALLERGIES Allergen Reactions Penicillins Anaphylaxis Review of Systems Constitutional: Positive for chills. Negative for fever. Eyes: Positive for visual disturbance. Respiratory: Positive for chest tightness. Negative for shortness of breath. Cardiovascular: Positive for chest pain. Gastrointestinal: Positive for diarrhea. Negative for abdominal pain, constipation, nausea and vomiting. Genitourinary: Negative for difficulty urinating, dysuria and hematuria. Musculoskeletal: Positive for arthralgias. Neurological: Positive for headaches. Physical Exam Vitals [05/13/24 1758] BP Pulse Temp Temp src Resp SpO2 Weight Height 151/86 (!) 95 36.2 ?C (97.1 ?F) Temporal 19 97 % 136.1 kg (300 lb) 1.727 m (5' 8 ) Physical Exam Constitutional: General: She is not in acute distress. Appearance: She is well-developed. She is obese. She is not ill-appearing, toxic-appearing or diaphoretic. HENT: Mouth/Throat: Mouth: Mucous membranes are moist. Eyes: Intraocular pressure: Right eye pressure is 20 mmHg. Left eye pressure is 23 mmHg. Cardiovascular: Rate and Rhythm: Normal rate and regular rhythm. Pulses: Normal pulses. Heart sounds: Normal heart sounds. Pulmonary: Effort: Pulmonary effort is normal. No respiratory distress. Breath sounds: Normal breath sounds. No stridor. No wheezing, rhonchi or rales. Chest: Chest wall: No tenderness. Abdominal: General: Bowel sounds are normal. Tenderness: There is no abdominal tenderness. Musculoskeletal: General: Swelling and tenderness present. Comments: Right knee edema, tenderness with ambulation/movement Skin: General: Skin is warm and dry. Capillary Refill: Capillary refill takes less than 2 seconds. Neurological: Mental Status: She is alert and oriented to person, place, and time. Diagnostic Testing ED Labs Ordered and Reviewed COMPLETE BLOOD COUNT AND DIFFERENTIAL - Abnormal; Notable for the following components: Result Value Ref Range Hemoglobin 9.9 (*) 11.5 - 15.5 g/dL Hematocrit 34.1 (*) 36.0 - 46.0 % MCV 72.6 (*) 80.0 - 100.0 fL MCH 21.1 (*) 26.0 - 34.0 pg MCHC 29.0 (*) 30.5 - 36.0 g/dL RDW-CV 20.3 (*) 11.5 - 15.0 % MPV 8.9 (*) 9.0 - 12.7 fL All other components within normal limits COMPREHENSIVE METABOLIC PANEL - Normal HIGH SENSITIVITY TROPONIN T (INITIAL) - Normal MAGNESIUM - Normal HCG QUANTITATIVE - Normal TOXICOLOGY SCREEN, ROUTINE URINE - Normal Narrative: Immunoassay screen only. Cross reactivity with other substances can occur with immunoassay screening. Detection of any drug(s) in this urine toxicology panel is presumptive only. These tests are for medical purposes only and should not be used for compliance monitoring, legal, or forensic use. Samples should be within normal physiological conditions (e.g. pH). This assay does not include adulteration/specimen validity testing. In clinical settings, confirmatory testing is at the practitioner's discretion [1]. If clinically indicated, confirmation by high specificity, quantitative methodology, which includes adulteration/specimen validity testing, may be requested on the same specimen through Client Services ([phone]) if contacted within 48 hours of initial testing. [1]Substance Abuse and Mental Health Services Administration (2012). Clinical Drug Testing in Primary Care Technical Assistance Publication Series 32. Department of Health and Human Services, [place], p.10. HIGH SENSITIVITY TROPONIN T (SECOND) - Normal URINALYSIS WITH MICROSCOPIC, REFLEX CULTURE COVID AND INFLUENZA A/B AND RSV PCR, ROUTINE Procedures ED Course / Clinical Impression Clinical Impressions as of 05/14/24 0211 Hypertension, unspecified type Chest pain, unspecified type Visual disturbance Right knee pain, unspecified chronicity MDM / Disposition / Plan MDM: Vital signs reviewed. Triage records were reviewed. Medical records were reviewed. Nursing notes were reviewed and incorporated. The attending who evaluated and managed this patient was Dr. Willson HPI- 44-year-old female presents emergency department with multiple complaints. PE significant for: Chest pain, visual changes DDX - Differentials including but not limited to migraine, panic attack, ACS, electrolyte imbalance, dehydration, drug use Labs: CBC-no leukocytosis, HANDH 9.9/34.1 CMP-WNL HST 9, 9 Mag 2.0 COVID/flu/RSV-pending UDS-negative UA-negative Radiology: CXR-- IMPRESSION: No acute radiographic abnormality. XR R knee- IMPRESSION: Moderate right knee degenerative changes without acute osseous abnormality. Calcified synovium versus joint bodies in the infrapatellar recess. Follow-up MRI may be considered. EKG: SR 93 Meds given in ED: Tetracaine, Toradol Patient seen and evaluated emergency department. Patient presents with multiple complaints such as chest pain, right knee pain and some visual changes. Intraocular pressure was measured at 23/21. She is very pleasant. She believes her chest pain is related to anxiety as she felt much anxiety this afternoon. She is currently living at a sober living house and is only scheduled to be there for the next 2 weeks. Workup was obtained started in triage. High-sensitivity's were within normal limits. She was also complaining of some right knee pain and states she had a x-ray several weeks ago which showed some fluid. I repeated this x-ray which did show some calcified synovium versus joint bodies in the infrapatellar recess. I did offer her an appointment with orthopedics. She currently takes losartan and states she has not missed any doses. Of vital signs have been remained stable while here. She is not tachycardic. She has no leukocytosis. I did give her a migraine cocktail whichalleviated her headache and she had no further visual changes while here in the emergency department. Patient is agreeable to follow-up on outpatient basis with the PCP. No further question at this time. Red flags for return discussed as below Presentation and work-up outlined above consistent with YOUNG, Knee pain, chest pain Disposition: Home Pt was educated on the red flags to return to the ED. Shared decision making with pt and demonstrated understanding and was in agreement with the plan of care. The patient and/or family -had the results of all tests and diagnosis explained to them -were given both verbal and written discharge instructions -were instructed of the importance of close follow-up -were told that an ED diagnosis is often a preliminary diagnosis -that definitive care is often not able to be given in the ED -were told that close follow-up is essential for good health and good outcomes Murtaza Reyes APRN.OWNER/PHOTOGRAPHER This note was dictated using Sunshine speech recognition software and may contain some errors that were a result of the program not accurately transcribing what was dictated. History and Record Review External record(s) reviewed: prior outpatient record. Findings from review of outpatient records: H Differential Diagnoses - Chest pain is more likely for the following reason(s): suggested by HANDP - Visual disturbance is more likely for the following reason(s): suggested by HANDP - ACS Less likely because: no evidence of ACS based on cardiac biomarkers, EKG without ischemia and no risk factors for ACS - Pneumonia Less likely because: lungs clear to auscultation, CXR without infiltrate, no fever and no leukocytosis Additional complaint based differentials considered: ACS, pneumonia Management Radiology Reports XR KNEE LIMITED 2V AP/LAT RIGHT Final Result IMPRESSION: Moderate right knee degenerative changes without acute osseous abnormality. Calcified synovium versus joint bodies in the infrapatellar recess. Follow-up MRI may be considered. Social Director: JOHANNY Transcribe Date/Time: May 13 2024 10:40P Dictated by : VIVEK COCHRAN MD This examination was interpreted and the report reviewed and electronically signed by: VIVEK COCHRAN MD on May 13 2024 10:46PM EST XR CHEST 2V FRONTAL/LAT Final Result IMPRESSION: No acute radiographic abnormality. Social Director: JOHANNY Transcribe Date/Time: May 13 2024 6:28P Dictated by : TOBI PEDRAZA MD This examination was interpreted and the report reviewed and electronically signed by: TOBI PEDRAZA MD on May 13 2024 6:28PM EST Meds Given During Visit ED Medication Administration from 05/13/2024 1748 to 05/14/2024 0016 Date/Time Order Dose Route Action 05/13/20242206 EDT tetracaine (PF) 0.5 % 1 Drop (OPTICAINE) 1 Drop BOTH EYES Given 05/13/20242206 EDT keTORolac 15 mg injection (Toradol) 15 mg INTRAVENOUS Given Re-evaluation clinically improved and feeling better and vital signs in acceptable range Murtaza Reyes APRN.OWNER/PHOTOGRAPHER Disposition The patient was discharged. Counseled patient regarding lab results, radiology results and suspected diagnosis. Follow Up Orders Status Ordering Provider FOLLOW UP APPOINTMENT REQUEST (ED/IP) Question Answer Comment Follow up appointment: PCP/Primary Care Schedule follow up appointment within 1 week Follow Up Reason: establish care Acknowledged MARY WILLSON FOLLOW UP APPOINTMENT REQUEST (ED/IP) Question Answer Comment Follow up appointment: Orthopedics Schedule follow up appointment within 1 week Follow Up Reason: R knee pain Acknowledged MARY WILLSON SIGNATURE: Murtaza Reyes APRN.CNP Attending Note Attestation for: [employer] INSPECTOR/PA I have personally performed a face to face assessment of the patient and have reviewed the STEFAN note. I personally made/approved the management plan and take responsibility for the patient management. I performed a substantive portion of the visit including all aspects of the following. My hawkins findings include: 44-year-old female presented to the ED for chest pain and floaters in her eyes. In regards of chest pain that started about an hour before she arrived here in the ED. Her visual disturbance is not new per the patient. She states he is here at a sober living house currently. She recently had an admission for hypertension at an outside hospital. On exam here she is hemodynamically stable and does not appear in acute distress. Heart regular rate and rhythm. Lungs clear. She also endorsed right knee pain, there is mild tenderness and swelling noted without overlying erythema or crepitus. Labs grossly unremarkable. EKG not consistent with acute ischemia and high-sensitivity troponins negative x 2. Knee x-ray negative for acute pathology. Will refer to PCP given she will be in the area for months at the sober living. Also will refer to orthopedics. Plan for discharge. Patient discharged from the Emergency Department. I do not feel that the patient's evaluation reveals any acute reason for admission at this time. I instructed them to either follow up with their primary care physician or promptly return to the Emergency Department for reevaluation should symptoms worsen or new symptoms develop. I explained what symptoms would indicate the need to return to the Emergency Department. Shared decision making was used. The patient voiced understanding of the treatment plan and is agreeable with it. Signature: Mary Willson MD Date: 05/16/2024 Time: 4:47 PM MURTAZA REYES 05/14/24 0211 MARY WILLSON 05/16/24 1648 PROGRESS Observed: 05/13/2024 10:13 PM Status: COMPLETED Source: [facility] ID: [id number] Author: OCTAVIA SAWYER RT(R) Service: Radiology Author Type: Cattle Trader Type: Progress Notes Filed: 05/13/2024 22:14 Note Text: Radiology Service Progress Note PATIENT NAME: Ida Proctor DATE OF SERVICE: May 13, 2024 TIME: 10:13 PM PATIENT IDENTITY VERIFICATION COMPLETED USING TWO (2) IDENTIFIERS: Name and Date of confirmed by patient verbally and Name and Date of confirmed by identification band. FALL SCREENING: Has the patient had 2 falls in the last year or 1 fall with injury or currently using an Ambulatory Assistive Device (Walker, Cane, Wheelchair, Crutches, etc.)? Emergency Room Patient: Screened in ED PATIENT GENDER DATA: Female. status: : No status: NO. PATIENT RELEVANT IMPLANT DATA REVIEWED: Not Applicable PATIENT PRESENTS WITH AN IMPLANTABLE OR ATTACHED DIRECTOR SELECTION AND ADMINISTRATION: No RADIOLOGY DEPARTMENT: General X-ray: Exam(s) Completed: Lower Extremity X-Ray(s): Knee, AP / LAT Right PERIPHERAL IV DATA: Not applicable SIGNED BY: Octavia Sawyer, RT(R) May 13, 2024 10:13 PM XR KNEE 2V AP/LAT RT Observed: 10:13 PM Status: F Source: [facility] * * *Final Report* * * DATE OF EXAM: May 13 2024 10:13PM VHX 5207 - XR KNEE 2V AP/LAT RT / PROCEDURE REASON: Other * * * * Physician Interpretation * * * * EXAM: XR KNEE 2V AP/LAT RT HISTORY: Edema, pain COMPARISON: None available FINDINGS: No measurable knee effusion. No fracture or dislocation. Moderate tricompartmental degenerative changes with partial joint space narrowing and associated mild lateral degenerative subluxation. Bulky osteophyte at the superior patellofemoral compartment. Calcified joint bodies versus synovial calcification in the infrapatellar recess. Chronic ossicle along the medial femoral condyle. IMPRESSION: Moderate right knee degenerative changes without acute osseous abnormality. Calcified synovium versus joint bodies in the infrapatellar recess. Follow-up MRI may be considered. Social Director[facility] Transcribe Date/Time: May 13 2024 10:40P Dictated by : VIVEK COCHRAN MD This examination was interpreted and the report reviewed and electronically signed by: VIVEK COCHRAN MD on May 13 2024 10:46PM EST [id number] COMP METAB 2000 PNL SERPL Collected: 9:11 PM Status: F Source: [facility] Order Comment: Specimen Type : BLOOD SPECIMEN Ordering Facility: [facility] Address: [address] [place] [address] TYPE CODE TESTS RESULT OUT OF RANGE REFERENCE UNITS LAB 2885-2(LOINC) Prot SerPl-mCnc 7.3 6.3-8.0 g/dL LAB 1751-7(LOINC) Albumin SerPl-mCnc 4.2 3.9-4.9 g/dL LAB 68997-4(LOINC) Calcium SerPl-mCnc 9.2 8.5-10.2 mg/dL LAB 1975-2(LOINC) Bilirub SerPl-mCnc 0.2 0.2-1.3 mg/dL LAB 6768-6(LOINC) ALP SerPl-cCnc 105 34-123 U/L LAB 1920-8(LOINC) AST SerPl-cCnc 14 13-35 U/L LAB 1742-6(LOINC) ALT SerPl-cCnc 13 7-38 U/L LAB 2345-7(LOINC) Glucose SerPl-mCnc 89 74-99 mg/dL Result Comment: The [place] Diabetes Association (ADA) provides guidance for cutoff values for fasting glucose and random glucose. The ADA defines fasting as no caloric intake for at least 8 hours. Fasting plasma glucose results between 100 to 125 mg/dL indicate increased risk for diabetes (prediabetes). Fasting plasma glucose results greater than or equal to 126 mg/dL meet the criteria for diagnosis of diabetes. In the absence of unequivocal hyperglycemia, results should be confirmed by repeat testing. In a patient with classic symptoms of hyperglycemia or hyperglycemic crisis, random plasma glucose results greater than or equal to 200 mg/dL meet the criteria for diagnosis of diabetes. Reference: Standards of Medical Care in Diabetes 2016, [place] Diabetes Association. Diabetes Care. 2016.39(Suppl 1). LAB 3094-0(LOINC) BUN SerPl-mCnc 17 7-21 mg/ dL LAB 2160-0(LOINC) Creat SerPl-mCnc 0.63 0.58-0.96 mg/dL LAB 2951-2(LOINC) Sodium SerPl-sCnc 136 136-144 mmol/L LAB 2823-3(LOINC) Potassium SerPl-sCnc 3.9 3.7-5.1 mmol/L LAB 2075-0(LOINC) Chloride SerPl-sCnc 98 98-107 mmol/L LAB 2028-9(LOINC) CO2 SerPl-sCnc 25 22-30 mmo l/L LAB 45583-6(LOINC) Anion Gap SerPl-sCnc 13 8-15 mmol/L LAB 96934-3(LOINC) Creatinine + eGFR Pnl SerPlBld 113 >=60 mL/min/1. 73m??? Result Comment: Estimated Gl omerular Filtration Rate (eGFR) is calculated using the 2020 CKD-EPI creatinine equation. This equation utilizes serum creatinine, sex, and age as parameters. The creatinine assay has traceable calibration to isotope dilution-mass spectrometry. Refer to KDIGO guidelines for clinical interpretation. In patients with unstable renal function, e.g. those with acute kidney injury, the eGFR may not accurately reflect actual GFR. Performed By: #### 95258-0, 88823-4 #### [facility] CLIA [id number] [place], [place] [id number] [place] [address] OF [facility] MAGNESIUM SERPL-MCNC Collected: 05/13/2024 9:11 PM S tatus: F Source: [facility] Order Comment: Specimen Type : BLOOD SPECIMEN Ordering Facility: [facility] Address: [address] [place], [place] [id number] TYPE CODE TESTS RESULT OUT OF RANGE REFERENCE UNITS LAB 15236-0([facility]) Magnesium SerPl-mCnc 2.0 1.7-2.3 mg/dL Performed By: #### 30568-7, #### [facility] CLIA [id number] [address] [facility] [place] [address] [facility] [place] CBC W AUTO DIFF BLD Collected: 05/13/2024 9:[address] atus: F Source: [facility] Order Comment: Specimen Type : BLOOD SPECIMEN Ordering Facility: [facility] Address: [address] [place] [address] TYPE CODE TESTS RESULT OUT OF RANGE REFERENCE UNITS LAB 6690-2(LOINC) WBC # Bld Auto 7.79 3.70-11.00 k/uL LAB 789-8(LOINC) RBC # Bld Auto 4.70 3.90-5.20 m/ uL LAB 718-7(LOINC) Hgb Bld-mCnc 9.9 Low 11.5-15.5 g/dL LAB 4544-3(LOINC) Hct VFr Bld Auto 34.1 Low 36.0-46.0 % LAB 787-2(LOINC) MCV RBC Auto 72.6 Low 80.0-100.0 fL LAB 785-6(LOINC) MCH RBC Qn Auto 21.1 Low 26.0-34.0 p g LAB 786-4(LOINC) MCHC RBC Auto-mCnc 29.0 Low 30.5-36.0 g/dL LAB 69295-7(LOINC) RDW RBC-Rto 20.3 High 11.5-15.0 % LAB 777-3([facility]) Platelet # Bld Auto 340 150-400 k/uL LAB 39768-7([facility]) PMV Bld Auto 8.9 Low 9.0-12.7 fL LAB 770-8([facility]) Neutrophils/leuk NFr Bld Auto 59.5 % LAB 751-8([facility]) Neutrophils # Bld Auto 4.63 1.45-7.50 k/uL LAB 736-9([facility]) Lymphocytes/leuk NFr Bld Auto 27.7 % LAB 731-0([facility]) Lymphocytes # Bld Auto 2.16 1.00-4.00 k/uL LAB 5905-5([facility]) Monocytes/leuk NFr Bld Auto 7.7 % LAB 742-7([facility]) Monocytes # Bld Auto 0.60 <0.87 k/uL LAB 713-8([facility]) Eosinophil/leuk NFr Bld Auto 4.2 % LAB 711-2([facility]) Eosinophil # Bld Auto 0.33 <0.46 k/uL LAB 706-2([facility]) Basophils/leuk NFr Bld Auto 0.5 % LAB 704-7([facility]) Basophils # Bld Auto 0.04 <0.11 k/uL LAB 81730-7([facility]) Imm Granulocytes/thor k NFr Bld Auto 0.4 % LAB 43017-3([facility]) Imm Granulocytes # Bld Auto 0.03 <0.10 k/uL LAB 12331-3([facility]) nRBC/100 WBC Bld-Rto 0.0 /100 WBC LAB 771-6([facility]) nRBC # Bld Auto <0.01 <0.01 k/u L LAB 44638-4([facility]) Differential method Bld Auto Performed By: #### 14055-5 # ### [facility] CLIA [id number] [address] [facility] [place], [place] [address] [place] [address] STATES OF [facility] HIGH SENSITIVITY TROPONIN T (INITIAL) Collected: 05/13/2024 9:11 PM Status: F Source: [facility] Order Comment: Specimen Type : BLOOD SPECIMEN Ordering Facility: [facility] Address: [address] [place] [id number] TYPE CODE TESTS RESULT OUT OF RANGE REFERENCE UNITS LAB 23721-5(LOINC) Troponin T SerPl HS-mCnc 9 <12 ng/L Performed By: #### [id number] # ### [facility] CLIA [id number] [address] [place] [address] [place] B-HCG SERPL-ACNC Collected: 05/13/2024 9:11 PM Statu s: F Source: [facility] Order Comment: Specimen Type : BLOOD SPECIMEN Ordering Facility: [facility] Address: [address] [place] [address] TYPE CODE TESTS RESULT OUT OF RANGE REFERENCE UNITS LAB 75768-8(LOINC) B-HCG SerPl-aCnc <0.6 <5.0 mIU/mL Result Comment: Negative Performed By: #### 56066-2 # ### [facility] CLIA [id number] [address] [place] [address] [facility] COVID AND INFLUENZA A/B AND RSV PCR, ROUTINE Observed: 05/13/2024 7:44 PM Status: F Source: [facility] SARS-COV-2 (AGENT OF COVID-1 9) RNA: Not detectedINFLUENZA A RNA: Not detectedINFLUENZA B RNA: Not detectedRESPIRATORY SYNCYTIAL VIRUS (RSV) RNA: Not detected Performed By: #### CVFLRS ## ## [facility] CLIA [id number] [address] [place], [place] [address] [address] OF [place] PROGRESS Observed: 05/13/2024 6:25 PM Status: COMPLETED Source: [facility] HNO ID: [id number] Author: VANDANA BERNSTEIN RT(R) Service: Radiology Author Type: Cattle Trader Type: Progress Notes Filed: 05/13/2024 18:26 Note Text: Radiology Service Progress Note PATIENT NAME: Ida Proctor DATE OF SERVICE: May 13, 2024 TIME: 6:26 PM PATIENT IDENTITY VERIFICATION COMPLETED USING TWO (2) IDENTIFIERS: Name and Date of confirmed by patient verbally and Name and Date of confirmed by identification band. FALL SCREENING: Has the patient had 2 falls in the last year or 1 fall with injury or currently using an Ambulatory Assistive Device (Walker, Cane, Wheelchair, Crutches, etc.)? Emergency Room Patient: Screened in ED PATIENT GENDER DATA: Female. status: : No status: NO. PATIENT RELEVANT IMPLANT DATA REVIEWED: Not Applicable PATIENT PRESENTS WITH AN IMPLANTABLE OR ATTACHED DIRECTOR SELECTION AND ADMINISTRATION: No RADIOLOGY DEPARTMENT: General X-ray: Exam(s) Completed: Chest X-Ray PERIPHERAL IV DATA: Not applicable SIGNED BY: RT Jazzy(R) May 13, 2024 6:26 PM XR CHEST 2V FRONTAL/LAT Observed: 2023 6:24 PM Status: F Source: [facility] * * *Final Report* * * DATE OF EXAM: May 13 2024 6:24PM VHX 5291 - XR CHEST 2V FRONTAL/LAT / PROCEDURE REASON: Chest Pain * * * * Physician Interpretation * * * * EXAMINATION: CHEST RADIOGRAPH (2 VIEW FRONTAL and LATERAL) CLINICAL HISTORY: Chest Pain MQ: XC2_6 EXAM DATE/TIME: 05/13/2024 6:24 PM COMPARISON: No relevant prior studies available. RESULT: Lines, tubes, and devices: None. Lungs and pleura: No consolidation. No lung mass. No pleural effusion. No pneumothorax. Cardiomediastinal silhouette: Normal cardiomediastinal silhouette. Bones and soft tissues: Degenerative changes are present within the thoracic spine. Scoliosis is noted in the thoracic spine. IMPRESSION: No acute radiographic abnormality. Social Director: PSCDavid Transcribe Date/Time: May 13 2024 6:28P Dictated by : TOBI PEDRAZA MD This examination was interpreted and the report reviewed and electronically signed by: TOBI PEDRAZA MD on May 13 2024 6:28PM EST [id number] ED TRIAGE NOTE Observed: 05/13/2024 6:05 PM Status: COMPLETED Source: [facility] HNO ID: [id number] Author: MARY REYES MD Service: ? Author Type: Physician Type: ED Triage Notes Filed: 05/13/2024 18:09 Note Text: ED INTAKE NOTE Patient Name: Ida Proctor Service Date: 05/13/24 BRIEF HPI: This is a 44 year old female who presents to the ED with: Chest pain for 1 hour heaviness associated shortness of breath. No pleuritic component. Endorses chills and cough without sputum. Headache. Whole body tingling . Neuro reported normal from triage BRIEF EXAM: NAD INITIAL WORKUP AND DECISION MAKING: Orders Placed This Encounter XR CHEST 2V FRONTAL/LAT CBC with Differential Comprehensive Metabolic Panel High Sensitivity Troponin T with Reflex for ED Chest Pain Magnesium Urinalysis w Microscopic, reflex Culture HCG QUANT ECG COMPLETE EKG Provider examination performed via virtual platform with assistance from bedside clinician. 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 Patient endorsing migraine, states that pain is in back of head radiating upwards. Patient also noting chest pain and SOB. Patient denies any history of migraines. Patient noting 1 episode of diarrhea. Endorses chills. Patient noting R knee swelling and pain for 6 months. ECG COMPLETE Observed: 05/13/2024 5:54 PM Status: F Source: [facility] Ventricular Rate : 93 BPM Atrial Rate : 93 BPM P-R Interval : 178 ms QRS Duration : 96 ms Q-T Interval : 358 ms QTC Calculation(Bazett) : 445 ms Calculated P Jefferson : 43 degrees Calculated R Jefferson : 60 degrees Calculated T Jefferson : 118 degrees Normal sinus rhythm Nonspecific T wave abnormality Abnormal ECG 1809 TRIAGE EKG Confirmed by MD WILLSON MICHAEL ([id number]), publishing editor SANTIAGO GALLAGHER ([id number]) on 05/14/2024 8:25:50 AM NAME : IDA PROCTOR PID : [id number] : 1980 Gender : Female Race : ORD : [id number] Procedure Date : May 13 2024 17:54:50 Edit Date : May 14 2024 08:25:51 Diagnosis: Normal sinus rhythm Nonspecific T wave abnormality Abnormal ECG 1809 TRIAGE EKG Confirmed by MD WILLSON MICHAEL ([id number]), publishing editor SANTIAGO GALLAGHER ([id number]) on 05/14/2024 8:25:50 AM Test Reason : Pre-OP Location : 302 : ED ED Overread By : MD WILLSON MICHAEL Edited By : SANTIAGO GALLAGHER Referred By : , Acquired by : [id number], 3 HOUR TROP I, HIGH SENSITIVITY Collected: 04/2024 1:10 PM Status: COMPLETED Source: [facility] TYPE CODE TESTS RESULT OUT OF RANGE REFERENCE UNITS LAB TNIHS3(LOINC) 3 HOUR TROP I, HIGH SENSITIVITY 62 High <16 ng/L Result Comment: Elevations of hs-Troponin may be due to causes other than myocardial ischemia. Recommend serial hs-Troponin testing be performed. For the initial evaluation and management of chest pain patients, refer to the algorithms linked below. Emergency Patient: [email or web address] Inpatient: [email or web address] Performed By: #### 94106-5 # ### [facility] ([id number]) [address] [place] [address], [place] [address] CBC AND AUTO DIFF Collected: 04/23/2024 3:06 AM Status: COMPLETED Source: [facility] TYPE CODE TESTS RESULT OUT OF RANGE REFERENCE UNITS LAB WBC(LOINC) WBC COUNT 6.1 4.0-11.0 X10E9/L LAB RBC(LOINC) RBC COUNT 4.35 3.80-5.20 X10E12/L LAB HGB(LOINC) HEMOGLOBIN 9.2 Low 11.7-15.5 g/dL LAB HCT(LOINC) HEMATOCRIT 29.9 Low 35-47 % LAB MCV(LOINC) MCV 69 Low 80-100 fL LAB MCH(LOINC) MCH 21.2 Low 27-34 pg LAB MCHC(LOINC) MCHC 30.8 Low 32-36 g/dL LAB RDW(LOINC) RDW 20.6 High 11.5-15.0 % LAB PLTC(LOINC) PLATELET COUNT 305 150-450 X10E9 /L LAB MPV(LOINC) MPV 7.3 7-12 fL LAB NEUT(LOINC) % NEUTROPHILS 51.9 % LAB LYMP(LOINC) % LYMPHOCYTES 34.6 % LAB MONO(LOINC) % MONOCYTES 9.2 % LAB EOS(LOINC) % EOSINOPHILS 3.7 % LAB BASO(LOINC) % BASOPHILS 0.6 % LAB ANEUT(LOINC) ABSOLUTE NEUTROPHIL 3.2 1.5-6.6 X10E9/L LAB ALYMP(LOINC) ABSOLUTE LYMPHOCYTE 2.1 1.0-3.5 X10E9/L LAB AMONO(LOINC) ABSOLUTE MONOCYTE 0.6 0-0.9 X10E9/L LAB AEOS(LOINC) ABSOLUTE EOSINOPHIL 0.2 0.0-0.4 X10E9/L LAB ABASO(LOINC) ABSOLUTE BASOPHIL 0.0 0.0-0.2 X10E9/L Performed By: #### CBCA, 895 79-7, CMP, 10292-8 #### [facility] ([id number]) [address] [place] [address], [place] [address] #### 51329-0 #### [facility] ([id number]) [address] [place] [address], [address] [place] [address] 3 HOUR TROP I, HIGH SENSITIVITY Collected: 04/2024 3:06 AM Status: COMPLETED Source: [facility] TYPE CODE TESTS RESULT OUT OF RANGE REFERENCE UNITS LAB TNIHS3(LOINC) 3 HOUR TROP I, HIGH SENSITIVITY 64 High <16 ng/L Result Comment: Elevations of hs-Troponin may be due to causes other than myocardial ischemia. Recommend serial hs-Troponin testing be performed. For the initial evaluation and management of chest pain patients, refer to the algorithms linked below. Emergency Patient: [email or web address] Inpatient: [email or web address] Performed By: #### CBCA, 895 79-7, CMP, 61791-7 #### [facility] ([id number]) [address] [place] [address] #### 96144-5 #### [facility] ([id number]) [address], [address] [place] [address] COMPREHENSIVE METABOLIC PANEL Collected: 2023 3:06 AM Status: COMPLETED Source: [facility] TYPE CODE TESTS RESULT OUT OF RANGE REFERENCE UNITS LAB NA(LOINC) SODIUM 137 134-146 mmol/L LAB K(LOINC) POTASSIUM 3.4 Low 3.5-5.0 mmol/L LAB CL(LOINC) CHLORIDE 106 98-109 mmol/L LAB CO2(LOINC) CARBON DIOXIDE 28 22-32 mmol/L LAB AGAP(LOINC) ANION GAP 3 Low 5-15 mmol/L LAB BUN(LOINC) BLOOD UREA NITROGEN 12 5-23 mg/dL LAB CRET(LOINC) CREATININE 0.55 0.40-1.00 mg/dL Result Comment: METHOD TRACE ABLE TO IDMS STANDARD LAB GLU(LOINC) GLUCOSE 128 High 65-99 mg/dL LAB CA(LOINC) CALCIUM 7.9 Low 8.5-10.5 mg/dL LAB TP(LOINC) TOTAL PROTEIN 6.4 6.0-8.0 g/dL LAB ALB(LOINC) ALBUMIN 3.0 Low 3.2-5.3 g/dL LAB ALK(LOINC) ALKALINE PHOSPHATASE 80 39-130 U/L LAB AST(LOINC) AST 17 0-41 U/L LAB ALT1(LOINC) ALT 19 0-31 U/L LAB TBIL(LOINC) BILIRUBIN,TOTAL 0.2 Low 0.3-1.2 mg/d L LAB EGFR(LOINC) eGFR (CKD-EPI) NON-RACE DEPENDENT >90 >59 ml/min/1 .73sq.m Result Comment: Reported eGFR is based on the CKD-EPI 2020 equation that does not use a race coefficient. Performed By: #### CBCA, 895 79-7, CMP, 87149-3 #### [facility] ([id number]) [address] [place] [address] #### 79614-1 #### [facility] ([id number]) [address] [facility], [address] [place] [address] MAGNESIUM Collected: 04/23/2024 3:06 AM S tatus: COMPLETED Source: [facility] TYPE CODE TESTS RESULT OUT OF RANGE REFERENCE UNITS LAB MG(LOINC) MAGNESIUM 2.0 1.8-2.6 mg/dL Performed By: ###Geeta CHANG, 895 79-7, [facility], 17868-0 #### [facility] ([id number]) [address] [place], [place] [address] #### 44452-5 #### [facility] ([id number]) [address] [place] [address], [facility] [address] [place] [address] LIPID PROFILE Collected: 04/23/2024 3:06 AM Status: COMPLETED Source: [facility] TYPE CODE TESTS RESULT OUT OF RANGE REFERENCE UNITS LAB CHOL(LOINC) CHOLESTEROL 108 Low 150-200 mg/dL LAB TRIG(LOINC) TRIGLYCERIDE 214 High 27-150 mg/dL LAB HDL(LOINC) HDL CHOLESTEROL 40 >39 mg/dL Result Comment: HDL <40 mg/dL - High Risk HDL > or = 40mg/dL- Desirable HDL >60 mg/dL - Negative Risk LAB VLDL(LOINC) VERY LOW LIPOPROTEIN 43 High 0-30 mg/dL LAB LDL(LOINC) LDL (CALC) 25 <130 mg/dL Result Comment: LDL <100 mg/dL - Desirable LDL >160 mg/dL - High Risk LAB CHDL(LOINC) CHOLESTEROL:HDL 2.7 1.0-5.0 Performed By: ###Geeta CHANG, 895 79-7, CMP, 85107-8 #### [facility] ([id number]) [address] [place] [address] #### 41217-1 #### [facility] ([id number]) [address] [place] [address], [address] [place] [address] URINE CULTURE Observed: 04/23/2024 2:11 AM Status: COMPLETED Source: [facility] CULTURE RESULTS 10-50,000 ORGANISMS/mL NORMAL UROGENITAL YASSINE Performed By: #### 630-4 ### # [facility] ([id number]) [address] [place] [address], [address] [place] [address] URINE NURSING Collected: 04/22/2024 1 0:17 PM Status: COMPLETED Source: [facility] TYPE CODE TESTS RESULT OUT OF RANGE REFERENCE UNITS LAB NUCG(LOINC) URINE NURSING Negative (qualifier value) NEG Performed By: #### 2106-3 ## ## [facility] ([id number]) [address] [place] [address] URN MACROSCOPIC MICHELLE Collected: 04/22/20 24 10:15 PM Status: COMPLETED Source: [facility] TYPE CODE TESTS RESULT OUT OF RANGE REFERENCE UNITS LAB SPGRN(LOINC) SPECIFIC GRAVITY MICHELLE <=1.005 1.003-1.035 LAB LESTN(LOINC) LEUKOCYTE ESTERASE MICHELLE Trace Abnormal NEG LAB NITN(LOINC) NITRITE MICHELLE Negative (qualifier value) NEG LAB PHURN(LOINC) PH MICHELLE 5.5 5.0-8.5 LAB PRURN(LOINC) PROTEIN MICHELLE Negative (qualifier value) NEG mg/dL LAB GLURN(LOINC) GLUCOSE MICHELLE Negative (qualifier value) NEG mg/dL LAB KETN(LOINC) KETONES MICHELLE Negative (qualifier value) NEG mg/dL LAB UROBN(LOINC) UROBILINOGEN MICHELLE 0.2 <1.1 eu/dL LAB BILEN(LOINC) BILIRUBIN MICHELLE Negative (qualifier value) NEG LAB BLURN(LOINC) BLOOD/HGB MICHELLE Trace Abnormal NEG Performed By: #### NUM #### [facility] ([id number]) [address] [place] [address] DRUG SCREEN, URINE Collected: 04/22/2024 9:50 PM Sta tus: COMPLETED Source: [facility] TYPE CODE TESTS RESULT OUT OF RANGE REFERENCE UNITS LAB AMPH(LOINC) AMPHETAMINE/METH A MP Positive (qualifier value) Abnormal NEG Result Comment: Confirmation available upon request. AMPH/METH screening cut off = 1000 ng/mL LAB HILDA(LOINC) BARBITURATES Negative (qualifier value) NEG Result Comment: Barbiturates screening cut off value = 200 ng/mL LAB BENZO(LOINC) BENZODIAZEPINES Negative (qualifier value) NEG Result Comment: Benzodiazepi dafne screening cut off value = 200 ng/mL LAB THC(LOINC) CANNABINOIDS Positive (qualifier value) Abnormal NEG Result Comment: Confirmation available upon request. Cannabinoids/THC screening cut off value = 50 ng/mL LAB COKE(LOINC) COCAINE METABOLITE Negative (qualifier value) NEG Result Comment: Cocaine scre ening cut off value = 300 ng/mL LAB OPIAT(LOINC) OPIATES Negative (qualifier value) NEG Result Comment: Opiates scre ening cut off value = 300 ng/mL NOTE: This test is used for the detection of codeine, hydrocodone (>1000 ng/mL), morphine and hydromorphone (>900 ng/mL) in urine. LAB PCP(LOINC) PHENCYCLIDINE Negative (qualifier value) NEG Result Comment: Phencyclidin e screening cut off value = 25 ng/mL LAB OXYX(LOINC) OXYCODONE Negative (qualifier value) NEG Result Comment: Oxycodone sc reening cut off value = 300 ng/mL NOTE: This test is used for the detection of oxycodone and oxymorphone in urine. LAB METH(LOINC) METHADONE Negative (qualifier value) NEG Result Comment: Methadone sc reening cut off value = 300 ng/mL. LAB MDMA(LOINC) ECSTASY Negative (qualifier value) NEG Result Comment: Ecstasy scre ening cut off value = 500 ng/mL This report is intended for use in clinical monitoring or management of patients. Performed By: #### DSU #### [facility] ([id number]) [address] [place] [address], [place] [address] 1 HOUR TROP I, HIGH SENSITIVITY Collected: 03/2024 8:19 PM Status: COMPLETED Source: [facility] TYPE CODE TESTS RESULT OUT OF RANGE REFERENCE UNITS LAB TNIHS1(LOINC) 1 HOUR TROP I, HIGH SENSITIVITY 58 High <16 ng/L Result Comment: Elevations of hs-Troponin may be due to causes other than myocardial ischemia. Recommend serial hs-Troponin testing be performed. For the initial evaluation and management of chest pain patients, refer to the algorithms linked below. Emergency Patient: [email or web address] Inpatient: [email or web address] Performed By: #### 86566-7 # ### [facility] ([id number]) [address] [place] [address], [place] [address] CBC AND AUTO DIFF Collected: 04/22/2024 7:03 PM Status: COMPLETED Source: [facility] TYPE CODE TESTS RESULT OUT OF RANGE REFERENCE UNITS LAB WBC(LOINC) WBC COUNT 6.1 4.0-11.0 X10E9/L LAB RBC(LOINC) RBC COUNT 4.14 3.80-5.20 X10E12/L LAB HGB(LOINC) HEMOGLOBIN 8.7 Low 11.7-15.5 g/dL LAB HCT(LOINC) HEMATOCRIT 28.4 Low 35-47 % LAB MCV(LOINC) MCV 69 Low 80-100 fL LAB MCH(LOINC) MCH 21.0 Low 27-34 pg LAB MCHC(LOINC) MCHC 30.6 Low 32-36 g/dL LAB RDW(LOINC) RDW 20.3 High 11.5-15.0 % LAB PLTC(LOINC) PLATELET COUNT 281 150-450 X10E9 /L LAB MPV(LOINC) MPV 7.0 7-12 fL LAB NEUT(LOINC) % NEUTROPHILS 58.4 % LAB LYMP(LOINC) % LYMPHOCYTES 27.5 % LAB MONO(LOINC) % MONOCYTES 10.2 % LAB EOS(LOINC) % EOSINOPHILS 3.2 % LAB BASO(LOINC) % BASOPHILS 0.7 % LAB ANEUT(LOINC) ABSOLUTE NEUTROPHIL 3.6 1.5-6.6 X10E9/L LAB ALYMP(LOINC) ABSOLUTE LYMPHOCYTE 1.7 1.0-3.5 X10E9/L LAB AMONO(LOINC) ABSOLUTE MONOCYTE 0.6 0-0.9 X10E9/L LAB AEOS(LOINC) ABSOLUTE EOSINOPHIL 0.2 0.0-0.4 X10E9/L LAB ABASO(LOINC) ABSOLUTE BASOPHIL 0.0 0.0-0.2 X10E9/L LAB ELLP(LOINC) OVALOCYTE 1+ Abnormal NONE Performed By: #### CBCA, BMP , 3040-3, LIVR, 25731-8, 19482-0 #### [facility] ([id number]) [address] [place] [address], [place] [address] #### FEPR, 2276-4, 2284-8, 2132-9 #### [facility] ([id number]) [address] [place] [address], [address] [place] [address] BASIC METABOLIC PANL Collected: 04/22/2024 7:03 PM Status: COMPLETED Source: [facility] TYPE CODE TESTS RESULT OUT OF RANGE REFERENCE UNITS LAB NA(LOINC) SODIUM 134 134-146 mmol/L LAB K(LOINC) POTASSIUM 3.4 Low 3.5-5.0 mmol/L LAB CL(LOINC) CHLORIDE 103 98-109 mmol/L LAB CO2(LOINC) CARBON DIOXIDE 27 22-32 mmol/L LAB AGAP(LOINC) ANION GAP 4 Low 5-15 mmol/L LAB BUN(LOINC) BLOOD UREA NITROGEN 16 5-23 mg/dL LAB CRET(LOINC) CREATININE 0.62 0.40-1.00 mg/dL Result Comment: METHOD TRACE ABLE TO IDMS STANDARD LAB GLU(LOINC) GLUCOSE 107 High 65-99 mg/dL LAB CA(LOINC) CALCIUM 7.9 Low 8.5-10.5 mg/dL LAB EGFR(LOINC) eGFR (CKD-EPI) NON-RACE DEPENDENT >90 >59 ml/min/1. 73sq.m Result Comment: Reported eGFR is based on the CKD-EPI 2020 equation that does not use a race coefficient. Performed By: #### CBCA, BMP , 3040-3, LIVR, 10837-2, 72101-7 #### [facility] ([id number]) [address] [place] [address] #### FEPR, 2276-4, 2284-8, 213-9 #### [facility] ([id number]) [address] [place] [address], [address] [address] LIPASE Collected: 04/22/2024 7:03 PM S tatus: COMPLETED Source: [facility] TYPE CODE TESTS RESULT OUT OF RANGE REFERENCE UNITS LAB LIPA(LOINC) LIPASE 43 High 17-40 U/L Performed By: #### QUYENA, FITZ , 3040-3, LIVR, 33253-7, 53862-7 #### [facility] ([id number]) [address] [place] [address] #### FEPR, 2276-4, 2284-8, 2131-9 #### [facility] ([id number]) [address] [place] [address], [address] [address] LIVER PANEL Collected: 04/22/2024 7:03 PM S tatus: COMPLETED Source: [facility] TYPE CODE TESTS RESULT OUT OF RANGE REFERENCE UNITS LAB ALK2(LOINC) ALKALINE PHOSPHATASE 78 39-130 U/L LAB AST2(LOINC) AST 16 0-41 U/L LAB ALT(LOINC) ALT 19 0-31 U/L LAB TBIL2(LOINC) BILIRUBIN, TOTAL 0.4 0.3-1.2 mg /dL LAB DBIL(LOINC) BILIRUBIN,DIRECT <0.1 0.0-0.4 mg/ dL LAB ALB2(LOINC) ALBUMIN 3.2 3.2-5.3 g/dL LAB TP2(LOINC) TOTAL PROTEIN 6.2 6.0-8.0 g/dL Performed By: #### CBCA, BMP , 3040-3, LIVR, 22241-3, 41659-1 #### [facility] ([id number]) [address] [place] [address] #### FEPR, 2276-4, 4-8, 9 #### [facility] ([id number]) [address] [place] [address], [address] [place] [address] TROPONIN I, HIGH SENSITIVITY Collected: 024 7:03 PM Status: COMPLETED Source: [facility] TYPE CODE TESTS RESULT OUT OF RANGE REFERENCE UNITS LAB TNIHS(LOINC) TROPONIN I, HIGH SENSITIVITY 61 High <16 ng/L Result Comment: Elevations of hs-Troponin may be due to causes other than myocardial ischemia. Recommend serial hs-Troponin testing be performed. For the initial evaluation and management of chest pain patients, refer to the algorithms linked below. Emergency Patient: [email or web address] Inpatient: [email or web address] Performed By: #### CBCA, BMP , 3040-3, LIVR, 87809-6, 40039-9 #### [facility] ([id number]) [address] [place] [address] #### FEPR, 2276-4, 2284-8, 9 #### [facility] ([id number]) [address] [place] [address], [address] [place] [address] D DIMER Collected: 4 7:03 PM Status: COMPLETED Source: [facility] TYPE CODE TESTS RESULT OUT OF RANGE REFERENCE UNITS LAB DDMR(LOINC) D DIMER 351 High <255 ng/mL DDU Result Comment: Results >=255ng/mL DDU: Results may be indicative of the presence of VTE. The use of the Wells score and further diagnostic tests should be considered. Elevated D-Dimer levels can also be associated with DIC, neoplasm, , trauma and liver disease. Elevated levels of rheumatoid factor may lead to an overestimation of the D-Dimer level. Performed By: #### CBCA, BMP , 3040-3, LIVR, 97376-0, 26895-6 #### [facility] ([id number]) [address] [place] [address] #### FEPR, 2276-4, 8, 2132-05 #### [facility] ([id number]) [address] [place] [address], [address] [place] [address] IRON PROFILE Collected: 7:03 PM Status: COMPLETED Source: [facility] TYPE CODE TESTS RESULT OUT OF RANGE REFERENCE UNITS LAB FE(LOINC) IRON 17 Low 50-170 ug/dL LAB TIBC(LOINC) IRON BINDING 419 250-425 ug/dL LAB SAT(LOINC) IRON SATURATION 4 Low 15-50 % SATURATION Performed By: #### CBCA, BMP , 3040-3, LIVR, 16553-1, 13664-8 #### [facility] ([id number]) [address] [place] [address] #### FEPR, 6-4, 2284-04, 2132-05 #### [facility] ([id number]) [address] [place] [address], [address] [place] [address] FERRITIN Collected: 04/22/2024 7:03 PM S tatus: COMPLETED Source: [facility] TYPE CODE TESTS RESULT OUT OF RANGE REFERENCE UNITS LAB FERR(LOINC) FERRITIN 4 Low 11-307 ng/mL Performed By: #### CBCA, BMP , 3040-3, LIVR, 33991-4, 35839-8 #### [facility] ([id number]) [address] [place] [address] #### FEPR, 2276-4, 8, 9 #### [facility] ([id number]) [address] [place] [address], [address] [place] [address] FOLIC ACID Collected: 04/22/2024 7:03 PM S tatus: COMPLETED Source: [facility] TYPE CODE TESTS RESULT OUT OF RANGE REFERENCE UNITS LAB FOLI(LOINC) FOLIC ACID 12.7 >5.8 ng/mL Result Comment: NEW REFERENC E RANGE Performed By: #### CBCA, BMP , 3040-3, LIVR, 00171-7, 27621-8 #### [facility] ([id number]) [address] [place] [address] #### FEPR, 2276-4, 2284-8, 2132-9 #### [facility] ([id number]) [address] [place] [address], [address] [place] [address] VITAMIN B12 Collected: 04/22/2024 7:03 PM S tatus: COMPLETED Source: [facility] TYPE CODE TESTS RESULT OUT OF RANGE REFERENCE UNITS LAB B12(LOINC) VITAMIN B12 205 180-914 pg/mL Performed By: #### CBCA, BMP , 3040-3, LIVR, 11444-9, 03181-7 #### [facility] ([id number]) [address] [place] [address] #### FEPR, 2276-4, 2284-8, 2132-9 #### [facility] ([id number]) [address] [place] [address], [address] [place] [address] XR CHEST 1 VW Observed: 04/22/2024 6:57 PM Status: COMPLETED Source: [facility] XR CHEST 1 VW HISTORY: A 44-year-old female with the history of the chest pain and hypertension. EXAM/TECHNIQUE: CHEST: Portable upright AP view COMPARISON: Comparison is made with prior chest examination of 05/16/2023. FINDINGS: Both lungs and costophrenic angles are clear. There is no evidence of pulmonary infiltrate or acute pulmonary pathology. The cardiac silhouette is within normal limits. The trachea is in midline. The mediastinum is otherwise unremarkable. The hemidiaphragms are normal in position. The bony rib cage is intact. IMPRESSION: * No evidence of pulmonary infiltrate, acute pulmonary pathology or significant interval change. Finalized by Morgan Sky MD on 04/22/2024 7:[address] ABDOMEN PELVIS W CON Observed: 2023 3:48 PM Status: COMPLETED Source: [facility] Main [place] [address] [place] [address] CT Scan Report Signed Patient: Ida Proctor MR#: [id number] 97 : 1980 Acct:[id number] Age/Sex: 44 / F ADM Date: 04/14/24 Loc: Room: [address] [place] [address] Type: ADM IN Attending Dr: Alex Daly MD Copies to: MD Frances Barroso APRN Ordering Provider: Frances Walsh APRN Date of Service: 04/18/24 CT/CT abdomen pelvis w con: abdominal pain, hx colitis CT Abdomen and Pelvis with contrast TECHNIQUE: Axial imaging with 2-D reconstruction.90 cc of Isovue-300. The CT exam was performed using one or more the following dose reduction techniques: Automated exposure control, adjustment of the MA and/or Kv according to patient size, or use of the iterative reconstruction technique. COMPARISON: None History: Generalized abdominal pain for 2 days. Nausea vomiting and diarrhea. LIMITATIONS: None LOWER THORAX Unremarkable LIVER: Hepatic steatosis hepatomegaly with length of 22.6 cm GALLBLADDER: Cholecystectomy clips identified. BILE DUCTS: No dilatation SPLEEN: Unremarkable PANCREAS: Unremarkable ADRENAL GLANDS: Unremarkable KIDNEYS:Unremarkable AORTA: No abdominal aortic aneurysm identified. RETROPERITONEUM: No significant retroperitoneal abnormalities identified. MESENTERY:Unremarkable SMALL BOWEL: The small bowel loops are nondistended. APPENDIX: The appendix is normal. COLON: Unremarkable URINARY BLADDER: Urinary bladder is unremarkable. REPRODUCTIVE SYSTEM: Reproductive structures are unremarkable. PNEUMOPERITONEUM: None PERITONEAL FLUID:None BONY STRUCTURES: Unremarkable ABDOMINAL WALL: Unremarkable CT/CT abdomen pelvis w con IMPRESSION: No acute findings. No bowel obstruction. Hepatic steatosis. Hepatomegaly Impression dictated by: Marc Rosado M.D.04/18/2024 3:51 PM Dictation Location: [place] [address] Transcribed By: [facility] 04/18/24 1551 Dictated By: Marc Rosado DO 04/18/24 1548 Signed By: <Electronically signed by Marc Rosado DO in OV> 04/18/24 1551 DIPSTICK AND MICROSCOPIC Collected: 11/2023 2:25 PM Status: F Source: [facility] Order Comment: Name Collecti on Type:: Clean-Voided Midstream TYPE CODE TESTS RESULT OUT OF RANGE REFERENCE UNITS LAB UCOL Color,Urine Light-Yellow Yellow LAB UAPP Appearance,Uri ne Cloudy Abnormal Alert Clear LAB USG Specificy [place],Urine 1.006 Normal 1.001-1.030 LAB UPH pH,Urine 5.5 Normal 5.0-9.0 LAB ULE Leukocyte Esterase,Urine Negative Negative LAB UNIT Nitrite,Urine Negative Negative LAB UPRO Protein,Urine Negative Negative LAB UGL Glucose,Urine (UA) Normal Normal LAB UKET Ketones,Urine Negative Negative LAB UURO Urobilinogen,U rine Normal Normal LAB UBIL Bilirubin,Urin e Negative Negative LAB UBLD Occult Blood,Urine Negative Negative Result Comment: PERFORMED BY : [place] [address] PATHOLOGIST SWITCH COUPLER ROCCO STOREY M.D. LAB URBC RBC,Urine 1-2 0-4 LAB UWBC WBC,Urine 1-2 0-4 LAB USQEPI Squamous Epithelial Cell,Urine 5-9 High 0-2 LAB UAMORPH CRYST Amorphous Crystal,Urine Rare LAB UBACT Bacteria,Urine Rare None Seen LAB UHYALC Hyaline Casts,Urine 0-8 0-8 LAB MUCUS Mucus,Urine Rare Result Comment: PERFORMED BY : [place] [address] PATHOLOGIST SWITCH COUPLER ROCCO STOREY M.D. Performed By: #### ADDONUAPL #### [address] BASIC METABOLIC PANEL Collected: 04/18/2024 5:48 AM Status: F Source: [facility] TYPE CODE TESTS RESULT OUT OF RANGE REFERENCE UNITS LAB GLU Glucose 94 Normal 70-100 mg/dL Result Comment: Random Gluco se Reference Range is dependent on time and content of last meal. Glucose of more than 200 mg/dL in a nonstressed, ambulatory subject supports the diagnosis of Diabetes Mellitus. ADA recommended reference range LAB BUN Blood Urea Nitrogen 22 Normal 7-25 mg/dL LAB CREATT Creatinine 0.75 Normal 0.60-1.20 mg/dL LAB GFReNR Estimated GFR > 60.0 LAB NA Sodium 138 Normal 136-145 mmol/L LAB K Potassium 4.0 Normal 3.5-5.1 mmol/L LAB CL Chloride 101 Normal 98-107 mmol/L LAB CO2 Carbon Dioxide 30.2 Normal 21.0-31.0 mmol/L LAB GAP Anion Gap 10.8 Normal 6.0-15.0 LAB CA Calcium 9.0 Normal 8.6-10.3 mg/dL LAB CRCLPHA Creatinine Clr Calc Pharmacy 144.97 Performed By: #### MG, CMP, BMP, HCGQNT, LIPASE #### [address] MAGNESIUM Collected: 5:48 AM Status: F Source: [facility] TYPE CODE TESTS RESULT OUT OF RANGE REFERENCE UNITS LAB MG Magnesium 2.1 Normal 1.9-2.7 mg/dL Result Comment: PERFORMED BY : [place] [address] PATHOLOGIST SWITCH COUPLER ROCCO STOREY M.D. Performed By: #### MG, CMP, BMP, HCGQNT, LIPASE #### [address] COMPREHENSIVE METABOLIC PANEL Collected: 04/18/2024 5 :48 AM Status: F Source: [facility] TYPE CODE TESTS RESULT OUT OF RANGE REFERENCE UNITS LAB GLU Glucose 94 Normal 70-100 mg/dL Result Comment: Random Gluco se Reference Range is dependent on time and content of last meal. Glucose of more than 200 mg/dL in a nonstressed, ambulatory subject supports the diagnosis of Diabetes Mellitus. ADA recommended reference range LAB BUN Blood Urea Nitrogen 22 Normal 7-25 mg/d L LAB CREATT Creatinine 0.75 Normal 0.60-1.20 mg/dL LAB GFReNR Estimated GFR > 60.0 LAB NA Sodium 138 Normal 136-145 mmol/L LAB K Potassium 4.0 Normal 3.5-5.1 mmol/L LAB CL Chloride 101 Normal 98-107 mmol/L LAB CO2 Carbon Dioxide 30.2 Normal 21.0-31.0 mmol/L LAB GAP Anion Gap 10.8 Normal 6.0-15.0 LAB CA Calcium 9.0 Normal 8.6-10.3 mg/dL LAB TP Total Protein 6.7 Normal 6.4-8.9 g/dL LAB ALB Albumin Level 3.7 Normal 3.5-5.7 g/dL LAB GLOB Globulin 3.0 g/dL LAB AGRATIO Albumin/Globulin Ratio 1.2 LAB BILIT Bilirubin,Total 0.8 Normal 0.3-1.0 mg/dL LAB AST Aspartate Amino Transferase 14 Normal 13-39 U/L LAB ALT Alanine Aminotransferase 14 Normal 7-52 U/L LAB ALP Alkaline Phosphatase 81 Normal 34-104 U/L LAB CRCLPHA Creatinine Clr C alc Pharmacy 144.97 Performed By: #### MG, CMP, BMP, HCGQNT, LIPASE #### [address] LIPASE Collected: 4 5:48 AM Status: F Source: [facility] TYPE CODE TESTS RESULT OUT OF RANGE REFERENCE UNITS LAB LIPASE Lipase 21.0 Normal 11.0-82.0 U/L Performed By: #### MG, CMP, BMP, HCGQNT, LIPASE #### [address] HCG,QUANTITATIVE Collected: 4 5:48 AM Status: F Source: [facility] TYPE CODE TESTS RESULT OUT OF RANGE REFERENCE UNITS LAB HCGQNT HCG,Quantit ative < 0.60 Result Comment: Approximate Approximate hCG Gestational Age Range (mIU/ml) (weeks) 0.2-1 5-50 1-2 50-500 2-3 100-5,000 3-4 500-10,000 4-5 1,000-50,000 5-6 10,000-100,000 6-8 15,000-200,000 8-12 10,000-100,000 PERFORMED BY: [place] [address] PATHOLOGIST SWITCH COUPLER ROCCO STOREY M.D. Performed By: #### MG, CMP, BMP, HCGQNT, LIPASE #### [facility] [address] SCAN AND CBC Collected: 04/18/2024 5:48 AM Status: F Source: [facility] Order Comment: PER RN TYPE CODE TESTS RESULT OUT OF RANGE REFERENCE UNITS LAB WBC White Blood Count 7.6 Normal 3.8-11.6 10*3/ uL LAB UNWBC Uncorrected WBC 7.6 Normal 3.8-11.6 10*3/uL LAB RBC Red Blood Count 5.04 High 3.60-5.00 LAB HGB Hemoglobin 10.2 Low 11.8-15.4 g/dL LAB HCT Hematocrit 34.7 Normal 34.0-46.4 % LAB MCV Mean Corpuscular Volume 68.8 Low 80-100 fL LAB MCH Mean Corpuscular Hemoglobin 20.3 Low 24.7-34.3 pg LAB MCHC Mean Corpuscular HGB Conc 29.5 Low 32.0-35.0 g/dL LAB RDW Red Cell Distribution Width 20.1 High 11.9-15.3 % LAB PLT Platelet Count 353 Normal 150-450 10*3/uL LAB MPV Mean Platelet Volume 7.5 Normal 6.3-10.7 fL LAB NE% Neutrophils % (Auto) 56.5 . % LAB LY% Lymphocytes % (Auto) 29.2 . % LAB MO% Monocytes % (Auto) 11.2 . % LAB EO% Eosinophils % (Auto) 2.1 . % LAB BA% Basophils % (Auto) 1.0 . % LAB NRBC% NRBC% 0.1 Normal 0-0.5 /100{WBC } LAB NE# Neutrophils # (Auto) 4.3 Normal 1.8-7.7 10*3/uL LAB LY# Lymphocytes # (Auto) 2.2 Normal 1.00-4.8 10*3/uL LAB MO# Monocytes # (Auto) 0.9 High 0.0-0.8 10*3/ uL LAB EO# Eosinophils # (Auto) 0.2 Normal 0.0-0.45 10*3/uL LAB BA# Basophils # (Auto) 0.1 Normal 0.0-0.2 10*3/ uL LAB POLY Polychromasia Slight LAB HYPO Hypochromasia Slight LAB POIK Poikilocytosis Slight LAB ANISO Anisocytosis Moderate LAB MICR Microcytosis Moderate LAB OVAL Ovalocytes Slight LAB CREN Crenated RBC Slight LAB PLT EST Platelet Estimate Normal Normal LAB PLTM Platelet Morphology Normal Normal Result Comment: PERFORMED BY : [place] [address] PATHOLOGIST SWITCH COUPLER ROCCO STOREY M.D. Performed By: #### SCAN CBC #### [facility] [address] [place] [address] ECG 12 LEAD ECG Observed: 04/15/2024 7:20 AM Status: COMPLETED Source: [facility] Main [place] [address] [place] [address] Electrocardiograph Report Signed Patient: Ida Proctor MR#: [id number] 97 : 1980 Acct:[id number] Age/Sex: 44 / F ADM Date: 04/14/24 Loc: Room: [address] [place] [address] Type: ADM IN Attending Dr: Alex Daly [...] in Lateral leads Confirmed by AISHA ACE FACCABENA ([id number]) on 04/15/2024 4:26:32 PM Referred By: Electronically Signed By: ABENA LEONARD MD FACC Transcribed By: MUS Signed By Abena Leonard MD, FACC 04/15/24 8910 LIPID PANEL Collected: 04/15/2024 6:26 AM Status: F Source: [facility] Order Comment: FASTING Y TYPE CODE TESTS RESULT OUT OF RANGE REFERENCE UNITS LAB CHOL Cholesterol 151 Normal 140-200 mg/dL Result Comment: Chol less th an 200 mg/dl low risk Chol 201-239 mg/dl borderline risk Chol 240 mg/dl and greater high risk LAB HDL HDL Cholesterol 44 Normal 23-92 mg/dL Result Comment: HDL CHOL ATP -III CLASSIFICATION Cardiovascular Risk HDL > or equal to 60 mg/dL LOW HDL < 40 mg/dL HIGH LAB TRIG W REF Triglyceride w/Reflex 156 High 0-149 mg/dL Result Comment: TRIG ATP III CLASSIFICATION TRIG less than 150 mg/dL Normal TRIG 150-199 mg/dL Borderline high TRIG 200-500 mg/dL High TRIG greater than 500 mg/dL Very high Standard traceable to the Center for Disease Conrtrol and Prevention (CDC) test method. LAB LDLC LDL Cholesterol,Calc ulated 76 Normal 0-100 mg/dL Result Comment: LDL ATP III CLASSIFICATION LDL less than 100 mg/dL Optimal LDL 100-129 mg/dL Near or above optimal LDL 130-159 mg/dL Borderline high LDL 160-189 mg/dL High LDL greater than 189 mg/dL Very high LAB VLDL VLDL CHOLESTEROL 31 mg/dL LAB CHLHDL Chol/HDL Ratio 3.4 <5.0 Performed By: #### TSH3 wRFL X, T4F, [id number], LIPID #### [facility] [address] FREE T4 (FREE THYROXINE) Collected: 6:26 AM Status: F Source: [facility] Order Comment: FASTING Y TYPE CODE TESTS RESULT OUT OF RANGE REFERENCE UNITS LAB T4F Free T4 (Free Thyroxine) 0.79 Normal 0.61-1.12 ng/dL Performed By: #### TSH3 wRFL X, T4F, [id number], LIPID #### [facility] [address] THYROID STIM HORMONE W/RFLX Collected: 04/15/2024 6:26 AM Status: F Source: [facility] Order Comment: FASTING Y TYPE CODE TESTS RESULT OUT OF RANGE REFERENCE UNITS LAB TSH3 wRFLX Thyroid Stim Hormone w/Rflx 5.98 High 0.45-5.33 u[iU]/mL Performed By: #### TSH3 wRFL X, T4F, [id number], LIPID #### [facility] [address] [place] [address] [facility] VITAMIN D 25 HYDROXY TOTAL Collected: 04/15/2024 6:26 AM Status: F Source: [facility] Order Comment: FASTING Y TYPE CODE TESTS RESULT OUT OF RANGE REFERENCE UNITS LAB [id number] Vitamin D 25 Hydroxy Total 14.2 Low 30-100 ng/mL Result Comment: VITAMIN D ST ATUS 25(OH)VITAMIN D RANGE (ng/mL) Deficient <20 Insufficient 20 to <30 Sufficient 30 to 100 Reference: Mike MF,Jonnie NC, Mariana YOUNG, et al. Evaluation,treatment, and prevention of vitamin D deficiency; an Endocrine Society clinical practice guideline. JCEM. 2010; 96(7):1911-30. PERFORMED BY: [place] [id number] PATHOLOGIST SWITCH COUPLER ROCCO STOREY M.D. Performed By: #### TSH3 wRFL X, T4F, [id number], LIPID #### [facility] [address] [place] [address] [facility] DRUG SCREEN, URINE Collected: 04/14/2024 9:20 AM Sta tus: COMPLETED Source: [facility] TYPE CODE TESTS RESULT OUT OF RANGE REFERENCE UNITS LAB AMPH(LOINC) AMPHETAMINE/METH A MP Positive (qualifier value) Abnormal NEG Result Comment: Confirmation available upon request. AMPH/METH screening cut off = 1000 ng/mL LAB HILDA(LOINC) BARBITURATES Negative (qualifier value) NEG Result Comment: Barbiturates screening cut off value = 200 ng/mL LAB BENZO(LOINC) BENZODIAZEPINES Negative (qualifier value) NEG Result Comment: Benzodiazepi dafne screening cut off value = 200 ng/mL LAB THC(LOINC) CANNABINOIDS Positive (qualifier value) Abnormal NEG Result Comment: Confirmation available upon request. Cannabinoids/THC screening cut off value = 50 ng/mL LAB COKE(LOINC) COCAINE METABOLITE Negative (qualifier value) NEG Result Comment: Cocaine scre ening cut off value = 300 ng/mL LAB OPIAT(LOINC) OPIATES Negative (qualifier value) NEG Result Comment: Opiates scre ening cut off value = 300 ng/mL NOTE: This test is used for the detection of codeine, hydrocodone (>1000 ng/mL), morphine and hydromorphone (>900 ng/mL) in urine. LAB PCP(LOINC) PHENCYCLIDINE Negative (qualifier value) NEG Result Comment: Phencyclidin e screening cut off value = 25 ng/mL LAB OXYX(LOINC) OXYCODONE Negative (qualifier value) NEG Result Comment: Oxycodone sc reening cut off value = 300 ng/mL NOTE: This test is used for the detection of oxycodone and oxymorphone in urine. LAB METH(LOINC) METHADONE Negative (qualifier value) NEG Result Comment: Methadone sc reening cut off value = 300 ng/mL. LAB MDMA(LOINC) ECSTASY Negative (qualifier value) NEG Result Comment: Ecstasy scre ening cut off value = 500 ng/mL This report is intended for use in clinical monitoring or management of patients. Performed By: #### DSU #### [facility] ([id number]) [address] [place] [address] URINE NURSING Collected: 04/14/2024 2 :57 AM Status: COMPLETED Source: [facility] TYPE CODE TESTS RESULT OUT OF RANGE REFERENCE UNITS LAB NUCG(LOINC) URINE NURSING Negative (qualifier value) NEG Performed By: #### 2106-3 ## ## [facility] ([id number]) [address] [place] [address] URN MACROSCOPIC MICHELLE Collected: 04/14/2024 2:54 AM Status: COMPLETED Source: [facility] TYPE CODE TESTS RESULT OUT OF RANGE REFERENCE UNITS LAB SPGRN(LOINC) SPECIFIC GRAVITY MICHELLE >=1.030 1.003-1.035 LAB LESTN(LOINC) LEUKOCYTE ESTERASE MICHELLE Negative (qualifier value) NEG LAB NITN(LOINC) NITRITE MICHELLE Negative (qualifier value) NEG LAB PHURN(LOINC) PH MICHELLE 5.5 5.0-8.5 LAB PRURN(LOINC) PROTEIN MICHELLE 100 Abnormal NEG mg/dL LAB GLURN(LOINC) GLUCOSE MICHELLE Negative (qualifier value) NEG mg/dL LAB KETN(LOINC) KETONES MICHELLE 15 Abnormal NEG mg/dL LAB UROBN(LOINC) UROBILINOGEN MICHELLE 1.0 <1.1 eu/dL LAB BILEN(LOINC) BILIRUBIN MICHELLE Small Abnormal NEG LAB BLURN(LOINC) BLOOD/HGB MICHELLE Negative (qualifier value) NEG Performed By: #### NUM #### [facility] ([id number]) [address] [place] [address], [place] [address] CBC AND AUTO DIFF Collected: 04/14/2024 2:45 AM Status: COMPLETED Source: [facility] TYPE CODE TESTS RESULT OUT OF RANGE REFERENCE UNITS LAB WBC(LOINC) WBC COUNT 10.9 4.0-11.0 X10E9/L LAB RBC(LOINC) RBC COUNT 5.00 3.80-5.20 X10E12/L LAB HGB(LOINC) HEMOGLOBIN 10.3 Low 11.7-15.5 g/dL LAB HCT(LOINC) HEMATOCRIT 34.0 Low 35-47 % LAB MCV(LOINC) MCV 68 Low 80-100 fL LAB MCH(LOINC) MCH 20.5 Low 27-34 pg LAB MCHC(LOINC) MCHC 30.1 Low 32-36 g/dL LAB RDW(LOINC) RDW 20.4 High 11.5-15.0 % LAB PLTC(LOINC) PLATELET COUNT 420 150-450 X10E9 /L LAB MPV(LOINC) MPV 7.5 7-12 fL LAB NEUT(LOINC) % NEUTROPHILS 67.6 % LAB LYMP(LOINC) % LYMPHOCYTES 21.4 % LAB MONO(LOINC) % MONOCYTES 7.9 % LAB EOS(LOINC) % EOSINOPHILS 2.3 % LAB BASO(LOINC) % BASOPHILS 0.8 % LAB ANEUT(LOINC) ABSOLUTE NEUTROPHIL 7.3 High 1.5-6.6 X10E9/L LAB ALYMP(LOINC) ABSOLUTE LYMPHOCYTE 2.3 1.0-3.5 X10E9/L LAB AMONO(LOINC) ABSOLUTE MONOCYTE 0.9 0-0.9 X10E9/L LAB AEOS(LOINC) ABSOLUTE EOSINOPHIL 0.2 0.0-0.4 X10E9/L LAB ABASO(LOINC) ABSOLUTE BASOPHIL 0.1 0.0-0.2 X10E9/L Performed By: #### RASHEEDA CHANG , 3298-7, 5643-2, 4024-6 #### [facility] ([id number]) [address] [place] [address] COMPREHENSIVE METABOLIC PANEL Collected: 2023 2:45 AM Status: COMPLETED Source: [facility] TYPE CODE TESTS RESULT OUT OF RANGE REFERENCE UNITS LAB NA(LOINC) SODIUM 139 134-146 mmol/L LAB K(LOINC) POTASSIUM 3.3 Low 3.5-5.0 mmol/L LAB CL(LOINC) CHLORIDE 101 98-109 mmol/L LAB CO2(LOINC) CARBON DIOXIDE 28 22-32 mmol/L LAB AGAP(LOINC) ANION GAP 10 5-15 mmol/L LAB BUN(LOINC) BLOOD UREA NITROGEN 15 5-23 mg/dL LAB CRET(LOINC) CREATININE 0.78 0.40-1.00 mg/dL Result Comment: METHOD TRACE ABLE TO IDMS STANDARD LAB GLU(LOINC) GLUCOSE 136 High 65-99 mg/dL LAB CA(LOINC) CALCIUM 9.1 8.5-10.5 mg/dL LAB TP(LOINC) TOTAL PROTEIN 8.1 High 6.0-8.0 g/dL LAB ALB(LOINC) ALBUMIN 3.8 3.2-5.3 g/dL LAB ALK(LOINC) ALKALINE PHOSPHATASE 107 39-130 U/L LAB AST(LOINC) AST 31 0-41 U/L LAB ALT1(LOINC) ALT 20 0-31 U/L LAB TBIL(LOINC) BILIRUBIN,TOTAL 0.5 0.3-1.2 mg/d L LAB EGFR(LOINC) eGFR (CKD-EPI) NON-RACE DEPENDENT >90 >59 ml/min/1 .73sq.m Result Comment: Reported eGFR is based on the CKD-EPI 2020 equation that does not use a race coefficient. Performed By: #### RASHEEDA CHANG , 3298-7, 5643-2, 4024-6 #### [facility] ([id number]) [address] [place] [address] ACETAMINOPHEN Collected: 04/14/2024 2:45 AM Status: COMPLETED Source: [facility] TYPE CODE TESTS RESULT OUT OF RANGE REFERENCE UNITS LAB ACETA(LOINC) ACETAMINOPHEN 5.3 Low 10.0-30.0 ug/ mL Result Comment: Reference ra nges are for therapeutic limits. Performed By: #### RASHEEDA CHANG , 3298-7, 5643-2, 4024-6 #### [facility] ([id number]) [address] [place] [address] ETHANOL Collected: 04/14/2024 2:45 AM S tatus: COMPLETED Source: [facility] TYPE CODE TESTS RESULT OUT OF RANGE REFERENCE UNITS LAB ALCO(LOINC) ETHANOL <0.01 0.00-0.08 g/dL Result Comment: This report is intended for use in clinical monitoring or management of patients. Performed By: #### RASHEEDA CHANG , 3298-7, 5643-2, 4024-6 #### [facility] ([id number]) [address] [place] [address] SALICYLATE Collected: 04/14/2024 2:45 AM S tatus: COMPLETED Source: [facility] TYPE CODE TESTS RESULT OUT OF RANGE REFERENCE UNITS LAB SALI(LOINC) SALICYLATE <4.0 2.0-25.0 mg/dL Result Comment: Reference ra nges are for therapeutic limits. Performed By: #### RASHEEDA CHANG , 3298-7, 5643-2, 4024-6 #### [facility] ([id number]) [address] [place] [address] ALLERGIES DATE TYPE / CODE NAME / CODE REACTION SEVERITY SOURCE 05/13/2024 Drug Class/770444 003(SNOMED CT) PENICILLINS ANAPHYLAXIS [facility] 04/14/2024 Drug Allergy/4160 13907(SNOMED CT) amoxicillin/B084428 675(RXNORM) Difficulty Breathing Unknown [facility] 12/06/2022 DRUG INGREDI~NON- CBORD/372116 003(SNOMED CT) AMOXICILLIN Med [facility] 01/28/2018 Drug Class~NON-CB ORD/52861398 3(SNOMED CT) PENICILLINS [facility] Drug Allergy/4160 42290(SNOMED CT) PENICILLINS/476(RXN ORM) [place] ENCOUNTERS ADMIT/DISCHARGE ACCOUNT NUMBER ADMITTING ENCOUNTER CLASS LOCATION SOURCE 01/31/2025/ 025 [id number] Emergency Building:[facility] Room: 06Bed: 06 [facility] 01/28/2025/ 025 [id number] Emergency Building:PFM _EDRoom: 8Bed: 08 [facility] 01/27/2025/ 025 [id number] Emergency Building:[facility] Room: 04Bed: 04 [facility] 01/26/2025/ 025 [id number] Emergency Building:[place] Room: OTFBed: MASTER [facility] 01/21/2025/ 025 [id number] Ambulatory Buildin 4 [facility] 01/20/2025/ 025 [id number] Ambulatory Buildin 37 [facility] 01/08/2025/ 025 [id number] PARAS FELIX Inpatient Encounter Building:PFM _ACUTERoom: 212Bed: 01 [facility] 10/08/2024/ 025 [id number] Ambulatory Building:[facility] 08/18/2024/ 024 [id number] Ambulatory Building:[facility] 07/15/2024/ 024 [id number] Ambulatory Buildin 42 [facility] 07/08/2024 [id number] Ambulatory Building:k [facility] 06/30/2024/ 024 [id number] Ambulatory Building:PTH _PML [facility] 06/30/2024/ 024 [id number] Amb[address] Buildin 31 [facility] 05/14/2024/ 024 [id number] [facility] 05/14/2024/ 024 [id number] [facility]SH[facility] 05/13/2024 [id number] [facility]FRANKIECindilisa m: EDBed: 04 [facility] 04/24/2024/ 024 [id number] Ambulatory Building:Dev lacRoom: Room GBed: G2 [place] 04/22/2024/ 024 [id number] Emergency Building:PFM _XR [facility] 04/22/2024/ 024 [id number] MELANIE SAM Ambulatory Building:PFM _ACUTERoom: 204Bed: 01 [facility] 04/14/2024 [id number] Alex Daly [facility] ng:BHCREDIBL E [facility] 04/14/2024/ 024 [id number] Alex Daly [facility] nSRoom: [id number]: 2 [facility] 04/14/2024/ 024 [id number] Emergency Building:PFM _EDRoom: 4Bed: 04 [facility] 03/18/2024/ 024 [id number] Emergency Building:PFM _EDRoom: 1Bed: 01 [facility] PAYERS ENCOUNTER GUARANTOR PAYER SUBSCRIBER SOURCE 01/31/2025 IDA DOMÍNGUEZ: [place], [place] [address]Cne: (HP) Primary Insurance:[facility] [employer]ontal[employer] TechnologiesCh[facility] Hospital Number: [id number] Date:2024-07-17 IDA DOMÍNGUEZ: [id number] [place], [place] [address]Vio: (HP) [facility] 01/28/2025 IDA DOMÍNGUEZ: [place], [place] [address]Rmu: (HP) Primary Insurance:[facility] MEDICAIDPolicy Number: [id number] Date:2024-07-17 IDA Carey JOSESITOB: [id number] [place], [place] [address]Vlj: (HP) () [facility] 01/27/2025 IDA Cherry BELLAMYB: [place], [place] [address]Pfp: (HP) Primary Insurance[facility] Number: [id number] Date:2024-07-17 IDA Cherry BELLAMYB: [id number] [place], [place] [address]Aum: (HP) [facility] 01/26/2025 IDA Cherry BELLAMYB: [place], [place] [address]Nbi: (HP) Primary Insurance:[facility] Number: [id number] Date:2024-07-17 IDA Carey JOSESITOB: [id number] [place], [place] [address]Lrz: (HP) [facility] 01/21/2025 IDA Cherry BELLAMYB: [place], [place] [address]Zpa: (HP) Primary Insurance:[facility] MEDICAIDPolicy Number: [id number] Date:2024-07-17 IDA Cherry DOMÍNGUEZ: [id number] [place], [place] [address]Axy: (HP) [facility] 01/20/2025 IDA Cherry BELLAMYB: [place], [place] [address]Ubp: (HP) Primary Insurance:[facility] MEDICAIDPolicy Number: [id number] Date:2024-07-17 IDA Carey JOSESITOB: [id number] [place], [place] [address]Kzf: (HP) [facility] 01/08/2025 IDA Carey JOSESITOB: [place], [place] [address]Ysn: (HP) Primary Insurance:[facility] MEDICAIDPolicy Number: [id number] Date:2024-07-17 IDA Carey OJSESITOB: [id number] [place], [place] [address]Fqh: (HP) [facility] 10/08/2024 IDA Carey JOSESITOB: [place], [place] [address]Dws: (HP) Primary Insurance:[facility] Number: [id number] Date:2024-07-17 IDA Carey JOSESITOB: [id number] [place], [place] [address]Soz: (HP) [facility] 08/18/2024 IDA BELLAMYB: [address] [address]Qku: (HP) Primary Insurance:[facility] BILLINGPolicy Number: [id number] Date:2024-08-18 IDA Cherry BELLAMYB: [id number] [address] [address]Zny: (HP) [facility] 07/15/2024 IDA BELLAMYB: [address] [address]Qmi: (HP) Primary Insurance:[employer]UN Godoy Number: [id number] Date:2023-12-16 IDA DOMÍNGUEZ: [id number] [address] [place] [address]Rpk: () [facility] 06/30/2024 IDA PROCTORB: [address] [place] [address]Jty: (HP) Primary Insurance:[employer] Godoy Number: [id number] Date:2023-12-16 IDA PROCTORB: [id number] [address] [place] [address]Wag: () [facility] 06/30/2024 IDA PROCTORB: [address] [place] [address]Idd: (HP) Primary Insurance:[employer]UN Godoy Number: [id number] Date:2023-12-16 IDA PROCTORB: [id number] [address] [place] [address]Cnk: (HP) [facility] 05/14/2024 Primary Insuranc e:[place] MEDICAIDPolicy Number: [id number] Date:7018-01-64Ucnl Name:Noman BELLAMYDavid: [id number] [address] [facility] 05/14/2024 Primary Insuranc e:[place] MEDICAIDPolicy Number: [id number] Date:5637-17-00Jmaw Name:Noman DOMÍNGUEZ: [id number], [place] [address] [facility] 04/24/2024 Primary Insurance:Kaykay (FLORES)Policy Number: [id number] Date:2023-12-16 Ida Carey JosesitoB: [id number] [address] [place] [address] [place] 04/24/2024 Secondary Insurance:Kaykay (COM)Policy Number: [id number] Date:2023-12-16 Ida BellamyB: [id number] [address] [place] [address] [place] 04/22/2024 IDA BELLAMYB: [address] [place] [address]Hxo: (HP) Primary Insurance:[facility] S[employer]VER ADVANTAGEPolicy Number: [id number] Date:2023-02-14 IDA BELLAMYB: [id number] [address] [place] [address]Yiw: (HP) (WP) [facility] 04/22/2024 IDA BELLAMYB: [address] [place] [address]Zrt: (HP) Primary Insurance:[facility] ADVANTAGEPolicy Number: [id number] Date:2023-02-14 IDA BELLAMYB: [id number] [address] [place] [address]Zux: (HP) (WP) [facility] 04/14/2024 Ida Joy [address] [place] [address]Rib: (HP) Primary Insurance:Self PayPolicy Number: Effective Date:2024-04-14 [facility]24 Ida [id number] [place] [address]Tzu: (HP) Primary Insurance:Arun Mccracken ACAPolicy Number: [id number] Date:2024-04-14 Ida BellamyB: [id number] [address] [place] [address]Ppe: (HP) [facility] 04/14/2024 Secondary Insurance:Self PayPolicy Number: Effective Date:2024-04-14 NOT GIVENUNK [facility] 04/14/2024 IDA Carey CATRACHITA: [address] [address]Gxv: (HP) Primary Insurance:[facility] SILVER ADVANTAGEPolicy Number: [id number] Date:2023-02-14 IDA Carey JOSESITOB: [id number] [address] [place] [address]Fmi: () () [facility] 03/18/2024 IDA Carey JOSESITOB: [address] [place] [address]Wka: () Primary Insurance:[facility] SILVER ADVANTAGEPolicy Number: [id number] Date:2023-02-14 IDA Carey CATRACHITA: [id number] [address] [place] [address]Ted: () () [facility]
--- OUTSIDE RECORDS SUMMARY | 2025-01-31 09:18 | XMS_ITS | Encounter Summary ---
Author Organization [facility]AKassi Address [address] [place] [address] Care Team Providers Care Wind Project Manager Name Role Phone Butch Chopra SALESPERSON [employer]ERE[employer] EQUIPMENT - ASSISTANT GOLF PROFESSIONAL Primary Care Pro vider Reason for Visit * Reason Comments Abdominal Pain RUQ pain started 5 d ays ago, patient reports dark stool two days ago and episode of vomiting today. Encounter Details Date Type Department Care Team (Late st Contact Info) Description 01/31/2025 9:18 AM EDT - 01/31/2025 3:19 PM EDT [facility] [address] [place] [address] Blanche Roberts, DO [address] [place] [phone] Abdominal pain, unspecified abdominal location (Primary Dx) Discharge Disposition: Home or Self Care Social History Tobacco Use Types Packs/Day Years Used Date Smoking Tobacco: Every Day Cigarettes Smokeless Tobacco: Never Alcohol Use Standard Drinks/Week Comments No 0 (1 standard drink = 0.6 oz pur e alcohol) AUDIT-C Answer Date Recorded Q1: How often do you have a drink containing alcohol? Never 01/31/2025 Q2: How many drinks containi ng alcohol do you have on a typical day when you are drinking? Patient does not drink Q3: How often do you have si x or more drinks on one occasion? Never 01/31/2025 Comments No Sex and Gender Information Value Date Recorded Sex Assigned at Not on file Legal Sex Female 9:59 AM EST Gender Identity Not on file Sexual Orientation Not on file documented as of this encounter Last Filed Vital Signs Vital Sign Reading Time Taken Comments Blood Pressure 186/90 01/31/2025 9:23 AM EDT Pulse 83 01/31/2025 9:23 AM EDT Temperature 36.6 C (97.9 F) 01/31/2025 9:23 AM EDT Respiratory Rate 20 01/31/2025 9:23 AM EDT Oxygen Saturation 95% 01/31/2025 2:45 PM EDT Inhaled Oxygen Concentration - - Weight - - Height - - Body Mass Index - - documented in this encounter Functional Status documented as of this encounter Discharge Instructions * Discharge Instructions* Blanche Roberts DO - 01/31/2025 2:55 PM EDT Please take Bentyl to help with pain, and the Protonix follow-up with your primary care provider for further evaluation for possible GI referral return to the ER for worsening abdominal pain, persistent nausea vomiting. documented in this encounter Medications at Time of Discharge dicyclomine (BENTYL) 10 MG capsule Take 1 capsule by mouth 4 times daily (before meals and nightly) 20 capsule 01/31/2025 pantoprazole (PROTONIX) 20 MG tablet Take 1 tablet by mouth daily 30 tablet 01/31/2025 lisinopril-hydroCHLO ROthiazide (PRINZIDE;ZESTORETIC ) 20-12.5 MG per [...] as of this encounter Plan of Treatment Pending Results Name Type Priority Associated Diagnoses Date /Time SPECIMEN REJECTION Lab Routine 2024 9:40 AM EDT Scheduled Orders Name Type Priority Associated Diagnoses Orde r Schedule SPECIMEN REJECTION Lab Routine Once f or 1 Occurrences starting 01/31/2025 until 01/31/2025 documented as of this encounter Procedures Procedure Name Priority Date/Time Associated Diagnosis Comments URINALYSIS WITH REFLEX TO CULTURE STAT 01/31/2025 11:48 AM EDT MICROSCOPIC URINALYSIS Routine 01/31/2025 11:[address] ABDOMEN PELVIS W IV CONTRAST STAT 01/31/2025 11:35 AM EDT CBC WITH AUTO DIFFERENTIAL Stat [employer] Label print 01/31/2025 10:20 AM EDT HCG, SERUM, QUALITATIVE Add-On 01/31/2025 9:40 AM EDT LIPASE STAT 01/31/2025 9:40 AM EDT HEPATIC FUNCTION PANEL STAT 01/31/2025 9:40 AM EDT BASIC METABOLIC PANEL STAT 01/31/2025 9:40 AM EDT documented in this encounter Results * (ABNORMAL) Microscopic Urinalysis (01/31/2025 11:48 AM EDT) WBC, UA 0 TO 2 0 - 5 /HPF 01/31/2025 11:48 AM EDT [facility] RBC, UA 0 TO 2 0 - 2 /HPF 01/31/2025 11:48 AM EDT [facility] Casts UA 0 TO 2 HYALINE /LPF 01/31/2025 11:48 AM EDT [facility] Epithelial Cells, UA 2 TO 5 0 - 25 /HPF 01/31/2025 11:48 AM EDT [facility] Mucus, UA 2+(A) None 01/31/2025 11:48 AM EDT [facility] Amorphous, UA 2+(A) None 01/31/2025 11:48 AM EDT [facility] 01/31/2025 11:4 8 AM EDT 01/31/2025 11:52 AM EDT us Blanche Roberts DO URINE ORDERABLES Final Resu lt [facility] [address] [id number], [facility] [phone] * Urinalysis with Reflex to Culture (01/31/2025 11:48 AM EDT) Color, UA Yellow Yellow 01/31/2025 11:48 AM EDT [facility] Turbidity UA Clear Clear 01/31/2025 11:48 AM EDT [facility] Glucose, Ur NEGATIVE NEGATIVE mg/dL 01/31/2025 11:48 AM EDT [facility] Bilirubin, Urine NEGATIVE NEGATIVE 01/31/[facility]25 [facility] Ketones, Urine NEGATIVE NEGATIVE mg/dL 01/31/2025 11:48 AM EDT [facility] Specific [place], UA 1.015 1.010 - 1.020 01/31/2025 11:48 AM EDT [facility] Urine Hgb NEGATIVE NEGATIVE 01/31/2025 11:48 AM T [facility] pH, Urine 6.5 5.0 - 9.0 01/31/2025 11:48 [facility] Protein, UA NEGATIVE NEGATIVE mg/dL 01/31/2025 11:48 AM T [facility] Urobilinogen, Urine Normal 0.0 - 1.0 EU/dL 01/31/2025 11:48 AM EDT [facility] Nitrite, Urine NEGATIVE NEGATIVE 01/31/2025 11:48 AM EDT [facility] Leukocyte Esterase, Urine NEGATIVE NEGATIVE 01/31/2025 11:48 AM [facility] Urine 01/31/2025 11:4 8 AM EDT 01/31/2025 11:52 AM EDT us Blanche R Roberts DO URINE ORDERABLES Final Resu lt [facility] [address] [phone] * CT ABDOMEN PELVIS W IV CONTRAST Additional Contrast? None (01/31/2025 11:35 AM EDT) Anatomical Region Laterality Modality Abdomen, Pelvis, Hip Computed To mography 01/31/2025 2:39 PM EDT Impressions 01/31/2025 2:43 PM EDT No acute intra-abdominal or intrapelvic abnormalities are noted. Hepatomegaly and fatty infiltration of the liver Narrative 01/31/2025 2:43 PM EDT EXAMINATION: CT OF THE ABDOMEN AND PELVIS [...] containing umbilical hernia.. No acute bony abnormalities. Procedure Note Jesse Venegas MD - 01/31/2025 EXAMINATION: CT OF THE ABDOMEN AND PELVIS WITH CONTRAST 01/31/2025 8:24 am TECHNIQUE: CT of the abdomen and pelvis was performed with the administration of intravenous contrast. Multiplanar reformatted images are provided forreview. Automated exposure control, iterative reconstruction, and/or weightbased adjustment of the mA/kV was utilized to reduce the radiation dose to aslow as reasonably achievable. COMPARISON: None. HISTORY: ORDERING SYSTEM PROVIDED HISTORY: upper abdominal pain. priorcholecystecomy TECHNOLOGIST PROVIDED HISTORY: upper abdominal pain. prior cholecystecomy Decision Support Exception - unselect if not a suspected or confirmed emergency medical condition->Emergency Medical Condition (MA) FINDINGS: Lower Chest: Lung bases are clear. Organs: Liver is enlarged in size with decreased density. No focalmasses identified. No evidence of intrahepatic ductal dilatation. Spleen is normal size. The gallbladder is surgically absent. Both adrenal glandsare normal. Pancreas is normal in appearance. . The kidneys are normal insize and attenuation without evidence of hydronephrosis or renal calculi. GI/Bowel: The visualized bowel and mesentery show no mass lesions. Mild colonic diverticulosis. No evidence of diverticulitis. Normal appendix Pelvis: No intrapelvic mass is identified. Bladder and rectum areintact. Peritoneum/Retroperitoneum: No free fluid. No lymphadenopathy. No evidenceof pneumoperitoneum. Bones/Soft Tissues: Small fat containing umbilical hernia.. No acutebony abnormalities. IMPRESSION: No acute intra-abdominal or intrapelvic abnormalities are noted. Hepatomegaly and fatty infiltration of the liver us Blanche Roberts DO IMG CT ORDERABLES Final Res ult * (ABNORMAL) CBC with Auto Differential (01/31/2025 10:20 AM EDT) WBC 6.4 3.5 - 11.3 k/uL 01/31/2025 10:20 AM T [facility] RBC 4.50 3.95 - 5.11 m/uL 01/31/2025 10:20 AM [facility] Hemoglobin 10.6(L) 11.9 - 15.1 g/dL 01/31/2025 10:20 AM [facility] Hematocrit 35.4(L) 36.3 - 47.1 % 01/31/2025 10:20 AM [facility] MCV 78.7(L) 82.6 - 102.9 fL 01/31/2025 10:20 AM [facility] MCH 23.6(L) 25.2 - 33.5 pg 01/31/2025 10:20 AM [facility] MCHC 29.9 28.4 - 34.8 g/dL 01/31/2025 10:20 AM [facility] RDW 17.9(H) 11.8 - 14.4 % 01/31/2025 10:20 AM [facility] Platelets 346 138 - 453 k/uL 01/31/2025 10:20 AM [facility] MPV 9.0 8.1 - 13.5 fL 01/31/2025 10:20 AM [facility] NRBC Automated 0.0 0.0 per 100 WBC 01/31/2025 10:20 AM [facility] Neutrophils % 66(H) 36 - 65 % 01/31/2025 10:20 AM [facility] Lymphocytes % 21(L) 24 - 43 % 01/31/2025 10:20 AM [facility] Monocytes % 9 3 - 12 % 01/31/2025 10:20 AM [facility] Eosinophils % 2 1 - 4 % 01/31/2025 10:20 AM [facility] Basophils % 1 0 - 2 % 01/31/2025 10:20 AM [facility] Immature Granulocytes % 1(H) 0 % 01/31/2025 10:20 AM [facility] Neutrophils Absolute 4.25 1.50 - 8.10 k/uL 01/31/2025 10:20 AM [facility] Lymphocytes Absolute 1.38 1.10 - 3.70 k/uL 01/31/2025 10:20 AM [facility] Monocytes Absolute 0.60 0.10 - 1.20 k/uL 01/31/2025 10:20 AM [facility] Eosinophils Absolute 0.13 0.00 - 0.44 k/uL 01/31/2025 10:20 AM EDT [facility] Basophils Absolute 0.04 0.00 - 0.20 k/uL 01/31/2025 10:20 AM EDT [facility] Immature Granulocytes Absolute 0.04 0.00 - 0.30 k/uL 01/31/2025 10:20 AM EDT [facility] 01/31/2025 10:2 0 AM EDT 01/31/2025 10:30 AM EDT Blanche Roberts DO HEMATOLOGY ORDERABLES Final Result Performing Organization Address [facility] Co de Phone Number [facility] [address] [place] [address] * HCG Qualitative, Serum (01/31/2025 9:40 AM EDT) Preg, Serum NEGATIVE NEGATIVE 01/31/2025 9:40 AM EDT [facility] Comment: Specimens with hCG levels near the threshold of the test (25 mIU/mL) may give a negative or indeterminate result. In such cases, another test should be performed with a new specimen in 48-72 hours. If early is suspected clinically in this setting, correlation with quantitative serum b-hCG level is suggested. [employer] has confirmed the use of plasma for this test. This has not been cleared or approved by the U.S. Food and Drug Administration. The FDA has determined that such clearance is not necessary. Blood BLOOD SPECIMEN / Unknown 01/31/2025 9:40 AM EDT 01/31/2025 10:50 AM EDT Blanche Roberts DO CHEMISTRY ORDERABLES Final Result Performing Organization Address [facility] Co de Phone Number [facility] [address] [place] [address] * Lipase (01/31/2025 9:40 AM EDT) Lipase 26 13 - 60 U/L 01/31/2025 9:40 AM T [facility] Blood BLOOD SPECIMEN / Unknown 01/31/2025 9:40 AM EDT 01/31/2025 9:45 AM EDT us Blanche Roberts DO CHEMISTRY ORDERABLES Final Result [facility] [address] [phone] * Hepatic Function Panel (01/31/2025 9:40 AM EDT) Albumin 3.6 3.5 - 5.2 g/dL 01/31/2025 9:40 AM [facility] Alkaline Phosphatase 61 35 - 104 U/L 01/31/2025 9:40 AM [facility] ALT 18 10 - 35 U/L 01/31/2025 9:40 AM [facility] AST 15 10 - 35 U/L 01/31/2025 9:40 AM [facility] Total Bilirubin 0.6 0.00 - 1.20 mg/dL 01/31/2025 9:40 AM [facility] Bilirubin, Direct 0.3 0.00 - 0.30 mg/dL 01/31/2025 9:40 AM [facility] Bilirubin, Indirect 0.3 0.0 - 1.0 mg/dL 01/31/2025 9:40 AM [facility] Total Protein 6.6 6.6 - 8.7 g/dL 01/31/2025 9:40 AM [facility] Albumin/Globulin Ratio 1.2 1.0 - 2.5 01/31/2025 9:40 AM [facility] Blood BLOOD SPECIMEN / Unknown 01/31/2025 9:40 AM EDT 01/31/2025 9:45 AM EDT us Blanche Roberts DO CHEMISTRY ORDERABLES Final Result [facility] [address] [phone] * (ABNORMAL) Basic Metabolic Panel (01/31/2025 9:40 AM EDT) Sodium 136 136 - 145 mmol/L 01/31/2025 9:40 AM [facility] Potassium 3.2(L) 3.7 - 5.3 mmol/L 01/31/2025 9:40 AM [facility] Chloride 99 98 - 107 mmol/L 01/31/2025 9:40 AM [facility] CO2 26 20 - 31 mmol/L 01/31/2025 9:40 AM [facility] Anion Gap 11 9 - 16 mmol/L 01/31/2025 9:40 AM [facility] Glucose 113(H) 74 - 99 mg/dL 01/31/2025 9:40 AM [facility] BUN 10 6 - 20 mg/dL 01/31/2025 9:40 AM [facility] Creatinine 0.6 0.50 - 0.90 mg/dL 01/31/2025 9:40 AM [facility] Est, Glom Filt Rate >90 >60 mL/min/1.7 3m2 01/31/2025 9:40 AM [facility] Comment: These results are not intended [...] that affects renal tubular secretion. BUN/Creatinine Ratio 17 9 - 20 01/31/2025 9:40 AM [facility] Calcium 8.9 8.6 - 10.4 mg/dL 01/31/2025 9:40 AM [facility] Blood BLOOD SPECIMEN / Unknown 01/31/2025 9:40 AM EDT 01/31/2025 9:45 AM EDT us Blanche Roberts DO CHEMISTRY ORDERABLES Final Result [facility] [address] [id number], [facility] [phone] documented in this encounter Visit Diagnoses Diagnosis Abdominal pain, unspecified abdominal location- Primary documented in this encounter Administered Medications Inactive Administered Medications - up to 3 most recent administrations Medication Order MAR Action Action Date Dose Rate Site dicyclomine (BENTYL) injection 20 mg 20 mg, IntraMUSCular, ONCE, 1 dose, On 01/31/25 at 0945 Given 01/31/2025 10:02 AM EDT 20 mg Deltoid Left famotidine (PEPCID) 20 MG/2ML 20 mg in sodium chloride (PF) 0.9 % 10 mL injection 20 mg, IntraVENous, ONCE, 1 dose, On 01/31/25 at 0945, IV Push over minimum of 2 minutes - Dilute with 10 mL NS Given 01/31/2025 10:03 AM EDT 20 mg iopamidol (ISOVUE-370) 76 % injection 75 mL 75 mL, IntraVENous, IMG ONCE PRN, 1 dose, Starting on 01/31/25 at 1135, Until 01/31/25 at 1136, Other Given 01/31/2025 11:36 AM EDT 75 mLs ketorolac (TORADOL) injection 30 mg 30 mg, IntraVENous, ONCE, 1 dose, On 01/31/25 at 1100, Do not administer for more than 5 days. Given 01/31/2025 11:06 AM EDT 30 mg ondansetron (ZOFRAN) injection 4 mg 4 mg, IntraVENous, ONCE, 1 dose, On 01/31/25 at 0945 Given 01/31/2025 10:02 AM EDT 4 mg sodium chloride 0.9 % bolus 1,000 mL 1,000 mL (6.68 mL/kg), IntraVENous, at 1,000 mL/hr, Administer over 1 Hours, ONCE, On 01/31/25 at 0945, For 1 dose New Bag 01/31/2025 9:59 AM EDT 1,000 mLs 1000 mL/hr documented in this encounter Active and Recently Administered Medications Times are shown in EDT. Scheduled Medication Order 01/29/2025 01/30/2025 01/31/2025 dicyclomine (BENTYL) injection 20 mg (COMPLETED) 20 mg, IntraMUSCular, ONCE, 1 dose, On 01/31/25 at 0945 1002 (Given - Provid er: Lissette Stoll RN) famotidine (PEPCID) 20 MG/2ML 20 mg in sodium chloride (PF) 0.9 % 10 mL injection (COMPLETED) 20 mg, IntraVENous, ONCE, 1 dose, On 01/31/25 at 0945, IV Push over minimum of 2 minutes - Dilute with 10 mL NS 1003 (Given - Provid er: Lissette Stoll RN) ketorolac (TORADOL) injection 30 mg (COMPLETED) 30 mg, IntraVENous, ONCE, 1 dose, On 01/31/25 at 1100, Do not administer for more than 5 days. 1106 (Given - Provid er: Lissette Stoll RN) ondansetron (ZOFRAN) injection 4 mg (COMPLETED) 4 mg, IntraVENous, ONCE, 1 dose, On 01/31/25 at 0945 1002 (Given - Provid er: Lissette Stoll RN) sodium chloride 0.9 % bolus 1,000 mL (COMPLETED) 1,000 mL (6.68 mL/kg), IntraVENous, at 1,000 mL/hr, Administer over 1 Hours, ONCE, On 01/31/25 at 0945, For 1 dose 0959 (New Bag - Prov ider: Lissette Stoll RN)1459 (Stopped - Provider: Lissette Stoll RN) PRN Medication Order 01/29/2025 01/30/2025 01/31/2025 iopamidol (ISOVUE-370) 76 % injection 75 mL (COMPLETED) 75 mL, IntraVENous, IMG ONCE PRN, 1 dose, Starting on 01/31/25 at 1135, Until 01/31/25 at 1136, Other 1136 (Given - Provid er: Clayton Hager) documented in this encounter Care Teams Wind Project Manager Relationship Specialty Start Date End Date Butch Chopra APRN - ASSISTANT GOLF PROFESSIONAL [address] [place] [address] PCP - General Nurse Practitioner 10/08/24 documented as of this encounter
[2025-02-08 13:06] VITALS: PULSE 88; TEMP 36.6; O2SAT 100; BMI 45.6
--- OUTSIDE RECORDS SUMMARY | 2025-02-08 13:11 | XMS_ITS | Encounter Summary ---
Author Organization [employer] Address [id number] [address] [place] [address] Care Team Providers Care Data Acquisition Technician Name Role Phone Butch Chopra Primary Care Prov ider Reason for Visit * Reason Onset Date Comments Chest Pain 04/22/2024 Encounter Details Date Type Department Care Team (Late st Contact Info) Description 04/22/2024 Telephone [facility] [address] [place] [phone] McMorgan, Adina Chest Pain Social History Tobacco Use Types Packs/Day Years Used Date Smoking Tobacco: Every Day Cigarettes 1 32.4 Started: 09/16/1992 Smokeless Tobacco: Never Alcohol Use Standard Drinks/Week Comments Yes 0 (1 standard drink = 0.6 oz pur e alcohol) occasionally [facility] Utilities Answer Date Recorded In the past 12 months has e electric, gas, oil, or water company threatened to shut off services in your home? Patient declined 04/23/2024 Overall Financial Resource Strain (CARDIA) Answe r [...] medical appointments or from getting medications? No 04/2024 In the past 12 months, has l ack of transportation kept you from meetings, work, or from getting things needed for daily living? No 04/23/2024 Housing Instability Answer Date Recorde d Are you worried or concerned that in the next two months you may not have stable housing that you own, rent or stay in as a part of a household? Yes 04/23/2024 Childcare Answer Date Recorded Childcare Unknown 02/25/2019 Employment Answer Date Recorded Employment Unknown 02/25/2019 Hunger Screening Answer Date Recorded Within the past 12 months we worried whether our food would run out before we got money to buy more. Sometimes True 024 Within the past 12 months th e food we bought just didn't last and we didn't have money to get more. Sometimes True 04/23/2024 Purpose - Life Answer Date Recorded Purpose and direction in life Unknown Comments No Sex and Gender Information Value Date Recorded Sex Assigned at Female 09/12/2022 12:18 AM EST Legal Sex Female 11:45 AM EDT Gender Identity Female 09/12/2022 12:18 AM EST Sexual Orientation Straight 09/12/2022 12 :18 AM EST documented as of this encounter Functional Status * Intimate Partner Violence Question Answer Date of Assessment Author Within the last year, have y ou been humiliated or emotionally abused in other ways by your partner or ex-partner? No 04/23/2024 8:28 AM Ralph Sierra RN Within the last year, have y ou been afraid of your partner or ex-partner? No 04/23/2024 8:28 AM Simona Sierra RN Within the last year, have y ou been raped or forced to have any kind of sexual activity by your partner or ex-partner? No 04/23/2024 8:28 AM Simona Moreno mm, RN Within the last year, have y ou been kicked, hit, slapped, or otherwise physically hurt by your partner or ex-partner? No 04/23/2024 8:28 AM Simona Moreno mm, RN * Question Answer Date of Assessment Author Functional Status Independent 04/23/2024 8:29 AM Simona Sierra, DOMINIQUE documented as of this encounter Miscellaneous Notes * Telephone Encounter - Adina Alanis - 04/22/2024 9:16 PM EDT PPCRD--[facility] called to speak to supervisor international reservations provider regarding chest pain. * Telephone Encounter - Adina Zeke - 04/22/2024 9:16 PM EDT PPCRD--I sent Dr Ramírez a secure chat message to call [facility] & I routed the consult documented in this encounter Plan of Treatment Upcoming Encounters Date Type Department Care Team (Late st Contact Info) Description 02/10/2025 1:30 PM EDT Office Visit [facility] General Surgery [address] [place] [phone] Lorrie Rueda, NURSERY NURSE-BUDGET CLERK [address] [place], [place] [phone] 02/18/2025 7:30 PM EDT Clinical Support [facility] [address] [place] [phone] 07/26/2025 10:30 AM EST Office Visit [facility] Pulmonary/Sleep Medicine [address] [place] [phone] Gloria Michelle MD [address] [facility] [place], [place] [phone] 07/27/2025 1:30 PM EST Office Visit [facility] Cardiology [address] [facility] [place] [phone] Charity Conti PA-C [address] [place] [address] documented as of this encounter Visit Diagnoses Not on filedocumented in this encounter Additional Health Concerns Infection Onset Date Last Indicated Resolved Time Respiratory Rule-Out 01/08/2025 01/08/2025 025 4:44 AM EDT Assessment Noted Time PHQ-9 Depression Total Score: 0 12/07/19 23 2:09 PM EDT A Body Mass Index follow-up plan has been documented for the patient 12/09/2022 11:24 PM EDT documented as of this encounter Care Teams Data Acquisition Technician Relationship Specialty Start Date End Date Butch Chopra, NURSERY NURSE-BUDGET CLERK [address] [place] [address] PCP - General Family Medicine 01/28/25 documented as of this encounter
--- OUTSIDE RECORDS SUMMARY | 2025-02-08 13:11 | XMS_ITS | Encounter Summary ---
Author Organization [facility] Address [address] [place] [address] Care Team Providers Care Slip Dumper Name Role Phone Unavailable Primary Care Provider Unavailabl e Encounter Details Date Type Department Care Team (Late st Contact Info) Description 10/24/2023 Orders Only [facility] [address] [place] [phone] Pauline Oneill MD [address] [place], [place] [phone] Social History Tobacco Use Types Packs/Day Years Used Date Smoking Tobacco: Never Assessed Comments Unknown Sex and Gender Information Value Date Recorded Sex Assigned at Not on file Legal Sex Female 8:21 PM EDT Gender Identity Not on file Sexual Orientation Not on file documented as of this encounter Plan of Treatment Not on file documented as of this encounter Procedures Procedure Name Priority Date/Time Associated Diagnosis Comments XR HAND 3+ VIEWS RIGHT Routine 10/24/2023 8:28 AM EST XR KNEE 3 VIEWS RIGHT Routine 10/24/2023 8:03 AM EST documented in this encounter Results * XR hand 3+ views right (10/24/2023 8:28 AM EST) Anatomical Region Laterality Modality Upper Extremities, Hand Right Radiogra phic Imaging us Pauline WISE XR PROCEDURES Final Result * XR knee 3 views right (10/24/2023 8:03 AM EST) Anatomical Region Laterality Modality Lower Extremities, Knee Right Radiogra phic Imaging us Pauline WISE XR PROCEDURES Final Result documented in this encounter Visit Diagnoses Not on filedocumented in this encounter
--- OUTSIDE RECORDS SUMMARY | 2025-02-08 13:11 | XMS_ITS | Patient Health Record ---
Author Organization [facility] Address [address] [place] [address] Care Team Providers Care Student Loan Counselor Name Role Phone TheeSneha Primary Care Provider Bill Pedraza Unavailable [phone] Allergies No Known Allergies Results Component Value Reference Range Notes [facility] Foot, Left 3v-02550 Reviewed date:10/14/2024 02:40:29 PM Interpretation: Performing Lab: Notes/Report: [facility] Foot, right 3v -[id number] Reviewed date:10/14/2024 02:40:19 PM Interpretation: Performing Lab: Notes/Report: [facility] Knee right, 4v -20524 Reviewed date:10/14/2024 02:40:37 PM Interpretation: Performing Lab: Notes/Report: Reason For Referral No Information Medications Medication SIG (Take, Route, Fr equency, [...] Question Answer Notes Tobacco use: Current smoker Problems Problem Type SNOMED Code ICD Code Onset Dates Problem Status W/U Status Risk Notes Problem 60438423898837243 Pain in right foot (M79.671) Active confirmed Problem [id number] Pain, joint, knee, right (M25.561) Active confirmed Problem 546591628964484 Right hand pain (M79.641) Active confirmed Problem 261099275507852 Pain in left boy t (M79.672) Active confirmed Problem Osteoarthritis of knee (849998829) Primary osteoarthritis of right knee (M17.11) Active confirmed Vital Signs Height 5'8 in 10/13/2024 Weight 333 lbs 10/13/2024 BMI 50.63 10/13/2024 Encounters Encounter Location Date Provider Diagnosis [facility] [address] [place] [address] [place] [address] 10/13/2024 Bill Heath Pain, joint, knee, r ight M25.561 ; Primary osteoarthritis of right knee M17.11 ; Pain in right foot M79.671 and Pain in left foot M79.672 [facility] [address] [place] [address] 12/01/2024 Bill Heath Primary osteoarthrit is of right knee M17.11 [facility] [address] [place] [address] [place] [address] 01/26/2025 Bill Ivana Assessments Encounter Date Diagnosis (ICD Code) Assessment Notes Treatment Notes Treatment Clinical Notes Section Notes 10/13/2024 Pain, joint, knee, right (ICD-10 - M25.561) 1. Degenerative arthritis, right knee. 2. Bilateral foot pain. 3. Morbid obesity 10/13/2024 Primary osteoarthritis of right knee (ICD-10 - M17.11) 1. Degenerative arthritis, right knee. 2. Bilateral foot pain. 3. Morbid obesity 12/01/2024 Primary osteoarthritis of right knee (ICD-10 - M17.11) 1 degenerative arthritis right knee 2 morbid obesity 3 history of bilateral foot pain 10/13/2024 Pain in right foot (ICD-10 - M79.671) 1. Degenerative arthritis, right knee. 2. Bilateral foot pain. 3. Morbid obesity 10/13/2024 Pain in left foot (ICD-10 - M79.672) 1. Degenerative arthritis, right knee. 2. Bilateral foot pain. 3. Morbid obesity 10/13/2024 Other findings were discussed with the patient. She is getting significant wear her knee which may require total knee replacement at some point in life. She had previous cortisone injection in the knee last fall, which last about 3 days. I've encouraged her to work with her family care about some significant weight loss and we'll be glad see her back in the office as needed. 1. Degenerative arthritis, right knee. 2. Bilateral foot pain. 3. Morbid obesity 12/01/2024 Other Findings were discussed with the patient. Will try her on a course of Celebrex. Will see her back in the office as needed. 1 degenerative arthritis right knee 2 morbid obesity 3 history of bilateral foot pain Plan Of Treatment No Information Insurance Providers Payer Name Payer Address Payer Phone Subscriber Number Group Number Insured Name Patient Relationship to Insured Coverage Start Date Coverage End Date Medicaid [employer] [address] [place] [address] [id number] JULIO CESAR NUNEZ Self - patient is the insured 5 Medical (General) History Medical History History ICD Code Cancer High Blood Pressure Sleep apnea Surgical History Surgery Date(Month/Year) Rt knee scope 1997
--- OUTSIDE RECORDS SUMMARY | 2025-02-08 13:11 | XMS_ITS | Encounter Summary ---
Author Organization [facility] Address [address] [facility] [place] [address] Care Team Providers Care Supervisor Polishing Name Role Phone Unavailable Primary Care Provider Unavailabl e Encounter Details Date Type Department Care Team (Late st Contact Info) Description 11/21/2023 Orders Only [facility] [address] [place] [phone] Pauline Oneill MD [address] [place], [place] [id number] Social History Tobacco Use Types Packs/Day Years [...] Name Priority Date/Time Associated Diagnosis Comments XR KNEE 3 VIEWS RIGHT Routine 10/24/2023 1:45 PM EST documented in this encounter Results * XR knee 3 views right (10/24/2023 1:45 PM EST) Anatomical Region Laterality Modality Lower Extremities, Knee Right Radiogra phic Imaging Pauline Oneill MD IMG XR PROCEDURES Final Result documented in this encounter Visit Diagnoses Not on filedocumented in this encounter
--- OUTSIDE RECORDS SUMMARY | 2025-02-08 13:11 | XMS_ITS | Encounter Summary ---
Author Organization [facility] Address [address] [place] [address] Care Team Providers Care Hr Representative Name Role Phone Unavailable Primary Care Provider Unavailabl e Encounter Details Date Type Department Care Team (Late st Contact Info) Description 03/31/2024 [facility] [address] [place] [phone] Darian Regalado MD [address] [place] [id number] Social History Tobacco Use Types Packs/Day Years [...] Procedure Name Priority Date/Time Associated Diagnosis Comments CT HEAD OR BRAIN W/ & W/O CONTRAST Routine 03/30/2024 10:04 AM EDT US VENOUS DUPLEX BILATERAL Routine 03/30/2024 9:30 AM EDT documented in this encounter Results * CT HEAD OR BRAIN W/ & W/O CONTRAST (03/30/2024 10:04 AM EDT) Anatomical Region Laterality Modality Radiographic Apple ging Darian Regalado MD IMG XR PROCEDURES Final Result * US VENOUS DUPLEX BILATERAL (03/30/2024 9:30 AM EDT) Anatomical Region Laterality Modality Radiographic Apple ging Darian Regalado MD IMG XR PROCEDURES Final Result documented in this encounter Visit Diagnoses Not on filedocumented in this encounter
--- OUTSIDE RECORDS SUMMARY | 2025-02-08 13:11 | XMS_ITS | Clinical Summary ---
Author Organization [facility] Address [address] [place] [address] Care Team Providers Care Lead Operator Name Role Phone Unavailable Primary Care Provider Unavailabl e Social History Tobacco Use Types Packs/Day Years Used Date Smoking Tobacco: Never Assessed Comments Unknown Sex and Gender Information Value Date Recorded Sex Assigned at Not on file Legal Sex Female 8:21 PM EDT Gender Identity Not on file Sexual Orientation Not on file Last Filed Vital Signs Vital Sign Reading Time Taken Comments Blood Pressure 120/85 04/22/2018 12:00 PM EDT Pulse - - Temperature - - Respiratory Rate - - Oxygen Saturation - - Inhaled Oxygen Concentration - - Weight 122 kg (270 lb) 04/22/2018 12:00 PM EDT Height 172.7 cm (5' 8 ) 04/22/2018 12:00 PM EDT Body Mass Index 41.05 04/22/2018 12:00 PM EDT Plan of Treatment Not on file
--- OUTSIDE RECORDS SUMMARY | 2025-02-08 13:11 | XMS_ITS | Clinical Summary ---
Author Organization [employer] tem Address [id number] [address] [place] [address] Care Team Providers Care Quality Assurance Manager Name Role Phone Butch Chopra Primary Care Prov ider Allergies Active Allergy Reactions Criticality Noted Date Comments Amoxicillin Medium 12/06/2022 Penicillins 01/28/2018 sob Medications loratadine (CLARITIN) 10 mg tablet Take 1 tablet (10 mg total) by mouth in the morning. 4 Active buprenorphine-n aloxone (SUBOXONE) 8-2 mg per SL tablet Place 1 tablet under the tongue in the morning. Active metFORMIN (GLUCOPHAGE) 500 mg tablet Take 1 tablet (500 mg total) by mouth in the morning and 1 tablet (500 mg total) in the evening. Take with meals. Active potassium chloride (KLOR-CON M 20) 20 MEQ CR tabletIndicatio ns:Hypokalemia Take 1 tablet (20 mEq total) by mouth in the morning. 30 tablet 11 5 Active ferrous sulfate 325 (65 FE) mg EC tablet Take 1 tablet (325 mg total) by mouth in the morning and 1 tablet (325 mg total) at noon and 1 tablet (325 mg total) in the evening. Take with meals. Active nicotine (NICODERM CQ) 14 mg/24 hrIndications:T obacco use disorder Place 1 patch on the skin daily. 90 patch 3 5 Active nicotine polacrilex (NICORETTE) 2 mg gumIndications: Tobacco use disorder Chew 1 each (2 mg total) as directed as needed for smoking cessation. 100 each 5 Active ibuprofen (MOTRIN) 800 mg tablet 1 tablet (800 mg total). 5 Active levothyroxine (SYNTHROID, LEVOTHROID) 25 MCG tablet 1 tablet (25 mcg total). 5 Active polyethylene glycol (GLYCOLAX) 17 gram/dose powder 17 g. 5 Active KLOXXADO 8 mg/actuation spray,non-aeros ol INSTILL 1 SPRAY IN NOSTRIL FOR OPIOID OVERDOSE. REPEAT EVERY 2 TO 3 MINUTES IF NO RESPONSE. CALL 911. KEEP KIT WITH YOU 5 Active naltrexone (REVIA) 50 mg tablet Take 1 tablet (50 mg total) by mouth. 5 Active lisinopril-hydr oCHLOROthiazide (PRINZIDE,ZESTO RETIC) 20-12.5 mg per tabletIndicatio ns:Hypertension , unspecified type Take 1 tablet by mouth in the morning. 90 tablet 3 5 Active bumetanide (BUMEX) 1 mg tabletIndicatio ns:Lower extremity edema Take 1 tablet (1 mg total) by mouth daily. 90 tablet 3 5 Active metoclopramide (REGLAN) 10 mg tablet Take 1 tablet (10 mg total) by mouth every 6 (six) hours. 30 tablet 5 Active sucralfate (CARAFATE) 1 gram tablet Take 1 tablet (1 g total) by mouth in the morning and 1 tablet (1 g total) at noon and 1 tablet (1 g total) in the evening and 1 tablet (1 g total) before bedtime. 120 tablet 5 Active lisinopril-hydr oCHLOROthiazide (PRINZIDE,ZESTO RETIC) 20-12.5 mg per tablet Take 1 tablet by mouth in the morning. 4 01/22/20 25 Discontinue d(Dose adjustment) losartan (COZAAR) 25 mg tablet Take 1 tablet (25 mg total) by mouth in the morning. 01/13/20 25 Discontinue d(Stop Taking at Discharge) doxycycline (VIBRAMYCIN) 100 mg capsule Take 1 capsule (100 mg total) by mouth in the morning and 1 capsule (100 mg total) before bedtime. Do all this for 1 day. 2 capsule 5 01/14/20 furosemide (LASIX) 20 mg tablet Take 1 tablet (20 mg total) by mouth 2 (two) times a day for 30 days. 60 tablet 5 01/22/20 Discontinue d(Alternate therapy) esomeprazole (NexIUM) 40 mg capsule Take 1 capsule (40 mg total) by mouth every morning before breakfast. 30 capsule 5 01/29/20 Discontinue d(Error) Hospital, Clinic, or Other Facility Administered Medication Ordered Dose Route Frequency Start Date End Date Status bumetanide (BUMEX) tablet 1 mgIndications:Lower extremity edema 1 mg oral Daily 01/21/2025 01/21/2025 Discontin ued Active Problems Problem Noted Date Diagnosed Date Acute respiratory failure with hypoxia History of drug abuse 01/08/2025 Lower extremity edema 01/08/2025 Hypertension, unspecified type 03/23/2023 Chest pain 03/23/2023 Smoker 03/23/2023 Intractable pain 11/29/2022 Acute colitis 11/29/2022 Hypokalemia 11/29/2022 Hypertensive urgency 09/12/2022 Amphetamine use 09/12/2022 Obesity (BMI 30-39.9) 09/12/2022 Nausea and vomiting, unspecified vomiting type 1 11/12/2021 Vulvar itching 04/21/2018 Encounters Date Type Department Care Team Description 01/28/2025 9:55 AM EDT - 01/28/2025 2:00 PM EDT Emergency [facility] - Emergency [address] [place] [phone] Zohra Cabral MD Gastroesophageal reflux disease, unspecified whether esophagitis present (Primary Dx) Discharge Disposition: Home 01/28/2025 Travel 01/21/2025 1:30 PM EDT Office Visit [facility] [address] [place] [phone] Zaida Thomas, MORPHOLOGIST-Nighat Wilson MD Acute respiratory failure with hypoxia ([facility]-H[facility]); Hypertension, unspecified type; Lower extremity edema 01/21/2025 Telephone [facility] - Sleep Disorders [address] [place] [address] Phoebe Barreto MD Sleep Lab (HST) 01/21/2025 Travel 01/20/2025 11:00 AM EDT Office Visit [facility] Pul[facility]/Sleep Medicine [address] [facility] [address] [place] [address] Phoebe Barreto MD Tobacco use disorder (Primary Dx); Acute respiratory failure with hypoxia (CMS-HCC); Pulmonary HTN (CMS-HCC); Pulmonary nodule; Sleep disorder 01/20/2025 Travel 01/15/2025 Abstract [facility] [address] [place] [address] Nighat Camilo MD 01/12/2025 Telephone [facility] [address] [place] [address] Maribel Mathews CMA 01/08/2025 3:10 AM EDT - 01/12/2025 1:49 PM EDT Hospital Encounter [facility] - Acute Care [address] [place] [address] Phoebe Norman DO Asif, Muhamid M, MD Gill, Kaleem U, MD Acute respiratory failure with hypoxia (CMS-HCC) (Primary Dx); Hypertension, unspecified type; Lower extremity edema; Pulmonary HTN (CMS-HCC); Hypokalemia Discharge Disposition: Home 01/08/2025 Travel from Last 3 Months Family History Medical History Relation Name Comments Hypertension Father Diabetes Mother Hypertension Mother Relation Name Status Comments Father Alive Mother Alive Social History Tobacco Use Types Packs/Day Years Used Date Smoking Tobacco: Every Day Cigarettes 1 32.4 Started: 09/16/1992 Smokeless Tobacco: Never Tobacco Cessation:Ready to Q uit: Not Asked; Counseling Given: Not Answered Alcohol Use Standard Drinks/Week Comments Not Currently 0 (1 standard drink = 0.6 oz pur e alcohol) sober-2 months [facility] Utilities Answer Date Recorded In the past [...] Orientation Straight 09/12/2022 12 :18 AM EST Last Filed Vital Signs Vital Sign Reading [...] Mass Index 51.24 01/28/2025 9:59 AM EDT Plan of Treatment Upcoming Encounters Date Type Department Care Team (Late st Contact Info) Description 02/10/2025 1:30 PM EDT Office Visit [facility] General Surgery [address] [place] [phone] Lorrie Rueda APRN-DENTAL CREAM MAKER [address] [place] [address] 02/18/2025 7:30 PM EDT Clinical Support [facility] - Sleep Disorders [address] [place] [phone] 07/26/2025 10:30 AM EST Office Visit [facility] Pul[facility]/Sleep Medicine [address] [place] [phone] Gloria Michelle MD [address] [facility] [address] [place] [address] 07/27/2025 1:30 PM EST Office Visit [facility] [address] [facility] [address] [place] [phone] Charity Conti, PA-C [address] [place] [address] Health Maintenance Due Date Last Done Comments Tobacco Counseling 1981 Adult BMI Follow Up Plan 1999 DTaP,Tdap and Td Vaccines (1 - Tdap) 2000 Pap Smear 2002 Depression Screening 12/07/2023 12/06/2022 Influenza Vaccine 05/17/2025 Adult BMI Screening 01/28/2026 01/28/2025 Tobacco Screening 01/28/2026 01/28/2025 Goals Goal Patient Goal Type Associated Problems Recent Progress Patient-Stated? Author Return to sober living General Yes Diallo, Brittni, COMMERCIAL CENTER MANAGER Note: Evaluation of progress towards goal: In progress: Return to sober living at [facility] in [place], [place]. Medical Devices Not on file Procedures Procedure Name Priority Date/Time Associated Diagnosis Comments POCT , URINE (NUCG) Routine 01/28/2025 11:03 AM EDT POCT NURSING URINE MACROSCOPIC UA Routine 01/28/2025 11:01 AM EDT ER EXTRA URINE CULTURE STAT 10:53 AM EDT ER EXTRA URINE STAT 01/28/2025 10:53 AM EDT EXTRA TUBES BLUE TOP Routine 01/28/2025 10:40 AM EDT EXTRA TUBES Routine 01/28/2025 10:40 AM EDT MAGNESIUM STAT 01/28/2025 10:39 AM EDT COMPREHENSIVE METABOLIC PANEL STAT 01/28/2025 10:39 AM EDT CBC WITH AUTO DIFFERENTIAL STAT 01/28/2025 10:39 AM EDT POCT EKG Routine 01/21/2025 1:33 PM EDT Hypertension, unspecified type ECHO COMPLETE WO CONTRAST W/ STRAIN IMAGING Routine 01/11/2025 10:31 AM EDT MAGNESIUM Routine 01/11/2025 6:22 AM EDT COMPREHENSIVE METABOLIC PANEL Routine 01/11/2025 6:22 AM EDT CBC WITH AUTO DIFFERENTIAL Routine 01/11/2025 6:22 AM EDT MAGNESIUM Routine 01/10/2025 10:52 PM EDT POTASSIUM Routine 01/10/2025 8:33 PM EDT MAGNESIUM Routine 01/10/2025 6:57 AM EDT COMPREHENSIVE METABOLIC PANEL Routine 01/10/2025 6:57 AM EDT CBC WITH AUTO DIFFERENTIAL Routine 01/10/2025 6:57 AM EDT MAGNESIUM Routine 01/09/2025 4:08 PM EDT POTASSIUM Routine 01/09/2025 4:08 PM EDT CBC WITH AUTO DIFFERENTIAL Routine 01/09/2025 4:52 AM EDT MAGNESIUM Routine 01/09/2025 4:52 AM EDT COMPREHENSIVE METABOLIC PANEL Routine 01/09/2025 4:52 AM EDT TROP I, HIGH SENSITIVITY 1 HOUR STAT 01/08/2025 4:[address] CTA CHEST STAT 01/08/2025 4:49 AM EDT SARS/FLU A+B/RSV BY NAAT/MOLECULAR (M4RT COLLECTION TUBE) STAT 01/08/2025 3:49 AM EDT ECG 12-LEAD STAT 01/08/2025 3:39 AM EDT HEMOGLOBIN A1C Add-On 01/08/2025 3:27 AM EDT B-TYPE NATRIURETIC PEPTIDE STAT 01/08/2025 3:27 AM EDT TROPONIN I, HIGH SENSITIVITY STAT 01/08/2025 3:27 AM EDT MAGNESIUM STAT 01/08/2025 3:27 AM EDT COMPREHENSIVE METABOLIC PANEL STAT 01/08/2025 3:27 AM EDT CBC WITH AUTO DIFFERENTIAL STAT 01/08/2025 3:27 AM EDT PM ED CRITICAL CARE Routine 01/08/2025 3 :20 AM EDT from Last 3 Months Results * POCT , urine (01/28/2025 11:03 AM EDT) POC Urine Negative Negative 01/28/2025 11:03 AM EDT [facility] Urine 01/28/2025 11:0 3 AM EDT 01/28/2025 11:03 AM EDT us POINT OF CARE TEST ORDERABLES Fi nal Result [facility] [address] [place] [address], * (ABNORMAL) POCT Nursing Urine Macroscopic UA (01/28/2025 11:01 AM EDT) POC Urine Specific [place] 1.010 1.010, 1.015, 1.020, 1.025 01/28/2025 10:57 AM EDT [facility] POC Urine Leukocyte Esterase Negative Negative 01/28/2025 10:57 AM EDT [facility] POC Urine Nitrite Negative Negative 01/28/2025 10:57 AM EDT [facility] POC Urine pH 6.5 5.0, 6.0, 6.5, 7.0, 7.5, 8.0, 8.5, 5.5 01/28/2025 10:57 AM EDT [facility] POC Urine Protein Negative Negative 01/28/2025 10:57 AM EDT [facility] Urine Glucose Negative Negative 01/28/2025 10:57 AM EDT [facility] Urine Ketones 40 mg/dL(A) Negative 01/28/2025 10:57 AM EDT [facility] Urine Urobilinogen 0.2 E.U./dL 01/28/2025 10:57 AM EDT [facility] Urine Bilirubin Negative Negative 01/28/2025 10:57 AM EDT [facility] POC Urine Blood/HGB Trace(A) Negative 01/28/2025 10:57 AM EDT [facility] Urine 01/28/2025 11:0 1 AM EDT 01/28/2025 10:57 AM EDT us POINT OF CARE TEST ORDERABLES Fi nal Result Performing Organization Address City/[facility]/ZIP Co de Phone Number [address] [place] [address], [place] * Extra Urine Culture (01/28/2025 10:53 AM EDT) Extra Tube Auto Resulted 01/28/2025 12:01 PM EDT [facility] Urine Urine specimen collection, clean catch / Unknown Collection / Unknown 01/28/2025 10:53 AM EDT 01/28/2025 11:10 AM EDT us La Jiménez MORPHOLOGIST-DENTAL CREAM MAKER URINE ORDERABLES Final Res ult Performing Organization Address [facility] Co de Phone Number [address] [place] [address], [place] * Extra Urine (01/28/2025 10:53 AM EDT) Extra Tube Auto Resulted 01/28/2025 12:01 PM EDT [facility] Urine Urine specimen collection, clean catch / Unknown Collection / Unknown 01/28/2025 10:53 AM EDT 01/28/2025 11:10 AM EDT us La Jiménez MORPHOLOGIST-DENTAL CREAM MAKER URINE ORDERABLES Final Res ult Performing Organization Address City/[facility] Co de Phone Number [address] [place] [address], [place] * Light Blue Top (01/28/2025 10:40 AM EDT) Extra Tube Auto Resulted 01/28/2025 12:01 PM EDT [facility] Blood Venous blood / Unknown 01/28/2025 10:40 AM EDT 01/28/2025 10:43 AM EDT us La Jiménez MORPHOLOGIST-DENTAL CREAM MAKER LAB BLOOD ORDERABLES Final Result [facility] [address] [facility] [place] [address], [place] * (ABNORMAL) CBC auto differential (01/28/2025 10:39 AM EDT) Only the most recent of5 resultswithin the time period is included. WBC 6.2 4 - 11 x10E9/L 01/28/2025 11:12 AM EDT [facility] RBC Count 4.44 3.8 - 5.2 X10E12/L 01/28/2025 11:12 AM EDT [facility] Hemoglobin 10.7(L) 11.7 - 15.5 g/dL 01/28/2025 11:12 AM EDT [facility] Hematocrit 33.5(L) 35 - 47 % 01/28/2025 11:12 AM EDT [facility] MCV 76(L) 80 - 100 fL 01/28/2025 11:12 AM EDT [facility] MCH 24.0(L) 27 - 34 pg 01/28/2025 11:12 AM EDT [facility] MCHC 31.8(L) 32 - 36 g/dL 01/28/2025 11:12 AM EDT [facility] RDW 19.2(H) 11.5 - 15 % 01/28/2025 11:12 AM EDT [facility] Platelet Count 362 150 - 450 X10E9/L 01/28/2025 11:12 AM EDT [facility] MPV 7.8 7 - 12 fL 01/28/2025 11:12 AM EDT [facility] Neutrophils Relative 72.0 % 01/28/2025 11:12 AM EDT [facility] Lymphocytes Relative 17.5 % 01/28/2025 11:12 AM EDT [facility] Monocytes Relative 8.9 % 01/28/2025 11:12 AM EDT [facility] Eosinophils Relative 1.2 % 01/28/2025 11:12 AM EDT [facility] Basophils Relative 0.4 % 01/28/2025 11:12 AM EDT [facility] Neutrophils Absolute (A) 4.4 1.5 - 6.6 10*3/uL 01/28/2025 11:12 AM EDT [facility] Lymphocytes Absolute 1.1 1.0 - 3.5 10*3/uL 01/28/2025 11:12 AM EDT [facility] Monocytes Absolute 0.6 0.0 - 0.9 10*3/uL 01/28/2025 11:12 AM EDT [facility] Eosinophils Absolute 0.1 0.0 - 0.4 10*3/uL 01/28/2025 11:12 AM EDT [facility] Basophils Absolute 0.0 0.0 - 0.2 10*3/uL 01/28/2025 11:12 AM EDT [facility] Differential Type AUTOMATED DIFFERENTIAL 01/28/2025 11:12 AM EDT [facility] Blood Venous blood / Unknown Line / Unknown 01/28/2025 10:39 AM EDT 01/28/2025 10:42 AM EDT us La Jiménez MORPHOLOGIST-DENTAL CREAM MAKER LAB BLOOD ORDERABLES Final Result [facility] [address] [place] [address], [place] * (ABNORMAL) Magnesium (01/28/2025 10:39 AM EDT) Only the most recent of7 resultswithin the time period is included. MAGNESIUM 1.7(L) 1.8 - 2.6 mg/dL 01/28/2025 11:01 AM EDT [facility] Blood Venous blood / Unknown Line / Unknown 01/28/2025 10:39 AM EDT 01/28/2025 10:42 AM EDT us La Jiménez MORPHOLOGIST-DENTAL CREAM MAKER LAB BLOOD ORDERABLES Final Result [facility] [address] [place] [address], * (ABNORMAL) Comprehensive metabolic panel (01/28/2025 10:39 AM EDT) Only the most recent of5 resultswithin the time period is included. SODIUM 130(L) 134 - 146 mmol/L 01/28/2025 11:01 AM EDT [facility] POTASSIUM 2.8(L) 3.5 - 5.0 mmol/L 01/28/2025 11:01 AM EDT [facility] CHLORIDE 98 98 - 109 mmol/L 01/28/2025 11:01 AM EDT [facility] CARBON DIOXIDE 25 22 - 32 mmol/L 01/28/2025 11:01 AM EDT [facility] ANION GAP 7 5 - 15 mmol/L 01/28/2025 11:01 AM EDT [facility] BLOOD UREA NITROGEN 13 5 - 23 mg/dL 01/28/2025 11:01 AM EDT [facility] CREATININE 0.71 0.40 - 1.00 mg/dL 01/28/2025 11:01 AM EDT [facility] Comment:METHOD TRACEABLE TO IDMS STANDARD GLUCOSE 122(H) 65 - 99 mg/dL 01/28/2025 11:01 AM EDT [facility] CALCIUM 8.4(L) 8.5 - 10.5 mg/dL 01/28/2025 11:01 AM EDT [facility] TOTAL PROTEIN 7.6 6.0 - 8.0 g/dL 01/28/2025 11:01 AM EDT [facility] ALBUMIN 3.7 3.2 - 5.3 g/dL 01/28/2025 11:01 AM EDT [facility] ALKALINE PHOSPHATASE 59 39 - 130 U/L 01/28/2025 11:01 AM EDT [facility] AST 25 <=41 U/L 01/28/2025 11:01 AM EDT [facility] ALT 26 <=31 U/L 01/28/2025 11:01 AM EDT [facility] BILIRUBIN,TOTAL 1.2 0.3 - 1.2 mg/dL 01/28/2025 11:01 AM EDT [facility] EGFR Non-Race Dependent >90 >=60 ml/min/1.7 3sq.m 01/28/2025 11:01 AM EDT [facility] Comment: eGFR not reported due to non-numeric value for Creatinine. Reported eGFR is based on the CKD-EPI 2020 equation that does not use a race coefficient. Blood Venous blood / Unknown Line / Unknown 01/28/2025 10:39 AM EDT 01/28/2025 10:42 AM EDT us La Jiménez MORPHOLOGIST-DENTAL CREAM MAKER LAB BLOOD ORDERABLES Final Result Performing Organization Address [facility]/ZIP Co de Phone Number [facility] [address] [place] [address], * POCT EKG (01/21/2025 1:33 PM EDT) us Nighat Camilo MD ECG ORDERABLES Final Result MANUALLY TRANSCRIBED RESULTS * Echo complete W/Strain Imaging (01/11/2025 10:31 AM EDT) LVOT stroke volume 113.28 ml XCELERA FS 38 28 - 44 % [facility] LVIDd 4.70 13.53 - 18.81 cm XC[facility]ERA LVIDs 2.90 7.65 - 11.59 cm XCELERA IVS 1.40 0.6 - 1.1 cm XCELERA PW 1.40 0.6 - 1.1 cm XCELERA LVOT diameter 2.20 cm XCELERA TDI 9.03 cm/s [facility]ERA MV TDI E' (medial) 7.29 cm/s [facility]CELERA LA Volume Index 17.1 mL/m2 [facility] E/A ratio 1.10 XCELERA E wave deceleration time 268.00 msec XC[facility]ERA MV Peak E Ángel 113.00 cm/s XCELERA MV Peak A Ángel 103.00 cm/s XCELERA LA size 3.40 cm XCELERA Aortic root 2.90 cm XCELERA LA volume 46.30 cm3 XC[facility]ERA RV diastolic dimension (basal) 41.0 mm XCELERA AV peak ángel 217.00 cm/s XCELERA LVOT peak ángel 1.50 m/s XCELERA AV VTI 40.60 cm XCELERA LVOT peak VTI 29.80 cm XCELERA AV mean gradient 10.00 mmHg XCELERA AV peak gradient 18.84 mmHg XCELERA AV valve area 2.79 XCELERA Valve area - Index 1.0 XCELERA MV pressure 1/2 time 78.00 ms XCELERA MV valve area p 1/2 method 2.82 cm2 XCELERA TR Peak Ángel 2.7 m/s XCELERA TR peak gradient 28.09 mmHg XCELERA LV ESV A2C 53.60 mL XCELERA LV ESV A4C 36.30 mL XCELERA LV RWT 2D 59.57 XCELERA AV Velocity Ratio 0.73 [facility] Left Ventricle Mass 265.20855 [id number] g XCELERA Interventricular Septum Diastolic Thickness by 2D 14 cm XCELERA EF - 3D Echo 55 % XCELERA Est. RA pressure 15 mmHg XCELERA TR max ángel 2.70 m/s XCELERA MV E' average 8.0 cm/s XCELERA RA area 19.6 cm2 XCELERA RV Peak Systolic Pressure 43 mmHg XCELERA ZLVIDS -9.31 XCELERA ZLVIDD -12.22 [facility] Energy loss index 16.83 XCELERA GLS -13 % [facility] Anatomical Region Laterality Modality Chest N/A Ultrasound Narrative 01/12/2025 10:50 AM EDT Left Ventricle: Left ventricle appears normal in size. There is moderate increased wall thickness/hypertrophy. Systolic function is normal with an ejection fraction of 60-65%. The quantitative EF by 3D imaging is 55%. There is no diastolic dysfunction and normal left atrial pressure. Calculation of the global longitudinal strain revealed a strain rate of -13%. Lateral E' is 9.03 cm/s. Medial E' is 7.29 cm/s. Average E' is 8.0 cm/s. Right Ventricle: Right ventricular size is mildly dilated. The right ventricular basal diameter is 41.0 mm. Tricuspid Valve: The right ventricular systolic pressure is mildly elevated. RVSP calculated at 43 mmHg. RVSP is based on RA pressure of 15 mmHg. There is mild pulmonary hypertension. Left Ventricle Left ventricle appears normal in size. There is moderate increased wall thickness/hypertrophy. Systolic function is normal with an ejection fraction of 60-65%. The quantitative EF by 3D imaging is 55%. See wall score diagram for wall motion abnormalities. There is no diastolic dysfunction and normal left atrial pressure. Calculation of the global longitudinal strain revealed a strain rate of -13%. Lateral E' is 9.03 cm/s. Medial E' is 7.29 cm/s. Average E' is 8.0 cm/s. Right Ventricle Right ventricular size is mildly dilated. The right ventricular basal diameter is 41.0 mm. Systolic function is normal. Left Atrium Left atrium volume index is normal. The left atrial volume index is 17.1 mL/m2. Right Atrium Right atrium is mildly dilated. The right atrial area is 19.6 cm2. IVC/SVC The right atrial pressure is estimated at 15 mmHg. IVC appears dilated with increased right atrial pressure. There is no collapse with deep inspiration. Mitral Valve Mitral valve structure is normal. There is mild posterior annular calcification. There is trace regurgitation. There is no evidence of mitral valve stenosis. Tricuspid Valve Tricuspid valve appears to be normal. There is trace regurgitation. The right ventricular systolic pressure is mildly elevated. RVSP calculated at 43 mmHg. RVSP is based on RA pressure of 15 mmHg. There is mild pulmonary hypertension. Aortic Valve The aortic valve is trileaflet. There is no regurgitation or stenosis. Pulmonic Valve The pulmonic valve was not well visualized. There is no regurgitation. Ascending Aorta The aortic root is normal in size. Pericardium There is no pericardial effusion. Study Details A complete echo was performed using complete 2D, color flow Doppler, spectral Doppler and strain imaging. The study was difficult due to patient's body habitus and respiration. BP 115/77 Wall Scoring Baseline Score Index: 1.00 The following segments are hyperkinetic: apical anterior, apical septal, apical inferior, apical lateral and apex. All other segments are normal. Diego Traore MORPHOLOGIST-DENTAL CREAM MAKER CV ECHO ORDERABLES Final Result * Potassium (01/10/2025 8:33 PM EDT) Only the most recent of2 resultswithin the time period is included. POTASSIUM 3.8 3.5 - 5.0 mmol/L 01/10/2025 8:53 PM EDT [facility] Blood Venous blood / Unknown Venipuncture / Unknown 01/10/2025 8:33 PM EDT 01/10/2025 8:07 PM EDT Diego Traore APRN-DENTAL CREAM MAKER LAB BLOOD ORDERABLES Fin al Result Performing Organization Address City/[facility]/ZIP Co de Phone Number [address] [place] [address], [place] * Troponin I, High Sensitivity 1 Hour (01/08/2025 4:50 AM EDT) 1 Hour Trop I, High Sensitivity 9 <16 ng/L 01/08/2025 5:29 AM EDT [facility] Blood Serum / Unknown 01/08/2025 4 :50 AM EDT 01/08/2025 5:01 AM EDT Phoebe Norman DO LAB BLOOD ORDERABLES Final R esult Performing Organization Address City/[facility]/ZIP Co de Phone Number [address], [place] [address] * CT angiogram chest (01/08/2025 4:49 AM EDT) Anatomical Region Laterality Modality Lung, Body, Chest, Vascular, Body Covera N/A Computed Tomography 01/08/2025 4:59 AM EDT Narrative 01/08/2025 5:[address] CTA CHEST HISTORY: Shortness of breath, [...] Nate Powell MD on 01/08/2025 4:59 AM Brisa George MD have personally reviewed the image(s) and agree with and/or edited the report Finalized by Brisa Perry MD on 01/08/2025 5:15 AM Procedure Note Brisa Perry MD - 01/08/2025 CT CTA CHEST HISTORY: Shortness of breath, history of vulvar cancer. COMPARISON: The chest radiograph 04/22/2024. TECHNIQUE: Contiguous axial images are obtained of the Chest with 100 mLof Omnipaque 350 IV contrast. Coronal and sagittal reconstructions wereperformed and reviewed. Sagittal and coronal reformatted images with 3-DMaximum intensity projection reconstructions constructed under concurrent physician supervision on a separate workstation. Automatic exposurecontrol was utilized. All CT scans at this facility use dose modulation,iterative reconstruction, and/or weight based dosing when appropriate toreduce radiation dose to as low as reasonably achievable. Patient wasscanned twice in order to improve contrast bolus timing. FINDINGS: Limited exam secondary to suboptimal contrast bolus timing, body habitus,and respiratory motion. LUNGS/PLEURA: The airways appear patent. No pneumothorax or pleural effusion. There is11 mm pulmonary nodule at the right upper lobe, best identified at axialimage #91 series 4. Given patient's history short-term follow-up or PETscan is advised. Smaller pleural-based 5 mm nodule is present at axialimage #90. Hypoventilatory changes. HEART/VESSELS/MEDIASTINUM: Cardiomegaly. No pericardial effusion. The aorta is nonaneurysmal. Mildprominence of the pulmonary trunk measuring up to 3.2 cm. Limitedevaluation for pulmonary embolism. No large central or main fillingdefects are seen. No evidence of right heart strain. No significantcoronary artery calcifications. No enlarged mediastinal or hilar lymph nodes. LOWER NECK AND UPPER ABDOMEN: The visualized thyroid is unremarkable. No acute abnormality within thevisualized abdomen. MUSCULOSKELETAL: No acute osseous abnormality. Multilevel degenerative changes of thethoracic spine. IMPRESSION: * Limited exam due to poor contrast opacification of the pulmonaryarteries. No evidence of large central or main pulmonary embolism. Noevidence of right heart strain. Smaller, peripheral filling defects cannotbe excluded. * Cardiomegaly and prominence of the pulmonary trunk, nonspecific, butcan be seen with pulmonary hypertension. * 11 mm right upper lobe pulmonary nodule that requires [id number]-ad or PET scan given patient's history. * Otherwise, no evidence of acute cardiopulmonary abnormality. Approved by Resident Nate Powell MD on 01/08/2025 4:59 AM I, Brisa Perry MD have personally reviewed the image(s) and agree withand/or edited the report Finalized by Brisa Perry MD on 01/08/2025 5:15 AM us Phoebe Norman DO IMG CT ORDERABLES Final Resu lt * SARS/FLU A+B/RSV by NAAT/Molecular (M4RT Collection Tube) (01/08/2025 3:49 AM EDT) FLU A PCR Negative Negative^Ne gative 01/08/2025 4:44 AM EDT [facility] FLU B PCR Negative Negative^Ne gative 01/08/2025 4:44 AM [facility] RSV by PCR Negative Negative^[facility] 01/08/2025 4:44 AM [facility] SARS CoV 2 BY PCR Not Detected Not Detected^No t Detected 01/08/2025 4:44 AM [facility] Comment: NOTE The Xpert Xpress SARS-CoV-2/Flu/RSV Plus test [...] operators who are performing tests using either [employer] or [employer] systems and is limited to laboratories that [...] specimen repeat. Fact Sheet for Healthcare Providers: https://www.fda.gov/media/440169/download Fact Sheet for Patients: https://www.fda.gov/media/654101/download Nasopharyngeal structure / Unknown 01/08/2025 3:49 AM EDT 01/08/2025 3:52 AM EDT us Phoebe Norman DO MICROBIOLOGY - GENERAL ORDER SAIDA Final Result [address], [place] [address] * ECG 12 lead (01/08/2025 3:39 AM EDT) 01/08/2025 3:39 AM EDT Narrative [facility] - 01/08/2025 4:20 AM EDT us Phoebe Norman DO ECG ORDERABLES Final Result [facility] * Troponin I, High Sensitivity (01/08/2025 3:27 AM EDT) Troponin I, High Sensitivity 10 <16 ng/L 01/08/2025 4:04 AM EDT [facility] Blood Serum / Unknown 01/08/2025 3 :27 AM EDT 01/08/2025 3:37 AM EDT Phoebe Norman DO LAB BLOOD ORDERABLES Final R esult Performing Organization Address City/[facility]/ZIP Co de Phone Number [address] [address] * B-type natriuretic peptide (01/08/2025 3:27 AM EDT) BNP 23 <100.0 pg/mL 01/08/2025 4:09 AM EDT [facility] Blood (PLASMA) 01/08/2025 3: 27 AM EDT 01/08/2025 3:37 AM EDT Phoebe Norman DO LAB BLOOD ORDERABLES Final R esult Performing Organization Address [facility] Co de Phone Number [address] [address] * (ABNORMAL) Hemoglobin A1c (01/08/2025 3:27 AM EDT) Hemoglobin A1C 6.2(H) 4.4 - 5.6 % 01/08/2025 6:11 PM EDT [facility] Comment: NOTE ADA Guidelines Result HgbA1c Normal : less than 5.7 % Prediabetes : 5.7 % to 6.4 % Diabetes : > 6.4 % Use with caution in patients with abnormal hemoglobin variants as the half-life of red blood cells and in vivo glycation rates are affected. Average glucose 131 mg/dL 6:11 PM EDT [facility] PLASMA 01/08/2025 3:27 AM EDT 01/08/2025 3:37 AM EDT Phoebe Norman DO LAB BLOOD ORDERABLES Final R esult [facility] [address] [place] [address] * Critical Care (01/08/2025 3:20 AM EDT) Narrative Phoebe Norman DO - 01/08/2025 3:20 AM EDT Phoebe Norman DO 01/13/2025 2:24 AM Critical Care Performed by: Phoebe Norman DO Authorized by: Phoebe Norman DO Critical care provider statement: Critical care time (minutes): 60 Critical care time was exclusive of: Separately billable procedures and treating other patients Critical care was necessary to treat or prevent imminent or life-threatening deterioration of the following conditions: Respiratory failure Critical care was time spent personally by me on the following activities: Blood draw for specimens, development of treatment plan with patient or surrogate, discussions with consultants, discussions with primary provider, evaluation of patient's response to treatment, examination of patient, ordering and performing treatments and interventions, ordering and review of laboratory studies, ordering and review of radiographic studies, pulse oximetry, re-evaluation of patient's condition, review of old charts and obtaining history from patient or surrogate I assumed direction of critical care for this patient from another provider in my specialty: no Care discussed with: admitting provider Phoebe Norman DO PROCEDURE/MINOR SURGICAL ORD ERABLES Final Result from Last 3 Months Insurance [employer] Advance Directives * Full Code (Latest Code Status on File) Date Activated Date Inactivated Comments 01/08/2025 5:15 AM 01/12/2025 4:40 PM * Full Code Date Activated Date Inactivated Comments 03/23/2023 5:19 AM 03/24/2023 2:30 PM * Full Code Date Activated Date Inactivated Comments 11/29/2022 2:46 AM 11/29/2022 6:58 PM * Full Code Date Activated Date Inactivated Comments 09/12/2022 1:56 AM 09/12/2022 2:52 PM Care Teams Quality Assurance Manager Relationship Specialty Start Date End Date Butch Chopra, MORPHOLOGIST-DENTAL CREAM MAKER [address] [place] [address] PCP - General Family Medicine 01/28/25
--- OUTSIDE RECORDS SUMMARY | 2025-02-08 13:11 | XMS_ITS | Encounter Summary ---
Author Organization [facility] Address [address] [place] [address] Care Team Providers Care Manager Inventory Management Name Role Phone Unavailable Primary Care Provider Unavailabl e Encounter Details Date Type Department Care Team (Late st Contact Info) Description 04/20/2024 Orders Only [facility] [address] [place] [address] Milana Mejias MD [address] [place] [address] Social History Tobacco Use Types Packs/Day Years [...] Name Priority Date/Time Associated Diagnosis Comments CT ABDOMEN & PELVIS W Routine 04/19/2024 2:47 PM EDT documented in this encounter Results * CT ABDOMEN & PELVIS W (04/19/2024 2:47 PM EDT) Anatomical Region Laterality Modality Radiographic Apple ging us Milana Mejias MD IMG XR PROCEDURES Final Result documented in this encounter Visit Diagnoses Not on filedocumented in this encounter
--- OUTSIDE RECORDS SUMMARY | 2025-02-08 13:12 | XMS_ITS | Encounter Summary ---
Author Organization [employer] tem Address [id number] [address] [place] [address] Care Team Providers Care Water Truck Driver Name Role Phone Butch Chopra Primary Care Prov ider Encounter Details Date Type Department Care Team (Latest Contact Info) Description 01/28/2025 Travel Social History Tobacco Use Types Packs/Day Years Used Date Smoking Tobacco: Every Day Cigarettes 1 32.4 Started: 09/16/1992 Smokeless Tobacco: Never Alcohol Use Standard Drinks/Week Comments Not Currently 0 (1 standard drink = 0.6 oz pur e alcohol) sober-2 months [facility] Utilities Answer Date Recorded In the past [...] AM EST documented as of this encounter Plan of Treatment Upcoming Encounters Date Type Department Care Team (Late st Contact Info) Description 02/10/2025 1:30 PM EDT Office Visit [facility] General Surgery [address] [place] [phone] Lorrie Rueda, ENGLISH TEACHER-MANUFACTURING ENGINEER PAINT [address] [place], [place] [phone] 02/18/2025 7:30 PM EDT Clinical Support [facility] - Sleep Disorders [address] [place] [phone] 07/26/2025 10:30 AM EST Office Visit [facility] Pulmonary/Sleep Medicine [address] [facility] [phone] Gloria Michelle MD [address] [facility] [address] [place] [address] 07/27/2025 1:30 PM EST Office Visit [facility] Cardiology [address] [facility] [address] [place] [phone] Charity Conti, PA-C [address] [place] [address] documented as of this encounter Goals Goal Patient Goal Type Associated Problems Recent Progress Patient-Stated? Author Return to sober living General Yes Brittni Diallo, GARDENING INSTRUCTOR Note: Evaluation of progress towards goal: In progress: Return to sober living at [facility] in [place], [place]. documented as of this encounter Visit Diagnoses Not on filedocumented in this encounter Additional Health Concerns Assessment Noted Time PHQ-9 Depression Total Score: 0 12/07/19 2:09 PM EDT A Body Mass Index follow-up plan has been documented for the patient 12/09/2022 11:24 PM EDT documented as of this encounter Care Teams Water Truck Driver Relationship Specialty Start Date End Date Butch Chopra, LAINEY-MANUFACTURING ENGINEER PAINT [address] [place] [address] PCP - General Family Medicine 01/28/25 documented as of this encounter
--- OUTSIDE RECORDS SUMMARY | 2025-02-08 13:12 | XMS_ITS | Encounter Summary ---
Author Organization [employer] Address [id number] [address] [place] [address] Care Team Providers Care Ceramic Sprayer Name Role Phone Butch Chopra BOWLING PIN REFINISHER-SEARCH ENGINE OPTIMIZER Primary Care Prov ider Encounter Details Date Type Department Care Team (Late st Contact Info) Description 12/27/2022 Telephone [facility] Internal Medicine - Family Medicine [address] [place] [address] Gisselle Jiang, BOWLING PIN REFINISHER-SEARCH ENGINE OPTIMIZER [address] [facility] [place] [address] Social History Tobacco Use Types Packs/Day Years Used Date Smoking Tobacco: Every Day Cigarettes 0.5 32.4 Started: 09/16/1992 Smokeless Tobacco: Never Alcohol Use Standard Drinks/Week Comments Yes 0 (1 standard drink = 0.6 oz pur e alcohol) occasionally. PHQ-2 Answer Date Recorded Total Score 0 12/06/2022 Childcare Answer Date Recorded Childcare Unknown 02/25/2019 Employment Answer Date Recorded Employment Unknown 02/25/2019 Purpose - Life Answer Date Recorded Purpose and direction in life Unknown Comments No Sex and Gender Information Value Date Recorded Sex Assigned at Female 09/12/2022 12:18 AM EST Legal Sex Female 11:45 AM EDT Gender Identity Female 09/12/2022 12:18 AM EST Sexual Orientation Straight 09/12/2022 12 :18 AM EST COVID-19 Exposure Response Date Recorded In the last month, have you been in contact with someone who was confirmed or suspected to have Coronavirus / COVID-19? No / Unsure 12/06/2022 1:52 PM EDT documented as of this encounter Plan of Treatment Upcoming Encounters Date Type Department Care Team (Late st Contact Info) Description 02/10/2025 1:30 PM EDT Office Visit [facility] General Surgery [address] [place] [phone] Lorrie Rueda, BOWLING PIN REFINISHER-SEARCH ENGINE OPTIMIZER [address] [facility] [place] [address] 02/18/2025 7:30 PM EDT Clinical Support [facility] - Sleep Disorders [address] [place] [phone] 07/26/2025 10:30 AM EST Office Visit [facility] Pulmonary/Sleep Medicine [address] [place] [phone] Gloria Michelle MD [address] [facility] [address] [place] [address] 07/27/2025 1:30 PM EST Office Visit [facility] Cardiology [address] [facility] [address] [place] [phone] Charity Conti, PARadhaC [address] [place] [address] documented as of this encounter Visit Diagnoses Not on filedocumented in this encounter Additional Health Concerns Infection Onset Date Last Indicated Resolved Time COVID-19 Rule-Out 03/23/2023 03/23/2023 03/23/2023 5:03 AM EDT Respiratory Rule-Out 01/08/2025 01/08/2025 025 4:44 AM EDT Assessment Noted Time PHQ-9 Depression Total Score: 0 12/07/19 23 2:09 PM EDT A Body Mass Index follow-up plan has been documented for the patient 12/09/2022 11:24 PM EDT documented as of this encounter Care Teams Ceramic Sprayer Relationship Specialty Start Date End Date Butch Chopra, LAINEY-SEARCH ENGINE OPTIMIZER [address] [place] [phone] PCP - General Family Medicine 01/28/25 documented as of this encounter
--- OUTSIDE RECORDS SUMMARY | 2025-02-08 13:12 | XMS_ITS | Clinical Summary ---
Author Organization Christopher Ty [facility] Address [address] [place] [address] Care Team Providers Care Manager Metal Name Role Phone Butch Chopra APRN - HIGH SCHO[employer] SOCIAL STUDIES TEACHER Primary Care Pro vider Allergies Active Allergy Reactions Criticality Noted Date Comments Penicillins 07/18/2013 sob Medications ALPRAZolam (XANAX) 0.5 MG tablet Take 1 mg by mouth nightly as needed. Active lisinopril-hydroCHL OROthiazide (PRINZIDE;ZESTORETI C) 20-12.5 MG per tablet Take 1 tablet by mouth daily 5 Active levothyroxine (SYNTHROID) 25 MCG tablet Take 1 tablet by mouth Daily 5 Active ondansetron (ZOFRAN-ODT) 4 MG disintegrating tablet Take 1 tablet by mouth 3 times daily as needed for Nausea or Vomiting 21 tablet 5 Active dicyclomine (BENTYL) 10 MG capsule Take 1 capsule by mouth 4 times daily (before meals and nightly) 20 capsule 5 Active pantoprazole (PROTONIX) 20 MG tablet Take 1 tablet by mouth daily 30 tablet 5 Active Active Problems No known active problems Encounters Date Type Department Care Team Description 01/31/2025 9:18 AM EDT - 01/31/2025 3:19 PM EDT Emergency [facility] Emergency Department [address] [place] [address] Blanche Roberts DO Abdominal pain, unspecified abdominal location (Primary Dx) Discharge Disposition: Home or Self Care 01/31/2025 Travel 01/27/2025 9:43 AM EDT - 01/27/2025 12:48 PM EDT Emergency [facility] Emergency Department [address] [place] [address] Agustín Toledo MD Nausea and vomiting, unspecified vomiting type (Primary Dx); Hypokalemia Discharge Disposition: Home or Self Care 01/26/2025 9:50 PM EDT - 01/26/2025 10:12 PM EDT Emergency [facility] Emergency Department [address] [place] [address] Discharge Disposition: LWBS after inspector balance truing 01/26/2025 Travel 12/09/2024 Transcribe Orders [facility] [address] [place] [address] Butch Chopra, LAINEY - HIGH SCHOOL SOCIAL STUDIES TEACHER Other obesity not elsewhere classified (Primary Dx) from Last 3 Months Social History Tobacco Use Types Packs/Day Years [...] Mass Index 50.18 01/26/2025 9:20 PM EDT Plan of Treatment Health Maintenance Due Date Last Done Comments Depression Screen 1993 Varicella vaccine (1 of 2 - 13+ 2-dose series) 1994 HIV screen 1996 Hepatitis C screen 1999 DTaP/Tdap/Td vaccine (1 - Tdap) 2000 Hepatitis B vaccine (1 of 3 - 19+ 3-dose series) 2000 Pneumococcal 0-49 years Vacc ine (1 of 2 - PCV) 2000 Pap smear 2002 Cervical cancer screen 2011 HPV (without or with Pap) 2011 Diabetes screen 2016 Breast cancer screen 2021 Lipids 2021 COVID-19 Vaccine (1 - 2023-2 5 season) 2024 Flu vaccine (Season Ended) 2025 HPV vaccine Aged Out No longer eligi ble based on patient's age to complete this topic Hepatitis A vaccine Aged Out No longe r eligible based on patient's age to complete this topic Hib vaccine Aged Out No longer eligi ble based on patient's age to complete this topic Meningococcal (ACWY) vaccine Aged Out No longer eligible based on patient's age to complete this topic Meningococcal B vaccine Aged Out No l onger eligible based on patient's age to complete this topic Polio vaccine Aged Out No longer elig ible based on patient's age to complete this topic Procedures Procedure Name Priority Date/Time Associated Diagnosis Comments MICROSCOPIC URINALYSIS Routine 01/31/2025 11:48 AM EDT URINALYSIS WITH REFLEX TO CULTURE STAT 01/31/2025 11:[address] ABDOMEN PELVIS W IV CONTRAST STAT 01/31/2025 11:35 AM EDT CBC WITH AUTO DIFFERENTIAL Stat [employer] Label print 01/31/2025 10:20 AM EDT HCG, SERUM, QUALITATIVE Add-On 01/31/2025 9:40 AM EDT LIPASE STAT 01/31/2025 9:40 AM EDT HEPATIC FUNCTION PANEL STAT 01/31/2025 9:40 AM EDT BASIC METABOLIC PANEL STAT 01/31/2025 9:40 AM EDT TROPONIN Add-On 01/27/2025 11:35 AM EDT BLOOD GAS, VENOUS Routine 01/27/2025 10: 52 AM EDT RAPID INFLUENZA A/B ANTIGENS STAT 01/27/2025 10:31 AM EDT COVID-19, RAPID STAT 01/27/2025 10:31 AM EDT XR CHEST PORTABLE STAT 01/27/2025 10: 27 AM EDT TROPONIN Add-On 01/27/2025 10:25 AM EDT LIPASE STAT 01/27/2025 10:25 AM EDT COMPREHENSIVE METABOLIC PANEL STAT 01/27/2025 10:25 AM EDT CBC WITH AUTO DIFFERENTIAL STAT 01/27/2025 10:25 AM EDT EKG 12-LEAD STAT 01/27/2025 9:48 AM EDT from Last 3 Months Results * Urinalysis with Reflex to Culture (01/31/2025 11:48 AM EDT) Color, UA Yellow Yellow 01/31/2025 11:[address] [facility] Turbidity UA Clear Clear 01/31/2025 11:[address] [facility] Glucose, Ur NEGATIVE NEGATIVE mg/dL 01/31/2025 11:[address] [facility] Bilirubin, Urine NEGATIVE NEGATIVE 01/31/2025 11:[address] [facility] Ketones, Urine NEGATIVE NEGATIVE mg/dL 01/31/2025 11:[address] [facility] Specific [place], UA 1.015 1.010 - 1.020 01/31/2025 11:[address] [facility] Urine Hgb NEGATIVE NEGATIVE 01/31/2025 11:[address] [facility] pH, Urine 6.5 5.0 - 9.0 01/31/2025 11:[address] [facility] Protein, UA NEGATIVE NEGATIVE mg/dL 01/31/2025 11:[address] [facility] Urobilinogen, Urine Normal 0.0 - 1.0 EU/dL 01/31/2025 11:[address] [facility] Nitrite, Urine NEGATIVE NEGATIVE 01/31/2025 11:[address] [facility] Leukocyte Esterase, Urine NEGATIVE NEGATIVE 01/31/2025 11:[address] [facility] Urine 01/31/2025 11:4 8 AM EDT 01/31/2025 11:52 AM EDT us Blanche Roberts DO URINE ORDERABLES Final Resu lt [facility] [address] [phone] * (ABNORMAL) Microscopic Urinalysis (01/31/2025 11:48 AM EDT) WBC, UA 0 TO 2 0 - 5 /HPF 01/31/2025 11:[address] [facility] RBC, UA 0 TO 2 0 - 2 /HPF 01/31/2025 11:[address] [facility] Casts UA 0 TO 2 HYALINE /LPF 01/31/2025 11:[address] [facility] Epithelial Cells, UA 2 TO 5 0 - 25 /HPF 01/31/2025 11:[address] [facility] Mucus, UA 2+(A) None 01/31/2025 11:[address] [facility] Amorphous, UA 2+(A) None 01/31/2025 11:[address] [facility] 01/31/2025 11:4 8 AM EDT 01/31/2025 11:52 AM EDT us Blanche Roberts DO URINE ORDERABLES Final Resu lt [facility] [address] [phone] * CT ABDOMEN PELVIS W IV CONTRAST [...] with Auto Differential (01/31/2025 10:20 AM EDT) Only the most recent of2 resultswithin the time period is included. WBC 6.4 3.5 - 11.3 k/uL 01/31/2025 10:20 AM [facility] RBC 4.50 3.95 - 5.11 m/uL 01/31/2025 10:20 AM [facility] Hemoglobin 10.6(L) 11.9 - 15.1 g/dL 01/31/2025 10:20 AM [facility] Hematocrit 35.4(L) 36.3 - 47.1 % 01/31/2025 10:20 AM [facility] MCV 78.7(L) 82.6 - 102.9 fL 01/31/2025 10:20 AM [facility] MCH 23.6(L) 25.2 - 33.5 pg 01/31/2025 10:20 AM [facility] MCHC 29.9 28.4 - 34.8 g/dL 01/31/2025 10:20 AM [facility] RDW 17.9(H) 11.8 - 14.4 % 01/31/2025 10:20 AM [facility] Platelets 346 138 - 453 k/uL 01/31/2025 10:20 AM [facility] MPV 9.0 8.1 - 13.5 fL 01/31/2025 10:20 AM [facility] NRBC Automated 0.0 0.0 per 100 WBC 01/31/2025 10:20 AM [facility] Neutrophils % 66(H) 36 - 65 % 01/31/2025 10:20 AM [facility] Lymphocytes % 21(L) 24 - 43 % 01/31/2025 10:20 AM [facility] Monocytes % 9 3 - 12 % 01/31/2025 10:20 AM [facility] Eosinophils % 2 1 - 4 % 01/31/2025 10:20 AM [facility] Basophils % 1 0 - 2 % 01/31/2025 10:[address] [facility] Immature Granulocytes % 1(H) 0 % 01/31/2025 10:[address] [facility] Neutrophils Absolute 4.25 1.50 - 8.10 k/uL 01/31/2025 10:[address] [facility] Lymphocytes Absolute 1.38 1.10 - 3.70 k/uL 01/31/2025 10:[address] [facility] Monocytes Absolute 0.60 0.10 - 1.20 k/uL 01/31/2025 10:[address] [facility] Eosinophils Absolute 0.13 0.00 - 0.44 k/uL 01/31/2025 10:[address] [facility] Basophils Absolute 0.04 0.00 - 0.20 k/uL 01/31/2025 10:[address] [facility] Immature Granulocytes Absolute 0.04 0.00 - 0.30 k/uL 01/31/2025 10:[address] [facility] 01/31/2025 10:2 0 AM EDT 01/31/2025 10:30 AM EDT Blanche Roberts DO HEMATOLOGY ORDERABLES Final Result [facility] [address] [phone] * HCG Qualitative, Serum (01/31/2025 9:40 AM EDT) Preg, Serum NEGATIVE NEGATIVE 01/31/2025 9:[address] [facility] Comment: Specimens with hCG levels near the threshold of the test (25 mIU/mL) may give a negative or indeterminate result. In such cases, another test should be performed with a new specimen in 48-72 hours. If early is suspected clinically in this setting, correlation with quantitative serum b-hCG level is suggested. [employer] has confirmed the use of plasma for this test. This has not been cleared or approved by the U.S. Food and Drug Administration. The FDA has determined that such clearance is not necessary. Blood BLOOD SPECIMEN / Unknown 01/31/2025 9:40 AM EDT 01/31/2025 10:50 AM EDT Blanche Roberts DO CHEMISTRY ORDERABLES Final Result Performing Organization Address [facility]/ZIP Co de Phone Number [facility] [address] [phone] * Lipase (01/31/2025 9:40 AM EDT) Only the most recent of2 resultswithin the time period is included. Lipase 26 13 - 60 U/L 01/31/2025 9:[address] [facility] Blood BLOOD SPECIMEN / Unknown 01/31/2025 9:40 AM EDT 01/31/2025 9:45 AM EDT Blnache Roberts DO CHEMISTRY ORDERABLES Final Result Performing Organization Address [facility] Co de Phone Number [facility] [address] [place] [address] * Hepatic Function Panel (01/31/2025 9:40 AM EDT) Albumin 3.6 3.5 - 5.2 g/dL 01/31/2025 9:[address] [facility] Alkaline Phosphatase 61 35 - 104 U/L 01/31/2025 9:[address] [facility] ALT 18 10 - 35 U/L 01/31/2025 9:[address] [facility] AST 15 10 - 35 U/L 01/31/2025 9:[address] [facility] Total Bilirubin 0.6 0.00 - 1.20 mg/dL 01/31/2025 9:[address] [facility] Bilirubin, Direct 0.3 0.00 - 0.30 mg/dL 01/31/2025 9:[address] [facility] Bilirubin, Indirect 0.3 0.0 - 1.0 mg/dL 01/31/2025 9:[address] [facility] Total Protein 6.6 6.6 - 8.7 g/dL 01/31/2025 9:[address] [facility] Albumin/Globulin Ratio 1.2 1.0 - 2.5 01/31/2025 9:[address] [facility] Blood BLOOD SPECIMEN / Unknown 01/31/2025 9:40 AM EDT 01/31/2025 9:45 AM EDT us Blanche Roberts DO CHEMISTRY ORDERABLES Final Result [facility] [address] [phone] * (ABNORMAL) Basic Metabolic Panel (01/31/2025 9:40 AM EDT) Sodium 136 136 - 145 mmol/L 01/31/2025 9:40 AM [facility] Potassium 3.2(L) 3.7 - 5.3 mmol/L 01/31/2025 9:40 AM [facility] Chloride 99 98 - 107 mmol/L 01/31/2025 9:40 AM [facility] CO2 26 20 - 31 mmol/L 01/31/2025 9:40 AM [facility] Anion Gap 11 9 - 16 mmol/L 01/31/2025 9:40 AM [facility] Glucose 113(H) 74 - 99 mg/dL 01/31/2025 9:40 AM [facility] BUN 10 6 - 20 mg/dL 01/31/2025 9:40 AM [facility] Creatinine 0.6 0.50 - 0.90 mg/dL 01/31/2025 9:40 AM [facility] Est, Glom Filt Rate >90 >60 mL/min/1.7 3m2 01/31/2025 9:[address] [facility] Comment: These results are not [...] 17 9 - 20 01/31/2025 9:[address] [facility] Calcium 8.9 8.6 - 10.4 mg/dL 01/31/2025 9:[address] [facility] Blood BLOOD SPECIMEN / Unknown 01/31/2025 9:40 AM EDT 01/31/2025 9:45 AM EDT us Blanche Roberts DO CHEMISTRY ORDERABLES Final Result [facility] [address] [place] [address] * Troponin (01/27/2025 11:35 AM EDT) Only the most recent of2 resultswithin the time period is included. Pathologist [facility] Troponin, High Sensitivity 9 0 - 14 ng/L 01/27/2025 11:[address] [facility] Comment:High Sensitivity Tro ponin values cannot be compared with other Troponin methodologies. Blood BLOOD SPECIMEN / Unknown 01/27/2025 11:35 AM EDT 01/27/2025 10:34 AM EDT us Agustín Toledo MD CHEMISTRY ORDERABLES Final R esult [facility] [address] [place] [address] * (ABNORMAL) Blood Gas, Venous (01/27/2025 10:52 AM EDT) Pathologist [facility] pH, Alan 7.465(H) 7.32 - 7.42 01/27/2025 10:52 AM [facility] pCO2, Alan 41.4 39 - 55 mm Hg 01/27/2025 10:52 AM [facility] PO2, Alan 52.3(H) 30.0 - 50.0 mm Hg 01/27/2025 10:52 AM [facility] HCO3, Venous 29.1 24.0 - 30.0 mmol/L 01/27/2025 10:52 AM [facility] Positive Base Excess, Alan 4.9(H) 0.0 - 2.0 mmol/L 01/27/2025 10:52 AM [facility] O2 Sat, Alan 88.9(H) 60.0 - 85.0 % 01/27/2025 10:52 AM [facility] Pt Temp 37.0 01/27/2025 10:52 AM [facility] pH, Alan, Temp Adj 7.465(H) 7.320 - 7.420 01/27/2025 10:52 AM [facility] pCO2, Alan, Temp Adj 41.4 39.0 - 55.0 mmHg 01/27/2025 10:52 AM [facility] pO2, Alan, Temp Adj 52.3(H) 30.0 - 50.0 mmHg 01/27/2025 10:52 AM [facility] O2 Device/Flow/% ROOM AIR 01/27/2025 10:52 AM [facility] Amador Test NOT APPLICABLE 01/27/2025 10:52 AM [facility] FIO2 21 01/27/2025 10:52 AM [facility] 01/27/2025 10:5 2 AM EDT 01/27/2025 10:54 AM EDT us Agustín Toledo MD CHEMISTRY ORDERABLES Final R esult [facility] [address] [place], [place] [id number] [phone] * COVID-19, Rapid (01/27/2025 10:31 AM EDT) Specimen Description .NASOPHARYN GEAL SWAB 01/27/2025 10:[address] [facility] SARS-CoV-2, Rapid Not Detected Not Detected 01/27/2025 10:[address] [facility] Comment: Rapid NAAT: The specimen [...] 10:31 AM EDT 01/27/2025 10:32 AM EDT Agustín Toledo MD MICROBIOLOGY - GENERAL ORDER SAIDA Final Result [facility] [address] [place], [place] [id number] [phone] * Rapid influenza A/B antigens (01/27/2025 10:31 AM EDT) Flu A Antigen NEGATIVE NEGATIVE 01/27/2025 10:[address] [facility] Comment:for Influenza A Anti gen Flu B Antigen NEGATIVE NEGATIVE 01/27/2025 10:[address] [facility] Comment:for Influenza B Anti gen. NASOPHARYNGEAL SWAB / Unknown 01/27/2025 10:31 AM EDT 01/27/2025 10:32 AM EDT Agustín Toledo MD MICROBIOLOGY - GENERAL ORDER SAIDA Final Result [facility] [address] [id number], [facility] [phone] * XR CHEST PORTABLE (01/27/2025 10:27 AM [...] bibasilar atelectatic changes, right more than left. Agustín Toldeo MD IMG DIAGNOSTIC IMAGING ORDER SAIDA Final Result * (ABNORMAL) CMP (01/27/2025 10:25 AM EDT) Sodium 136 136 - 145 mmol/L 01/27/2025 10:25 AM [facility] Potassium 3.0(L) 3.7 - 5.3 mmol/L 01/27/2025 10:25 AM [facility] Chloride 94(L) 98 - 107 mmol/L 01/27/2025 10:25 AM [facility] CO2 26 20 - 31 mmol/L 01/27/2025 10:25 AM [facility] Anion Gap 16 9 - 16 mmol/L 01/27/2025 10:25 AM [facility] Glucose 143(H) 74 - 99 mg/dL 01/27/2025 10:25 AM [facility] BUN 15 6 - 20 mg/dL 01/27/2025 10:25 AM [facility] Creatinine 0.8 0.50 - 0.90 mg/dL 01/27/2025 10:25 AM [facility] Est, Glom Filt Rate >90 >60 mL/min/1.7 3m2 01/27/2025 10:25 AM [facility] Comment: These results are [...] 19 9 - 20 01/27/2025 10:25 AM [facility] Calcium 9.6 8.6 - 10.4 mg/dL 01/27/2025 10:25 AM [facility] Total Protein 7.8 6.6 - 8.7 g/dL 01/27/2025 10:25 AM [facility] Albumin 4.2 3.5 - 5.2 g/dL 01/27/2025 10:25 AM [facility] Albumin/Globulin Ratio 1.2 1.0 - 2.5 01/27/2025 10:[address] [facility] Total Bilirubin 0.6 0.00 - 1.20 mg/dL 01/27/2025 10:[address] [facility] Alkaline Phosphatase 69 35 - 104 U/L 01/27/2025 10:[address] [facility] ALT 30 10 - 35 U/L 01/27/2025 10:[address] [facility] AST 27 10 - 35 U/L 01/27/2025 10:[address] [facility] Blood BLOOD SPECIMEN / Unknown 01/27/2025 10:25 AM EDT 01/27/2025 10:30 AM EDT Agustín Toledo MD CHEMISTRY ORDERABLES Final R esult Performing Organization Address City/State/[facility] Co de Phone Number [facility] [address] [phone] * EKG 12 Lead (01/27/2025 9:48 AM EDT) [facility] Ventricular Rate [address] [facility] Atrial Rate 92 BPM [facility] P-R Interval 188 ms [facility] QRS Duration 96 ms [facility] RADIOLOGY Q-T Interval 362 ms [facility] RADIOLOGY QTc Calculation (Bazett) 447 ms [facility] P Argyle 72 degrees [facility] R Argyle 74 degrees [facility] T Argyle 97 degrees [facility] 01/27/2025 9:48 AM EDT Narrative [facility] - 01/27/2025 11:31 PM EDT Normal [...] Martell Carvajal ([id number]) on 01/27/2025 11:30:58 PM us Agustín Toledo MD ECG ORDERABLES Final Result [facility] from Last 3 Months Insurance [facility] Care Teams Manager Metal Relationship Specialty Start Date End Date Butch Chopra, LAINEY - HIGH SCHOOL SOCIAL STUDIES TEACHER [address] [place] [address] PCP - General Nurse Practitioner 10/08/24
--- OUTSIDE RECORDS SUMMARY | 2025-02-08 13:12 | XMS_ITS | Encounter Summary ---
Author Organization [employer] tem Address [id number] [address] [place] [address] Care Team Providers Care Pockets And Pieces Necktie Operator Name Role Phone Nav Butch Davenport APRN-STEREOPTIC PROJECTION TOPOGRAPHER Primary Care Prov ider Encounter Details Date Type Department Care Team (Late st Contact Info) Description 12/25/2022 [facility]phone [facility] - [facility] [address] [place] [phone] Candie Mcbride MA Social History Tobacco Use Types Packs/Day Years [...] PM EDT documented as of this encounter Miscellaneous Notes * Telephone Encounter - Candie Mcbride MA - 12/25/2022 4:44 PM EDT No show today cx 12/20/22 No show letter, or dismissal? * Telephone Encounter - BARBARA Rivera - 12/25/2022 4:44 PM EDT I had Roselyn take care of this. I reminded her about no show after first intial jordyn documented in this encounter Plan of Treatment Upcoming Encounters Date Type Department Care Team (Late st Contact Info) Description 02/10/2025 1:30 PM EDT Office Visit [facility] General Surgery [address] [place] [phone] [facility] [address] [place] [address] 02/18/2025 7:30 PM EDT Clinical Support [facility] - Sleep Disorders [address] [place] [phone] 07/26/2025 10:30 AM EST Office Visit [facility] Pulmonary/Sleep Medicine [address] [facility] [address] [facility] [address] [place] [phone] Gloria Michelle MD [address] [facility] [address] [place] [address] 07/27/2025 1:30 PM EST Office Visit [facility] Cardiology [address] [facility] [address] [place] [phone] Charity Conti, PA-C [address] [place] [address] documented as of this encounter Visit Diagnoses [...] documented as of this encounter Care Teams Pockets And Pieces Necktie Operator Relationship Specialty Start Date End Date Butch Chopra, LAINEY-STEREOPTIC PROJECTION TOPOGRAPHER [address] [place] [address] PCP - General Family Medicine 01/28/25 documented as of this encounter
--- OUTSIDE RECORDS SUMMARY | 2025-02-08 13:12 | XMS_ITS | Clinical Summary ---
Author Organization [facility] Address [address] [place], [place] [id number] Care Team Providers Care Data Base Design Analyst Name Role Phone Unavailable Primary Care Provider Unavailabl e Allergies Active Allergy Reactions Criticality Noted Date Comments Penicillins Anaphylaxis 05/13/2024 Medications lisinopril-hydr oCHLOROthiazide (ZESTORETIC) 10-12.5 mg per tablet 1, Oral, Daily, # 30 tab(s), Refill(s): 0, 0, Maintenance, Dutch, Print Requisition 4 Active Active Problems No known active problems Social History Tobacco Use Types Packs/Day Years Used Date Smoking Tobacco: Never Assessed Comments Unknown Sex and Gender Information Value Date Recorded Sex Assigned at Not on file Legal Sex Female 6:39 PM EDT Gender Identity Not on file Sexual Orientation Not on file Last Filed Vital Signs Vital Sign Reading Time Taken Comments Blood Pressure 155/89 05/14/2024 12:04 AM EDT Pulse 95 05/13/2024 5:58 PM EDT Temperature 36.2 C (97.1 F) 05/13/2024 5:58 PM EDT Respiratory Rate 16 05/14/2024 12:04 AM EDT Oxygen Saturation 99% 05/14/2024 12:04 AM EDT Inhaled Oxygen Concentration - - Weight 136.1 kg (300 lb) 05/13/2024 5:58 PM EDT Height 172.7 cm (5' 8 ) 05/13/2024 5:58 PM EDT Body Mass Index 45.61 05/13/2024 5:58 PM EDT Plan of Treatment Health Maintenance Due Date Last Done Comments Anxiety Screening 1999 Depression Screening 1999 HIV Screening 1999 Hepatitis C Screening 1999 DTaP,Tdap,Td Vaccine (1 - Tdap) 2000 Hepatitis B Vaccine (1 of 3 - 19+ 3-dose series) 03/21 Cervical Cancer Screening 2002 Mammogram Screening 2021 Covid-19 Vaccine ( season) 2024 Influenza Vaccine (Season Ended) 2025
--- OUTSIDE RECORDS SUMMARY | 2025-02-08 13:12 | XMS_ITS | Encounter Summary ---
Author Organization [facility] Address [address] [place] [address] Care Team Providers Care Coroner Transport Technician Name Role Phone Butch Chopra APRN - JODI Primary Care Pro vider Encounter Details Date Type Department Care Team (Latest Contact Info) Description 01/26/2025 Travel Social History Tobacco Use Types Packs/Day [...] on filedocumented in this encounter Care Teams Coroner Transport Technician Relationship Specialty Start Date End Date Butch Chopra APRN - NP [id number] [place] [address] PCP - General Nurse Practitioner 10/08/24 documented as of this encounter
--- OUTSIDE RECORDS SUMMARY | 2025-02-08 13:12 | XMS_ITS | Encounter Summary ---
Author Organization [facility] [employer] [facility] tem Address [id number] [address] [place] [address] Care Team Providers Care Vice President Business Development Name Role Phone Butch Chopra APRN-TORRES Primary Care Prov ider Reason for Visit * Reason Onset Date Comments Sleep Lab 01/21/2025 HST Encounter Details Date Type Department Care Team ([facility] st Contact Info) Description 01/21/2025 Telephone [facility] - Sleep Disorders [address] [place] [phone] Phoebe Barreto MD [address] [facility] [address] [place], [place] [phone] Sleep Lab (HST) Social History Tobacco Use Types Packs/Day Years Used Date Smoking Tobacco: Every Day Cigarettes 1 32.4 Started: 09/16/1992 Smokeless Tobacco: Never Alcohol Use Standard Drinks/Week Comments Not Currently 0 (1 standard drink = 0.6 oz pur e alcohol) sober-2 months [facility] Utilities Answer Date Recorded In the [...] AM EST documented as of this encounter Miscellaneous Notes * Telephone Encounter - Gia Burns - 01/21/2025 3:18 PM EDT 01/20 Order received 01/21 Called PT LM to schedule sleep study. HST Order and 01/20/25 Lola Barreto Epic Notes * Telephone Encounter - Clarita Carranza - 01/21/2025 3:18 PM EDT 01/28 spoke with patients father, ok for PHI, he will have patient call back. Also sent letter in the mail to schedule. Order Deferred * Telephone Encounter - Lyla Bill - 01/21/2025 3:18 PM EDT Scheduled HST @ [facility] on 02/18 at 7:30pm My chart confirmation Chatted pre auth [employer] HST Order and 01/20/25 Lola Barreto Epic Notes * Telephone Encounter - An Back - 01/21/2025 3:18 PM EDT AUTH STARTED HST [id number] [employer] documented in this encounter Plan of Treatment Upcoming Encounters Date Type Department Care Team (Late st Contact Info) Description 02/10/2025 1:30 PM EDT Office Visit [facility] General Surgery [address] [place] [phone] Lorrie Rueda, CEMENTER MACHINE-DIESEL PLANT OPERATOR [address], [place] [id number] 02/18/2025 7:30 PM EDT Clinical Support [facility] - Sleep Disorders [address] [place] [phone] 07/26/2025 10:30 AM EST Office Visit [facility] Pulmonary/Sleep Medicine [address] [place] [phone] Gloria Michelle MD [address] [facility] [address] [facility] [place], [place] [phone] 07/27/2025 1:30 PM EST Office Visit [facility] Cardiology [address] [facility] [address] [place] [phone] Charity Conti, PARadhaC [address] [place] [address] documented as of this encounter Goals Goal Patient Goal Type Associated Problems Recent Progress Patient-Stated? Author Return to sober living General Yes Brittni Diallo LSW Note: Evaluation of progress towards goal: In progress: Return to sober living at [facility] in [place], [place]. documented as of this encounter Visit Diagnoses Not on filedocumented in this encounter Additional Health Concerns Assessment Noted Time PHQ-9 Depression Total Score: 0 12/07/19 23 2:09 PM EDT A Body Mass Index follow-up plan has been documented for the patient 12/09/2022 11:24 PM EDT documented as of this encounter Care Teams Vice President Business Development Relationship Specialty Start Date End Date Butch Chopra, CEMENTER MACHINE-DIESEL PLANT OPERATOR [address] [place] [address] PCP - General Family Medicine 01/28/25 documented as of this encounter
--- OUTSIDE RECORDS SUMMARY | 2025-02-08 13:12 | XMS_ITS | Encounter Summary ---
Author Organization [facility] Address [address] [place] [address] Care Team Providers Care Electric Cutter Operator Name Role Phone Butch Chopra APRN - CHECK PROCESSOR Primary Care Pro vider Encounter Details Date Type Department Care Team (Latest Contact Info) Description 01/31/2025 Travel Social History Tobacco Use Types Packs/Day [...] on file documented as of this encounter Functional Status documented as of this encounter Plan of Treatment Not on file documented as of this encounter Visit Diagnoses Not on filedocumented in this encounter Care Teams Electric Cutter Operator Relationship Specialty Start Date End Date Butch Chopra APRN - JODI [address] [place] [address] PCP - General Nurse Practitioner 10/08/24 documented as of this encounter
--- NOTE | 2025-02-08 13:25 | ED.GENADUL1 ---
HPI HPI - General Adult General Chief complaint: Abdominal Pain Stated complaint: ABDOMINAL PAIN, NAUSEA, DIARRHEA Time Seen by Provider: 02/08/25 13:12 Source: patient Mode of arrival: walk-in History of Present Illness HPI narrative: 44-year-old female presents to the emergency department for a chief complaint of abdominal pain. It is in the upper abdomen, near the midline. She has had this for a week or 2 and it seems to be worse after she eats. She had her gallbladder taken out years ago. There is been no trauma or fever. She has not been constipated and has not had vomiting or diarrhea. She is scheduled to see a head banquet waiter/waitress in 2 days. Last week she was seen at another hospital's emergency department and she tells me that all of her tests were negative including the CAT scan. The pain seems to be intermittent. Related Data Home Medications ?Medication ?Instructions ?Recorded ?Confirmed losartan 100 mg tablet 100 mg PO DAILY 02/28/23 02/08/25 bumetanide 1 mg tablet 1 mg PO DAILY 02/08/25 02/08/25 Previous Rx's ?Medication ?Instructions ?Recorded esomeprazole magnesium 20 mg 20 mg PO DAILY #14 caps 02/08/25 capsule,delayed release (Nexium) hyoscyamine sulfate 0.125 mg 0.125 mg PO Q8H PRN dyspepsia #20 02/08/25 tablet (Levsin) tabs ondansetron 4 mg disintegrating 4 mg PO Q6H PRN nausea and 02/08/25 tablet vomiting #20 tabs Allergies Allergy/AdvReac Type Severity Reaction Status Date / Time Penicillins Allergy Mild Rash Verified 02/08/25 13:09 Opioid HPI Opioid Management Most Recent Opioid Data: Last Pain Scale 8 03/30/24, 14:01 Review of Systems ROS Narrative A ten point review of systems is negative except as noted above. PFSH PFSH Social History Smoking status: Current every day smoker Little interest or pleasure in doing things: not at all Feeling down, depressed, or hopeless: not at all Exam Narrative Exam Narrative: Nurses note and vital signs reviewed and patient is not hypoxic. General: The patient appears well and in no apparent distress. Patient is resting comfortably on cart. Skin: Warm, dry, no pallor noted. There is no rash noted. Head: Normocephalic, atraumatic Eye: Normal conjunctiva, no drainage Ears, Nose, Mouth, and Throat: oral mucosa is moist. Nares patent. Cardiovascular: Regular Rate and Rhythm Respiratory: Patient is in no distress, no accessory muscle use, lungs are clear to auscultation, no wheezing, rales or rhonchi Back: non-tender GI: Soft and nondistended. No masses. Tenderness in the region between the umbilicus and the epigastric area Musculoskeletal: The patient has no evidence of calf tenderness, no pitting edema, symmetrical pulses noted bilaterally Neurological: A&O, normal speech Psychiatric: Cooperative Constitutional Vital Signs, click to edit/add: Last Vital Signs Temp 97.8 F 02/08/25 13:06 Pulse 84 02/08/25 15:04 Resp 20 02/08/25 15:04 BP 176/102 H 02/08/25 13:38 Pulse Ox 97 02/08/25 15:04 O2 Del Method Room Air 02/08/25 15:04 Course Vital Signs Vital signs: Vital Signs Temperature 97.8 F 02/08/25 13:06 Pulse Rate 88 02/08/25 13:06 Respiratory Rate 20 02/08/25 13:06 Pulse Oximetry 100 02/08/25 13:06 Oxygen Delivery Method Room Air 02/08/25 13:06 Temperature 97.8 F 02/08/25 13:06 Pulse Rate 84 02/08/25 15:04 Respiratory Rate 20 02/08/25 15:04 Blood Pressure 176/102 H 02/08/25 13:38 Pulse Oximetry 97 02/08/25 15:04 Oxygen Delivery Method Room Air 02/08/25 15:04 Medical Decision Making MDM Narrative Medical decision making narrative: The patient reports this is her fifth emergency department visit for this issue. She had a negative [facility] on January 31, 8 days ago. Her laboratory analysis is negative. She has an appointment with the head banquet waiter/waitress in 2 days and she will keep that appointment. She was prescribed Levsin, Zofran, and Nexium. She is on Suboxone. Treatment diagnosis and follow-up were discussed with the patient. Differential Diagnosis Differential Diagnosis: Pancreatitis, colitis, diverticulitis, duodenitis, constipation Lab Data Lab results reviewed: Yes I reviewed the patient's lab results Labs: Lab Results 02/08/25 Range/Units 13:20 WBC 5.8 (4.0-11.0) 10^3/uL RBC 4.60 (4.20-5.40) 10^6/uL Hgb 11.1 L (12.0-16.0) g/dL Hct 36.7 (36.0-48.0) % MCV 79.8 L (81.0-99.0) fL MCH 24.1 L (26.7-34.0) pg MCHC 30.2 (29.9-35.2) g/dL RDW 18.0 H (11.0-15.0) % Plt Count 296 (150-450) 10^3/uL MPV 9.4 L (9.5-13.5) fL Neut % (Auto) 59.2 (43.0-75.0) % Lymph % (Auto) 27.9 (20.5-60.0) % [place] % (Auto) 8.1 (1.7-12.0) % Eos % (Auto) 3.6 (0.9-7.0) % Baso % (Auto) 0.7 (0.2-2.0) % Neut # (Auto) 3.4 (1.4-6.5) 10^3/uL Lymph # (Auto) 1.6 (1.2-3.8) 10^3/uL [place] # (Auto) 0.5 (0.3-0.8) 10^3/uL Eos # (Auto) 0.2 (0.0-0.7) 10^3/uL Baso # (Auto) 0.0 (0.0-0.1) 10^3/uL Abs Immat Gran (auto) 0.03 (0.00-0.03) 10^3/uL Imm/Tot Granulo (auto) 0.5 (0.0-0.5) % Sodium 141 (136-145) mmol/L Potassium 3.6 (3.5-5.1) mmol/L Chloride 102 (98-107) mmol/L Carbon Dioxide 28.4 (21.0-32.0) mmol/L Anion Gap 14.2 BUN 18.0 (7.0-18.0) mg/dL Creatinine 0.69 (0.55-1.02) mg/dL Est GFR ( Amer) >60 (>=60 mL/min/1.73m^2) Est GFR (Non-Af Amer) >60 (>=60 mL/min/1.73m^2) BUN/Creatinine Ratio 26.1 Glucose 119 H (74-106) mg/dL Calcium 9.1 (8.5-10.1) mg/dL Total Bilirubin 0.4 (0.2-1.0) mg/dL Direct Bilirubin 0.1 (0.0-0.2) mg/dL AST 20 (15-37) U/L ALT 46 (14-59) U/L Alkaline Phosphatase 75 (46-116) U/L Total Protein 7.2 (6.4-8.2) g/dL Albumin 3.4 (3.4-5.0) g/dL Globulin 3.8 g/dL Albumin/Globulin Ratio 0.9 Amylase 38 (25-115) U/L Lipase 44.0 (16.0-77.0) U/L Serum HCG, Qual Negative (NEGATIVE) Urine Color Lt. yellow (YELLOW) Urine Clarity Clear (CLEAR) Urine pH 6.0 (5.0-9.0) Ur Specific [place] 1.020 (1.005-1.025) Urine Protein Negative (NEG/TRACE) mg/dL Urine Glucose (UA) Negative (NEGATIVE) mg/dL Urine Ketones Negative (NEGATIVE) mg/dL Urine Occult Blood Negative (NEGATIVE) Urine Nitrite Negative (NEGATIVE) Urine Bilirubin Negative (NEGATIVE) Urine Urobilinogen 0.2 (0.2-1.0) EU/dL Ur Leukocyte Esterase Negative (NEGATIVE) Urine RBC 0-2 (0-2) #/HPF Urine WBC 0-2 A (NONE SEEN) #/HPF Ur Squamous Epith Cells Moderate A (NONE/RARE) #/LPF Urine Crystals None seen (None Seen) #/HPF Urine Bacteria Trace A (NONE SEEN) #/HPF Urine Casts None seen (NONE SEEN) #/LPF Urine Mucus Trace A (NONE SEEN) Discharge Plan Discharge Chief Complaint: Abdominal Pain Clinical Impression: Abdominal pain Patient Disposition: Home, Self-Care Time of Disposition Decision: 15:09 Condition: Good Mode of Transportation: Private Vehicle Prescriptions / Home Meds: New esomeprazole magnesium [Nexium] 20 mg capsule,delayed release(DR/EC) 20 mg PO DAILY Qty: 14 0RF hyoscyamine sulfate [Levsin] 0.125 mg tablet 0.125 mg PO Q8H PRN (Reason: dyspepsia) Qty: 20 0RF ondansetron 4 mg tablet,disintegrating 4 mg PO Q6H PRN (Reason: nausea and vomiting) Qty: 20 0RF No Action losartan 100 mg tablet 100 mg PO DAILY bumetanide 1 mg tablet 1 mg PO DAILY Print Language: Amharic Instructions: Abdominal Pain (ED) Additional Instructions: See your GI doctor at your appointment in 2 days. Referrals: Physician,Non-Staff, MD [Primary Care Provider] - 1 week
[2025-02-08 13:38] VITALS: BP 176/102
[2025-02-08 13:41] LABS: Basophils Percent Auto 0.7 % (0.2-2.0); Eosinophils Absolute Auto 0.2 10^3/uL (0.0-0.7); Eosinophils Percent Auto 3.6 % (0.9-7.0); Hematocrit 36.7 % (36.0-48.0); Hemoglobin 11.1 g/dL (12.0-16.0); Immature Granulocytes Abs Auto 0.03 10^3/uL (0.00-0.03); Immature Granulocytes Pct Auto 0.5 % (0.0-0.5); Lymphocytes Absolute Auto 1.6 10^3/uL (1.2-3.8); Lymphocytes Percent Auto 27.9 % (20.5-60.0); Mean Corpuscular HGB Conc 30.2 g/dL (29.9-35.2); Mean Corpuscular Hemoglobin 24.1 pg (26.7-34.0); Mean Corpuscular Volume 79.8 fL (81.0-99.0); Mean Platelet Volume 9.4 fL (9.5-13.5); Monocytes Absolute Auto 0.5 10^3/uL (0.3-0.8); Monocytes Percent Auto 8.1 % (1.7-12.0); Neutrophils Absolute Auto 3.4 10^3/uL (1.4-6.5); Neutrophils Percent Auto 59.2 % (43.0-75.0); Platelet Count 296 10^3/uL (150-450); White Blood Count 5.8 10^3/uL (4.0-11.0)
[2025-02-08 13:44] LABS: Bilirubin Urine NEGATIVE (NEGATIVE); Blood Urine NEGATIVE (NEGATIVE); Clarity Urine CLEAR (CLEAR); Color Urine LT. YELLOW (YELLOW); Glucose Urine UA NEGATIVE (NEGATIVE); Ketones Urine NEGATIVE (NEGATIVE); Leukocyte Esterase Urine NEGATIVE (NEGATIVE); Nitrite Urine NEGATIVE (NEGATIVE); Protein Urine NEGATIVE (NEG/TRACE); Urobilinogen Urine 0.2 EU/dL (0.2-1.0)
[2025-02-08 13:50] LABS: HCG Qualitative NEGATIVE (NEGATIVE); Internal Control Within Normal Limits
[2025-02-08 13:52] LABS: Bacteria Urine TRACE #/HPF (NONE SEEN); Cast Seen? NONE SEEN #/LPF (NONE SEEN); Crystals Seen? None Seen #/HPF (None Seen); Mucus Urine TRACE (NONE SEEN); RBC Urine 0-2 #/HPF (0-2); Squamous Epithelial Cell Urine MODERATE #/LPF (NONE/RARE); WBC Urine 0-2 #/HPF (NONE SEEN)
[2025-02-08 13:56] LABS: Alanine Aminotransferase 46 U/L (14-59); Albumin Globulin Ratio 0.9; Albumin Level 3.4 g/dL (3.4-5.0); Alkaline Phosphatase 75 U/L (46-116); Amylase 38 U/L (25-115); Anion Gap 14.2; Aspartate Amino Transferase 20 U/L (15-37); BUN Creatinine Ratio 26.1; Bilirubin Direct 0.1 mg/dL (0.0-0.2); Bilirubin Total 0.4 mg/dL (0.2-1.0); Calcium 9.1 mg/dL (8.5-10.1); Carbon Dioxide 28.4 mmol/L (21.0-32.0); Chloride 102 mmol/L (98-107); Estimated GFR (African America >60 (>=60 mL/min/1.73m^2); Estimated GFR (Non-African Ame >60 (>=60 mL/min/1.73m^2); Globulin 3.8 g/dL; Glucose 119 mg/dL (74-106); Potassium 3.6 mmol/L (3.5-5.1); Sodium 141 mmol/L (136-145); Total Protein 7.2 g/dL (6.4-8.2)
[2025-02-08] MEDS: ONDANSETRON PF 4 MG/2 ML VIAL IV (15:01)
[2025-02-08 15:04] VITALS: PULSE 84; O2SAT 97
== END 2025-02-08 15:25 | disposition home or self-care (01) ==
PROVIDERS: Emergency Provider Emergency Medicine
DX: R10.10 Upper abdominal pain, unspecified (principal); Z90.49 Acquired absence of other specified parts of digestive tract; F17.200 Nicotine dependence, unspecified, uncomplicated
CPT/HCPCS: 36415; 80048; 80076; 81001; 82150; 83690; 84703; 85025; 96374; 99285; J2405